=== PATIENT | male | born 1940 | race Caucasian/White ===

== ENCOUNTER 2024-11-17 10:50 | Emergency (ER) | payer MEDICARE, SELFPAY ==
--- OUTSIDE RECORDS SUMMARY | 2024-11-04 18:39 | XMS_ITS | Encounter Summary ---
Author Organization [employer] Address [id number] [address] [place] [address] Care Team Providers Care Equipment Maintenance Supervisor Name Role Phone Alden Harry DO Primary Care Provider + [phone] Reason for Referral * Misc (Routine) - Pending Review Specialty Diagnoses / Procedures Referred By Contac t Referred To Contact Procedures Discharge Follow-Up Discharge Follow-Up Gill Gao APRN-CNP [address] [place] [address] Phone: tel: fax: Referral ID Status Reason Start Date Expiration Date V isits Requested Visits Authorized [id number] Pending Review 11/11/2024 11/11/2025 1 1 * Misc (Routine) - Pending Review Specialty Diagnoses / Procedures Referred By Cosme marshall Referred To Contact Diagnoses Dehydration with hypernatremia Procedures Follow-up with primary care provider Gill Gao APRN-CNP [address] [facility] [place] [address] Phone: tel: fax: Referral ID Status Reason Start Date Expiration Date V isits Requested Visits Authorized [id number] Pending Review 11/11/2024 11/11/2025 1 1 * Consultation (Routine) - Pending Review Specialty Diagnoses / Procedures Referred By Cosme marshall Referred To Contact Diagnoses Goals of care, counseling/discussion Gill Gao APRN-CNP [address] [place] [address] Phone: tel: fax: Referral ID Status Reason Start Date Expiration Date Visits Requested Visits Authorized [id number] Pending Review Service Not Available In-House 11/09/2024 11/09/2025 1 1 Reason for Visit * Reason Comments Medical Screening * Auth/Cert Specialty Diagnoses / Procedures Referred By Cosme marshall Referred To Contact Diagnoses AMS (altered mental status) Dehydration with hypernatremia [facility] - Emergency [address] [place] [address] Phone: tel: fax: Referral ID Status Reason Start Date Expiration Date Visits Re quested Visits Authorized [id number] 1 1 Encounter Details Date Type Department Care Team (Latest Contact Info) Description 11/04/2024 6:39 PM EDT - 11/12/2024 1:29 AM EDT Hospital Encounter [facility] - Acute Care [address] [place] [id number] Sukhi Woods MD [address] [facility] [place] [address] Alison Khalil MD [address] [place] [address] Charlie Mireles MD [address] , [address] [phone] Dehydration with hypernatremia (Primary Dx); SUSAN (acute kidney injury); Goals of care, counseling/discussion ; Acute cystitis with hematuria; Stage 4 chronic kidney disease ([facility]) Discharge Disposition: [facility] Facility-Medicare Cert Social History Tobacco Use Types Packs/Day Years Used Date Smoking Tobacco: Former Cigarettes 1.5 25.7 2 000 - 1960 Smokeless Tobacco: Never Alcohol Use Standard Drinks/Week Comments Not Currently 0 (1 standard drink = 0.6 oz pur e alcohol) 2 beer per year [facility] Utilities Answer Date Recorded In the past 12 months has [employer], gas, oil, or water [employer] threatened to shut off services in your home? No 11/05/2024 Social Connection and Isolat ion Panel [NHANES] Answer Date Recorded In a typical week, how many times do you talk on the phone with family, friends, or neighbors? More than three times a week 05/11/2024 How often do you get togethe r with friends or relatives? Three times a week 05/11/2024 How often do you attend chur ch or moravian services? Never 05/11/2024 Do you belong to any clubs o r organizations such as confucianist groups, unions, fraternal or athletic groups, or school groups? No 05/11/2024 How often do you attend meet ings of the clubs or organizations you belong to? Never 05/11/2024 Are you , , di vorced, , never , or living with a partner? 05/11/2024 AUDIT-C Answer Date Recorded Q1: How often do you have a drink containing alc ohol? Monthly or less 09/23/2024 Q2: How many drinks containi ng alcohol do you have on a typical day when you are drinking? 1 or 2 09/23/2024 Q3: How often do you have si x or more drinks on one occasion? Never 09/23/2024 Overall Financial Resource Strain (CARDIA) Answe r Date Recorded How hard is it for you to pa y for the very basics like food, housing, medical care, and heating? Not hard at all 02/11/2023 PHQ-2 Answer Date Recorded Total Score 0 10/14/2024 [facility] [place] [employer] [facility] - Occupational Stress Questionnaire Answer Date Recorded Do you feel stress - tense, restless, nervous, or anxious, or unable to sleep at night because your mind is troubled all the time - these days? Not at all 02/11/2023 Exercise Vital Sign Answer Date Recorde d On average, how many days pe r week do you engage in moderate to strenuous exercise (like a brisk walk)? 0 days 05/11/2024 On average, how many minutes do you engage in exercise at this level? 0 min 05/11/2024 PRAPARE - Transportation Answer Date Re corded In the past 12 months, has l ack of transportation kept you from medical appointments or from getting medications? No 10/09 In the past 12 months, has l ack of transportation kept you from meetings, work, or from getting things needed for daily living? No 11/05/2024 Housing Instability Answer Date Recorde d Are you worried or concerned that in the next two months you may not have stable housing that you own, rent or stay in as a part of a household? No 11/05/2024 Childcare Answer Date Recorded Do problems getting child ca re make it difficult for you to work or study? No 02/11/2023 Employment Answer Date Recorded Do you need help finding a [facility] career center and/or a training program? No 02/11/2023 Hunger Screening Answer Date Recorded Within the past 12 months we worried whether our food would run out before we got money to buy more. Never True 11/05/2024 Within the past 12 months th e food we bought just didn't last and we didn't have money to get more. Never True 11/05/2024 Purpose - Life Answer Date Recorded I have a purpose and direction in my life. Stron gly Agree 02/11/2023 Sex and Gender Information Value Date Recorded Sex Assigned at Male 07/28/2024 10:17 PM EDT Legal Sex Male 11:51 AM EDT Gender Identity Male 07/28/2024 10:17 PM EDT Sexual Orientation Straight 07/28/2024 10 :17 PM EDT documented as of this encounter Last Filed Vital Signs Vital Sign Reading Time Taken Comments Blood Pressure 130/77 11/11/2024 11:50 PM EDT Pulse 95 11/11/2024 11:50 PM EDT Temperature 36.6 C (97.8 F) 11/11/2024 11:50 PM EDT Respiratory Rate 18 11/11/2024 11:5 0 PM EDT Oxygen Saturation 96% 11/11/2024 11: 50 PM EDT Inhaled Oxygen Concentration - - Weight 69.8 kg (153 lb 14.4 oz) 11/11/2024 6:19 AM EDT Height 182.9 cm (6') 11/05/2024 12:16 AM EDT Body Mass Index 20.87 11/05/2024 12:16 AM EDT documented in this encounter Functional Status documented as of this encounter Discharge Summaries * Charlie Mireles MD - 11/11/2024 12:12 PM EDT Images from the original note were not included. [facility] [address] [address] Hospital Medicine Discharge Summary Patient: Fili Saunders Date of : 1940 Room: Encounter date: 11/11/24 Hospital Day: 8 DATE OF ADMISSION: 11/04/2024 DATE OF DISCHARGE:11/11/2024 DISCHARGE DIAGNOSES Principal Problem: Acute deep vein thrombosis of calf, bilateral ([facility]) Active Problems: Gastroesophageal reflux disease Hyperlipidemia Acquired hypothyroidism Hypomagnesemia Severe protein-calorie malnutrition Primary hypertension Prostate cancer metastatic to bone ([facility]) Dehydration with hypernatremia AMS (altered mental status) Severe protein-calorie malnutrition Stage 4 chronic kidney disease ([facility] CONSULTANTS General surgery Urology PCP: Alden Harry, DO PROCEDURES none HOSPITAL COURSE SUMMARY Fili Saunders is a 84 y.o. male who presented with generalized weakness. According to EMS and family, patient had been bed-bound for approximately 4 weeks. They state for the last week he has not gotten up at all even to use the restroom. They stated he had also had a decrease in appetite and oral intake. Patient has refused to come to the Emergency Room until day of admission. Patientis cyanotic and extremities along with mottling. Chest and abdomen are sunken in. Patient is extremely cachectic. Patient is clinically profoundly dehydrated. His labs show that he is hypernatremic at 153.. BUN is 112 with a creatinine of 2.9. Imaging was largely unrevealing but did have a lot of chronic findings. The patient's primary problem is significant dehydration with hypernatremia and acute kidney injury. Free water deficit calculated at 2.9 L. Patient did receive 0.9 normal saline initially however for volume resuscitation as his extremities were mottled in his mentation was altered.After normal saline he was more alert and his peripheral color is much better. At that point, ER provider did start D5 water to help replace some of the free water deficit. Hospital course: Hypernatremia: Sodium normalized. received D5 solution continued. Low-sodium diet. GERD: Protonix. Hyperlipidemia: Continue home statin. CKD 3B: Creatinine improved- baseline of 1.7-1.9. Continue to monitor daily. Received D5 Hypothyroidism: Continue home Synthroid. Hypomagnesemia: Supplement. Monitor electrolytes daily replace per protocol. Severe protein calorie malnutrition: Nutrition consult. Failed nursing bedside swallow. Choked on pills. Speech therapy consult to see - diet modified. Hypertension: Normotensive. Continue home medications. Altered mental status: Improved since coming up from the emergency department. Back to baseline. Continue to monitor daily. Elevated D-dimer: Unable to get CTA chest due to kidney function. Perfusion scan shows intermediatestudy but no proof of large clot. Venous duplex bilateral lower extremities show bilateral calf muscle DVT. Switch heparin gtt to eliquis. Hematuria- heparin held, urology consulted- pt has OP cysto with left retrograde pyelogram ureteroscopy and biopsy, urine improved today, heparin switched to eliquis. Remained stable, no new hematuria. OP follow up. Tongue plaque: Chlorhexidine oral rinse b.i.d. swish and spit. Cellulitis: IV cefepime / IV Flagyl -switched to po zyvox d/t VRE noted in urine Constipation - check KUB- shows dilated bowels, may represent obstruction/ileus. General surgery consult placed. Enema's and softeners ordered, will need OP colonoscopy per general surgery recommendations. Pt refused EGD/peg tube. OP palliative referral placed. Pt instructed to follow up with PCP in one week. Instructed to seek medical attention if symptoms persist or worsen or if you develop chest pain or shortness of breath. Sepsis suspected, no-not clinically evident at this time. Discharge Day Progress Note 11/11/24 No overnight events and remains hemodynamically stable. Review of Systems Constitutional: Positive for activity change, appetite change and fatigue. Negative for chills, diaphoresis and fever. HENT: Positive for trouble swallowing. Negative for tinnitus. Eyes: Negative for visual disturbance. Respiratory: Negative for cough, chest tightness, shortness of breath and wheezing. Cardiovascular: Negative for chest pain, palpitations and leg swelling. Gastrointestinal: Negative for abdominal pain, diarrhea, nausea and vomiting. Genitourinary: Negative for difficulty urinating. Skin: Negative for rash. Neurological: Positive for weakness. Negative for dizziness, syncope, speech difficulty, light-headedness, numbness and headaches. Psychiatric/Behavioral: Negative for sleep disturbance. BP 90/67 Pulse 91 Temp 36.6 ??C (97.8 ??F) Resp 18 Ht 182.9 cm (6') Wt 69.8 kg (153 lb 14.4 oz) SpO2 95% BMI 20.87 kg/m?? Temp: [36.3 ??C (97.3 ??F)-36.6 ??C (97.8 ??F)] 36.6 ??C (97.8 ??F) Pulse: [84-95] 91 Resp: [18-20] 18 BP: (90-119)/(58-74) 90/67 SpO2: [94 %-100 %] 95 % O2 Device: None (Room air) O2 Flow Rate (L/min): [0 L/min] 0 L/min Intake/Output Summary (Last 24 hours) at 11/11/2024 1428 Last data filed at 11/11/2024 0619 Gross per 24 hour Intake 240 ml Output 700 ml Net -460 ml Physical Exam Vitals and nursing note reviewed. Constitutional: General: He is not in acute distress. Appearance: He is well-developed. He is ill-appearing. HENT: Head: Normocephalic. Right Ear: External ear normal. Left Ear: External ear normal. Nose: Nose normal. Eyes: Conjunctiva/sclera: Conjunctivae normal. Pupils: Pupils are equal, round, and reactive to light. Cardiovascular: Rate and Rhythm: Normal rate and regular rhythm. Heart sounds: Normal heart sounds. No murmur heard. Pulmonary: Effort: Pulmonary effort is normal. Breath sounds: Normal breath sounds. No wheezing. Abdominal: General: Bowel sounds are normal. Palpations: Abdomen is soft. There is no mass. Tenderness: There is no abdominal tenderness. Musculoskeletal: General: Normal range of motion. Cervical back: Normal range of motion. Lymphadenopathy: Cervical: No cervical adenopathy. Skin: General: Skin is warm and dry. Coloration: Skin is pale. Findings: No rash. Neurological: Mental Status: He is alert. He is disoriented. Cranial Nerves: No cranial nerve deficit. Motor: Weakness present. Coordination: Coordination normal. Gait: Gait abnormal. Psychiatric: Behavior: Behavior normal. Code Status: Full Code Labs Recent Results (from the past 48 hours) Anti XA unfractionated heparin Collection Time: 11/09/24 6:28 PM Result Value Ref Range ANTI XA UFH <0.04 (L) 0.30 - 0.70 IU/mL Hemoglobin and hematocrit, blood Collection Time: 11/09/24 6:28 PM Result Value Ref Range Hemoglobin 9.5 (L) 13 - 17 g/dL Hematocrit 29.6 (L) 39 - 50 % Anti XA unfractionated heparin Collection Time: 11/10/24 1:24 AM Result Value Ref Range ANTI XA UFH 0.41 0.30 - 0.70 IU/mL CBC auto differential Collection Time: 11/10/24 7:32 AM Result Value Ref Range WBC 10.5 4 - 11 x10E9/L RBC Count 3.74 (L) 4.1 - 5.7 X10E12/L Hemoglobin 9.9 (L) 13 - 17 g/dL Hematocrit 30.8 (L) 39 - 50 % MCV 82 80 - 100 fL MCH 26.6 (L) 27 - 34 pg MCHC 32.3 32 - 36 g/dL RDW 21.9 (H) 11.5 - 15 % Platelet Count 155 150 - 450 X10E9/L MPV 10.8 7 - 12 fL Metamyelocytes % 1 % Bands % 1 % Neutrophils % 74 % Lymphocytes % 2 % Monocytes % 22 % Eosinophils % 1 % Basophils % 1 % Neutrophils Absolute (M) 7.9 (H) 1.5 - 6.6 10*3/uL Lymphocytes Absolute 0.2 (L) 1.0 - 3.5 10*3/uL Monocytes Absolute 2.3 (H) 0.0 - 0.9 10*3/uL Eosinophils Absolute 0.1 0.0 - 0.4 10*3/uL Basophils Absolute 0.1 0.0 - 0.2 10*3/uL Hypochromia 1+ Acanthocytes 1+ Differential Type MANUAL DIFFERENTIAL Comprehensive metabolic panel Collection Time: 11/10/24 7:32 AM Result Value Ref Range SODIUM 141 134 - 146 mmol/L POTASSIUM 3.5 3.5 - 5.0 mmol/L CHLORIDE 113 (H) 98 - 109 mmol/L CARBON DIOXIDE 21 (L) 22 - 32 mmol/L ANION GAP 7 5 - 15 mmol/L BLOOD UREA NITROGEN 50 (H) 5 - 27 mg/dL CREATININE 1.63 (H) 0.70 - 1.20 mg/dL GLUCOSE 108 (H) 65 - 99 mg/dL CALCIUM 8.0 (L) 8.5 - 10.5 mg/dL TOTAL PROTEIN 6.7 6.0 - 8.0 g/dL ALBUMIN 2.4 (L) 3.2 - 5.3 g/dL ALKALINE PHOSPHATASE 73 39 - 130 U/L AST 12 <=41 U/L ALT 5 <=40 U/L BILIRUBIN,TOTAL 1.0 0.3 - 1.2 mg/dL EGFR Non-Race Dependent 42 (L) >=60 ml/min/1.73sq.m Magnesium Collection Time: 11/10/24 7:32 AM Result Value Ref Range MAGNESIUM 2.0 1.8 - 2.6 mg/dL Anti XA unfractionated heparin Collection Time: 11/10/24 7:32 AM Result Value Ref Range ANTI XA UFH 0.25 (L) 0.30 - 0.70 IU/mL Hemoglobin and hematocrit, blood Collection Time: 11/10/24 12:15 PM Result Value Ref Range Hemoglobin 9.9 (L) 13 - 17 g/dL Hematocrit 30.9 (L) 39 - 50 % Extra Tubes Collection Time: 11/10/24 12:16 PM Narrative The following orders were created for panel order Extra Tubes. Procedure Abnormality Status --------- ------ [facility] TOP[[id number]] Final result Please view results for these tests on the individual orders. PST TOP Collection Time: 11/10/24 12:16 PM Result Value Ref Range Extra Tube Auto Resulted Hemoglobin and hematocrit, blood Collection Time: 11/10/24 9:19 PM Result Value Ref Range Hemoglobin 11.1 (L) 13 - 17 g/dL Hematocrit 34.9 (L) 39 - 50 % Comprehensive metabolic panel Collection Time: 11/11/24 4:49 AM Result Value Ref Range SODIUM 142 134 - 146 mmol/L POTASSIUM 3.9 3.5 - 5.0 mmol/L CHLORIDE 112 (H) 98 - 109 mmol/L CARBON DIOXIDE 19 (L) 22 - 32 mmol/L ANION GAP 11 5 - 15 mmol/L BLOOD UREA NITROGEN 50 (H) 5 - 27 mg/dL CREATININE 1.72 (H) 0.70 - 1.20 mg/dL GLUCOSE 100 (H) 65 - 99 mg/dL CALCIUM 7.9 (L) 8.5 - 10.5 mg/dL TOTAL PROTEIN 6.6 6.0 - 8.0 g/dL ALBUMIN 2.4 (L) 3.2 - 5.3 g/dL ALKALINE PHOSPHATASE 77 39 - 130 U/L AST 15 <=41 U/L ALT 7 <=40 U/L BILIRUBIN,TOTAL 1.4 (H) 0.3 - 1.2 mg/dL EGFR Non-Race Dependent 39 (L) >=60 ml/min/1.73sq.m Magnesium Collection Time: 11/11/24 4:49 AM Result Value Ref Range MAGNESIUM 2.1 1.8 - 2.6 mg/dL CBC auto differential Collection Time: 11/11/24 6:34 AM Result Value Ref Range WBC 13.6 (H) 4 - 11 x10E9/L RBC Count 3.88 (L) 4.1 - 5.7 X10E12/L Hemoglobin 10.2 (L) 13 - 17 g/dL Hematocrit 31.5 (L) 39 - 50 % MCV 81 80 - 100 fL MCH 26.3 (L) 27 - 34 pg MCHC 32.3 32 - 36 g/dL RDW 22.1 (H) 11.5 - 15 % Platelet Count 144 (L) 150 - 450 X10E9/L MPV 9.9 7 - 12 fL Neutrophils % 66.5 % Lymphocytes % 5.3 % Monocytes % 27.5 % Eosinophils % 0.1 % Basophils % 0.6 % Neutrophils Absolute (A) 9.1 (H) 1.5 - 6.6 10*3/uL Lymphocytes Absolute 0.7 (L) 1.0 - 3.5 10*3/uL Monocytes Absolute 3.7 (H) 0.0 - 0.9 10*3/uL Eosinophils Absolute 0.0 0.0 - 0.4 10*3/uL Basophils Absolute 0.1 0.0 - 0.2 10*3/uL Differential Type AUTOMATED DIFFERENTIAL Hemoglobin and hematocrit, blood Collection Time: 11/11/24 12:59 PM Result Value Ref Range Hemoglobin 9.4 (L) 13 - 17 g/dL Hematocrit 29.5 (L) 39 - 50 % Troponin I, High Sensitivity Collection Time: 11/11/24 1:57 PM Narrative The following orders were created for panel order Troponin I, High Sensitivity. Procedure Abnormality Status --------- ------ Troponin I, High Sensiti...[[id number]] In process Troponin I, High Sensiti...[[id number]] Please view results for these tests on the individual orders. Radiology X-ray abdomen ap 1 view Result Date: 11/10/2024 Narrative: EXAM: XR ABDOMEN AP 1 VW CLINICAL INFORMATION: illeus/obstruction. COMPARISON: None. FINDINGS: There remains diffuse air-filled dilated bowel throughout the abdomen, which may represent obstruction or ileus. There is no evidence of pneumatosis or free air. IMPRESSION: Persistent air-filled dilated bowel loops, which may represent obstruction or ileus. There is no convincing evidence ofpneumatosis or free air. Finalized by Luke Stokes MD on 11/10/2024 4:31 PM Fluoroscopy swallow motility function Result Date: 11/09/2024 Narrative: STUDY: Video fluoroscopic swallow study CLINICAL HISTORY: Oral pharyngeal dysphagia, difficulty swallowing COMPARISON: None. FINDINGS: Video fluoroscopic swallow study was performed in conjunction with members of speech pathology. Barium contrast materials of multiple consistencies were a dministered. Fluoroscopic reference air kerma was 4.8 mGy. Multiple video fluoroscopic images. Zerofluoroscopic spot films. No aspiration or laryngeal penetration was seen with any of the consistencies. Correlate with dedicated speech pathology report for additional details and recommendations. IMPRESSION: 1. As above Finalized by Uziar Carroll MD on 11/09/2024 1:40 PM X-ray abdomen ap 1 view Result Date: 11/08/2024 Narrative: EXAM: XR ABDOMEN AP 1 VW CLINICAL INFORMATION: Nausea, constipation. COMPARISON: CT dated 11/04/2024 FINDINGS: There are air-filled dilated loops of bowel, which may represent obstruction or ileus. There is no evidence of pneumatosis or free air. There is no convincing radiographically evident nephrolithiasis. IMPRESSION: Air-filled dilated bowel, which may represent obstruction or ileus. Finalized by Luke Stokes MD on 11/08/2024 1:14 PM Vas venous duplex lwr bilateral Result Date: 11/05/2024 Narrative: Right: Portable lower extremity deep vein thrombosis (DVT) exam performed. Dilated non compressible deep calf muscle vein with hypoechoic intraluminal content and absent spectral Doppler signals. Remaining evaluated deep veins are compressible. Evaulation of supeficial veins was not performed. Left: Portable lower extremity deep vein thrombosis (DVT) exam performed. Non dilated non compressible deep calf muscle vein with hypoechoic intraluminal content and absent spectral Doppler signals. Remaining evaluated deep veins are compressible. Evaulation of supeficial veins was not performed. General: In- patient, bedside examination. Conclusions: BILATERAL:ACUTE deep calf muscle vein thrombosis (DVT). The remainder of the deep veins show no evidence of thrombus NM ventiliation imaging perfusion lung scan Result Date: 11/05/2024 Narrative: Clinical history:Elevated d-dimer and shortness of breath Radioisotope: 32.0 microcuriesDTPA aerosol in nebulizer for the ventilation 5.0 millicuries technetium 99 MAA for the perfusion Findings: Comparison chest radiograph CT chest 10/27/2024 Patchy distribution of isotope on the ventilatory phase of the exam. This is consistent with advanced emphysematous change. There are small peripheral areas of the perfusion deficits this probably secondary to advanced COPD. However tiny embolidifficult to exclude. Impression: By criteria this is probably indeterminate. However there are no large segmental or subsegmental perfusion defects. If symptoms persist consider dedicated CTA chest.Patient cannot have contrast consider bilateral Doppler leg studies Finalized by Jose Saunders MD on 11/05/2024 10:[address] abdomen and pelvis without contrast Result Date: 11/04/2024 Narrative: CT ABDOMEN AND PELVIS WO CONT: 11/04/2024 PROVIDED HISTORY: * 84 years old Male * weakness COMPARISON: 09/26/2024 TECHNIQUE: 1. Multiple axial images of the abdomen and pelvis were obtained.No intravenous contrast was administered. 2. All CT scans at this facility use dose modulation, iterative reconstruction, and/or weight based dosing when appropriate to reduce radiation dose to as low as reasonably achievable. FINDINGS: The lack of intravenous contrast limits evaluation of the solid abdominal organs. Motion degraded examination. LOWER THORAX: Please refer to separately dictated CT chest for intrathoracic findings. ABDOMEN/PELVIS: No acute process of the liver, spleen, adrenals,pancreas (fatty infiltration). Nondistended gallbladder without radiopaque stones. No abnormal biliary tree caliber. Asymmetrically enlarged and heterogenous appearance of the left kidney, similar toprior. Extensive left perirenal fat infiltration. Asymmetrically increased caliber of the left ureter with questionable soft tissue thickening extending to the mid/distal ureter prior to the ureterovesical junction, increased from prior. Asymmetrically decreased caliber of the left renal vein. Right kidney with scattered nonobstructing calculi in multifocal parenchymal contour abnormalities as well as renal cortical cysts, similar to more completely evaluated on prior CT urogram. No evidence ofright hydroureteronephrosis. Layering calculi along the right ureteral orifice. Urinary bladder with asymmetric bowel wall thickening. Enlarged prostate with scattered calcifications. Rectal fecalithmeasuring up to 7.8 cm with mild perirectal inflammatory changes. Colonic diverticulosis without evidence of acute diverticulitis. Remainder the bowel without evidence of abnormal caliber. Terminal ileum within normal limits for technique. Candidate appendix without abnormal dilation. 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 No free air, free fluid. Increased overall number of upper abdominal and periaortic lymph nodes, though not definitively abnormal by CT size criteria/morphology. Multilevel degenerative changes of the spine. Degenerative changes of the hips, symphysis pubis. No suspicious osseus lesions. IMPRESSION: 1. Heterogenous appearance of the enlarged left kidney with asymmetric soft tissue enlargement of the left ureter and questionably left renal vein, progressed from prior, as described. Differential includes infectious/inflammatory process, with underlyi ng neoplasm not excluded by noncontrast technique. 2. Asymmetric urinary bladder wall thickening with prostatomegaly, possibly sequelae of chronic outlet obstruction, though underlying neoplastic process not excluded. 3. 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 2 year follow-up CTA/MRA may be of diagnostic value. 4. Remainder of chronic findings, as described. Marlon Hall,et al. Managing Incidental Findings on Abdominal and Pelvic CT and MRI, Part 2: White Paper of the ACR Incidental Findings Committee II on Vascular Findings. J Am Cherie Radiol 2013;10:789-794. Finalized by Justin Hawthorne MD on 11/04/2024 9:[address] chest without contrast Result Date: 11/04/2024 Narrative: EXAM: CT CHEST WITHOUT CONTRAST CLINICAL INFORMATION: weakness. TECHNIQUE: CT chest was performed utilizing 5 mm axial reconstructions without contrast. Coronal and sagittal reformatted images were obtained and reviewed. Automated exposure control was utilized. Computer aided detection for pulmonary nodules was performed utilizing [employer] software. COMPARISON: CT dated 07/11/2024, single view chest dated 11/04/2024 FINDINGS: There are changes of centrilobular emphysema with chronic scarring in both lungs. Stable chronic benign middle lobe nodule. There is also a benign calcified middle lobe granuloma. There are no focal consolidations. There are no pleural or pericardial effusions. There are no enlarged or pathologic-appearing thoracic lymph nodes. There scattered atherosclerotic calcifications throughout a normal diameter thoracic aorta. There are mild coronary artery calcifications. Again seen are right diaphragmatic calcified pleural plaques, most commonly seen in the setting of previous asbestos exposure. IMPRESSION: 1. Redemonstration of centrilobular emphysema with chronic scarring in both lungs and chronic benign nodules. There is no convincing evidence for superimposed acute cardiopulmonary disease. 2. Chronic and incidental CT findings, as above. 3. Please seeseparate dictation of the dedicated CT of the abdomen and pelvis. All CT scans at this facility usedose modulation, iterative reconstruction, and/or weight based dosing when appropriate to reduce radiation dose to as low as reasonably achievable. Finalized by Luke Stokes MD on 11/04/2024 9:40 PM X-ray chest 1 view Result Date: 11/04/2024 Narrative: HISTORY: An 84-year-old male with a history of the shortness of breath. EXAMINATION: CHEST: Portable upright AP view COMPARISON: Comparison is made with the chest radiograph of the 09/22/2024. FINDINGS: Both lungs are hyperinflated with evidence of emphysema and COPD. Chronic changes are seen in the left mid lung field. No evidence of pneumonic infiltrates or pleural effusions. No pneumothorax is identified. The cardiac silhouette is within normal limits. The trachea is in midline. The mediastinum is otherwise unremarkable. The hemidiaphragms are normal in position. The bony rib cage is intact. IMPRESSION: * Severe emphysema and COPD and chronic changes in the left mid lung field.* No evidence of pulmonary infiltrate or acute pulmonary pathology or significant interval change. Finalized by Mario Moran MD on 11/04/2024 6:59 PM DISCHARGE INSTRUCTION Disposition: nursing home facility Condition: Stable Activity: activity as tolerated Diet: Adult diet Level 6 Soft and Bite Sized diet Adult nutrition supplements Follow up: Alden Harry DO within 7-14 days. Urology Palliative care Labs/Imaging/Pathology: cbc 1 week Discharge Medications: Medication List PAUSE taking these medications Instructions Last Dose Given Next Dose Due mirtazapine 15 mg tablet Wait to take this until: November 18, 2024 Commonly known as: REMERON Take 1 tablet (15 mg total) by mouth nightly. traZODone 50 mg tablet Wait to take this until: November 18, 2024 Commonly known as: DESYREL Take 1 tablet (50 mg total) by mouth nightly as needed for sleep. START taking these medications Instructions Last Dose Given Next Dose Due apixaban 5 mg tablet Commonly known as: ELIQUIS Start taking on: November 11, 2024 Take 2 tablets (10 mg total) by mouth 2 (two) times a day for 6 days, THEN 1 tablet (5 mg total) 2 (two) times a day for 90 days. linezolid 600 mg tablet Commonly known as: ZYVOX Take 1 tablet (600 mg total) by mouth every 12 (twelve) hours for 10 days. CONTINUE taking these medications Instructions Last Dose Given Next Dose Due meclizine 12.5 mg tablet Commonly known as: ANTIVERT Take 1 tablet (12.5 mg total) by mouth 3 (three) times a day as needed for dizziness. midodrine 10 mg tablet Commonly known as: PROAMATINE Take 1 tablet (10 mg total) by mouth in the morning and at bedtime. ASK your doctor about these medications Instructions Last Dose Given Next Dose Due albuterol 2.5 mg /3 mL (0.083 %) nebulizer solution Commonly known as: PROVENTIL,VENTOLIN USE 1 VIAL VIA NEBULIZER EVERY 8 HOURS NEEDED FOR WHEEZING nitroglycerin 0.4 MG SL tablet Commonly known as: NITROSTAT DISSOLVE 1 TAB UNDER TONGUE FOR CHEST PAIN - IF PAIN REMAINS AFTER 5 MIN, CALL 911 AND REPEAT DOSE.MAX 3 TABS IN 15 MINUTES Where to Get Your Medications These medications were sent to [facility] [id number] [facility] [address] [place] [id number] apixaban 5 mg tablet linezolid 600 mg tablet >30 minutes were spent on discharging this patient. DHEERAJ Hughes 11/11/2024 2:28 PM [facility] Internal Medicine 7AM-7PM & 7PM-7AM: EpicChat or page through On-Call Finder. DHEERAJ Hughes 11/11/24 1414 Physician Attestation I, Charlie Mireles MD, personally performed a face to face diagnostic evaluation on this patient. I have reviewed the note authored by the advance practice provider including history, review of systems,physical examination,medical decision making and agree with the assessment and plan as written. I have seen and evaluated the patient, I have repeated the hsah portions of the physical exam and concur with the MYKEL findings. I have reviewed all laboratory findings and imaging reports/films. I agree with the plan as noted. Patient with metastatic prostate cancer severe protein calorie malnutrition, CKD 4 was admitted with DVT.Patient was started on IV heparin drip. Patient was started on IV antibiotics for acute cystitis and cellulitis forehead.General surgery was consulted for PEG tube placement patient refused PEG tube for nutrition. Code status discussed with patient. Palliative consult as outpatient. Patient developed hematuria during hospital stay urology services were consulted IV heparin drip was held patient's hemoglobin remained stable during hospital stay hematuria resolved patient was started on Eliquis for DVT. Patient is being discharged in stable condition. 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 Follow up with Urology as outpatient Palliative care consult as outpatient for goal of care CBC CMP in 1 week documented in this encounter Discharge Instructions * Attachments The following attachments cannot be sent through Care Everywhere. * Urinary tract infection ??? Discharge instructions ([place]) * Dehydration in adults ??? ED discharge instructions ([place]) * Deep vein thrombosis ??? Discharge instructions ([place]) documented in this encounter Medications at Time of Discharge albuterol (PROVENTIL,VENTOL IN) 2.5 mg /3 mL (0.083 %) nebulizer solutionIndicatio ns:Panlobular emphysema (CMS-HCC) USE 1 VIAL VIA NEBULIZER EVERY 8 HOURS NEEDED FOR WHEEZING 300 mL 9 04/06/2024 apixaban (ELIQUIS) 5 mg tablet Take 2 tablets (10 mg total) by mouth 2 (two) times a day for 6 days, THEN 1 tablet (5 mg total) 2 (two) times a day for 90 days. 204 tablet 11/11/2024 5 linezolid (ZYVOX) 600 mg tablet Take 1 tablet (600 mg total) by mouth every 12 (twelve) hours for 10 days. 20 tablet 11/11/2024 5 meclizine (ANTIVERT) 12.5 mg tablet Take 1 tablet (12.5 mg total) by mouth 3 (three) times a day as needed for dizziness. 90 tablet 1 07/23/2024 midodrine (PROAMATINE) 10 mg tabletIndications :Orthostatic hypotension Take 1 tablet (10 mg total) by mouth in the morning and at bedtime. 60 tablet 1 10/13/2024 mirtazapine (REMERON) 15 mg tablet Take 1 tablet (15 mg total) by mouth nightly. 30 tablet 1 10/14/2024 nitroglycerin (NITROSTAT) 0.4 MG SL tablet DISSOLVE 1 TAB UNDER TONGUE FOR CHEST PAIN - IF PAIN REMAINS AFTER 5 MIN, CALL 911 AND REPEAT DOSE. MAX 3 TABS IN 15 MINUTES 25 tablet 08/05/2024 traZODone (DESYREL) 50 mg tablet Take 1 tablet (50 mg total) by mouth nightly. 30 tablet 11/18/2024 documented as of this encounter Progress Notes * Oscar Perales, DO - 11/11/2024 10:41 AM EDT Daily Progress Note NAME: Fili Saunders : 1940 Principal Problem: Acute deep vein thrombosis of calf, bilateral (CMS-HCC) Active Problems: Gastroesophageal reflux disease Hyperlipidemia Acquired hypothyroidism Hypomagnesemia Severe protein-calorie malnutrition Primary hypertension Dehydration with hypernatremia AMS (altered mental status) Severe protein-calorie malnutrition Stage 4 chronic kidney disease (CMS-HCC) LOS: 7 days Subjective Patient resting comfortably and just fell asleep according to his at the bedside. He does not want a PEG tube for nutritional purposes. He has lost a significant amount of weight. He said he weighed over 200 lb in his now down to 130 lb. He does not want to eat or drink. She does realize that without feeding tube he will from malnutrition. He does not want a PEG tube. He refused to have small bowel series yesterday with nursing. He is having multiple bowel movements per nurse'snotes. Vital signs in last 24 hours: Temp: [36.4 ??C (97.6 ??F)-36.6 ??C (97.8 ??F)] 36.6 ??C (97.8 ??F) Pulse: [64-95] 89 Resp: [17-20] 18 BP: (107-128)/(58-73) 119/70 SpO2: [94 %-97 %] 97 % O2 Device: None (Room air) O2 Flow Rate (L/min): [0 L/min] 0 L/min Intake/Output last 3 shifts: I/O last 3 completed shifts: In: 360 [P.O.:360] Out: 1650 [Urine:1650] Intake/Output this shift: No intake/output data recorded. Physical Exam: Constitutional: He is oriented to person, place, and time. Vital signs are normal. He appears well-developed and malnourished. Neurological: Resting nicely. Skin: Skin is warm, dry and intact. LABS Results: Lab Results Component Value Date WBC 13.6 (H) 11/11/2024 HGB 10.2 (L) 11/11/2024 HCT 31.5 (L) 11/11/2024 MCV 81 11/11/2024 PLT 144 (L) 11/11/2024 Lab Results Component Value Date GLU 100 (H) 11/11/2024 CALCIUM 7.9 (L) 11/11/2024 SODIUM 142 11/11/2024 K 3.9 11/11/2024 CO2 19 (L) 11/11/2024 BUN 50 (H) 11/11/2024 CREATININE 1.72 (H) 11/11/2024 Impression: 1. Severe malnutrition 2. No evidence of bowel obstruction since he is having multiple bowel movements and no more nausea or vomiting. Plan: We will sign off unless patient wants PEG tube. - Oscar Perales DO 11/11/24 10:42 AM * ANDRÉS Webb - 11/11/2024 10:15 AM EDT NUTRITION ADULT FOLLOW- UP Nutrition Assessment: Pt consuming minimal PO intakes and supplements at this time Noted hypoactive bowel sounds on 11/10/24 with loss of appetite, Dr. Perales consulted RECOMMENDATIONS: Suggest enteral tube feeding for senior care nutritional care however pt and family have declined at this time. Per Speech recommendations Level 6 Soft and Bite size 0 with thin liquids, on 11/10/24 pt refused speech therapy visit Physical Review: Wound: From RN flow sheet assessment Wound 10/06/24 1 Laceration Face Left-State of Healing: Other (Comment) (scabbed) Wound 10/06/24 1 Laceration Face Left-Site Assessment: Clean, Dry, Intact Wound 11/05/24 1 Abrasion Shoulder Anterior;Left-Site Assessment: Unable to assess Gastrointestinal: From RN flow sheet assessment Abdomen Assessment: Flat, Nondistended Last BM Date: 11/10/24 Passing Flatus: Yes RUQ Bowel Sounds: Hypoactive LUQ Bowel Sounds: Hypoactive RLQ Bowel Sounds: Hypoactive LLQ Bowel Sounds: Hypoactive GI Symptoms: Loss of appetite Relieved by: Antiemetic Edema: From RN flow sheet assessment Labs: Results from last 3 days Lab Units 11/11/2444811/10/24 0732 11/09/24 0605 SODIUM mmol/L 142 141 142 POTASSIUM mmol/L 3.9 3.5 3.5 CHLORIDE mmol/L 112* 113* 113* CO2 mmol/L 19* 21* 20* BUN mg/dL 50* 50* 59* CREATININE mg/dL 1.72* 1.63* 1.76* CALCIUM mg/dL 7.9* 8.0* 7.8* ALK PHOS U/L 77 73 69 ALT U/L 7 5 8 AST U/L 15 12 13 Results from last 7 days Lab Units 11/11/24 04411/10/24 0732 11/09/24 0605 11/08/24 1702 11/08/24 0434 11/07/24 0516 11/06/24 0531 GLUCOSE mg/dL 100* 108* 125* 120* 102* 127* 120* Results from last 7 days Lab Units 11/11/24 0634 11/10/24 2119 11/10/24 1215 11/10/24 0732 11/09/24 1828 11/09/24 1330 11/09/24 0605 WBC x10E9/L 13.6* -- -- 10.5 -- -- 9.6 HEMOGLOBIN g/dL 10.2* 11.1* 9.9* 9.9* < > 10.1* 9.4* HEMATOCRIT % 31.5* 34.9* 30.9* 30.8* < > 31.3* 28.7* PLATELETS X10E9/L 144* -- -- 155 -- 118* 117* < > = values in this interval not displayed. Results from last 3 days Lab Units 11/11/2444811/10/24 0732 11/09/24 1330 MAGNESIUM mg/dL 2.1 2.0 2.2 Pertinent Nutrition-related medications/parenteral: Current Facility-Administered Medications Medication Dose Route Frequency Provider Last Rate Last Admin alum-mag hydroxide-simeth (MAALOX) 200-200-20 mg/5 mL suspension 30 mL 30 mL oral [facility] DHEERAJ Bray apixaban (ELIQUIS) tablet 10 mg 10 mg oral BID DHEERAJ Hughes 10 mg at 11/11/24 0922 Followed by [START ON 11/17/2024] apixaban (ELIQUIS) tablet 5 mg 5 mg oral BID DHEERAJ Hughes barium sulfate (VARIBAR HONEY) 40 % (w/v) 29% (w/w) suspension 60 mL 60 mL oral Once in imaging Charlie Mireles MD barium sulfate (VARIBAR NECTAR) 40 % (w/v) suspension 10 mL 10 mL oral Once in imaging Charlie Mireles MD barium sulfate (VARIBAR THIN HONEY) 40 %(w/v), 29% (w/w)(1500 CPS) suspension 20 mL 20 mL oral Oncein imaging Charlie Mireles MD CEPHalexin (KEFLEX) capsule 500 mg 500 mg oral Q8H CHANDLER DHEERAJ Hughes 500 mg at 11/11/24 0621 chlorhexidine (PERIDEX) 0.12 % solution 15 mL 15 mL mouth/throat BID DHEERAJ Richards 15 mLat 11/11/24 0922 ipratropium-albuteroL (DUONEB) 0.5 mg-3 mg(2.5 mg base)/3 mL nebulizer solution 3 mL 3 mL nebulization Q6H PRN Alison Khalil MD magnesium sulfate IVPB 2000 mg/50 mL in iso-osmotic water (40 mg/mL premix) 2,000 mg intravenous PRN DHEERAJ Bray Stopped at 11/09/24 1043 magnesium sulfate IVPB 4000 mg/100 mL in iso-osmotic water (40 mg/mL premix) 4,000 mg intravenous PRN DHEERAJ Bray meclizine (ANTIVERT) tablet 12.5 mg 12.5 mg oral TID PRN DHEERAJ Richards midodrine (PROAMATINE) tablet 10 mg 10 mg oral TID DHEERAJ Richards 10 mg at 11/11/24 0621 mirtazapine (REMERON) tablet 15 mg 15 mg oral Nightly Rommel D Krotzer, WEEKEND RECEPTIONIST[employer]BORDER GUARD 15 mg at 11/10/24 2207 ondansetron (PF) (ZOFRAN) injection 4 mg 4 mg intravenous Q4H PRN Brittany Xena, WEEKEND RECEPTIONIST-BORDER GUARD 4 mg at11/10/24 0234 polyethylene glycol (GLYCOLAX) packet 17 g 17 g oral Daily PRN Ocsar Perales, potassium chloride (K-TAB,KLOR-CON) CR tablet 30-40 mEq 30-40 mEq oral PRN Brittany Xena, WEEKEND RECEPTIONIST[employer]BORDER GUARD Or potassium chloride (KAYCIEL) 20 mEq/15 mL solution 30-40 mEq 30-40 mEq oral PRN Brittany Xena, WEEKEND RECEPTIONIST-BORDER GUARD Or potassium chloride IVPB 10 mEq/100 mL in water (0.1 mEq/mL premix) 10 mEq intravenous PRN Brittany Xena, WEEKEND RECEPTIONIST-BORDER GUARD sennosides-docusate sodium (SENOKOT-S) 8.6-50 mg 1 tablet 1 tablet oral Q12H PRN Brittany Xena, WEEKEND RECEPTIONIST-BORDER GUARD sodium chloride 0.9 % flush 3 mL 3 mL intravenous PRN Brittany Xena, WEEKEND RECEPTIONIST-BORDER GUARD sodium chloride 0.9 % flush 3 mL 3 mL intravenous Q12H CHANDLER Brittany [place], WEEKEND RECEPTIONIST-BORDER GUARD 3 mL at 11/11/24 0922 traZODone (DESYREL) tablet 50 mg 50 mg oral Nightly PRN Rommel D Krotzer, WEEKEND RECEPTIONIST-BORDER GUARD 50 mg at 11/10/24 2211 [place] Body Weight (80.4 kg) used to estimate nutrition needs Comparative Standards: Estimated Energy Needs: 6833-1113 kcals daily. Method and weight used: 25-30 kcal/kg Act (78.3 kg) Estimated Protein Needs: 94-157 grams daily. Method and weight used: 1.2-2 g protein/kg Act (78.3 kg) Estimated Fluid Needs: 1161-7453 ml daily. Method weight used: 25-30 ml/kg Act (78.3 kg) Comments: general needs. Malnutrition Status: Malnutrition Present: Yes, Severe. Previously identified on 07/29/24, see RD note. NUTRITION DIAGNOSIS: Intake Diagnosis: Acute disease or injury related malnutrition (NI 5.2.3) Ongoing Anthropometrics: Ht Readings from Last 1 Encounters: 11/05/24 182.9 cm (6') Wt Readings from Last 3 Encounters: 11/11/24 69.8 kg (153 lb 14.4 oz) 10/14/24 71.5 kg (157 lb 9.6 oz) 10/13/24 72.1 kg (159 lb) Diet/ Nutrition Order Review: Dietary Orders (From admission, onward) Start Ordered 11/09/24 1511 Adult diet Level 6 Soft and Bite Sized diet Diet effective now Comments: Thin liquids, small sips Compensatory Strategies: Small sips/bites, One sip/bite at a time, Double swallow Supervision/Positioning: Patient at 90 degress for all PO intake (including medication), Patient toremain upright 15 minutes after meals Medications: In applesauce/puree Question: Diet Type: Answer: Level 6 Soft and Bite Sized diet 11/09/24 1512 11/05/24 1300 Adult nutrition supplements Continuous Question Answer Comment Diet Type or Consistency: Regular Texture Select Supplement: Wound Healing Supplement Frequency: BID 11/05/24 1259 11/05/24 1258 Adult nutrition supplements Continuous Question Answer Comment Diet Type or Consistency: Regular Texture Select Supplement: Standard House Supplement 8 oz Supplement Frequency: TID 11/05/24 1257 Diet Intakes: [] 75-100% [] 50-75% [] 25-50% [x] <25% [] NPO [] Unable to assess Oral Supplemental Intake/Acceptance: [] 75-100% [] 50-75% [] 25-50% [x] <25% [] NPO [] Unable to assess NUTRITION INTERVENTIONS: Coordination of nutrition care: spoke with RN, Supplements (medical food, vitamin or mineral): will change supplements to Magic Cup Tid will provide 290 kcal/10 g protein per serving. NUTRITION GOAL: Patient to meet calorie and protein needs NUTRITION MONITORING: Will monitor PO intakes, supplement acceptance, skin integrity, Weights, Nutrition Related Labs, POC & Follow. NUTRITION EVALUATION: [] Progressing toward goal [] Not progressing [x] Progress toward goal declining [] Goal achieved Geni Cardona RD.,LD. Clinical Dietitian [facility] [phone] 11/11/24 10:15 AM * Debbie Tiwari RN - 11/10/2024 3:55 PM EDT Patient took one drink of gastrograffin, and refused to drink anymore. Notified Dr Perales. Will cancel small bowel series since patient refused * Oscar Perales, - 11/10/2024 2:46 PM EDT Daily Progress Note NAME: Fili Saunders : 1940 Principal Problem: Acute deep vein thrombosis of calf, bilateral (CMS-HCC) Active Problems: Gastroesophageal reflux disease Hyperlipidemia Acquired hypothyroidism Hypomagnesemia Severe protein-calorie malnutrition Primary hypertension Dehydration with hypernatremia AMS (altered mental status) Severe protein-calorie malnutrition Stage 4 chronic kidney disease (CMS-HCC) LOS: 6 days Subjective Patient resting currently; and daughter in the room and tell me that he is being discharged tonursing facility but they are concerned because he is not eating. I told him that he was offered a PEG tube but declined. He may get that later if he changes his mind. He is having some liquid stools per family. Vital signs in last 24 hours: Temp: [36.2 ??C (97.2 ??F)-36.7 ??C (98 ??F)] 36.6 ??C (97.8 ??F) Pulse: [64-80] 64 Resp: [16-18] 17 BP: (101-128)/(49-73) 128/73 SpO2: [96 %-100 %] 96 % O2 Device: None (Room air) O2 Flow Rate (L/min): [0 L/min] 0 L/min Intake/Output last 3 shifts: I/O last 3 completed shifts: In: 2504.3 [I.V.:2138.1; IV Piggyback:366.3] Out: 1250 [Urine:1250] Intake/Output this shift: No intake/output data recorded. Physical Exam: Constitutional: He is oriented to person, place, and time. Vital signs are normal. He appears well-developed and well-nourished. Abdomen softly distended Neurological: He is alert and oriented to person, place, and time. Skin: Skin is warm, dry and intact. LABS Results: Lab Results Component Value Date WBC 10.5 11/10/2024 HGB 9.9 (L) 11/10/2024 HCT 30.9 (L) 11/10/2024 MCV 82 11/10/2024 PLT 155 11/10/2024 Lab Results Component Value Date GLU 108 (H) 11/10/2024 CALCIUM 8.0 (L) 11/10/2024 SODIUM 141 11/10/2024 K 3.5 11/10/2024 CO2 21 (L) 11/10/2024 BUN 50 (H) 11/10/2024 CREATININE 1.63 (H) 11/10/2024 Impression: Colonic ileus due to fecal matter in rectum Severe malnutrition Plan: We will perform small-bowel series to rule out SBO prior to being discharged and suppository per rectum. - Oscar Perales DO 11/10/24 2:46 PM * Charlie Mireles MD - 11/10/2024 11:00 AM EDT Images from the original note were not included. [facility] [address] [place] [id number] Hospital Medicine Progress Note Patient: Fili Saunders Date of : 1940 Room: 212/01 PCP: Alden Harry DO Admission date: 11/04/2024 6:39 PM Encounter date: 11/10/24 SUBJECTIVE Chief complaints: Chief Complaint Patient presents with Medical Screening Interval History: Status: unchanged. No overnight events or new complaints. Switch to eliquis for dvt, diet per SLT recommendations. Pending acceptance to SNF. Review of Systems Review of Systems Constitutional: Positive for activity change, appetite change and fatigue. Negative for chills, diaphoresis and fever. HENT: Positive for trouble swallowing. Negative for tinnitus. Eyes: Negative for visual disturbance. Respiratory: Negative for cough, chest tightness, shortness of breath and wheezing. Cardiovascular: Negative for chest pain, palpitations and leg swelling. Gastrointestinal: Negative for abdominal pain, diarrhea, nausea and vomiting. Genitourinary: Negative for difficulty urinating. Skin: Negative for rash. Neurological: Positive for weakness. Negative for dizziness, syncope, speech difficulty, light-headedness, numbness and headaches. Psychiatric/Behavioral: Negative for sleep disturbance. OBJECTIVE BP 128/73 Pulse 64 Temp 36.6 ??C (97.8 ??F) (Axillary) Resp 17 Ht 182.9 cm (6') Wt 62.6 kg (138 lb 1.6 oz) SpO2 96% BMI 18.73 kg/m?? Intake/Output Summary (Last 24 hours) at 11/10/2024 1349 Last data filed at 11/10/2024 0554 Gross per 24 hour Intake -- Output 950 ml Net -950 ml Physical Exam Physical Exam Vitals and nursing note reviewed. Constitutional: General: He is not in acute distress. HENT: Head: Normocephalic. Comments: Erythema noted around head laceration Right Ear: External ear normal. Left Ear: External ear normal. Nose: Nose normal. Mouth/Throat: Mouth: Mucous membranes are dry. Pharynx: Oropharynx is clear. Comments: Dry plaque noted on tongue slightly brownish in color Eyes: Pupils: Pupils are equal, round, and reactive to light. Neck: Vascular: No carotid bruit or JVD. Cardiovascular: Rate and Rhythm: Normal rate and regular rhythm. Pulses: Normal pulses. Pulmonary: Effort: Pulmonary effort is normal. Breath sounds: Normal breath sounds. No wheezing or rales. Comments: Oxygen at 4 L per nasal cannula Abdominal: General: Bowel sounds are decreased. Tenderness: There is no abdominal tenderness. There is no right CVA tenderness or left CVA tenderness. Musculoskeletal: Right lower leg: No edema. Left lower leg: No edema. Lymphadenopathy: Cervical: No cervical adenopathy. Skin: General: Skin is warm and dry. Capillary Refill: Capillary refill takes 2 to 3 seconds. Findings: Abrasion, erythema and laceration present. Neurological: General: No focal deficit present. Mental Status: He is alert and oriented to person, place, and time. Motor: Weakness present. Psychiatric: Mood and Affect: Mood normal. Behavior: Behavior normal. Thought Content: Thought content normal. Judgment: Judgment normal. Medications Scheduled: apixaban, 10 mg, oral, BID FOLLOWED BY [START ON 11/17/2024] apixaban, 5 mg, oral, BID bisacodyL, 10 mg, rectal, Once CEPHalexin, 500 mg, oral, Q8H CHANDLER chlorhexidine, 15 mL, mouth/throat, BID midodrine, 10 mg, oral, TID mirtazapine, 15 mg, oral, Nightly sodium chloride, 3 mL, intravenous, Q12H CHANDLER Infusions: As Needed: alum-mag hydroxide-simeth barium sulfate barium sulfate barium sulfate ipratropium-albuteroL magnesium sulfate magnesium sulfate meclizine ondansetron polyethylene glycol potassium chloride OR potassium chloride OR potassium chloride IV (Adult) sennosides-docusate sodium sodium chloride traZODone Allergies: Patient has no known allergies. Labs Recent Results (from the past 24 hours) Anti XA unfractionated heparin Collection Time: 11/09/24 6:28 PM Result Value Ref Range ANTI XA UFH <0.04 (L) 0.30 - 0.70 IU/mL Hemoglobin and hematocrit, blood Collection Time: 11/09/24 6:28 PM Result Value Ref Range Hemoglobin 9.5 (L) 13 - 17 g/dL Hematocrit 29.6 (L) 39 - 50 % Anti XA unfractionated heparin Collection Time: 11/10/24 1:24 AM Result Value Ref Range ANTI XA UFH 0.41 0.30 - 0.70 IU/mL CBC auto differential Collection Time: 11/10/24 7:32 AM Result Value Ref Range WBC 10.5 4 - 11 x10E9/L RBC Count 3.74 (L) 4.1 - 5.7 X10E12/L Hemoglobin 9.9 (L) 13 - 17 g/dL Hematocrit 30.8 (L) 39 - 50 % MCV 82 80 - 100 fL MCH 26.6 (L) 27 - 34 pg MCHC 32.3 32 - 36 g/dL RDW 21.9 (H) 11.5 - 15 % Platelet Count 155 150 - 450 X10E9/L MPV 10.8 7 - 12 fL Metamyelocytes % 1 % Bands % 1 % Neutrophils % 74 % Lymphocytes % 2 % Monocytes % 22 % Eosinophils % 1 % Basophils % 1 % Neutrophils Absolute (M) 7.9 (H) 1.5 - 6.6 10*3/uL Lymphocytes Absolute 0.2 (L) 1.0 - 3.5 10*3/uL Monocytes Absolute 2.3 (H) 0.0 - 0.9 10*3/uL Eosinophils Absolute 0.1 0.0 - 0.4 10*3/uL Basophils Absolute 0.1 0.0 - 0.2 10*3/uL Hypochromia 1+ Acanthocytes 1+ Differential Type MANUAL DIFFERENTIAL Comprehensive metabolic panel Collection Time: 11/10/24 7:32 AM Result Value Ref Range SODIUM 141 134 - 146 mmol/L POTASSIUM 3.5 3.5 - 5.0 mmol/L CHLORIDE 113 (H) 98 - 109 mmol/L CARBON DIOXIDE 21 (L) 22 - 32 mmol/L ANION GAP 7 5 - 15 mmol/L BLOOD UREA NITROGEN 50 (H) 5 - 27 mg/dL CREATININE 1.63 (H) 0.70 - 1.20 mg/dL GLUCOSE 108 (H) 65 - 99 mg/dL CALCIUM 8.0 (L) 8.5 - 10.5 mg/dL TOTAL PROTEIN 6.7 6.0 - 8.0 g/dL ALBUMIN 2.4 (L) 3.2 - 5.3 g/dL ALKALINE PHOSPHATASE 73 39 - 130 U/L AST 12 <=41 U/L ALT 5 <=40 U/L BILIRUBIN,TOTAL 1.0 0.3 - 1.2 mg/dL EGFR Non-Race Dependent 42 (L) >=60 ml/min/1.73sq.m Magnesium Collection Time: 11/10/24 7:32 AM Result Value Ref Range MAGNESIUM 2.0 1.8 - 2.6 mg/dL Anti XA unfractionated heparin Collection Time: 11/10/24 7:32 AM Result Value Ref Range ANTI XA UFH 0.25 (L) 0.30 - 0.70 IU/mL Hemoglobin and hematocrit, blood Collection Time: 11/10/24 12:15 PM Result Value Ref Range Hemoglobin 9.9 (L) 13 - 17 g/dL Hematocrit 30.9 (L) 39 - 50 % Extra Tubes Collection Time: 11/10/24 12:16 PM Narrative The following orders were created for panel order Extra Tubes. Procedure Abnormality Status --------- ------ [facility] TOP[[id number]] In process Please view results for these tests on the individual orders. Radiology Vas venous duplex lwr bilateral Result Date: 11/05/2024 Narrative: Right: Portable lower extremity deep vein thrombosis (DVT) exam performed. Dilated non compressible deep calf muscle vein with hypoechoic intraluminal content and absent spectral Doppler signals. Remaining evaluated deep veins are compressible. Evaulation of supeficial veins was not performed. Left: Portable lower extremity deep vein thrombosis (DVT) exam performed. Non dilated non compressible deep calf muscle vein with hypoechoic intraluminal content and absent spectral Doppler signals. Remaining evaluated deep veins are compressible. Evaulation of supeficial veins was not performed. General: In- patient, bedside examination. Conclusions: BILATERAL:ACUTE deep calf muscle vein thrombosis (DVT). The remainder of the deep veins show no evidence of thrombus NM ventiliation imaging perfusion lung scan Result Date: 11/05/2024 Narrative: Clinical history:Elevated d-dimer and shortness of breath Radioisotope: 32.0 microcuriesDTPA aerosol in nebulizer for the ventilation 5.0 millicuries technetium 99 MAA for the perfusion Findings: Comparison chest radiograph CT chest 10/27/2024 Patchy distribution of isotope on the ventilatory phase of the exam. This is consistent with advanced emphysematous change. There are small peripheral areas of the perfusion deficits this probably secondary to advanced COPD. However tiny embolidifficult to exclude. Impression: By criteria this is probably indeterminate. However there are no large segmental or subsegmental perfusion defects. If symptoms persist consider dedicated CTA chest.Patient cannot have contrast consider bilateral Doppler leg studies Finalized by Jose Saunders MD on 11/05/2024 10:[address] abdomen and pelvis without contrast Result Date: 11/04/2024 Narrative: CT ABDOMEN AND PELVIS WO CONT: 11/04/2024 PROVIDED HISTORY: * 84 years old Male * weakness COMPARISON: 09/26/2024 TECHNIQUE: 1. Multiple axial images of the abdomen and pelvis were obtained.No intravenous contrast was administered. 2. All CT scans at this facility use dose modulation, iterative reconstruction, and/or weight based dosing when appropriate to reduce radiation dose to as low as reasonably achievable. FINDINGS: The lack of intravenous contrast limits evaluation of the solid abdominal organs. Motion degraded examination. LOWER THORAX: Please refer to separately dictated CT chest for intrathoracic findings. ABDOMEN/PELVIS: No acute process of the liver, spleen, adrenals,pancreas (fatty infiltration). Nondistended gallbladder without radiopaque stones. No abnormal biliary tree caliber. Asymmetrically enlarged and heterogenous appearance of the left kidney, similar toprior. Extensive left perirenal fat infiltration. Asymmetrically increased caliber of the left ureter with questionable soft tissue thickening extending to the mid/distal ureter prior to the ureterovesical junction, increased from prior. Asymmetrically decreased caliber of the left renal vein. Right kidney with scattered nonobstructing calculi in multifocal parenchymal contour abnormalities as well as renal cortical cysts, similar to more completely evaluated on prior CT urogram. No evidence ofright hydroureteronephrosis. Layering calculi along the right ureteral orifice. Urinary bladder with asymmetric bowel wall thickening. Enlarged prostate with scattered calcifications. Rectal fecalithmeasuring up to 7.8 cm with mild perirectal inflammatory changes. Colonic diverticulosis without evidence of acute diverticulitis. Remainder the bowel without evidence of abnormal caliber. Terminal ileum within normal limits for technique. Candidate appendix without abnormal dilation. 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 No free air, free fluid. Increased overall number of upper abdominal and periaortic lymph nodes, though not definitively abnormal by CT size criteria/morphology. Multilevel degenerative changes of the spine. Degenerative changes of the hips, symphysis pubis. No suspicious osseus lesions. IMPRESSION: 1. Heterogenous appearance of the enlarged left kidney with asymmetric soft tissue enlargement of the left ureter and questionably left renal vein, progressed from prior, as described. Differential includes infectious/inflammatory process, with underlyi ng neoplasm not excluded by noncontrast technique. 2. Asymmetric urinary bladder wall thickening with prostatomegaly, possibly sequelae of chronic outlet obstruction, though underlying neoplastic process not excluded. 3. 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 2 year follow-up CTA/MRA may be of diagnostic value. 4. Remainder of chronic findings, as described. Marlon Hall,et al. Managing Incidental Findings on Abdominal and Pelvic CT and MRI, Part 2: White Paper of the ACR Incidental Findings Committee II on Vascular Findings. J Am Cherie Radiol 2013;10:789-794. Finalized by Justin Hawthorne MD on 11/04/2024 9:[address] chest without contrast Result Date: 11/04/2024 Narrative: EXAM: CT CHEST WITHOUT CONTRAST CLINICAL INFORMATION: weakness. TECHNIQUE: CT chest was performed utilizing 5 mm axial reconstructions without contrast. Coronal and sagittal reformatted images were obtained and reviewed. Automated exposure control was utilized. Computer aided detection for pulmonary nodules was performed utilizing [employer] software. COMPARISON: CT dated 07/11/2024, single view chest dated 11/04/2024 FINDINGS: There are changes of centrilobular emphysema with chronic scarring in both lungs. Stable chronic benign middle lobe nodule. There is also a benign calcified middle lobe granuloma. There are no focal consolidations. There are no pleural or pericardial effusions. There are no enlarged or pathologic-appearing thoracic lymph nodes. There scattered atherosclerotic calcifications throughout a normal diameter thoracic aorta. There are mild coronary artery calcifications. Again seen are right diaphragmatic calcified pleural plaques, most commonly seen in the setting of previous asbestos exposure. IMPRESSION: 1. Redemonstration of centrilobular emphysema with chronic scarring in both lungs and chronic benign nodules. There is no convincing evidence for superimposed acute cardiopulmonary disease. 2. Chronic and incidental CT findings, as above. 3. Please seeseparate dictation of the dedicated CT of the abdomen and pelvis. All CT scans at this facility usedose modulation, iterative reconstruction, and/or weight based dosing when appropriate to reduce radiation dose to as low as reasonably achievable. Finalized by Luke Stokes MD on 11/04/2024 9:40 PM X-ray chest 1 view Result Date: 11/04/2024 Narrative: HISTORY: An 84-year-old male with a history of the shortness of breath. EXAMINATION: CHEST: Portable upright AP view COMPARISON: Comparison is made with the chest radiograph of the 09/22/2024. FINDINGS: Both lungs are hyperinflated with evidence of emphysema and COPD. Chronic changes are seen in the left mid lung field. No evidence of pneumonic infiltrates or pleural effusions. No pneumothorax is identified. The cardiac silhouette is within normal limits. The trachea is in midline. The mediastinum is otherwise unremarkable. The hemidiaphragms are normal in position. The bony rib cage is intact. IMPRESSION: * Severe emphysema and COPD and chronic changes in the left mid lung field.* No evidence of pulmonary infiltrate or acute pulmonary pathology or significant interval change. Finalized by Mario Moran MD on 11/04/2024 6:59 PM HOSPITAL PROBLEM LIST Principal Problem: Acute deep vein thrombosis of calf, bilateral ([facility]) Active Problems: Gastroesophageal reflux disease Hyperlipidemia Acquired hypothyroidism Hypomagnesemia Severe protein-calorie malnutrition Primary hypertension Dehydration with hypernatremia AMS (altered mental status) Severe protein-calorie malnutrition Stage 4 chronic kidney disease ([facility]) ASSESSMENT & PLAN Hypernatremia: Sodium 141 today. D5 solution continued. Low-sodium diet. GERD: Protonix. Hyperlipidemia: Continue home statin. CKD 3B: Creatinine improved- baseline of 1.7-1.9. Continue to monitor daily. Continue D5 Hypothyroidism: Continue home Synthroid. Hypomagnesemia: Supplement. Monitor electrolytes daily replace per protocol. Severe protein calorie malnutrition: Nutrition consult. Failed nursing bedside swallow. Choked on pills. Speech therapy consult to see - diet modified. Hypertension: Normotensive. Continue home medications. Altered mental status: Improved since coming up from the emergency department. Back to baseline. Continue to monitor daily. Elevated D-dimer: Unable to get CTA chest due to kidney function. Perfusion scan shows intermediatestudy but no proof of large clot. Venous duplex bilateral lower extremities show bilateral calf muscle DVT. Switch heparin gtt to eliquis. Hematuria- heparin held, urology consulted- pt has OP cysto with left retrograde pyelogram ureteroscopy and biopsy, urine improved today, heparin switched to eliquis. Tongue plaque: Chlorhexidine oral rinse b.i.d. swish and spit. Cellulitis: IV cefepime / IV Flagyl -switched to po keflex Constipation - check KUB- shows dilated bowels, may represent obstruction/ileus. General surgery consult placed. Enema's and softeners ordered, will need OP colonoscopy per general surgery recommendations. Pt refused EGD/peg tube. OP palliative referral placed. DVT px: eliquis DC planning: SNF when approved, medically ready Sepsis suspected, no-not clinically evident at this time. DHEERAJ Hughes 11/10/2024 1:49 PM [facility] 7AM-7PM & 7PM-7AM: EpicChat or page through [employer]. DHEERAJ Hughes 11/10/24 1340 Physician Attestation I, Charlie Mireles MD, personally performed a face to face diagnostic evaluation on this patient. I have reviewed the note authored by the advance practice provider including history, review of systems,physical examination,medical decision making and agree with the assessment and plan as written. I have seen and evaluated the patient, I have repeated the shah portions of the physical exam and concur with the MYKEL findings. I have reviewed all laboratory findings and imaging reports/films. I agree with the plan as noted. Patient is on a dysphagia diet. No reports of hematuria. Patient had a bowel movement yesterday Vital signs reviewed and stable. Recent labs reviewed hemoglobin 9.9, WBC 10.5, creatinine 1.63 sodium 141. DC IV heparin start Eliquis for lower extremity DVT. Monitor CBC, CMP SNF discharge planning. [place] has poor nutrition is refusing PEG tube * Charlie Mireles MD - 11/09/2024 10:30 AM EDT Images from the original note were not included. [facility] [address] [facility] [id number] Hospital Medicine Progress Note Patient: Fili Saunders Date of : 1940 Room: / PCP: Alden Harry DO Admission date: 11/04/2024 6:39 PM Encounter date: 11/09/24 SUBJECTIVE Chief complaints: Chief Complaint Patient presents with Medical Screening Interval History: Status: unchanged. No overnight events or new complaints. Resume heparin gtt, urine improved in color. Pt denies urinary symptoms/abdominal pain at this time. Currently in bed, alert. Review of Systems Review of Systems Constitutional: Positive for activity change, appetite change and fatigue. Negative for chills, diaphoresis and fever. HENT: Positive for trouble swallowing. Negative for tinnitus. Eyes: Negative for visual disturbance. Respiratory: Negative for cough, chest tightness, shortness of breath and wheezing. Cardiovascular: Negative for chest pain, palpitations and leg swelling. Gastrointestinal: Negative for abdominal pain, diarrhea, nausea and vomiting. Genitourinary: Negative for difficulty urinating. Skin: Negative for rash. Neurological: Positive for weakness. Negative for dizziness, syncope, speech difficulty, light-headedness, numbness and headaches. Psychiatric/Behavioral: Negative for sleep disturbance. OBJECTIVE BP 104/61 Pulse 75 Temp 36.3 ??C (97.4 ??F) (Oral) Resp 20 Ht 182.9 cm (6') Wt 60.3 kg (132 lb 14.4 oz) SpO2 98% BMI 18.02 kg/m?? Intake/Output Summary (Last 24 hours) at 11/09/2024 1507 Last data filed at 11/09/2024 0603 Gross per 24 hour Intake 2504.31 ml Output 530 ml Net 1974.31 ml Physical Exam Physical Exam Vitals and nursing note reviewed. Constitutional: General: He is not in acute distress. HENT: Head: Normocephalic. Comments: Erythema noted around head laceration Right Ear: External ear normal. Left Ear: External ear normal. Nose: Nose normal. Mouth/Throat: Mouth: Mucous membranes are dry. Pharynx: Oropharynx is clear. Comments: Dry plaque noted on tongue slightly brownish in color Eyes: Pupils: Pupils are equal, round, and reactive to light. Neck: Vascular: No carotid bruit or JVD. Cardiovascular: Rate and Rhythm: Normal rate and regular rhythm. Pulses: Normal pulses. Pulmonary: Effort: Pulmonary effort is normal. Breath sounds: Normal breath sounds. No wheezing or rales. Comments: Oxygen at 4 L per nasal cannula Abdominal: General: Bowel sounds are decreased. Tenderness: There is no abdominal tenderness. There is no right CVA tenderness or left CVA tenderness. Musculoskeletal: Right lower leg: No edema. Left lower leg: No edema. Lymphadenopathy: Cervical: No cervical adenopathy. Skin: General: Skin is warm and dry. Capillary Refill: Capillary refill takes 2 to 3 seconds. Findings: Abrasion, erythema and laceration present. Neurological: General: No focal deficit present. Mental Status: He is alert and oriented to person, place, and time. Motor: Weakness present. Psychiatric: Mood and Affect: Mood normal. Behavior: Behavior normal. Thought Content: Thought content normal. Judgment: Judgment normal. Medications Scheduled: cefepime (MAXIPIME) IV, 1,000 mg, intravenous, Q12H chlorhexidine, 15 mL, mouth/throat, BID metroNIDAZOLE, 500 mg, intravenous, Q12H midodrine, 10 mg, oral, TID mirtazapine, 15 mg, oral, Nightly sodium chloride, 3 mL, intravenous, Q12H CHANDLER Infusions: dextrose 5 % in water, 100 mL/hr, Last Rate: 100 mL/hr (11/09/24 0603) heparin, 300-3,500 Units/hr As Needed: acetaminophen alum-mag hydroxide-simeth barium sulfate barium sulfate barium sulfate heparin (porcine) ipratropium-albuteroL magnesium sulfate magnesium sulfate meclizine ondansetron polyethylene glycol potassium chloride OR potassium chloride OR potassium chloride IV (Adult) sennosides-docusate sodium sodium chloride traZODone Allergies: Patient has no known allergies. Labs Recent Results (from the past 24 hours) Basic Metabolic Panel Collection Time: 11/08/24 5:02 PM Result Value Ref Range SODIUM 144 134 - 146 mmol/L POTASSIUM 3.4 (L) 3.5 - 5.0 mmol/L CHLORIDE 116 (H) 98 - 109 mmol/L CARBON DIOXIDE 20 (L) 22 - 32 mmol/L ANION GAP 8 5 - 15 mmol/L BLOOD UREA NITROGEN 67 (H) 5 - 27 mg/dL CREATININE 1.85 (H) 0.70 - 1.20 mg/dL GLUCOSE 120 (H) 65 - 99 mg/dL CALCIUM 8.0 (L) 8.5 - 10.5 mg/dL EGFR Non-Race Dependent 36 (L) >=60 ml/min/1.73sq.m C-reactive protein Collection Time: 11/08/24 5:02 PM Result Value Ref Range C REACTIVE PROTEIN 16.6 (H) <=0.7 mg/dL Hemoglobin and hematocrit, blood Collection Time: 11/08/24 5:02 PM Result Value Ref Range Hemoglobin 9.7 (L) 13 - 17 g/dL Hematocrit 29.8 (L) 39 - 50 % Hemoglobin and hematocrit, blood Collection Time: 11/08/24 9:53 PM Result Value Ref Range Hemoglobin 9.6 (L) 13 - 17 g/dL Hematocrit 28.9 (L) 39 - 50 % Troponin I, High Sensitivity Collection Time: 11/08/24 10:58 PM Narrative The following orders were created for panel order Troponin I, High Sensitivity. Procedure Abnormality Status --------- ------ Troponin I, High Sensiti...[[id number]] Abnormal Final result Troponin I, High Sensiti...[[id number]] Abnormal Final result Please view results for these tests on the individual orders. Troponin I, High Sensitivity 0 Hour Collection Time: 11/08/24 10:58 PM Result Value Ref Range TROPONIN I, HIGH SENSITIVITY 33 (H) <21 ng/L Lactate w/ Reflex Collection Time: 11/08/24 10:58 PM Result Value Ref Range LACTATE W/REFLEX 1.6 0.4 - 2.0 mmol/L Narrative Result did not trigger repeat Lactate, re-order if needed. Troponin I, High Sensitivity 1 Hour Collection Time: 11/08/24 11:52 PM Result Value Ref Range TROPONIN I, HIGH SENSITIVITY 34 (H) <21 ng/L Narrative Elevations of hs-Troponin may be due to causes other than myocardial ischemia. Recommend serial hs-Troponin testing be performed. For the initial evaluation and management of chest pain patients, refer to the algorithms linked below. Emergency Patient: [email or web address]: [email or web address] Urinalysis Collection Time: 11/09/24 1:33 AM Specimen: Urine, Indwelling Catheter Result Value Ref Range COLOR Yellow Yellow TURBIDITY Clear Clear SPECIFIC GRAVITY 1.010 1.003 - 1.035 NITRITE Negative Negative PH,URINE 6.0 5.0 - 8.5 LEUKOCYTE ESTERASE Moderate (A) Negative PROTEIN 100 mg/dL (A) Negative KETONES (URINE) Negative Negative UROBILINOGEN 0.2 eu/dL 0.2 eu/dL, 1.0 eu/dL BILIRUBIN (URINE) Negative Negative BLOOD/HGB Large (A) Negative R.B.CELLS 100 (H) 0 - 5 W.B.CELLS 45 (H) 0 - 5 GLUCOSE (URINE) Negative Negative, 250 mg/dL CBC auto differential Collection Time: 11/09/24 6:05 AM Result Value Ref Range WBC 9.6 4 - 11 x10E9/L RBC Count 3.50 (L) 4.1 - 5.7 X10E12/L Hemoglobin 9.4 (L) 13 - 17 g/dL Hematocrit 28.7 (L) 39 - 50 % MCV 82 80 - 100 fL MCH 26.7 (L) 27 - 34 pg MCHC 32.6 32 - 36 g/dL RDW 21.3 (H) 11.5 - 15 % Platelet Count 117 (L) 150 - 450 X10E9/L MPV 10.6 7 - 12 fL Neutrophils % 74 % Lymphocytes % 1 % Monocytes % 23 % Eosinophils % 1 % Basophils % 1 % Atypical Lymphs % 1 % Neutrophils Absolute (M) 7.1 (H) 1.5 - 6.6 10*3/uL Lymphocytes Absolute 0.2 (L) 1.0 - 3.5 10*3/uL Monocytes Absolute 2.2 (H) 0.0 - 0.9 10*3/uL Eosinophils Absolute 0.1 0.0 - 0.4 10*3/uL Basophils Absolute 0.1 0.0 - 0.2 10*3/uL Differential Type MANUAL DIFFERENTIAL Comprehensive metabolic panel Collection Time: 11/09/24 6:05 AM Result Value Ref Range SODIUM 142 134 - 146 mmol/L POTASSIUM 3.5 3.5 - 5.0 mmol/L CHLORIDE 113 (H) 98 - 109 mmol/L CARBON DIOXIDE 20 (L) 22 - 32 mmol/L ANION GAP 9 5 - 15 mmol/L BLOOD UREA NITROGEN 59 (H) 5 - 27 mg/dL CREATININE 1.76 (H) 0.70 - 1.20 mg/dL GLUCOSE 125 (H) 65 - 99 mg/dL CALCIUM 7.8 (L) 8.5 - 10.5 mg/dL TOTAL PROTEIN 6.6 6.0 - 8.0 g/dL ALBUMIN 2.3 (L) 3.2 - 5.3 g/dL ALKALINE PHOSPHATASE 69 39 - 130 U/L AST 13 <=41 U/L ALT 8 <=40 U/L BILIRUBIN,TOTAL 1.1 0.3 - 1.2 mg/dL EGFR Non-Race Dependent 38 (L) >=60 ml/min/1.73sq.m Magnesium Collection Time: 11/09/24 6:05 AM Result Value Ref Range MAGNESIUM 1.8 1.8 - 2.6 mg/dL Anti XA unfractionated heparin Collection Time: 11/09/24 6:05 AM Result Value Ref Range ANTI XA UFH <0.04 (L) 0.30 - 0.70 IU/mL Hemoglobin and hematocrit, blood Collection Time: 11/09/24 1:30 PM Result Value Ref Range Hemoglobin 10.1 (L) 13 - 17 g/dL Hematocrit 31.3 (L) 39 - 50 % Magnesium Collection Time: 11/09/24 1:30 PM Result Value Ref Range MAGNESIUM 2.2 1.8 - 2.6 mg/dL Platelet count Collection Time: 11/09/24 1:30 PM Result Value Ref Range Platelet Count 118 (L) 150 - 450 X10E9/L MPV 10.1 7 - 12 fL APTT Collection Time: 11/09/24 1:30 PM Result Value Ref Range APTT 36 26 - 37 sec Protime & INR Collection Time: 11/09/24 1:30 PM Result Value Ref Range PROTIME 13.7 (H) 9.8 - 13.2 sec INR 1.2 0.9 - 1.2 Radiology Vas venous duplex lwr bilateral Result Date: 11/05/2024 Narrative: Right: Portable lower extremity deep vein thrombosis (DVT) exam performed. Dilated non compressible deep calf muscle vein with hypoechoic intraluminal content and absent spectral Doppler signals. Remaining evaluated deep veins are compressible. Evaulation of supeficial veins was not performed. Left: Portable lower extremity deep vein thrombosis (DVT) exam performed. Non dilated non compressible deep calf muscle vein with hypoechoic intraluminal content and absent spectral Doppler signals. Remaining evaluated deep veins are compressible. Evaulation of supeficial veins was not performed. General: In- patient, bedside examination. Conclusions: BILATERAL:ACUTE deep calf muscle vein thrombosis (DVT). The remainder of the deep veins show no evidence of thrombus NM ventiliation imaging perfusion lung scan Result Date: 11/05/2024 Narrative: Clinical history:Elevated d-dimer and shortness of breath Radioisotope: 32.0 microcuriesDTPA aerosol in nebulizer for the ventilation 5.0 millicuries technetium 99 MAA for the perfusion Findings: Comparison chest radiograph CT chest 10/27/2024 Patchy distribution of isotope on the ventilatory phase of the exam. This is consistent with advanced emphysematous change. There are small peripheral areas of the perfusion deficits this probably secondary to advanced COPD. However tiny embolidifficult to exclude. Impression: By criteria this is probably indeterminate. However there are no large segmental or subsegmental perfusion defects. If symptoms persist consider dedicated CTA chest.Patient cannot have contrast consider bilateral Doppler leg studies Finalized by Jose Saunders MD on 11/05/2024 10:[address] abdomen and pelvis without contrast Result Date: 11/04/2024 Narrative: CT ABDOMEN AND PELVIS WO CONT: 11/04/2024 PROVIDED HISTORY: * 84 years old Male * weakness COMPARISON: 09/26/2024 TECHNIQUE: 1. Multiple axial images of the abdomen and pelvis were obtained.No intravenous contrast was administered. 2. All CT scans at this facility use dose modulation, iterative reconstruction, and/or weight based dosing when appropriate to reduce radiation dose to as low as reasonably achievable. FINDINGS: The lack of intravenous contrast limits evaluation of the solid abdominal organs. Motion degraded examination. LOWER THORAX: Please refer to separately dictated CT chest for intrathoracic findings. ABDOMEN/PELVIS: No acute process of the liver, spleen, adrenals,pancreas (fatty infiltration). Nondistended gallbladder without radiopaque stones. No abnormal biliary tree caliber. Asymmetrically enlarged and heterogenous appearance of the left kidney, similar toprior. Extensive left perirenal fat infiltration. Asymmetrically increased caliber of the left ureter with questionable soft tissue thickening extending to the mid/distal ureter prior to the ureterovesical junction, increased from prior. Asymmetrically decreased caliber of the left renal vein. Right kidney with scattered nonobstructing calculi in multifocal parenchymal contour abnormalities as well as renal cortical cysts, similar to more completely evaluated on prior CT urogram. No evidence ofright hydroureteronephrosis. Layering calculi along the right ureteral orifice. Urinary bladder with asymmetric bowel wall thickening. Enlarged prostate with scattered calcifications. Rectal fecalithmeasuring up to 7.8 cm with mild perirectal inflammatory changes. Colonic diverticulosis without evidence of acute diverticulitis. Remainder the bowel without evidence of abnormal caliber. Terminal ileum within normal limits for technique. Candidate appendix without abnormal dilation. 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 No free air, free fluid. Increased overall number of upper abdominal and periaortic lymph nodes, though not definitively abnormal by CT size criteria/morphology. Multilevel degenerative changes of the spine. Degenerative changes of the hips, symphysis pubis. No suspicious osseus lesions. IMPRESSION: 1. Heterogenous appearance of the enlarged left kidney with asymmetric soft tissue enlargement of the left ureter and questionably left renal vein, progressed from prior, as described. Differential includes infectious/inflammatory process, with underlyi ng neoplasm not excluded by noncontrast technique. 2. Asymmetric urinary bladder wall thickening with prostatomegaly, possibly sequelae of chronic outlet obstruction, though underlying neoplastic process not excluded. 3. 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 2 year follow-up CTA/MRA may be of diagnostic value. 4. Remainder of chronic findings, as described. Marlon Hall,et al. Managing Incidental Findings on Abdominal and Pelvic CT and MRI, Part 2: White Paper of the ACR Incidental Findings Committee II on Vascular Findings. J Am Cherie Radiol 2013;10:789-794. Finalized by Justin Hawthorne MD on 11/04/2024 9:[address] chest without contrast Result Date: 11/04/2024 Narrative: EXAM: CT CHEST WITHOUT CONTRAST CLINICAL INFORMATION: weakness. TECHNIQUE: CT chest was performed utilizing 5 mm axial reconstructions without contrast. Coronal and sagittal reformatted images were obtained and reviewed. Automated exposure control was utilized. Computer aided detection for pulmonary nodules was performed utilizing [employer] software. COMPARISON: CT dated 07/11/2024, single view chest dated 11/04/2024 FINDINGS: There are changes of centrilobular emphysema with chronic scarring in both lungs. Stable chronic benign middle lobe nodule. There is also a benign calcified middle lobe granuloma. There are no focal consolidations. There are no pleural or pericardial effusions. There are no enlarged or pathologic-appearing thoracic lymph nodes. There scattered atherosclerotic calcifications throughout a normal diameter thoracic aorta. There are mild coronary artery calcifications. Again seen are right diaphragmatic calcified pleural plaques, most commonly seen in the setting of previous asbestos exposure. IMPRESSION: 1. Redemonstration of centrilobular emphysema with chronic scarring in both lungs and chronic benign nodules. There is no convincing evidence for superimposed acute cardiopulmonary disease. 2. Chronic and incidental CT findings, as above. 3. Please seeseparate dictation of the dedicated CT of the abdomen and pelvis. All CT scans at this facility usedose modulation, iterative reconstruction, and/or weight based dosing when appropriate to reduce radiation dose to as low as reasonably achievable. Finalized by Luke Stokes MD on 11/04/2024 9:40 PM X-ray chest 1 view Result Date: 11/04/2024 Narrative: HISTORY: An 84-year-old male with a history of the shortness of breath. EXAMINATION: CHEST: Portable upright AP view COMPARISON: Comparison is made with the chest radiograph of the 09/22/2024. FINDINGS: Both lungs are hyperinflated with evidence of emphysema and COPD. Chronic changes are seen in the left mid lung field. No evidence of pneumonic infiltrates or pleural effusions. No pneumothorax is identified. The cardiac silhouette is within normal limits. The trachea is in midline. The mediastinum is otherwise unremarkable. The hemidiaphragms are normal in position. The bony rib cage is intact. IMPRESSION: * Severe emphysema and COPD and chronic changes in the left mid lung field.* No evidence of pulmonary infiltrate or acute pulmonary pathology or significant interval change. Finalized by Mario Moran MD on 11/04/2024 6:59 PM HOSPITAL PROBLEM LIST Principal Problem: Acute deep vein thrombosis of calf, bilateral (CMS-HCC) Active Problems: Gastroesophageal reflux disease Hyperlipidemia Acquired hypothyroidism Hypomagnesemia Severe protein-calorie malnutrition Primary hypertension Dehydration with hypernatremia AMS (altered mental status) Severe protein-calorie malnutrition Stage 4 chronic kidney disease ([facility]) ASSESSMENT & PLAN Hypernatremia: Sodium 142 today. D5 solution continued. Low-sodium diet. GERD: Protonix. Hyperlipidemia: Continue home statin. CKD 3B: Creatinine improved- baseline of 1.7-1.9. Continue to monitor daily. Continue D5 Hypothyroidism: Continue home Synthroid. Hypomagnesemia: Supplement. Monitor electrolytes daily replace per protocol. Severe protein calorie malnutrition: Nutrition consult. Failed nursing bedside swallow. Choked on pills. NPO. Speech therapy consult to see today. Hypertension: Normotensive. Continue home medications. Altered mental status: Improved since coming up from the emergency department. Back to baseline. Continue to monitor daily. Elevated D-dimer: Unable to get CTA chest due to kidney function. Perfusion scan shows intermediatestudy but no proof of large clot. Venous duplex bilateral lower extremities show bilateral calf muscle DVT. Continue heparin drip. We will need to continue heparin drip while NPO for DVT treatment. Hematuria- heparin stopped yesterday, urology consulted- pt has OP cysto with left retrograde pyelogram ureteroscopy and biopsy, urine improved today, okay to resume heparin gtt. Tongue plaque: Chlorhexidine oral rinse b.i.d. swish and spit. Cellulitis: Continue IV cefepime / IV Flagyl Constipation - check KUB- shows dilated bowels, may represent obstruction/ileus. General surgery consult placed. Keep NPO. Enema's and softeners ordered, will need OP colonoscopy per general surgery recommendations. Pt refused EGD/peg tube. OP palliative referral placed. DVT px: We will need to continue heparin drip heparin drip due to DVTs while NPO. DC planning: SNF when medically stable, likely 1-2 days Sepsis suspected, no-not clinically evident at this time. Gill Gao APRN-DAVIS 11/09/2024 3:07 PM [facility] 7AM-7PM & 7PM-7AM: EpicChat or page through [employer]. Gill Gao APRN-DAVIS 11/09/24 1222 Physician Attestation I, Charlie Mireles MD, personally performed a face to face diagnostic evaluation on this patient. I have reviewed the note authored by the advance practice provider including history, review of systems,physical examination,medical decision making and agree with the assessment and plan as written. I have seen and evaluated the patient, I have repeated the shah portions of the physical exam and concur with the MYKEL findings. I have reviewed all laboratory findings and imaging reports/films. I agree with the plan as noted. Patient's heparin was held yesterday due to hematuria, hematuria resolving today. Vital signs reviewed and stable. Urology input noted. Recent labs reviewed hemoglobin 10.1, creatinine 1.76, sodium 142, level 6 dysphagia diet with clear liquids per video swallow recommendation. Fleet enemas per General surgery for constipation. On IV heparin drip for DVT. Monitor CBC, CMP Palliative care consult as outpatient * Charlie Mireles MD - 11/08/2024 10:00 AM EDT Images from the original note were not included. [facility] [address] [place] [id number] Hospital Medicine Progress Note Patient: Fili Saunders Date of : 1940 Room: [facility] PCP: Alden Harry DO Admission date: 11/04/2024 6:39 PM Encounter date: 11/08/24 SUBJECTIVE Chief complaints: Chief Complaint Patient presents with Medical Screening Interval History: Status: unchanged. No overnight events or new complaints. Continue NPO and heparin drip. SLT to see tomorrow. Review of Systems Review of Systems Constitutional: Positive for activity change, appetite change and fatigue. Negative for chills, diaphoresis and fever. HENT: Positive for trouble swallowing. Negative for tinnitus. Eyes: Negative for visual disturbance. Respiratory: Negative for cough, chest tightness, shortness of breath and wheezing. Cardiovascular: Negative for chest pain, palpitations and leg swelling. Gastrointestinal: Negative for abdominal pain, diarrhea, nausea and vomiting. Genitourinary: Negative for difficulty urinating. Skin: Negative for rash. Neurological: Positive for weakness. Negative for dizziness, syncope, speech difficulty, light-headedness, numbness and headaches. Psychiatric/Behavioral: Negative for sleep disturbance. OBJECTIVE BP 121/84 Pulse 86 Temp 36.4 ??C (97.5 ??F) (Axillary) Resp 16 Ht 182.9 cm (6') Wt 60.3 kg (132 lb 14.4 oz) SpO2 90% BMI 18.02 kg/m?? Intake/Output Summary (Last 24 hours) at 11/08/2024 1434 Last data filed at 11/08/2024 0904 Gross per 24 hour Intake 1179.51 ml Output 1626 ml Net -446.49 ml Physical Exam Physical Exam Vitals and nursing note reviewed. Constitutional: General: He is not in acute distress. HENT: Head: Normocephalic. Comments: Erythema noted around head laceration Right Ear: External ear normal. Left Ear: External ear normal. Nose: Nose normal. Mouth/Throat: Mouth: Mucous membranes are dry. Pharynx: Oropharynx is clear. Comments: Dry plaque noted on tongue slightly brownish in color Eyes: Pupils: Pupils are equal, round, and reactive to light. Neck: Vascular: No carotid bruit or JVD. Cardiovascular: Rate and Rhythm: Normal rate and regular rhythm. Pulses: Normal pulses. Pulmonary: Effort: Pulmonary effort is normal. Breath sounds: Normal breath sounds. No wheezing or rales. Comments: Oxygen at 4 L per nasal cannula Abdominal: General: Bowel sounds are decreased. Tenderness: There is no abdominal tenderness. There is no right CVA tenderness or left CVA tenderness. Musculoskeletal: Right lower leg: No edema. Left lower leg: No edema. Lymphadenopathy: Cervical: No cervical adenopathy. Skin: General: Skin is warm and dry. Capillary Refill: Capillary refill takes 2 to 3 seconds. Findings: Abrasion, erythema and laceration present. Neurological: General: No focal deficit present. Mental Status: He is alert and oriented to person, place, and time. Motor: Weakness present. Psychiatric: Mood and Affect: Mood normal. Behavior: Behavior normal. Thought Content: Thought content normal. Judgment: Judgment normal. Medications Scheduled: cefepime (MAXIPIME) IV, 1,000 mg, intravenous, Q12H chlorhexidine, 15 mL, mouth/throat, BID metroNIDAZOLE, 500 mg, intravenous, Q12H midodrine, 10 mg, oral, TID mirtazapine, 15 mg, oral, Nightly sodium chloride, 3 mL, intravenous, Q12H CHANDLER Infusions: dextrose 5 % in water, 100 mL/hr, Last Rate: 100 mL/hr (11/08/24 1312) heparin, 300-3,500 Units/hr, Last Rate: 1,150 Units/hr (11/08/24 1013) As Needed: alum-mag hydroxide-simeth ipratropium-albuteroL magnesium sulfate magnesium sulfate meclizine ondansetron potassium chloride OR potassium chloride OR potassium chloride IV (Adult) sennosides-docusate sodium sodium chloride traZODone Allergies: Patient has no known allergies. Labs Recent Results (from the past 24 hours) CBC auto differential Collection Time: 11/08/24 4:33 AM Result Value Ref Range WBC 9.0 4 - 11 x10E9/L RBC Count 3.57 (L) 4.1 - 5.7 X10E12/L Hemoglobin 9.6 (L) 13 - 17 g/dL Hematocrit 29.7 (L) 39 - 50 % MCV 83 80 - 100 fL MCH 27.0 27 - 34 pg MCHC 32.5 32 - 36 g/dL RDW 21.7 (H) 11.5 - 15 % Platelet Count 150 150 - 450 X10E9/L MPV 10.5 7 - 12 fL Myelocyte % 2 % Bands % 3 % Neutrophils % 55 % Lymphocytes % 9 % Monocytes % 28 % Atypical Lymphs % 3 % Neutrophils Absolute (M) 5.2 1.5 - 6.6 10*3/uL Lymphocytes Absolute 1.1 1.0 - 3.5 10*3/uL Monocytes Absolute 2.5 (H) 0.0 - 0.9 10*3/uL Elliptocytes 2+ Acanthocytes 1+ Differential Type MANUAL DIFFERENTIAL Comprehensive metabolic panel Collection Time: 11/08/24 4:34 AM Result Value Ref Range SODIUM 149 (H) 134 - 146 mmol/L POTASSIUM 3.5 3.5 - 5.0 mmol/L CHLORIDE 117 (H) 98 - 109 mmol/L CARBON DIOXIDE 21 (L) 22 - 32 mmol/L ANION GAP 11 5 - 15 mmol/L BLOOD UREA NITROGEN 68 (H) 5 - 27 mg/dL CREATININE 1.97 (H) 0.70 - 1.20 mg/dL GLUCOSE 102 (H) 65 - 99 mg/dL CALCIUM 8.3 (L) 8.5 - 10.5 mg/dL TOTAL PROTEIN 7.0 6.0 - 8.0 g/dL ALBUMIN 2.5 (L) 3.2 - 5.3 g/dL ALKALINE PHOSPHATASE 68 39 - 130 U/L AST 12 <=41 U/L ALT 8 <=40 U/L BILIRUBIN,TOTAL 1.3 (H) 0.3 - 1.2 mg/dL EGFR Non-Race Dependent 33 (L) >=60 ml/min/1.73sq.m Magnesium Collection Time: 11/08/24 4:34 AM Result Value Ref Range MAGNESIUM 2.1 1.8 - 2.6 mg/dL Anti XA unfractionated heparin Collection Time: 11/08/24 4:34 AM Result Value Ref Range ANTI XA UFH 0.37 0.30 - 0.70 IU/mL Radiology Vas venous duplex lwr bilateral Result Date: 11/05/2024 Narrative: Right: Portable lower extremity deep vein thrombosis (DVT) exam performed. Dilated non compressible deep calf muscle vein with hypoechoic intraluminal content and absent spectral Doppler signals. Remaining evaluated deep veins are compressible. Evaulation of supeficial veins was not performed. Left: Portable lower extremity deep vein thrombosis (DVT) exam performed. Non dilated non compressible deep calf muscle vein with hypoechoic intraluminal content and absent spectral Doppler signals. Remaining evaluated deep veins are compressible. Evaulation of supeficial veins was not performed. General: In- patient, bedside examination. Conclusions: BILATERAL:ACUTE deep calf muscle vein thrombosis (DVT). The remainder of the deep veins show no evidence of thrombus NM ventiliation imaging perfusion lung scan Result Date: 11/05/2024 Narrative: Clinical history:Elevated d-dimer and shortness of breath Radioisotope: 32.0 microcuriesDTPA aerosol in nebulizer for the ventilation 5.0 millicuries technetium 99 MAA for the perfusion Findings: Comparison chest radiograph CT chest 10/27/2024 Patchy distribution of isotope on the ventilatory phase of the exam. This is consistent with advanced emphysematous change. There are small peripheral areas of the perfusion deficits this probably secondary to advanced COPD. However tiny embolidifficult to exclude. Impression: By criteria this is probably indeterminate. However there are no large segmental or subsegmental perfusion defects. If symptoms persist consider dedicated CTA chest.Patient cannot have contrast consider bilateral Doppler leg studies Finalized by Jose Saunders MD on 11/05/2024 10:[address] abdomen and pelvis without contrast Result Date: 11/04/2024 Narrative: CT ABDOMEN AND PELVIS WO CONT: 11/04/2024 PROVIDED HISTORY: * 84 years old Male * weakness COMPARISON: 09/26/2024 TECHNIQUE: 1. Multiple axial images of the abdomen and pelvis were obtained.No intravenous contrast was administered. 2. All CT scans at this facility use dose modulation, iterative reconstruction, and/or weight based dosing when appropriate to reduce radiation dose to as low as reasonably achievable. FINDINGS: The lack of intravenous contrast limits evaluation of the solid abdominal organs. Motion degraded examination. LOWER THORAX: Please refer to separately dictated CT chest for intrathoracic findings. ABDOMEN/PELVIS: No acute process of the liver, spleen, adrenals,pancreas (fatty infiltration). Nondistended gallbladder without radiopaque stones. No abnormal biliary tree caliber. Asymmetrically enlarged and heterogenous appearance of the left kidney, similar toprior. Extensive left perirenal fat infiltration. Asymmetrically increased caliber of the left ureter with questionable soft tissue thickening extending to the mid/distal ureter prior to the ureterovesical junction, increased from prior. Asymmetrically decreased caliber of the left renal vein. Right kidney with scattered nonobstructing calculi in multifocal parenchymal contour abnormalities as well as renal cortical cysts, similar to more completely evaluated on prior CT urogram. No evidence ofright hydroureteronephrosis. Layering calculi along the right ureteral orifice. Urinary bladder with asymmetric bowel wall thickening. Enlarged prostate with scattered calcifications. Rectal fecalithmeasuring up to 7.8 cm with mild perirectal inflammatory changes. Colonic diverticulosis without evidence of acute diverticulitis. Remainder the bowel without evidence of abnormal caliber. Terminal ileum within normal limits for technique. Candidate appendix without abnormal dilation. 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 No free air, free fluid. Increased overall number of upper abdominal and periaortic lymph nodes, though not definitively abnormal by CT size criteria/morphology. Multilevel degenerative changes of the spine. Degenerative changes of the hips, symphysis pubis. No suspicious osseus lesions. IMPRESSION: 1. Heterogenous appearance of the enlarged left kidney with asymmetric soft tissue enlargement of the left ureter and questionably left renal vein, progressed from prior, as described. Differential includes infectious/inflammatory process, with underlyi ng neoplasm not excluded by noncontrast technique. 2. Asymmetric urinary bladder wall thickening with prostatomegaly, possibly sequelae of chronic outlet obstruction, though underlying neoplastic process not excluded. 3. 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 2 year follow-up CTA/MRA may be of diagnostic value. 4. Remainder of chronic findings, as described. Marlon Hall,et al. Managing Incidental Findings on Abdominal and Pelvic CT and MRI, Part 2: White Paper of the ACR Incidental Findings Committee II on Vascular Findings. J Am Cherie Radiol 2013;10:789-794. Finalized by Justin Hawthorne MD on 11/04/2024 9:[address] chest without contrast Result Date: 11/04/2024 Narrative: EXAM: CT CHEST WITHOUT CONTRAST CLINICAL INFORMATION: weakness. TECHNIQUE: CT chest was performed utilizing 5 mm axial reconstructions without contrast. Coronal and sagittal reformatted images were obtained and reviewed. Automated exposure control was utilized. Computer aided detection for pulmonary nodules was performed utilizing [employer] software. COMPARISON: CT dated 07/11/2024, single view chest dated 11/04/2024 FINDINGS: There are changes of centrilobular emphysema with chronic scarring in both lungs. Stable chronic benign middle lobe nodule. There is also a benign calcified middle lobe granuloma. There are no focal consolidations. There are no pleural or pericardial effusions. There are no enlarged or pathologic-appearing thoracic lymph nodes. There scattered atherosclerotic calcifications throughout a normal diameter thoracic aorta. There are mild coronary artery calcifications. Again seen are right diaphragmatic calcified pleural plaques, most commonly seen in the setting of previous asbestos exposure. IMPRESSION: 1. Redemonstration of centrilobular emphysema with chronic scarring in both lungs and chronic benign nodules. There is no convincing evidence for superimposed acute cardiopulmonary disease. 2. Chronic and incidental CT findings, as above. 3. Please seeseparate dictation of the dedicated CT of the abdomen and pelvis. All CT scans at this facility usedose modulation, iterative reconstruction, and/or weight based dosing when appropriate to reduce radiation dose to as low as reasonably achievable. Finalized by Luke Stokes MD on 11/04/2024 9:40 PM X-ray chest 1 view Result Date: 11/04/2024 Narrative: HISTORY: An 84-year-old male with a history of the shortness of breath. EXAMINATION: CHEST: Portable upright AP view COMPARISON: Comparison is made with the chest radiograph of the 09/22/2024. FINDINGS: Both lungs are hyperinflated with evidence of emphysema and COPD. Chronic changes are seen in the left mid lung field. No evidence of pneumonic infiltrates or pleural effusions. No pneumothorax is identified. The cardiac silhouette is within normal limits. The trachea is in midline. The mediastinum is otherwise unremarkable. The hemidiaphragms are normal in position. The bony rib cage is intact. IMPRESSION: * Severe emphysema and COPD and chronic changes in the left mid lung field.* No evidence of pulmonary infiltrate or acute pulmonary pathology or significant interval change. Finalized by Mario Moran MD on 11/04/2024 6:59 PM HOSPITAL PROBLEM LIST Principal Problem: Acute deep vein thrombosis of calf, bilateral ([facility]) Active Problems: Gastroesophageal reflux disease Hyperlipidemia Acquired hypothyroidism Hypomagnesemia Severe protein-calorie malnutrition Primary hypertension Dehydration with hypernatremia AMS (altered mental status) Severe protein-calorie malnutrition Stage 4 chronic kidney disease ([facility]) ASSESSMENT & PLAN Hypernatremia: Sodium up to 149 today. D5 solution increased. Low-sodium diet. GERD: Protonix. Hyperlipidemia: Continue home statin. CKD 3B: Creatinine improving but still above baseline of 1.7-1.9. Continue to monitor daily. Continue D5 Hypothyroidism: Continue home Synthroid. Hypomagnesemia: Supplement. Monitor electrolytes daily replace per protocol. Severe protein calorie malnutrition: Nutrition consult. Failed nursing bedside swallow. Choked on pills. NPO. Speech therapy consult. Hypertension: Normotensive. Continue home medications. Altered mental status: Improved since coming up from the emergency department. Back to baseline. Continue to monitor daily. Elevated D-dimer: Unable to get CTA chest due to kidney function. Perfusion scan shows intermediatestudy but no proof of large clot. Venous duplex bilateral lower extremities show bilateral calf muscle DVT. Continue heparin drip. We will need to continue heparin drip while NPO for DVT treatment. Tongue plaque: Chlorhexidine oral rinse b.i.d. swish and spit. Cellulitis: cefepime and vanco. Pharmacy to dose vanco. Add CRP. Constipation - check KUB- shows dilated bowels, may represent obstruction/ileus. General surgery consult placed. Keep NPO. DVT px: We will need to continue heparin drip heparin drip due to DVTs while NPO. DC planning: He will need swallow study on Friday. Sepsis suspected, no-not clinically evident at this time. DHEERAJ Hughes 11/08/2024 2:34 PM [facility] 7AM-7PM & 7PM-7AM: EpicChat or page through On-Call Finder. DHEERAJ Hughes 11/08/24 5184 Physician Attestation I, Charlie Mireles MD, personally performed a face to face diagnostic evaluation on this patient. I have reviewed the note authored by the advance practice provider including history, review of systems,physical examination,medical decision making and agree with the assessment and plan as written. I have seen and evaluated the patient, I have repeated the shah portions of the physical exam and concur with the MYKEL findings. I have reviewed all laboratory findings and imaging reports/films. I agree with the plan as noted. Patient had 1 episode of vomiting. Patient is NPO. Vital signs reviewed and stable afebrile. Recentlabs reviewed sodium 149 creatinine 1.97 BUN 68, hemoglobin 9.6, WBC 9. Continue IV cefepime start IV Flagyl DC IV vancomycin. KUB shows air-filled dilated bowels. Consult general surgery. Insert NG tube. D5 IV infusion at 100 mL/hour monitor I&O insert Schroeder catheter for strict I&O. Monitor CBC, CMP * Alison Khalil MD - 11/07/2024 3:41 PM EDT Images from the original note were not included. [facility] INTERNAL MEDICINE [facility] [address] [facility] [id number] Hospital Medicine Progress Note Patient: Fili Saunders Date of : 1940 Room: [facility]/02 PCP: Alden Harry DO Admission date: 11/04/2024 6:39 PM Encounter date: 11/07/24 SUBJECTIVE Chief complaints: Chief Complaint Patient presents with Medical Screening Interval History: Status: unchanged. No overnight events or new complaints. Continue NPO and heparin drip. Start cefepime and vanco for possible cellulitis. Kidney function slowly improving. Mentation back to baseline. Review of Systems Review of Systems Constitutional: Positive for activity change, appetite change and fatigue. Negative for chills, diaphoresis and fever. HENT: Positive for trouble swallowing. Negative for tinnitus. Eyes: Negative for visual disturbance. Respiratory: Negative for cough, chest tightness, shortness of breath and wheezing. Cardiovascular: Negative for chest pain, palpitations and leg swelling. Gastrointestinal: Negative for abdominal pain, diarrhea, nausea and vomiting. Genitourinary: Negative for difficulty urinating. Skin: Negative for rash. Neurological: Positive for weakness. Negative for dizziness, syncope, speech difficulty, light-headedness, numbness and headaches. Psychiatric/Behavioral: Negative for sleep disturbance. OBJECTIVE BP 106/62 Pulse 82 Temp 36.3 ??C (97.3 ??F) (Oral) Resp 16 Ht 182.9 cm (6') Wt 60.3 kg (132 lb 14.4 oz) SpO2 99% BMI 18.02 kg/m?? Intake/Output Summary (Last 24 hours) at 11/07/2024 1541 Last data filed at 11/07/2024 1417 Gross per 24 hour Intake 2219.96 ml Output 350 ml Net 1869.96 ml Physical Exam Physical Exam Vitals and nursing note reviewed. Constitutional: General: He is not in acute distress. HENT: Head: Normocephalic. Comments: Erythema noted around head laceration Right Ear: External ear normal. Left Ear: External ear normal. Nose: Nose normal. Mouth/Throat: Mouth: Mucous membranes are dry. Pharynx: Oropharynx is clear. Comments: Dry plaque noted on tongue slightly brownish in color Eyes: Pupils: Pupils are equal, round, and reactive to light. Neck: Vascular: No carotid bruit or JVD. Cardiovascular: Rate and Rhythm: Normal rate and regular rhythm. Pulses: Normal pulses. Pulmonary: Effort: Pulmonary effort is normal. Breath sounds: Normal breath sounds. Comments: Oxygen at 4 L per nasal cannula Abdominal: General: Bowel sounds are normal. Palpations: Abdomen is soft. Tenderness: There is no abdominal tenderness. There is no right CVA tenderness or left CVA tenderness. Musculoskeletal: Right lower leg: No edema. Left lower leg: No edema. Lymphadenopathy: Cervical: No cervical adenopathy. Skin: General: Skin is warm and dry. Capillary Refill: Capillary refill takes 2 to 3 seconds. Findings: Abrasion, erythema and laceration present. Neurological: General: No focal deficit present. Mental Status: He is alert and oriented to person, place, and time. Motor: Weakness present. Psychiatric: Mood and Affect: Mood normal. Behavior: Behavior normal. Thought Content: Thought content normal. Judgment: Judgment normal. Medications Scheduled: cefepime (MAXIPIME) IV, 1,000 mg, intravenous, Q12H chlorhexidine, 15 mL, mouth/throat, BID ipratropium-albuteroL, 3 mL, nebulization, TID midodrine, 10 mg, oral, TID mirtazapine, 15 mg, oral, Nightly sodium chloride, 3 mL, intravenous, Q12H CHANDLER vancomycin, 1,250 mg, intravenous, Q48H vancomycin, , intravenous, Dosed by Levels Infusions: dextrose 5 % in water, 50 mL/hr, Last Rate: 50 mL/hr (11/07/24 1417) heparin, 300-3,500 Units/hr, Last Rate: 1,150 Units/hr (11/07/24 1129) As Needed: alum-mag hydroxide-simeth heparin (porcine) magnesium sulfate magnesium sulfate meclizine ondansetron potassium chloride OR potassium chloride OR potassium chloride IV (Adult) sennosides-docusate sodium sodium chloride traZODone Allergies: Patient has no known allergies. Labs Recent Results (from the past 24 hours) Anti XA unfractionated heparin Collection Time: 11/06/24 6:44 PM Result Value Ref Range ANTI XA UFH 0.42 0.30 - 0.70 IU/mL Anti XA unfractionated heparin Collection Time: 11/07/24 12:46 AM Result Value Ref Range ANTI XA UFH 0.52 0.30 - 0.70 IU/mL CBC auto differential Collection Time: 11/07/24 5:16 AM Result Value Ref Range WBC 9.3 4 - 11 x10E9/L RBC Count 3.93 (L) 4.1 - 5.7 X10E12/L Hemoglobin 10.5 (L) 13 - 17 g/dL Hematocrit 33.0 (L) 39 - 50 % MCV 84 80 - 100 fL MCH 26.8 (L) 27 - 34 pg MCHC 31.9 (L) 32 - 36 g/dL RDW 21.4 (H) 11.5 - 15 % Platelet Count 148 (L) 150 - 450 X10E9/L MPV 10.3 7 - 12 fL Bands % 2 % Neutrophils % 74 % Lymphocytes % 6 % Monocytes % 17 % Eosinophils % 1 % Basophils % 1 % Neutrophils Absolute (M) 7.1 (H) 1.5 - 6.6 10*3/uL Lymphocytes Absolute 0.6 (L) 1.0 - 3.5 10*3/uL Monocytes Absolute 1.6 (H) 0.0 - 0.9 10*3/uL Eosinophils Absolute 0.0 0.0 - 0.4 10*3/uL Basophils Absolute 0.0 0.0 - 0.2 10*3/uL Elliptocytes 2+ Acanthocytes 1+ Differential Type MANUAL DIFFERENTIAL Comprehensive metabolic panel Collection Time: 11/07/24 5:16 AM Result Value Ref Range SODIUM 147 (H) 134 - 146 mmol/L POTASSIUM 3.6 3.5 - 5.0 mmol/L CHLORIDE 116 (H) 98 - 109 mmol/L CARBON DIOXIDE 20 (L) 22 - 32 mmol/L ANION GAP 11 5 - 15 mmol/L BLOOD UREA NITROGEN 84 (H) 5 - 27 mg/dL CREATININE 2.29 (H) 0.70 - 1.20 mg/dL GLUCOSE 127 (H) 65 - 99 mg/dL CALCIUM 8.4 (L) 8.5 - 10.5 mg/dL TOTAL PROTEIN 7.1 6.0 - 8.0 g/dL ALBUMIN 2.7 (L) 3.2 - 5.3 g/dL ALKALINE PHOSPHATASE 70 39 - 130 U/L AST 16 <=41 U/L ALT 8 <=40 U/L BILIRUBIN,TOTAL 1.1 0.3 - 1.2 mg/dL EGFR Non-Race Dependent 28 (L) >=60 ml/min/1.73sq.m Magnesium Collection Time: 11/07/24 5:16 AM Result Value Ref Range MAGNESIUM 2.2 1.8 - 2.6 mg/dL Vancomycin, random Collection Time: 11/07/24 5:16 AM Result Value Ref Range VANCOMYCIN 10.1 5.0 - 40.0 ug/mL Narrative Peak 30-40 ug/mL Trough 5-20 ug/ml Anti XA unfractionated heparin Collection Time: 11/07/24 5:16 AM Result Value Ref Range ANTI XA UFH 0.52 0.30 - 0.70 IU/mL Radiology Vas venous duplex lwr bilateral Result Date: 11/05/2024 Narrative: Right: Portable lower extremity deep vein thrombosis (DVT) exam performed. Dilated non compressible deep calf muscle vein with hypoechoic intraluminal content and absent spectral Doppler signals. Remaining evaluated deep veins are compressible. Evaulation of supeficial veins was not performed. Left: Portable lower extremity deep vein thrombosis (DVT) exam performed. Non dilated non compressible deep calf muscle vein with hypoechoic intraluminal content and absent spectral Doppler signals. Remaining evaluated deep veins are compressible. Evaulation of supeficial veins was not performed. General: In- patient, bedside examination. Conclusions: BILATERAL:ACUTE deep calf muscle vein thrombosis (DVT). The remainder of the deep veins show no evidence of thrombus NM ventiliation imaging perfusion lung scan Result Date: 11/05/2024 Narrative: Clinical history:Elevated d-dimer and shortness of breath Radioisotope: 32.0 microcuriesDTPA aerosol in nebulizer for the ventilation 5.0 millicuries technetium 99 MAA for the perfusion Findings: Comparison chest radiograph CT chest 10/27/2024 Patchy distribution of isotope on the ventilatory phase of the exam. This is consistent with advanced emphysematous change. There are small peripheral areas of the perfusion deficits this probably secondary to advanced COPD. However tiny embolidifficult to exclude. Impression: By criteria this is probably indeterminate. However there are no large segmental or subsegmental perfusion defects. If symptoms persist consider dedicated CTA chest.Patient cannot have contrast consider bilateral Doppler leg studies Finalized by Jose Saunders MD on 11/05/2024 10:[address] abdomen and pelvis without contrast Result Date: 11/04/2024 Narrative: CT ABDOMEN AND PELVIS WO CONT: 11/04/2024 PROVIDED HISTORY: * 84 years old Male * weakness COMPARISON: 09/26/2024 TECHNIQUE: 1. Multiple axial images of the abdomen and pelvis were obtained.No intravenous contrast was administered. 2. All CT scans at this facility use dose modulation, iterative reconstruction, and/or weight based dosing when appropriate to reduce radiation dose to as low as reasonably achievable. FINDINGS: The lack of intravenous contrast limits evaluation of the solid abdominal organs. Motion degraded examination. LOWER THORAX: Please refer to separately dictated CT chest for intrathoracic findings. ABDOMEN/PELVIS: No acute process of the liver, spleen, adrenals,pancreas (fatty infiltration). Nondistended gallbladder without radiopaque stones. No abnormal biliary tree caliber. Asymmetrically enlarged and heterogenous appearance of the left kidney, similar toprior. Extensive left perirenal fat infiltration. Asymmetrically increased caliber of the left ureter with questionable soft tissue thickening extending to the mid/distal ureter prior to the ureterovesical junction, increased from prior. Asymmetrically decreased caliber of the left renal vein. Right kidney with scattered nonobstructing calculi in multifocal parenchymal contour abnormalities as well as renal cortical cysts, similar to more completely evaluated on prior CT urogram. No evidence ofright hydroureteronephrosis. Layering calculi along the right ureteral orifice. Urinary bladder with asymmetric bowel wall thickening. Enlarged prostate with scattered calcifications. Rectal fecalithmeasuring up to 7.8 cm with mild perirectal inflammatory changes. Colonic diverticulosis without evidence of acute diverticulitis. Remainder the bowel without evidence of abnormal caliber. Terminal ileum within normal limits for technique. Candidate appendix without abnormal dilation. 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 No free air, free fluid. Increased overall number of upper abdominal and periaortic lymph nodes, though not definitively abnormal by CT size criteria/morphology. Multilevel degenerative changes of the spine. Degenerative changes of the hips, symphysis pubis. No suspicious osseus lesions. IMPRESSION: 1. Heterogenous appearance of the enlarged left kidney with asymmetric soft tissue enlargement of the left ureter and questionably left renal vein, progressed from prior, as described. Differential includes infectious/inflammatory process, with underlyi ng neoplasm not excluded by noncontrast technique. 2. Asymmetric urinary bladder wall thickening with prostatomegaly, possibly sequelae of chronic outlet obstruction, though underlying neoplastic process not excluded. 3. 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 2 year follow-up CTA/MRA may be of diagnostic value. 4. Remainder of chronic findings, as described. Marlon Hall,et al. Managing Incidental Findings on Abdominal and Pelvic CT and MRI, Part 2: White Paper of the ACR Incidental Findings Committee II on Vascular Findings. J Am Cherie Radiol 2013;10:789-794. Finalized by Justin Hawthorne MD on 11/04/2024 9:[address] chest without contrast Result Date: 11/04/2024 Narrative: EXAM: CT CHEST WITHOUT CONTRAST CLINICAL INFORMATION: weakness. TECHNIQUE: CT chest was performed utilizing 5 mm axial reconstructions without contrast. Coronal and sagittal reformatted images were obtained and reviewed. Automated exposure control was utilized. Computer aided detection for pulmonary nodules was performed utilizing [employer] software. COMPARISON: CT dated 07/11/2024, single view chest dated 11/04/2024 FINDINGS: There are changes of centrilobular emphysema with chronic scarring in both lungs. Stable chronic benign middle lobe nodule. There is also a benign calcified middle lobe granuloma. There are no focal consolidations. There are no pleural or pericardial effusions. There are no enlarged or pathologic-appearing thoracic lymph nodes. There scattered atherosclerotic calcifications throughout a normal diameter thoracic aorta. There are mild coronary artery calcifications. Again seen are right diaphragmatic calcified pleural plaques, most commonly seen in the setting of previous asbestos exposure. IMPRESSION: 1. Redemonstration of centrilobular emphysema with chronic scarring in both lungs and chronic benign nodules. There is no convincing evidence for superimposed acute cardiopulmonary disease. 2. Chronic and incidental CT findings, as above. 3. Please seeseparate dictation of the dedicated CT of the abdomen and pelvis. All CT scans at this facility usedose modulation, iterative reconstruction, and/or weight based dosing when appropriate to reduce radiation dose to as low as reasonably achievable. Finalized by Luke Stokes MD on 11/04/2024 9:40 PM X-ray chest 1 view Result Date: 11/04/2024 Narrative: HISTORY: An 84-year-old male with a history of the shortness of breath. EXAMINATION: CHEST: Portable upright AP view COMPARISON: Comparison is made with the chest radiograph of the 09/22/2024. FINDINGS: Both lungs are hyperinflated with evidence of emphysema and COPD. Chronic changes are seen in the left mid lung field. No evidence of pneumonic infiltrates or pleural effusions. No pneumothorax is identified. The cardiac silhouette is within normal limits. The trachea is in midline. The mediastinum is otherwise unremarkable. The hemidiaphragms are normal in position. The bony rib cage is intact. IMPRESSION: * Severe emphysema and COPD and chronic changes in the left mid lung field. * No evidence of pulmonary infiltrate or acute pulmonary pathology or significant interval change. Finalized by Mario Moran MD on 11/04/2024 6:59 PM HOSPITAL PROBLEM LIST Principal Problem: Acute deep vein thrombosis of calf, bilateral ([facility]) Active Problems: Gastroesophageal reflux disease Hyperlipidemia Stage 3b chronic kidney disease ([facility]) Acquired hypothyroidism Hypomagnesemia Severe protein-calorie malnutrition Primary hypertension Dehydration with hypernatremia AMS (altered mental status) Severe protein-calorie malnutrition ASSESSMENT & PLAN Hypernatremia: Sodium back to within normal limits today. D5 solution. Low- sodium diet. GERD: Protonix. Hyperlipidemia: Continue home statin. CKD 3B: Creatinine improving but still above baseline of 1.7-1.9. Continue to monitor daily. Continue D5 Hypothyroidism: Continue home Synthroid. Hypomagnesemia: Supplement. Monitor electrolytes daily replace per protocol. Severe protein calorie malnutrition: Nutrition consult. Failed nursing bedside swallow. Choked on pills. NPO. Speech therapy consult. Hypertension: Normotensive. Continue home medications. Altered mental status: Improved since coming up from the emergency department. Back to baseline. Continue to monitor daily. Elevated D-dimer: Unable to get CTA chest due to kidney function. Perfusion scan shows intermediatestudy but no proof of large clot. Venous duplex bilateral lower extremities show bilateral calf muscle DVT. Continue heparin drip. We will need to continue heparin drip while NPO for DVT treatment. Tongue plaque: Chlorhexidine oral rinse b.i.d. swish and spit. Cellulitis: Add cefepime and vanco. Pharmacy to dose vanco. DVT px: We will need to continue heparin drip heparin drip due to DVTs while NPO. DC planning: He will need swallow study on Friday. Sepsis suspected, no-not clinically evident at this time. DHEERAJ Richards, 11/07/2024 3:41 PM [facility] Internal Medicine 7AM-7PM & 7PM-7AM: EpicChat or page through On-Call Finder. This note is dictated with the use of M*Modal. Please note that this dictation was completed with computer voice recognition software. Quite often unanticipated grammatical, syntax, homophones, and other interpretive errors are inadvertently transcribed by the computer software. Please disregard these errors. Please excuse any errors that have escaped final proofreading. DHEERAJ Richards Physician Attestation: I have reviewed the above note authored by the Advance Practice Provider (MYKEL) including history, review of systems, physical examination, medical decision making and agree with the assessment & plan. I have personally performed a face to face diagnostic evaluation on this patient. I have reviewed all laboratory findings and imaging reports/films. I have independently evaluated the patient and repeated shah portions of the physical exam. I agree with the MYKEL plan as above, unless otherwise noted. ALISON KHALIL MD * Yousuf Hernandez [facility] - 11/07/2024 11:48 AM EDT Pharmacokinetic Consult - Vancomycin Dosing Fili Saunders is a 84 y.o. male for whom pharmacy has been consulted for vancomycin dosing for bacteremia. Today is day 3 of vancomycin therapy. Relevant clinical data and objective history reviewed: Allergies: Patient has no known allergies. Results from last 3 days Lab Units 11/07/24 0516 11/06/24 0531 11/05/24 0842 11/05/24 0819 11/04/24 1848 CREATININE mg/dL 2.29* 2.59* -- 2.71* 2.93* BUN mg/dL 84* 101* -- -- 112* WBC x10E9/L 9.3 9.9 12.3* -- 10.7 HEMOGLOBIN g/dL 10.5* 11.1* 10.3* -- 12.6* HEMATOCRIT % 33.0* 34.6* 32.1* -- 39.8 MCV fL 84 83 82 -- 83 Temp Readings from Last 3 Encounters: 11/07/24 36.3 ??C (97.3 ??F) (Oral) 10/14/24 36.4 ??C (97.6 ??F) (Oral) 10/07/24 36.5 ??C (97.7 ??F) (Oral) Renal Parameters: I/O last 3 completed shifts: In: 547.1 [I.V.:296.2; IV Piggyback:250.9] Out: 850 [Urine:850] Calculated CrCl (TBW-60.3): 20.8 ml/min Culture Data: Microbiology Results No results found for the last 168 hours. Concurrent Antibiotics: Anti-infectives (From admission, onward) Start Dose/Rate Route Frequency Ordered Stop 11/06/24 1800 cefEPime (MAXIPIME) IVPB 1000 mg/50 mL in dextrose 5% duplex (20 mg/mL premix) 1,000 mg 12.5 mL/hr over 4 Hours intravenous Every 12 hours 11/06/24 1319 11/06/24 1600 vancomycin (VANCOCIN) IVPB Dosed by Levels intravenous Dosed by Levels 11/05/24 1534 11/05/24 0153 nfvdvkvffjas-yojlcemucz-knnqbl (ZOSYN) 3.375 gram/50 mL IVPB Premix - Pyxis Override Pull Note to Pharmacy: Malvin Strauss: nilaminet override 11/05/24 0153 11/05/24 1359 Recent Vancomycin Serum Concentrations: Results from last 7 days Lab Units 11/07/24 0516 VANCOMYCIN ug/mL 10.1 Indication: bacteremia Goal Vancomycin Range: Trough 15-20 mcg/mL Assessment . Patient is currently ordered vancomycin 1250 mg IV with a dosing interval of every 36 hours. Today is day 3 of therapy. ?? Renal function assessment: Chronic Kidney Disease ?? The patient received a [place] 1250mg on 11/05/24 @ 1753?? Patient- specific risk-factors for nephrotoxicity include: pre-existing renal impairment, concomitant nephrotoxic medications, and advanced age. Plan ?? Will initiate vancomycin 1250 mg IV with a dosing interval of every 48 hours, which will be given at 1700 on 11/07/2024. ? The vancomycin trough is to be collected within 30 minutes prior to the next dose 11/09/24. Pharmacy Dosing Service to follow serum concentrations and adjust as needed based on the patient's clinical status. Thank you for consulting. * Alison Khalil MD - 11/06/2024 12:25 PM EDT Images from the original note were not included. [facility] INTERNAL MEDICINE [facility] [address] [place] [id number] Hospital Medicine Progress Note Patient: Fili Saunders Date of : 1940 Room: [facility] PCP: Alden Harry DO Admission date: 11/04/2024 6:39 PM Encounter date: 11/06/24 SUBJECTIVE Chief complaints: Chief Complaint Patient presents with Medical Screening Interval History: Status: unchanged. No overnight events or new complaints. Patient states he is hungry. Lower extremity duplex positive for bilateral DVTs. Heparin drip initiated. Failed swallow study. NPO. Review of Systems Review of Systems Constitutional: Positive for activity change, appetite change and fatigue. Negative for chills, diaphoresis and fever. HENT: Positive for trouble swallowing. Negative for tinnitus. Eyes: Negative for visual disturbance. Respiratory: Negative for cough, chest tightness, shortness of breath and wheezing. Cardiovascular: Negative for chest pain, palpitations and leg swelling. Gastrointestinal: Negative for abdominal pain, diarrhea, nausea and vomiting. Genitourinary: Negative for difficulty urinating. Skin: Negative for rash. Neurological: Positive for weakness. Negative for dizziness, syncope, speech difficulty, light-headedness, numbness and headaches. Psychiatric/Behavioral: Negative for sleep disturbance. OBJECTIVE BP 109/65 Pulse 74 Temp 36.4 ??C (97.5 ??F) (Axillary) Resp 16 Ht 182.9 cm (6') Wt 64.2 kg (141 lb 9.6 oz) SpO2 99% BMI 19.20 kg/m?? Intake/Output Summary (Last 24 hours) at 11/06/2024 1225 Last data filed at 11/06/2024 0420 Gross per 24 hour Intake 547.13 ml Output 500 ml Net 47.13 ml Physical Exam Physical Exam Vitals and nursing note reviewed. Constitutional: General: He is not in acute distress. HENT: Head: Normocephalic and atraumatic. Right Ear: External ear normal. Left Ear: External ear normal. Nose: Nose normal. Mouth/Throat: Mouth: Mucous membranes are dry. Pharynx: Oropharynx is clear. Comments: Dry plaque noted on tongue slightly brownish in color Eyes: Pupils: Pupils are equal, round, and reactive to light. Neck: Vascular: No carotid bruit or JVD. Cardiovascular: Rate and Rhythm: Normal rate and regular rhythm. Pulses: Normal pulses. Pulmonary: Effort: Pulmonary effort is normal. Breath sounds: Normal breath sounds. Comments: Oxygen at 4 L per nasal cannula Abdominal: General: Bowel sounds are normal. Palpations: Abdomen is soft. Tenderness: There is no abdominal tenderness. There is no right CVA tenderness or left CVA tenderness. Musculoskeletal: Right lower leg: No edema. Left lower leg: No edema. Lymphadenopathy: Cervical: No cervical adenopathy. Skin: General: Skin is warm and dry. Capillary Refill: Capillary refill takes 2 to 3 seconds. Neurological: General: No focal deficit present. Mental Status: He is alert and oriented to person, place, and time. Motor: Weakness present. Psychiatric: Mood and Affect: Mood normal. Behavior: Behavior normal. Thought Content: Thought content normal. Judgment: Judgment normal. Medications Scheduled: cefepime (MAXIPIME) IV, 1,000 mg, intravenous, Q24H heparin (porcine), 5,000 Units, subcutaneous, Q8H CHANDLER midodrine, 10 mg, oral, TID mirtazapine, 15 mg, oral, Nightly sodium chloride, 3 mL, intravenous, Q12H CHANDLER vancomycin, , intravenous, Dosed by Levels Infusions: dextrose 5 % in water, 75 mL/hr, Last Rate: 75 mL/hr (11/06/24 0533) As Needed: acetaminophen alum-mag hydroxide-simeth magnesium sulfate magnesium sulfate meclizine ondansetron potassium chloride OR potassium chloride OR potassium chloride IV (Adult) sennosides-docusate sodium sodium chloride traZODone Allergies: Patient has no known allergies. Labs Recent Results (from the past 24 hours) CBC auto differential Collection Time: 11/06/24 5:31 AM Result Value Ref Range WBC 9.9 4 - 11 x10E9/L RBC Count 4.18 4.1 - 5.7 X10E12/L Hemoglobin 11.1 (L) 13 - 17 g/dL Hematocrit 34.6 (L) 39 - 50 % MCV 83 80 - 100 fL MCH 26.6 (L) 27 - 34 pg MCHC 32.2 32 - 36 g/dL RDW 20.9 (H) 11.5 - 15 % Platelet Count 163 150 - 450 X10E9/L MPV 10.6 7 - 12 fL Bands % 2 % Neutrophils % 69 % Lymphocytes % 7 % Monocytes % 22 % Eosinophils % 0 % Basophils % 1 % Neutrophils Absolute (M) 7.0 (H) 1.5 - 6.6 10*3/uL Lymphocytes Absolute 0.6 (L) 1.0 - 3.5 10*3/uL Monocytes Absolute 2.2 (H) 0.0 - 0.9 10*3/uL Eosinophils Absolute 0.0 0.0 - 0.4 10*3/uL Basophils Absolute 0.0 0.0 - 0.2 10*3/uL Elliptocytes 1+ Differential Type MANUAL DIFFERENTIAL Comprehensive metabolic panel Collection Time: 11/06/24 5:31 AM Result Value Ref Range SODIUM 146 134 - 146 mmol/L POTASSIUM 3.8 3.5 - 5.0 mmol/L CHLORIDE 114 (H) 98 - 109 mmol/L CARBON DIOXIDE 21 (L) 22 - 32 mmol/L ANION GAP 11 5 - 15 mmol/L BLOOD UREA NITROGEN 101 (H) 5 - 27 mg/dL CREATININE 2.59 (H) 0.70 - 1.20 mg/dL GLUCOSE 120 (H) 65 - 99 mg/dL CALCIUM 8.4 (L) 8.5 - 10.5 mg/dL TOTAL PROTEIN 7.4 6.0 - 8.0 g/dL ALBUMIN 2.7 (L) 3.2 - 5.3 g/dL ALKALINE PHOSPHATASE 70 39 - 130 U/L AST 15 <=41 U/L ALT 8 <=40 U/L BILIRUBIN,TOTAL 1.1 0.3 - 1.2 mg/dL EGFR Non-Race Dependent 24 (L) >=60 ml/min/1.73sq.m Magnesium Collection Time: 11/06/24 5:31 AM Result Value Ref Range MAGNESIUM 2.4 1.8 - 2.6 mg/dL Radiology Vas venous duplex lwr bilateral Result Date: 11/05/2024 Narrative: Right: Portable lower extremity deep vein thrombosis (DVT) exam performed. Dilated non compressible deep calf muscle vein with hypoechoic intraluminal content and absent spectral Doppler signals. Remaining evaluated deep veins are compressible. Evaulation of supeficial veins was not performed. Left: Portable lower extremity deep vein thrombosis (DVT) exam performed. Non dilated non compressible deep calf muscle vein with hypoechoic intraluminal content and absent spectral Doppler signals. Remaining evaluated deep veins are compressible. Evaulation of supeficial veins was not performed. General: In- patient, bedside examination. Conclusions: BILATERAL:ACUTE deep calf muscle vein thrombosis (DVT). The remainder of the deep veins show no evidence of thrombus NM ventiliation imaging perfusion lung scan Result Date: 11/05/2024 Narrative: Clinical history:Elevated d-dimer and shortness of breath Radioisotope: 32.0 microcuriesDTPA aerosol in nebulizer for the ventilation 5.0 millicuries technetium 99 MAA for the perfusion Findings: Comparison chest radiograph CT chest 10/27/2024 Patchy distribution of isotope on the ventilatory phase of the exam. This is consistent with advanced emphysematous change. There are small peripheral areas of the perfusion deficits this probably secondary to advanced COPD. However tiny embolidifficult to exclude. Impression: By criteria this is probably indeterminate. However there are no large segmental or subsegmental perfusion defects. If symptoms persist consider dedicated CTA chest.Patient cannot have contrast consider bilateral Doppler leg studies Finalized by Jose Saunders MD on 11/05/2024 10:[address] abdomen and pelvis without contrast Result Date: 11/04/2024 Narrative: CT ABDOMEN AND PELVIS WO CONT: 11/04/2024 PROVIDED HISTORY: * 84 years old Male * weakness COMPARISON: 09/26/2024 TECHNIQUE: 1. Multiple axial images of the abdomen and pelvis were obtained.No intravenous contrast was administered. 2. All CT scans at this facility use dose modulation, iterative reconstruction, and/or weight based dosing when appropriate to reduce radiation dose to as low as reasonably achievable. FINDINGS: The lack of intravenous contrast limits evaluation of the solid abdominal organs. Motion degraded examination. LOWER THORAX: Please refer to separately dictated CT chest for intrathoracic findings. ABDOMEN/PELVIS: No acute process of the liver, spleen, adrenals,pancreas (fatty infiltration). Nondistended gallbladder without radiopaque stones. No abnormal biliary tree caliber. Asymmetrically enlarged and heterogenous appearance of the left kidney, similar toprior. Extensive left perirenal fat infiltration. Asymmetrically increased caliber of the left ureter with questionable soft tissue thickening extending to the mid/distal ureter prior to the ureterovesical junction, increased from prior. Asymmetrically decreased caliber of the left renal vein. Right kidney with scattered nonobstructing calculi in multifocal parenchymal contour abnormalities as well as renal cortical cysts, similar to more completely evaluated on prior CT urogram. No evidence ofright hydroureteronephrosis. Layering calculi along the right ureteral orifice. Urinary bladder with asymmetric bowel wall thickening. Enlarged prostate with scattered calcifications. Rectal fecalithmeasuring up to 7.8 cm with mild perirectal inflammatory changes. Colonic diverticulosis without evidence of acute diverticulitis. Remainder the bowel without evidence of abnormal caliber. Terminal ileum within normal limits for technique. Candidate appendix without abnormal dilation. 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 No free air, free fluid. Increased overall number of upper abdominal and periaortic lymph nodes, though not definitively abnormal by CT size criteria/morphology. Multilevel degenerative changes of the spine. Degenerative changes of the hips, symphysis pubis. No suspicious osseus lesions. IMPRESSION: 1. Heterogenous appearance of the enlarged left kidney with asymmetric soft tissue enlargement of the left ureter and questionably left renal vein, progressed from prior, as described. Differential includes infectious/inflammatory process, with underlyi ng neoplasm not excluded by noncontrast technique. 2. Asymmetric urinary bladder wall thickening with prostatomegaly, possibly sequelae of chronic outlet obstruction, though underlying neoplastic process not excluded. 3. 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 2 year follow-up CTA/MRA may be of diagnostic value. 4. Remainder of chronic findings, as described. Marlon Hallet al. Managing Incidental Findings on Abdominal and Pelvic CT and MRI, Part 2: White Paper of the ACR Incidental Findings Committee II on Vascular Findings. J Am Cherie Radiol 2013;10:789-794. Finalized by Justin Hawthorne MD on 11/04/2024 9:[address] chest without contrast Result Date: 11/04/2024 Narrative: EXAM: CT CHEST WITHOUT CONTRAST CLINICAL INFORMATION: weakness. TECHNIQUE: CT chest was performed utilizing 5 mm axial reconstructions without contrast. Coronal and sagittal reformatted images were obtained and reviewed. Automated exposure control was utilized. Computer aided detection for pulmonary nodules was performed utilizing [employer] software. COMPARISON: CT dated 07/11/2024, single view chest dated 11/04/2024 FINDINGS: There are changes of centrilobular emphysema with chronic scarring in both lungs. Stable chronic benign middle lobe nodule. There is also a benign calcified middle lobe granuloma. There are no focal consolidations. There are no pleural or pericardial effusions. There are no enlarged or pathologic-appearing thoracic lymph nodes. There scattered atherosclerotic calcifications throughout a normal diameter thoracic aorta. There are mild coronary artery calcifications. Again seen are right diaphragmatic calcified pleural plaques, most commonly seen in the setting of previous asbestos exposure. IMPRESSION: 1. Redemonstration of centrilobular emphysema with chronic scarring in both lungs and chronic benign nodules. There is no convincing evidence for superimposed acute cardiopulmonary disease. 2. Chronic and incidental CT findings, as above. 3. Please seeseparate dictation of the dedicated CT of the abdomen and pelvis. All CT scans at this facility usedose modulation, iterative reconstruction, and/or weight based dosing when appropriate to reduce radiation dose to as low as reasonably achievable. Finalized by Luke Stokes MD on 11/04/2024 9:40 PM X-ray chest 1 view Result Date: 11/04/2024 Narrative: HISTORY: An 84-year-old male with a history of the shortness of breath. EXAMINATION: CHEST: Portable upright AP view COMPARISON: Comparison is made with the chest radiograph of the 09/22/2024. FINDINGS: Both lungs are hyperinflated with evidence of emphysema and COPD. Chronic changes are seen in the left mid lung field. No evidence of pneumonic infiltrates or pleural effusions. No pneumothorax is identified. The cardiac silhouette is within normal limits. The trachea is in midline. The mediastinum is otherwise unremarkable. The hemidiaphragms are normal in position. The bony rib cage is intact. IMPRESSION: * Severe emphysema and COPD and chronic changes in the left mid lung field.* No evidence of pulmonary infiltrate or acute pulmonary pathology or significant interval change. Finalized by Mario Moran MD on 11/04/2024 6:59 PM HOSPITAL PROBLEM LIST Principal Problem: Dehydration with hypernatremia Active Problems: Gastroesophageal reflux disease Hyperlipidemia Stage 3b chronic kidney disease ([facility]) Acquired hypothyroidism Hypomagnesemia Severe protein-calorie malnutrition Primary hypertension AMS (altered mental status) Severe protein-calorie malnutrition ASSESSMENT & PLAN Hypernatremia: Sodium back to within normal limits today. D5 solution. Low- sodium diet. GERD: Protonix. Hyperlipidemia: Continue home statin. CKD 3B: Creatinine improving but still above baseline of 1.7-1.9. Continue to monitor daily. Continue D5 Hypothyroidism: Continue home Synthroid. Hypomagnesemia: Supplement. Monitor electrolytes daily replace per protocol. Severe protein calorie malnutrition: Nutrition consult. Failed nursing bedside swallow. Choked on pills. NPO. Speech therapy consult. Hypertension: Normotensive. Continue home medications. Altered mental status: Improved since coming up from the emergency department. Back to baseline. Continue to monitor daily. Elevated D-dimer: Unable to get CTA chest due to kidney function. Perfusion scan shows intermediatestudy but no proof of large clot. Venous duplex bilateral lower extremities show bilateral calf muscle DVT. Start heparin drip Tongue plaque: Chlorhexidine oral rinse b.i.d. swish and spit. DVT px: Change heparin subQ to heparin drip due to DVTs. DC planning: We will continue need several days. Goals of care discussed yesterday and family stillwants patient to be full code. Patient also wants to be full code at this time. Sepsis suspected, no-not clinically evident at this time. DHEERAJ Richards, 11/06/2024 12:25 PM [facility] Internal Medicine 7AM-7PM & 7PM-7AM: EpicChat or page through On-[employer]. This note is dictated with the use of M*Modal. Please note that this dictation was completed with computer voice recognition software. Quite often unanticipated grammatical, syntax, homophones, and other interpretive errors are inadvertently transcribed by the computer software. Please disregard these errors. Please excuse any errors that have escaped final proofreading. DHEERAJ Richards Physician Attestation: I have reviewed the above note authored by the Advance Practice Provider (MYKEL) including history, review of systems, physical examination, medical decision making and agree with the assessment & plan. I have personally performed a face to face diagnostic evaluation on this patient. I have reviewed all laboratory findings and imaging reports/films. I have independently evaluated the patient and repeated shah portions of the physical exam. I agree with the MYKEL plan as above, unless otherwise noted. ALISON KHALIL MD * ANDRÉS Webb - 11/05/2024 12:26 PM EDT NUTRITION ADULT INITIAL EVALUATION NUTRITION ASSESSMENT Reason To Be Seen: Nutritional trigger for po intakes and unplanned weight loss user acceptance tester Hospital Occurrences: Pt admitted with dehydration with hypernatremia, Admit Diagnosis: Patient Active Problem List Diagnosis Coagulation factor deficiency syndrome Eczema Gastroesophageal reflux disease Hyperlipidemia Lupus anticoagulant disorder Multiple nodules of lung Myocardial infarction [place] Onycholysis Secondary hyperparathyroidism Stage 3 chronic kidney disease ([facility]) Tear of meniscus of knee Vertigo Vitamin D deficiency Acute blood loss anemia Panlobular emphysema ([facility]) Supratherapeutic INR Pleural effusion on right Acute kidney injury superimposed on CKD Stage 3b chronic kidney disease ([facility]) History of pulmonary embolism Hemothorax Coronary artery vasospasm Sepsis, due to unspecified organism, unspecified whether acute organ dysfunction present ([facility]) Pericarditis Gross hematuria Diarrhea COPD (chronic obstructive pulmonary disease) ([facility]) Acquired hypothyroidism Acute cystitis with hematuria Weakness Hypomagnesemia Elevated CK Poor appetite Severe protein-calorie malnutrition SUSAN (acute kidney injury) Physical deconditioning Acute prostatitis Primary hypertension Unintentional weight loss Anemia Cor pulmonale ([facility]) Primary malignant neoplasm of prostate ([facility]) Orthostatic hypotension Bilious vomiting with nausea Syncope, unspecified syncope type Laceration of head without foreign body Urinary tract infection with hematuria Dehydration with hypernatremia AMS (altered mental status) Past Medical History: Past Medical History: Diagnosis Date Anemia Asthma Benign prostatic hyperplasia COPD (chronic obstructive pulmonary disease) ([facility]) Dizziness Head injury HL (hearing loss) Hyperlipidemia Hypothyroidism Lung nodule Lupus (systemic lupus erythematosus) ([facility]) Pulmonary embolism ([facility]) Stage 3b chronic kidney disease (CKD) ([facility]) Syncope Visual impairment cheaters for reading Past Surgical History: Past Surgical History: Procedure Laterality Date CYSTOSCOPY N/A 08/03/2024 Performed by Velasquez Garcias MD at [facility] ESOPHAGOGASTRODUODENOSCOPY BIOPSY N/A 09/24/2024 Performed by Beverly Charles MD at [facility] cataracts RIGHT THORACOTOMY COMPLETE LUNG DECORTICATION Right 01/24/2023 Performed by Jett Khanna MD at [facility] Diet History: decrease oral intakes pt has been in bed for 4 weeks Allergies: No Known Allergies Nutrition Focused Physical Findings--emaciated in appearance, noted skin tears and lacerations , pressure injury on coccyx per [facility]atar As per nutrition flow sheet- Skin: Skin Color: Mottled, Pale (11/05/24832) Skin Temp: Cool, Dry (11/05/24832) Skin Integrity: (S) Other (Comment) (Skin tear on left shoulder and old laceration of left forehead.) (11/04/24 1945) Wound: Wound 10/06/24 1 Laceration Face Left-State of Healing: Other (Comment) (scabbed) (11/05/24832) Wound 10/06/24 1 Laceration Face Left-Site Assessment: Clean, Dry, Intact (11/05/24832) Wound 11/05/24 1 Abrasion Shoulder Anterior;Left-Site Assessment: Unable to assess (11/05/24832) Gastrointestinal: Abdomen Assessment: Flat, Nondistended (11/05/24832) RUQ Bowel Sounds: Active (11/05/24832) LUQ Bowel Sounds: Active (11/05/24832) RLQ Bowel Sounds: Active (11/05/24832) LLQ Bowel Sounds: Active (11/05/24832) GI Symptoms: Loss of appetite (11/05/24832) Relieved by: Unrelieved (Comment) (11/05/24832) Edema: Labs: Results from last 3 days Lab Units 11/05/24 0819 11/04/24 1848 SODIUM mmol/L 149* 153* POTASSIUM mmol/L 4.6 5.2* CHLORIDE mmol/L 116* 116* CO2 mmol/L 20* 22 BUN mg/dL -- 112* CREATININE mg/dL 2.71* 2.93* CALCIUM mg/dL 8.3* 9.6 ALBUMIN g/dL 2.8* 3.7 ALK PHOS U/L 71 91 ALT U/L 8 7 AST U/L 14 13 Results from last 7 days Lab Units 11/05/24 0819 11/04/24 1848 GLUCOSE mg/dL 145* 126* Results from last 3 days Lab Units 11/05/24 0819 11/04/24 1848 MAGNESIUM mg/dL 2.6 3.1* No data from last 3 days. Results from last 3 days Lab Units 11/05/24 0842 11/04/24 1848 WBC x10E9/L 12.3* 10.7 HEMOGLOBIN g/dL 10.3* 12.6* HEMATOCRIT % 32.1* 39.8 PLATELETS X10E9/L 179 263 MCV fL 82 83 Lab Results Component Value Date [id number] 1,129 (H) 08/08/2024 Lab Results Component Value Date FOLATE 11.5 01/22/2023 Lab Results Component Value Date IRON 51 01/31/2023 TIBC 252 01/31/2023 FERRITIN 553 (H) 01/22/2023 Lab Results Component Value Date IRONSAT 20 01/31/2023 Lab Results Component Value Date HGBA1C 5.3 09/08/2024 Lab Results Component Value Date CHOL 140 (L) 03/29/2024 Lab Results Component Value Date HDL 50 03/29/2024 No results found for: LIPIDPROF No results found for: VIDHYDROX Medications/ Parenteral: Medications Prior to Admission Medication Sig Dispense Refill Last Dose/Taking meclizine (ANTIVERT) 12.5 mg tablet Take 1 tablet (12.5 mg total) by mouth 3 (three) times a day asneeded for dizziness. 90 tablet 1 Past Week midodrine (PROAMATINE) 10 mg tablet Take 1 tablet (10 mg total) by mouth in the morning and at bedtime. 60 tablet 1 Past Week mirtazapine (REMERON) 15 mg tablet Take 1 tablet (15 mg total) by mouth nightly. 30 tablet 1 Past Week traZODone (DESYREL) 50 mg tablet Take 1 tablet (50 mg total) by mouth nightly as needed for sleep. 30 tablet 0 Past Week albuterol (PROVENTIL,VENTOLIN) 2.5 mg /3 mL (0.083 %) nebulizer solution USE 1 VIAL VIA NEBULIZER EVERY 8 HOURS NEEDED FOR WHEEZING (Patient not taking: Reported on 11/05/2024) 300 mL 9 Unknown nitroglycerin (NITROSTAT) 0.4 MG SL tablet DISSOLVE 1 TAB UNDER TONGUE FOR CHEST PAIN - IF PAIN REMAINS AFTER 5 MIN, CALL 911 AND REPEAT DOSE. MAX 3 TABS IN 15 MINUTES (Patient not taking: Reported on 11/05/2024) 25 tablet 0 Unknown Current Facility-Administered Medications Medication Dose Route Frequency Provider Last Rate Last Admin acetaminophen (TYLENOL EXTRA STRENGTH) tablet 500 mg 500 mg oral Q6H PRN DHEERAJ Bray alum-mag hydroxide-simeth (MAALOX) 200-200-20 mg/5 mL suspension 30 mL 30 mL oral [facility] Brittany [place], [employer]ARD heparin (porcine) injection 5,000 Units 5,000 Units subcutaneous Q8H [facility] Brittany [place], [employer]ARD magnesium sulfate IVPB 2000 mg/50 mL in iso-osmotic water (40 mg/mL premix) 2,000 mg intravenous PRN Brittany [place], [employer] GUARD magnesium sulfate IVPB 4000 mg/100 mL in iso-osmotic water (40 mg/mL premix) 4,000 mg intravenous PRN Brittany [place], [employer] RE[employer] GUARD ondansetron (PF) (ZOFRAN) injection 4 mg 4 mg intravenous Q4H PRN Brittany [place], [employer] RE[employer]ARD piperacillin-tazobactam (ZOSYN) IVPB 3.375 g/50 mL in iso-osmotic dextrose (67.5 mg/mL premix) 3.375 g intravenous Q12H Brittany [place], [employer]ARD Stopped at 11/05/24 0609 ryjspoinihdm-cfxqxsjlpl-halkwb (ZOSYN) 3.375 gram/50 mL IVPB Premix - Pyxis Override Pull potassium chloride (K-TAB,KLOR-CON) CR tablet 30-40 mEq 30-40 mEq oral PRN Brittany [place], [employer] GUARD Or potassium chloride (KAYCIEL) 20 mEq/15 mL solution 30-40 mEq 30-40 mEq oral PRN Brittany [place], [employer] RE[employer] GUARD Or potassium chloride IVPB 10 mEq/100 mL in water (0.1 mEq/mL premix) 10 mEq intravenous PRN Brittany [place], [employer]ARD sennosides-docusate sodium (SENOKOT-S) 8.6-50 mg 1 tablet 1 tablet oral Q12H PRN Brittany [place], [employer] sodium chloride 0.9 % flush 3 mL 3 mL intravenous PRN Brittany [place], [employer] GUARD sodium chloride 0.9 % flush 3 mL 3 mL intravenous Q12H [facility] [place], [employer]ARD 3 mL at 11/05/24 0051 Nutrition Findings/Summary: continual weight loss ongoing 14.3 % in one month Anthropometrics: Ht Readings from Last 1 Encounters: 11/05/24 182.9 cm (6') Wt Readings from Last 10 Encounters: 11/05/24 62.3 kg (137 lb 6.4 oz) 10/14/24 71.5 kg (157 lb 9.6 oz) 10/13/24 72.1 kg (159 lb) 10/06/24 72.8 kg (160 lb 8 oz) 09/26/24 77 kg (169 lb 12.1 oz) 09/11/24 78.3 kg (172 lb 9.9 oz) 09/03/24 75.7 kg (166 lb 12.8 oz) 08/27/24 84.3 kg (185 lb 12.8 oz) 08/10/24 82.1 kg (180 lb 14.4 oz) 07/31/24 76.7 kg (169 lb) [place] Body Weight: 80.4 kg Percent [place] Body Weight: 77 % Body Mass Index: Body mass index is 18.63 kg/m??. BMI Category: Normal range (18.50- 24.99) Diet/ Nutrition Order Review: Dietary Orders (From admission, onward) Start Ordered 11/05/2426 Adult diet Regular Texture; Cardiac Diet effective now Question Answer Comment Diet Type: Regular Texture Other Modifiers: Cardiac 11/05/24 0026 Diet Intakes: 25 % [] 75-100% [] 50-75% [] 25-50% [x] <25% [] NPO [] Unable to assess Intake/ Output Last 24 hrs: Intake/Output Summary (Last 24 hours) at 11/05/2024 1227 Last data filed at 11/05/2024 0559 Gross per 24 hour Intake 2957.44 ml Output 350 ml Net 2607.44 ml Oral Supplemental Intake/ Acceptance: just started [] 75-100% [] 50-75% [] 25-50% [] <25% [] NPO [] Unable to assess [place] Body Weight (80.4 kg) used to estimate nutrition needs Comparative Standards: Estimated Energy Needs: 9233-0385 kcals daily. Method and weight used: 25-30 kcal/kg Act (78.3 kg) Estimated Protein Needs: 94-157 grams daily. Method and weight used: 1.2-2 g protein/kg Act (78.3 kg) Estimated Fluid Needs: 8833-4443 ml daily. Method weight used: 25-30 ml/kg Act (78.3 kg) Comments: general needs. Malnutrition Status: Malnutrition Present: Yes, Severe. Previously identified on 07/29/24, see RD note. NUTRITION DIAGNOSIS: Intake Diagnosis: Acute disease or injury related malnutrition (NI 5.2.3) Ongoing NUTRITION INTERVENTIONS: Coordination of nutrition care: spoke with RN Supplements (medical food, vitamin or mineral): will send Dre BID for wound healing GOALS: Patient to meet calorie and protein needs RECOMMENDATIONS: Started Dre BID to provide for each packet/drink HMB, 90 calories, 7g L-Arginineand 7g L-Glutamine amino acids and 2.5g protein (collagen). Ensure HP TID will provide 350 kcal/20 g protein per serving NUTRITION MONITORING AND EVALUATION: Will monitor PO intakes, supplement acceptance, skin integrity, Weights, Nutrition Related Labs, POC & Follow. [x] Progressing toward goal [] Not progressing [] Progress toward goal declining [] Goal achieved Geni Cardona RD.,LD. Clinical Dietitian [facility] [phone] 11/05/24 * Lynn Samuels RPH - 11/05/2024 12:41 AM EDT [facility] Department of Pharmacy Pharmacist to Physician Communication The dose of piperacillin/tazobactam for spesis has been changed to 3.375 grams every 12 hours per the [facility] approved renal dosing guidelines, based on an estimated creatinine clearance is 16.8 mL/min (A) (by C-G formula based on SCr of 2.93 mg/dL (H)). Thank you, Lynn Samuels RPH documented in this encounter H&P Notes * Alison Khalil MD - 11/05/2024 7:55 AM EDT Images from the original note were not included. [facility] [address] [facility] [id number] Hospital Medicine History & Physical Patient: Fili Saunders Date of : 1940 Room: [facility] PCP: Alden Harry DO Admission date: 11/04/2024 6:39 PM Encounter date: 11/05/24 Hospital Day: 2 SUBJECTIVE Fili Saunders is a 84 y.o. male who presents with generalized weakness. According to EMSand family, patient has been bed-bound for approximately 4 week. They state for the last week he has not gotten up at all even to use the restroom. They states he has also had a decrease in appetite and oral intake. Patient has refused to come to the Emergency Room until today. Patient is cyanotic and extremities along with mottling. Chest and abdomen are sunken in. Patient is extremely cachectic. Patient is clinically profoundly dehydrated. His labs show that he is hypernatremic at 153.. BUN is 112 with a creatinine of 2.9. Imaging was largely unrevealing but did have a lot of chronic findings. The patient's primary problem is significant dehydration with hypernatremia and acute kidney injury. Free water deficit calculated at 2.9 L. Patient did receive 0.9 normal saline initially howeverfor volume resuscitation as his extremities were mottled in his mentation was altered. After normalsaline he is actually more alert and his peripheral color is much better. At this point, ER provider did start D5 water to help replace some of the free water deficit. Allergies: Patient has no known allergies. Prior to Admission medications Medication Sig Start Date End Date Taking? Authorizing Provider meclizine (ANTIVERT) 12.5 mg tablet Take 1 tablet (12.5 mg total) by mouth 3 (three) times a day asneeded for dizziness. 07/23/24 Yes Alden Harry, midodrine (PROAMATINE) 10 mg tablet Take 1 tablet (10 mg total) by mouth in the morning and at bedtime. 10/13/24 Yes Dolly Muñoz MD mirtazapine (REMERON) 15 mg tablet Take 1 tablet (15 mg total) by mouth nightly. 10/14/24 Yes Alden Harry DO traZODone (DESYREL) 50 mg tablet Take 1 tablet (50 mg total) by mouth nightly as needed for sleep. 10/11/24 Yes Alden G Furlong, DO albuterol (PROVENTIL,VENTOLIN) 2.5 mg /3 mL (0.083 %) nebulizer solution USE 1 VIAL VIA NEBULIZER EVERY 8 HOURS NEEDED FOR WHEEZING Patient not taking: Reported on 11/05/2024 04/06/24 Alden Harry DO nitroglycerin (NITROSTAT) 0.4 MG SL tablet DISSOLVE 1 TAB UNDER TONGUE FOR CHEST PAIN - IF PAIN REMAINS AFTER 5 MIN, CALL 911 AND REPEAT DOSE. MAX 3 TABS IN 15 MINUTES Patient not taking: Reported on 11/05/2024 08/05/24 Alden Harry DO Code Status: Full Code Past Medical History: Patient has a past medical history of Anemia, Asthma, Benign prostatic hyperplasia, COPD (chronic obstructive pulmonary disease) ([facility]), Dizziness, Head injury, HL (hearing loss), Hyperlipidemia, Hypothyroidism, Lung nodule, Lupus (systemic lupus erythematosus) [place] Pulmonary embolism [place]), Stage 3b chronic kidney disease (CKD) ([facility]), Syncope, and Visual impairment. Past Surgical History: Patient has a past surgical history that includes Eye surgery; Lung decortication (Right, 01/24/2023); Cystoscopy (N/A, 08/03/2024); and Esophagogastroduodenoscopy (N/A, 09/24/2024). Family History: Patient's family history includes Cancer in his mother and sister; Heart disease in his brother andfather. Social History: Patient reports that he quit smoking about 65 years ago. His smoking use included cigarettes. He started smoking about 25 years ago. He has a 38.5 pack- year smoking history. He has never used smokeless tobacco. He reports that he does not currently use alcohol. He reports that he does not currentlyuse drugs after having used the following drugs: Marijuana. Review of Systems Review of Systems Constitutional: Positive for activity change, appetite change and fatigue. Negative for chills, diaphoresis and fever. HENT: Negative for tinnitus and trouble swallowing. Eyes: Negative for visual disturbance. Respiratory: Negative for cough, chest tightness, shortness of breath and wheezing. Cardiovascular: Negative for chest pain, palpitations and leg swelling. Gastrointestinal: Negative for abdominal pain, diarrhea, nausea and vomiting. Genitourinary: Negative for difficulty urinating. Skin: Negative for rash. Neurological: Positive for weakness. Negative for dizziness, syncope, speech difficulty, light-headedness, numbness and headaches. Psychiatric/Behavioral: Negative for sleep disturbance. OBJECTIVE BP 109/65 Pulse 90 Temp 36.3 ??C (97.4 ??F) (Oral) Resp 16 Ht 182.9 cm (6') Wt 62.3 kg (137 lb 6.4 oz) SpO2 100% BMI 18.63 kg/m?? Temp: [36.2 ??C (97.1 ??F)-36.5 ??C (97.7 ??F)] 36.3 ??C (97.4 ??F) Pulse: [83-113] 90 Resp: [15-35] 16 BP: (99-132)/(60-88) 109/65 SpO2: [81 %-100 %] 100 % O2 Device: Nasal cannula O2 Flow Rate (L/min): [3 L/min-6 L/min] 4 L/min Intake/Output Summary (Last 24 hours) at 11/05/2024 1632 Last data filed at 11/05/2024 0559 Gross per 24 hour Intake 2957.44 ml Output 350 ml Net 2607.44 ml Physical Exam Physical Exam Vitals and nursing note reviewed. Constitutional: General: He is not in acute distress. HENT: Head: Normocephalic and atraumatic. Right Ear: External ear normal. Left Ear: External ear normal. Nose: Nose normal. Mouth/Throat: Mouth: Mucous membranes are moist. Pharynx: Oropharynx is clear. Eyes: Extraocular Movements: Extraocular movements intact. Pupils: Pupils are equal, round, and reactive to light. Neck: Vascular: No carotid bruit or JVD. Cardiovascular: Rate and Rhythm: Normal rate and regular rhythm. Pulses: Normal pulses. Pulmonary: Effort: Pulmonary effort is normal. Breath sounds: Normal breath sounds. Abdominal: General: Bowel sounds are normal. Palpations: Abdomen is soft. Tenderness: There is no abdominal tenderness. There is no right CVA tenderness or left CVA tenderness. Musculoskeletal: Right lower leg: No edema. Left lower leg: No edema. Lymphadenopathy: Cervical: No cervical adenopathy. Skin: General: Skin is warm and dry. Capillary Refill: Capillary refill takes 2 to 3 seconds. Neurological: General: No focal deficit present. Mental Status: He is alert and oriented to person, place, and time. Motor: Weakness present. Psychiatric: Mood and Affect: Mood normal. Behavior: Behavior normal. Thought Content: Thought content normal. Judgment: Judgment normal. Medications Scheduled: [START ON 11/06/2024] cefepime (MAXIPIME) IV, 1,000 mg, intravenous, Q24H heparin (porcine), 5,000 Units, subcutaneous, Q8H CHANDLER midodrine, 10 mg, oral, TID mirtazapine, 15 mg, oral, Nightly sodium chloride, 3 mL, intravenous, Q12H CHANDLER vancomycin, 20 mg/kg, intravenous, Once [START ON 11/06/2024] vancomycin, , intravenous, Dosed by Levels Infusions: dextrose 5 % in water, 75 mL/hr, Last Rate: 75 mL/hr (11/05/24 1606) As Needed: acetaminophen alum-mag hydroxide-simeth magnesium sulfate magnesium sulfate meclizine ondansetron potassium chloride OR potassium chloride OR potassium chloride IV (Adult) sennosides-docusate sodium sodium chloride traZODone Allergies: Patient has no known allergies. Labs Recent Results (from the past 24 hours) CBC auto differential Collection Time: 11/04/24 6:48 PM Result Value Ref Range WBC 10.7 4 - 11 x10E9/L RBC Count 4.80 4.1 - 5.7 X10E12/L Hemoglobin 12.6 (L) 13 - 17 g/dL Hematocrit 39.8 39 - 50 % MCV 83 80 - 100 fL MCH 26.3 (L) 27 - 34 pg MCHC 31.6 (L) 32 - 36 g/dL RDW 21.1 (H) 11.5 - 15 % Platelet Count 263 150 - 450 X10E9/L MPV 10.3 7 - 12 fL Bands % 2 % Neutrophils % 76 % Lymphocytes % 8 % Monocytes % 14 % Neutrophils Absolute (M) 8.3 (H) 1.5 - 6.6 10*3/uL Lymphocytes Absolute 0.9 (L) 1.0 - 3.5 10*3/uL Monocytes Absolute 1.5 (H) 0.0 - 0.9 10*3/uL RBC Morphology Reviewed Differential Type MANUAL DIFFERENTIAL Comprehensive metabolic panel Collection Time: 11/04/24 6:48 PM Result Value Ref Range SODIUM 153 (H) 134 - 146 mmol/L POTASSIUM 5.2 (H) 3.5 - 5.0 mmol/L CHLORIDE 116 (H) 98 - 109 mmol/L CARBON DIOXIDE 22 22 - 32 mmol/L ANION GAP 15 5 - 15 mmol/L BLOOD UREA NITROGEN 112 (H) 5 - 27 mg/dL CREATININE 2.93 (H) 0.70 - 1.20 mg/dL GLUCOSE 126 (H) 65 - 99 mg/dL CALCIUM 9.6 8.5 - 10.5 mg/dL TOTAL PROTEIN 9.5 (H) 6.0 - 8.0 g/dL ALBUMIN 3.7 3.2 - 5.3 g/dL ALKALINE PHOSPHATASE 91 39 - 130 U/L AST 13 <=41 U/L ALT 7 <=40 U/L BILIRUBIN,TOTAL 1.5 (H) 0.3 - 1.2 mg/dL EGFR Non-Race Dependent 21 (L) >=60 ml/min/1.73sq.m D-Dimer Collection Time: 11/04/24 6:48 PM Result Value Ref Range D DIMER 3,228 (H) 1 - 255 ug/mL Protime & INR Collection Time: 11/04/24 6:48 PM Result Value Ref Range PROTIME 15.1 (H) 9.8 - 13.2 sec INR 1.3 (H) 0.9 - 1.2 APTT Collection Time: 11/04/24 6:48 PM Result Value Ref Range APTT 40 (H) 26 - 37 sec Lactate w/ Reflex Collection Time: 11/04/24 6:48 PM Result Value Ref Range LACTATE W/REFLEX 2.1 (H) 0.4 - 2.0 mmol/L Magnesium Collection Time: 11/04/24 6:48 PM Result Value Ref Range MAGNESIUM 3.1 (H) 1.8 - 2.6 mg/dL Troponin I, High Sensitivity Collection Time: 11/04/24 6:48 PM Narrative The following orders were created for panel order Troponin I, High Sensitivity. Procedure Abnormality Status --------- ------ Troponin I, High Sensiti...[[id number]] Abnormal Final result Troponin I, High Sensiti...[[id number]] Abnormal Final result Please view results for these tests on the individual orders. CK Total Collection Time: 11/04/24 6:48 PM Result Value Ref Range CPK 33 24 - 195 U/L Myoglobin, serum Collection Time: 11/04/24 6:48 PM Result Value Ref Range SERUM MYOGLOBIN 132.5 (H) 17.4 - 105.7 ng/mL Troponin I, High Sensitivity 0 Hour Collection Time: 11/04/24 6:48 PM Result Value Ref Range TROPONIN I, HIGH SENSITIVITY 83 (H) <21 ng/L Troponin I, High Sensitivity 1 Hour Collection Time: 11/04/24 7:52 PM Result Value Ref Range TROPONIN I, HIGH SENSITIVITY 71 (H) <21 ng/L Narrative Elevations of hs-Troponin may be due to causes other than myocardial ischemia. Recommend serial hs-Troponin testing be performed. For the initial evaluation and management of chest pain patients, refer to the algorithms linked below. Emergency Patient: [email or web address] [email or web address]: [email or web address] Lactate Collection Time: 11/04/24 10:51 PM Result Value Ref Range LACTATE 1.4 0.4 - 2.0 mmol/L Extra Urine Collection Time: 11/05/24 2:32 AM Specimen: Urine, Clean Catch Midstream Result Value Ref Range Extra Tube Auto Resulted Extra Urine Culture Collection Time: 11/05/24 2:32 AM Specimen: Urine, Clean Catch Midstream Result Value Ref Range Extra Tube Auto Resulted Extra Urine [place] Collection Time: 11/05/24 2:32 AM Specimen: Urine, Clean Catch Midstream Result Value Ref Range Extra Tube Auto Resulted Comprehensive metabolic panel Collection Time: 11/05/24 8:19 AM Result Value Ref Range SODIUM 149 (H) 134 - 146 mmol/L POTASSIUM 4.6 3.5 - 5.0 mmol/L CHLORIDE 116 (H) 98 - 109 mmol/L CARBON DIOXIDE 20 (L) 22 - 32 mmol/L ANION GAP 13 5 - 15 mmol/L BLOOD UREA NITROGEN CREATININE 2.71 (H) 0.70 - 1.20 mg/dL GLUCOSE 145 (H) 65 - 99 mg/dL CALCIUM 8.3 (L) 8.5 - 10.5 mg/dL TOTAL PROTEIN 7.4 6.0 - 8.0 g/dL ALBUMIN 2.8 (L) 3.2 - 5.3 g/dL ALKALINE PHOSPHATASE 71 39 - 130 U/L AST 14 <=41 U/L ALT 8 <=40 U/L BILIRUBIN,TOTAL 1.6 (H) 0.3 - 1.2 mg/dL EGFR Non-Race Dependent 23 (L) >=60 ml/min/1.73sq.m Magnesium Collection Time: 11/05/24 8:19 AM Result Value Ref Range MAGNESIUM 2.6 1.8 - 2.6 mg/dL CBC auto differential Collection Time: 11/05/24 8:42 AM Result Value Ref Range WBC 12.3 (H) 4 - 11 x10E9/L RBC Count 3.90 (L) 4.1 - 5.7 X10E12/L Hemoglobin 10.3 (L) 13 - 17 g/dL Hematocrit 32.1 (L) 39 - 50 % MCV 82 80 - 100 fL MCH 26.4 (L) 27 - 34 pg MCHC 32.1 32 - 36 g/dL RDW 21.0 (H) 11.5 - 15 % Platelet Count 179 150 - 450 X10E9/L MPV 9.7 7 - 12 fL Neutrophils % 73 % Lymphocytes % 4 % Monocytes % 22 % Atypical Lymphs % 1 % Neutrophils Absolute (M) 9.0 (H) 1.5 - 6.6 10*3/uL Lymphocytes Absolute 0.6 (L) 1.0 - 3.5 10*3/uL Monocytes Absolute 2.7 (H) 0.0 - 0.9 10*3/uL Hypochromia 1+ Differential Type MANUAL DIFFERENTIAL Radiology CT abdomen and pelvis without contrast Result Date: 11/04/2024 Narrative: CT ABDOMEN AND PELVIS WO CONT: 11/04/2024 PROVIDED HISTORY: * 84 years old Male * weakness COMPARISON: 09/26/2024 TECHNIQUE: 1. Multiple axial images of the abdomen and pelvis were obtained.No intravenous contrast was administered. 2. All CT scans at this facility use dose modulation, iterative reconstruction, and/or weight based dosing when appropriate to reduce radiation dose to as low as reasonably achievable. FINDINGS: The lack of intravenous contrast limits evaluation of the solid abdominal organs. Motion degraded examination. LOWER THORAX: Please refer to separately dictated CT chest for intrathoracic findings. ABDOMEN/PELVIS: No acute process of the liver, spleen, adrenals,pancreas (fatty infiltration). Nondistended gallbladder without radiopaque stones. No abnormal biliary tree caliber. Asymmetrically enlarged and heterogenous appearance of the left kidney, similar toprior. Extensive left perirenal fat infiltration. Asymmetrically increased caliber of the left ureter with questionable soft tissue thickening extending to the mid/distal ureter prior to the ureterovesical junction, increased from prior. Asymmetrically decreased caliber of the left renal vein. Right kidney with scattered nonobstructing calculi in multifocal parenchymal contour abnormalities as well as renal cortical cysts, similar to more completely evaluated on prior CT urogram. No evidence ofright hydroureteronephrosis. Layering calculi along the right ureteral orifice. Urinary bladder with asymmetric bowel wall thickening. Enlarged prostate with scattered calcifications. Rectal fecalithmeasuring up to 7.8 cm with mild perirectal inflammatory changes. Colonic diverticulosis without evidence of acute diverticulitis. Remainder the bowel without evidence of abnormal caliber. Terminal ileum within normal limits for technique. Candidate appendix without abnormal dilation. 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 No free air, free fluid. Increased overall number of upper abdominal and periaortic lymph nodes, though not definitively abnormal by CT size criteria/morphology. Multilevel degenerative changes of the spine. Degenerative changes of the hips, symphysis pubis. No suspicious osseus lesions. IMPRESSION: 1. Heterogenous appearance of the enlarged left kidney with asymmetric soft tissue enlargement of the left ureter and questionably left renal vein, progressed from prior, as described. Differential includes infectious/inflammatory process, with underlyi ng neoplasm not excluded by noncontrast technique. 2. Asymmetric urinary bladder wall thickening with prostatomegaly, possibly sequelae of chronic outlet obstruction, though underlying neoplastic process not excluded. 3. 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 2 year follow-up CTA/MRA may be of diagnostic value. 4. Remainder of chronic findings, as described. Marlon Hallet al. Managing Incidental Findings on Abdominal and Pelvic CT and MRI, Part 2: White Paper of the ACR Incidental Findings Committee II on Vascular Findings. J Am Cherie Radiol 2013;10:789-794. Finalized by Justin Hawthorne MD on 11/04/2024 9:[address] chest without contrast Result Date: 11/04/2024 Narrative: EXAM: CT CHEST WITHOUT CONTRAST CLINICAL INFORMATION: weakness. TECHNIQUE: CT chest was performed utilizing 5 mm axial reconstructions without contrast. Coronal and sagittal reformatted images were obtained and reviewed. Automated exposure control was utilized. Computer aided detection for pulmonary nodules was performed utilizing [employer] software. COMPARISON: CT dated 07/11/2024, single view chest dated 11/04/2024 FINDINGS: There are changes of centrilobular emphysema with chronic scarring in both lungs. Stable chronic benign middle lobe nodule. There is also a benign calcified middle lobe granuloma. There are no focal consolidations. There are no pleural or pericardial effusions. There are no enlarged or pathologic-appearing thoracic lymph nodes. There scattered atherosclerotic calcifications throughout a normal diameter thoracic aorta. There are mild coronary artery calcifications. Again seen are right diaphragmatic calcified pleural plaques, most commonly seen in the setting of previous asbestos exposure. IMPRESSION: 1. Redemonstration of centrilobular emphysema with chronic scarring in both lungs and chronic benign nodules. There is no convincing evidence for superimposed acute cardiopulmonary disease. 2. Chronic and incidental CT findings, as above. 3. Please seeseparate dictation of the dedicated CT of the abdomen and pelvis. All CT scans at this facility usedose modulation, iterative reconstruction, and/or weight based dosing when appropriate to reduce radiation dose to as low as reasonably achievable. Finalized by Luke Stokes MD on 11/04/2024 9:40 PM X-ray chest 1 view Result Date: 11/04/2024 Narrative: HISTORY: An 84-year-old male with a history of the shortness of breath. EXAMINATION: CHEST: Portable upright AP view COMPARISON: Comparison is made with the chest radiograph of the 09/22/2024. FINDINGS: Both lungs are hyperinflated with evidence of emphysema and COPD. Chronic changes are seen in the left mid lung field. No evidence of pneumonic infiltrates or pleural effusions. No pneumothorax is identified. The cardiac silhouette is within normal limits. The trachea is in midline. The mediastinum is otherwise unremarkable. The hemidiaphragms are normal in position. The bony rib cage is intact. IMPRESSION: * Severe emphysema and COPD and chronic changes in the left mid lung field.* No evidence of pulmonary infiltrate or acute pulmonary pathology or significant interval change. Finalized by Mario Moran MD on 11/04/2024 6:59 PM HOSPITAL PROBLEM LIST Principal Problem: Dehydration with hypernatremia Active Problems: Gastroesophageal reflux disease Hyperlipidemia Stage 3b chronic kidney disease (CMS-HCC) Acquired hypothyroidism Hypomagnesemia Severe protein-calorie malnutrition Primary hypertension AMS (altered mental status) Severe protein-calorie malnutrition ASSESSMENT & PLAN Hypernatremia: D5 solution. Improving today. Low-sodium diet. GERD: Protonix. Hyperlipidemia: Continue home statin. CKD 3B: Creatinine elevated above baseline. Continue to monitor daily. Hypothyroidism: Continue home Synthroid. Hypomagnesemia: Supplement. Monitor electrolytes daily replace per protocol. Severe protein calorie malnutrition: Nutrition consult. Hypertension: Normotensive. Continue home medications. Altered mental status: Improved since coming up from the emergency department. Back to baseline. Continue to monitor daily. Elevated D-dimer: Unable to get CTA chest due to kidney function. Perfusion scan shows intermediatestudy but no proof of large clot. Venous duplex bilateral lower extremities ordered. Admission orders placed and home medications reconciled. DVT prophylaxis: EPC's and Heparin subQ. GI prophylaxis. Protonix PT/OT to evaluate and treat. DC planning: We will likely need several days.. Sepsis suspected, yes-with organ failure including, acute kidney injury as evidenced by Elevated creatinine, altered mental status. Presumed source; sepsis of unknown origin. Testing obtained; blood cultures x2 and urine culture. Fluid resuscitation; 30mL/kg IVF bolus. Antibiotics; cefepime and vanco. Vasopressors; not required. Rommel Obrien, YOLANDA-BORDER GUARD, 11/05/2024 4:32 PM [facility] Internal Medicine 7AM-7PM & 7PM-7AM: EpicChat or page through On[employer]. This note is dictated with the use of M*Modal. Please note that this dictation was completed with computer voice recognition software. Quite often unanticipated grammatical, syntax, homophones, and other interpretive errors are inadvertently transcribed by the computer software. Please disregard these errors. Please excuse any errors that have escaped final proofreading. Physician Attestation: I have reviewed the above note authored by the Advance Practice Provider (MYKEL) including history, review of systems, physical examination, medical decision making and agree with the assessment & plan. I have personally performed a face to face diagnostic evaluation on this patient. I have reviewed all laboratory findings and imaging reports/films. I have independently evaluated the patient and repeated shah portions of the physical exam. I agree with the MYKEL plan as above, unless otherwise noted. ALISON KHALIL MD Goals of Care (GOC) discussion reviewing medical history, current condition and prognosis were all reviewed with patient and daughter at bedside. >30 mins were spent reviewing and relevant data and answering questions. Ultimately elected to remain FULL CODE. documented in this encounter Consult Notes * Velasquez Garcias MD - 11/09/2024 8:35 AM EDTAssociated Order(s): IP CONSULT TO UROLOGY Images from the original note were not included. Rajiv Deleon Jr., M.D., James Leger Jr., M.D., Angel Luis Chambers M.D., Oscar Platt M.D., Velasquez Garcias M.D., Kelin Boswell M.D., Kourtney Allen M.D, Will Mera M.D., Uzair Robbins M.D., Cabrera Mccabe M.D. Urology Consult Note Patient: Fili Saunders Date of : 1940 REASON FOR CONSULT: recurrent gross hematuria HISTORY OF PRESENT ILLNESS: The patient is a 84 y.o. male who presents with history of asthma, COPD, and CKD. Was seen initially in July with gross hematuria. Had a CT scan in May which showed a little thickening of his left proximal ureter with no hydronephrosis. Distally and a little thickening of the bladder. A repeat CT s can in July 2024 showed circumferential increasing bladder wall thickening consistent with cystitis. He had a cystoscopy Aug 03 2024 showing bph and catheter cystitis. He subsequently had gross hematuria again in September 2024. Urine culture was positive for Genoveva and a repeat CT showed chronic left hydro. He had a CT urogram at that time showing left-sided hydronephrosis with enhancement of left renal pelvis and soft tissue enhancing density just past the UPJ which could be seen with infection versus urothelial cell carcinoma. The patient has been scheduled for a cysto with left retrograde pyelogram and ureteroscopy with biopsy which has not taken place yet. Was admitted with dehydration and hypernatremia. He was having generalized weakness and according to the family has been bed-bound for about 4 weeks. Found to have bilateral DVTs and started on anticoagulation. Has gross hematuria Patient's old records, notes and chart reviewed and summarized above. Past Medical History: Past Medical History: Diagnosis Date Anemia Asthma Benign prostatic hyperplasia COPD (chronic obstructive pulmonary disease) [place] Dizziness Head injury HL (hearing loss) Hyperlipidemia Hypothyroidism Lung nodule Lupus (systemic lupus erythematosus) ([facility]) Pulmonary embolism ([facility]) Stage 3b chronic kidney disease (CKD) ([facility]) Syncope Visual impairment cheaters for reading Past Surgical History: Past Surgical History: Procedure Laterality Date CYSTOSCOPY N/A 08/03/2024 Performed by Velasquez Garcias MD at [facility] ESOPHAGOGASTRODUODENOSCOPY BIOPSY N/A 09/24/2024 Performed by Beverly Charles MD at [facility] cataracts RIGHT THORACOTOMY COMPLETE LUNG DECORTICATION Right 01/24/2023 Performed by Jett Khanna MD at [facility] Medications: Scheduled Meds: cefepime (MAXIPIME) IV, 1,000 mg, intravenous, Q12H chlorhexidine, 15 mL, mouth/throat, BID metroNIDAZOLE, 500 mg, intravenous, Q12H midodrine, 10 mg, oral, TID mirtazapine, 15 mg, oral, Nightly sodium chloride, 3 mL, intravenous, Q12H CHANDLER sodium phosphates, 118 mL, rectal, Once Continuous Infusions: dextrose 5 % in water, 100 mL/hr, Last Rate: 100 mL/hr (11/09/24 0603) PRN Meds:. acetaminophen alum-mag hydroxide-simeth ipratropium-albuteroL magnesium sulfate magnesium sulfate meclizine ondansetron polyethylene glycol potassium chloride OR potassium chloride OR potassium chloride IV (Adult) sennosides-docusate sodium sodium chloride traZODone Allergies: Patient has no known allergies. Social History: Social History Socioeconomic History Marital status: Spouse name: Not on file Number of children: Not on file Years of education: Not on file Highest education level: Not on file Occupational History Not on file Tobacco Use Smoking status: Former Current packs/day: 1.50 Average packs/day: 1.5 packs/day for 25.7 years (38.5 ttl pk-yrs) Types: Cigarettes Start date: 1999 Quit date: 1959 Smokeless tobacco: Never Vaping Use Vaping status: Never Used Substance and Sexual Activity Alcohol use: Not Currently Comment: 2 beer per year Drug use: Not Currently Types: Marijuana Comment: last used around 1981 Sexual activity: Defer Partners: Female Other Topics Concern Caffeine Use Yes Social History Narrative Not on file Social Drivers of Health Financial Resource Strain: Low Risk (02/11/2023) Overall Financial Resource Strain (CARDIA) Difficulty of Paying Living Expenses: Not hard at all Food Insecurity: No Food Insecurity (11/05/2024) Hunger Screening Food Insecurity - Worry: Never True Food Insecurity - Inability: Never True Transportation Needs: No Transportation Needs (11/05/2024) PRAPARE - Transportation Lack of Transportation (Medical): No Lack of Transportation (Non-Medical): No Physical Activity: Inactive (05/11/2024) Exercise Vital Sign Days of Exercise per Week: 0 days Minutes of Exercise per Session: 0 min Stress: No Stress Concern Present (02/11/2023) [employer] - Occupational Stress Questionnaire Feeling of Stress : Not at all Social Connections: Moderately Isolated (05/11/2024) Social Connection and Isolation Panel [NHANES] Frequency of Communication with Friends and Family: More than three times a week Frequency of Social Gatherings with Friends and Family: Three times a week Attends Judaism Services: Never Active Member of Clubs or Organizations: No Attends Club or Organization Meetings: Never Marital Status: Interpersonal Safety: Not At Risk (11/05/2024) Humiliation, Afraid, Rape, and Kick questionnaire Fear of Current or Ex-Partner: No Emotionally Abused: No Physically Abused: No Sexually Abused: No Housing Instability: Low Risk (11/05/2024) Housing Instability Housing Instability: No Family History: Family History Problem Relation Age of Onset Cancer Mother Heart disease Father Cancer Sister Heart disease Brother Physical Exam: This a 84 y.o. patient Patient Vitals for the past 24 hrs: BP Temp Temp src Pulse Resp SpO2 11/09/24 0734 -- -- -- 74 18 97 % 11/09/24 0348 102/54 36.4 ??C (97.5 ??F) Oral 88 18 97 % 11/09/24 0004 106/61 36.6 ??C (97.9 ??F) Oral 88 16 96 % 11/08/242025 -- -- -- 87 18 98 % 11/08/24 1934 107/75 36.6 ??C (97.9 ??F) Oral 88 20 98 % 11/08/24 1722 100/68 36.4 ??C (97.6 ??F) Oral 87 16 97 % 11/08/24 1328 121/84 36.4 ??C (97.5 ??F) Axillary 86 16 90 % Constitutional: Lying in bed, cachectic Alert. Answered questions appropriately Abdomen is soft without rebound Schroeder catheter in place. Urine concentrated but no hematuria LABS: Results from last 7 days Lab Units 11/09/24 0611/08/24215211/08/24 17011/08/24 0433 11/07/24 0516 WBC x10E9/L 9.6 -- -- 9.0 9.3 HEMOGLOBIN g/dL 9.4* 9.6* 9.7* 9.6* 10.5* HEMATOCRIT % 28.7* 28.9* 29.8* 29.7* 33.0* PLATELETS X10E9/L 117* -- -- 150 148* Results from last 7 days Lab Units 11/09/24 0611/08/24170111/08/24 0434 POTASSIUM mmol/L 3.5 3.4* 3.5 CHLORIDE mmol/L 113* 116* 117* CO2 mmol/L 20* 20* 21* BUN mg/dL 59* 67* 68* CREATININE mg/dL 1.76* 1.85* 1.97* GLUCOSE mg/dL 125* 120* 102* CALCIUM mg/dL 7.8* 8.0* 8.3* Lab Results Component Value Date PSA 6.44 (H) 08/08/2024 Urinalysis: Lab Results Component Value Date COLOR Yellow 11/09/2024 COLOR BROWN (A) 05/13/2024 TURBIDITY Clear 11/09/2024 TURBIDITY HAZY (A) 05/13/2024 SPECIFICGRA 1.010 11/09/2024 SPECIFICGRA >1.030 05/13/2024 NITRITE Negative 11/09/2024 NITRITE Positive (A) 05/13/2024 PHURINE 6.0 11/09/2024 PHURINE 5.5 05/13/2024 LEUKOCYTE Moderate (A) 11/09/2024 LEUKOCYTE Trace (A) 05/13/2024 PROTEIN 100 mg/dL (A) 11/09/2024 PROTEIN 100 (A) 05/13/2024 KETONES Negative 11/09/2024 KETONES Negative 05/13/2024 UROBILINOGEN 0.2 eu/dL 11/09/2024 UROBILINOGEN 0.2 05/13/2024 BLOODHGB Large (A) 11/09/2024 BLOODHGB Large (A) 05/13/2024 Assessment and Plan Assessment: Left hydronephrosis with intermittent hematuria Plan: Has already been requested be scheduled for cysto with left retrograde pyelogram ureteroscopy and biopsy. He is currently debilitated and needs to be a little stronger prior to booking his surgery * Oscar Perales DO - 11/09/2024 6:32 AM EDTAssociated Order(s): IP CONSULT TO GENERAL SURGERY Images from the original note were not included. [facility] - ACUTE [facility]ARE [address] [facility] [id number] CONSULT NOTE CHIEF COMPLAINT Chief Complaint Patient presents with Medical Screening Fili Saunders is a 84 y.o. male who presented to the ED several days ago with weakness. He has not been eating for several weeks according to him. He does not have any teeth and threw awayhis dentures 10-15 years ago because they did not fit correctly. I was consulted last evening because of 1 episode of emesis yesterday. He had an abdominal x-ray which shows ileus versus obstruction but when I visualize the x-ray looks like a colonic ileus. The CTscan done on 11/04 showed a rectal fecalith measuring up to 7.8 cm in size. Patient states he has not had a bowel movement in several days. He denies any nausea vomiting this morning. Denies any abdominal pain. Denies any melena hematochezia. He lives with his at home. He has plenty of food he states but is just not hungry. Reason for Exam Nausea, constipation PACS Images Show images for X-ray abdomen ap 1 view X-ray abdomen ap 1 view Order: [id number] Status: Final result Next appt: 11/25/2024 at 02:15 PM in Internal Medicine (Alden Harry DO) Test Result Released: No (scheduled for 11/09/2024 12:15 PM) 0 Result Notes Details Reading Physician Reading Date Result Priority Luke Stokes MD [phone] 11/08/2024 Routine Narrative & Impression EXAM: XR ABDOMEN AP 1 VW CLINICAL INFORMATION: Nausea, constipation. COMPARISON: CT dated 11/04/2024 FINDINGS: There are air-filled dilated loops of bowel, which may represent obstruction or ileus. There is no evidence of pneumatosis or free air. There is no convincing radiographically evident nephrolithiasis. IMPRESSION: Air-filled dilated bowel, which may represent obstruction or ileus. Finalized by Luke Stokes MD on 11/08/2024 1:14 PM Exam Ended: 11/08/24 10:09 EDT Last Resulted: 11/08/24 13:14 EDT Reason for Exam weakness PACS Images Show images for CT abdomen and pelvis without contrast CT abdomen and pelvis without contrast Order: [id number] Status: Final result Next appt: 11/25/2024 at 02:15 PM in Internal Medicine (Alden Harry DO) Test Result Released: No [facility] Result Notes Details Reading Physician Reading Date Result Priority Justin Hawthorne MD [phone] 11/04/2024 STAT Narrative & Impression CT ABDOMEN AND PELVIS WO CONT: 11/04/2024 PROVIDED HISTORY: * 84 years old Male * weakness COMPARISON: 09/26/2024 TECHNIQUE: 1. Multiple axial images of the abdomen and pelvis were obtained. No intravenous contrast was administered. 2. All CT scans at this facility use dose modulation, iterative reconstruction, and/or weight baseddosing when appropriate to reduce radiation dose to as low as reasonably achievable. FINDINGS: The lack of intravenous contrast limits evaluation of the solid abdominal organs. Motion degraded examination. LOWER THORAX: Please refer to separately dictated CT chest for intrathoracic findings. ABDOMEN/PELVIS: No acute process of the liver, spleen, adrenals, pancreas (fatty infiltration). Nondistended gallbladder without radiopaque stones. No abnormal biliary tree caliber. Asymmetrically enlarged and heterogenous appearance of the left kidney, similar to prior. Extensiveleft perirenal fat infiltration. Asymmetrically increased caliber of the left ureter with questionable soft tissue thickening extending to the mid/distal ureter prior to the ureterovesical junction, increased from prior. Asymmetrically decreased caliber of the left renal vein. Right kidney with scattered nonobstructing calculi in multifocal parenchymal contour abnormalities as well as renal cortical cysts, similar to more completely evaluated on prior CT urogram. No evidence of right hydroureteronephrosis. Layering calculi along the right ureteral orifice. Urinary bladder with asymmetric bowel wall thickening. Enlarged prostate with scattered calcifications. Rectal fecalith measuring up to 7.8 cm with mild perirectal inflammatory changes. Colonic diverticulosis without evidence of acute diverticulitis. Remainder the bowel without evidence of abnormal caliber. Terminal ileum within normal limits for technique. Candidate appendix without abnormal dilation. 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 No free air, free fluid. Increased overall number of upper abdominal and periaortic lymph nodes, though not definitively abnormal by CT size criteria/morphology. Multilevel degenerative changes of the spine. Degenerative changes of the hips, symphysis pubis. Nosuspicious osseus lesions. IMPRESSION: 1. Heterogenous appearance of the enlarged left kidney with asymmetric soft tissue enlargement of the left ureter and questionably left renal vein, progressed from prior, as described. Differential includes infectious/inflammatory process, with underlying neoplasm not excluded by noncontrast technique. 2. Asymmetric urinary bladder wall thickening with prostatomegaly, possibly sequelae of chronic outlet obstruction, though underlying neoplastic process not excluded. 3. 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 2 year follow-up CTA/MRA may be of diagnostic value. 4. Remainder of chronic findings, as described. Marlon Hall, et al. Managing Incidental Findings on Abdominal and Pelvic CT and MRI, Part 2: White Paper of the ACR Incidental Findings Committee II on Vascular Findings. J Am Cherie Radiol 2013;10:789-794. Finalized by Justin Hawthorne MD on 11/04/2024 9:54 PM Exam Ended: 11/04/24 21:14 EDT Last Resulted: 11/04/24 21:54 EDT MEDICATION Current Facility-Administered Medications: acetaminophen (OFIRMEV) IVPB Premix 1,000 mg, 1,000 mg, intravenous, Q6H PRN, DHEERAJ Mo, Stopped at 11/08/24 2318 alum-mag hydroxide-simeth (MAALOX) 200-200-20 mg/5 mL suspension 30 mL, 30 mL, oral, [facility], DHEERAJ Bray cefEPime (MAXIPIME) IVPB 1000 mg/50 mL in dextrose 5% duplex (20 mg/mL premix), 1,000 mg, intravenous, Q12H, DHEERAJ Richards, Last Rate: 12.5 mL/hr at 11/09/24602, Rate Verify at 11/09/24602 chlorhexidine (PERIDEX) 0.12 % solution 15 mL, 15 mL, mouth/throat, BID, DHEERAJ Richards, 15 mL at 11/08/242054 dextrose 5 % (D5W) infusion, 100 mL/hr, intravenous, Continuous, Charlie Mireles MD, Last Rate:100 mL/hr at 11/09/24 06, Rate Verify at 11/09/24602 ipratropium-albuteroL (DUONEB) 0.5 mg-3 mg(2.5 mg base)/3 mL nebulizer solution 3 mL, 3 mL, nebulization, Q6H PRN, Alison Khalil MD magnesium sulfate IVPB 2000 mg/50 mL in iso-osmotic water (40 mg/mL premix), 2,000 mg, intravenous,PRN, Brittany Mccallum APRN-DAVIS magnesium sulfate IVPB 4000 mg/100 mL in iso-osmotic water (40 mg/mL premix), 4,000 mg, intravenous, PRN, Brittany Mccallum APRN-DAVIS meclizine (ANTIVERT) tablet 12.5 mg, 12.5 mg, oral, TID PRN, Rommel Obrien APRN-DAVIS metroNIDAZOLE (FLAGYL) IVPB 500 mg/100 mL in iso-osmotic sodium chloride (5 mg/mL premix), 500 mg, intravenous, Q12H, Charlie Mireles MD, Stopped at 11/09/24 0250 midodrine (PROAMATINE) tablet 10 mg, 10 mg, oral, TID, Rommel Obrien APRN-DAVIS mirtazapine (REMERON) tablet 15 mg, 15 mg, oral, Nightly, Rommel Obrien APRN-DAVIS ondansetron (PF) (ZOFRAN) injection 4 mg, 4 mg, intravenous, Q4H PRN, Brittany Mccallum APRN-DAVIS, 4 mg at 11/08/24 0848 potassium chloride (K-TAB,KLOR-CON) CR tablet 30-40 mEq, 30-40 mEq, oral, PRN OR potassium chloride (KAYCIEL) 20 mEq/15 mL solution 30-40 mEq, 30-40 mEq, oral, PRN OR potassium chloride IVPB 10 mEq/100 mL in water (0.1 mEq/mL premix), 10 mEq, intravenous, PRN, Brittany Mccallum APRN-DAVIS sennosides-docusate sodium (SENOKOT-S) 8.6-50 mg 1 tablet, 1 tablet, oral, Q12H PRN, Brittany Mccallum APRN-DAVIS sodium chloride 0.9 % flush 3 mL, 3 mL, intravenous, PRN, Brittany Xena, WEEKEND RECEPTIONIST-BORDER GUARD sodium chloride 0.9 % flush 3 mL, 3 mL, intravenous, Q12H Brittany ARTEAGA APRN-BORDER GUARD, 3 mL at 11/08/24 1019 traZODone (DESYREL) tablet 50 mg, 50 mg, oral, Nightly PRN, Rommel Obrien, WEEKEND RECEPTIONIST-BORDER GUARD ALLERGY No Known Allergies MEDICAL HISTORY Past Medical History: Diagnosis Date Anemia Asthma Benign prostatic hyperplasia COPD (chronic obstructive pulmonary disease) [place] Dizziness Head injury HL (hearing loss) Hyperlipidemia Hypothyroidism Lung nodule Lupus (systemic lupus erythematosus) ([facility] Pulmonary embolism ([facility]) Stage 3b chronic kidney disease (CKD) ([facility] Syncope Visual impairment cheaters for reading SURGICAL HISTORY Past Surgical History: Procedure Laterality Date CYSTOSCOPY N/A 08/03/2024 Performed by Velasquez Garcias MD at [facility] ESOPHAGOGASTRODUODENOSCOPY BIOPSY N/A 09/24/2024 Performed by Beverly Charles MD at [facility] EYE SURGERY cataracts RIGHT THORACOTOMY COMPLETE LUNG DECORTICATION Right 01/24/2023 Performed by Jett Khanna MD at [facility] SOCIAL HISTORY Social History Socioeconomic History Marital status: Spouse name: Not on file Number of children: Not on file Years of education: Not on file Highest education level: Not on file Occupational History Not on file Tobacco Use Smoking status: Former Current packs/day: 1.50 Average packs/day: 1.5 packs/day for 25.7 years (38.5 ttl pk-yrs) Types: Cigarettes Start date: 1999 Quit date: 1959 Smokeless tobacco: Never Vaping Use Vaping status: Never Used Substance and Sexual Activity Alcohol use: Not Currently Comment: 2 beer per year Drug use: Not Currently Types: Marijuana Comment: last used around 1981 Sexual activity: Defer Partners: Female Other Topics Concern Caffeine Use Yes Social History Narrative Not on file Social Drivers of Health Financial Resource Strain: Low Risk (02/11/2023) Overall Financial Resource Strain (CARDIA) Difficulty of Paying Living Expenses: Not hard at all Food Insecurity: No Food Insecurity (11/05/2024) Hunger Screening Food Insecurity - Worry: Never True Food Insecurity - Inability: Never True Transportation Needs: No Transportation Needs (11/05/2024) PRAPARE - Transportation Lack of Transportation (Medical): No Lack of Transportation (Non-Medical): No Physical Activity: Inactive (05/11/2024) Exercise Vital Sign Days of Exercise per Week: 0 days Minutes of Exercise per Session: 0 min Stress: No Stress Concern Present (02/11/2023) [employer] [employer] - Occupational Stress Questionnaire Feeling of Stress : Not at all Social Connections: Moderately Isolated (05/11/2024) Social Connection and Isolation Panel [NHANES] Frequency of Communication with Friends and Family: More than three times a week Frequency of Social Gatherings with Friends and Family: Three times a week Attends Judaism Services: Never Active Member of Clubs or Organizations: No Attends Club or Organization Meetings: Never Marital Status: Interpersonal Safety: Not At Risk (11/05/2024) Humiliation, Afraid, Rape, and Kick questionnaire Fear of Current or Ex-Partner: No Emotionally Abused: No Physically Abused: No Sexually Abused: No Housing Instability: Low Risk (11/05/2024) Housing Instability Housing Instability: No FAMILY HISTORY Family History Problem Relation Age of Onset Cancer Mother Heart disease Father Cancer Sister Heart disease Brother REVIEW OF SYSTEMS: Constitutional: Denies fevers, denies recent illnesses. Positive for activity change weakness appetite change decreased and fatigue Eyes: Denies any vision changes. ENT: Positive trouble swallowing; Denies any throat pain. Neck: Denies any neck pain. Cardiovascular denies chest pain. Denies palpitations. Respiratory: Denies shortness of breath, denies cough, denies history of asthma or any other pulmonary illnesses. Gastrointestinal: Negative for abdominal pain, nausea, melena, hematochezia, weight loss, change inbowel habits or weight loss or emesis. Genitourinary negative for dysuria hematuria urinary frequency or urgency. Musculoskeletal: Negative for extremity pains or joint discomfort. Neurologic: Positive weakness; No change in sensation or paresthesias or history of seizure disorder skin: No rashes. Hematologic: No anemia. No purpura. No petechiae and no prolonged or excessive bleeding Allergic and immunologic: No pruritus. No swelling. Endocrine: No unexplained weight loss. No polydipsia. No polyuria. No polyphagia. PHYSICAL EXAM Constitutional: He is oriented to person, place, and time. Vital signs are normal. He appears well-developed and well-nourished. HEENT: Head: Normocephalic and atraumatic. Eyes: Conjunctivae, EOM and lids are normal. Neck: Trachea normal. Neck supple. No thyroid mass present. Cardiovascular: Normal rate and regular rhythm. Pulmonary/Chest: Effort normal and breath sounds normal. Abdominal: Soft. Normal appearance. He exhibits no distension and no mass. There is no hepatosplenomegaly or splenomegaly. There is negative Lester's sign. No hernia. Rectal exam: Sphincter tone is normal. Prostate 3 to 4+ enlarged with a large amount of soft stool in the rectal vault. Neurological: He is alert and oriented to person, place, and time. Skin: Skin is warm, dry and intact. Psychiatric: He has a normal mood and affect. His speech is normal and behavior is normal. Cognition and memory are normal. IMPRESSION 1. Rectal fecal impaction with change in bowel habits 2. Weakness secondary to malnutrition; patient does not have any teeth and has not had any for 10-15 years he threw away he has dentures years ago. 3. DVT bilateral calves 4. Severe protein calorie malnutrition 5. History of hypertension, dehydration, stage 4 chronic kidney disease, GERD, hyperlipidemia ASSESSMENT & PLAN 1. Rectal digital exam performed and stool removed but we will order fleets enemas; no evidence of obstruction to me. 2. I have offered the patient EGD with PEG tube placement for nutritional purposes but he does not want that. 3. Would recommend outpatient colonoscopy at a later date in the future once he goes home from [facility]. 4. MiraLax daily after fleets enemas to clear rectal fecalith which is soft; nothing surgical Evaluation included: Preparing to see the patient (e.g., review of tests) Obtaining and/or reviewing separately obtained history Performing a medically appropriate examination and/or evaluation Counseling and educating the patient/family/caregiver Referring and communicating with other health long term care social worker - Oscar Perales DO 11/09/24 6:32 AM This note was created with the assistance of a speech recognition program. While intending to generate a timely document that accurately reflects the content of the visit, no guarantee can be provided that every grammatical or spelling mistake has been or will be identified or corrected. Thank you for your understanding. * Sasha Obrien RPH - 11/05/2024 3:30 PM EDT Pharmacokinetic Consult - Vancomycin Dosing Fili Saunders is a 84 y.o. male for whom pharmacy has been consulted for vancomycin dosing for bacteremia. Today is day 1 of vancomycin therapy. Relevant clinical data and objective history reviewed: Allergies: Patient has no known allergies. Results from last 3 days Lab Units 11/05/24 0842 11/05/24 0819 11/04/24 1848 CREATININE mg/dL -- 2.71* 2.93* BUN mg/dL -- -- 112* WBC x10E9/L 12.3* -- 10.7 HEMOGLOBIN g/dL 10.3* -- 12.6* HEMATOCRIT % 32.1* -- 39.8 MCV fL 82 -- 83 Renal Parameters: Calculated CrCl (TBW=62.3kg): 18.2 ml/min Indication: Bacteremia Goal Vancomycin Range: Trough 15-20 mcg/mL Assessment Patient is being initiated on vancomycin therapy. Renal function assessment: Chronic Kidney Disease No vancomycin level has been collected for this patient. Patient-specific risk-factors for nephrotoxicity include: pre-existing renal impairment, concomitant nephrotoxic medications, and advanced age. Plan Will initiate vancomycin loading dose of 1250 mg IV x 1 dose, followed by vancomycin dose by levels. The next vancomycin random concentration has been ordered for 11/07. Please see electronic record for orders. Pharmacy Dosing Service to follow serum concentrations and adjust as needed based on the patient's clinical status. documented in this encounter Nursing Notes * Jennifer Strauss RN - 11/12/2024 1:26 AM EDT Pt leaving with PTN per oscar, transport to [facility]. Report called to [facility] * Georgie Zuniga RN - 11/11/2024 6:29 PM EDT CRF faxed to [facility] and Olga MACIAS called [facility] and spoke to Aniya to notify staff that patient will be discharged and transported by PTN at 2300. * Georgie Zuniga RN - 11/11/2024 5:04 PM EDT Olga MACIAS notified Dr Mireles of pt's EKG and troponin results. Dr Mireles said it is okay to discharge patient. * Sascha Bell RN - 11/08/2024 3:58 PM EDT Staff attempted to place NG 6 time once with 16fr and 14 fr. Patient resistant with procedure and he also has difficulty swallowing.Both prviders are aware at this time. documented in this encounter ED Notes * Sukhi Woods MD - 11/04/2024 6:44 PM EDTAssociated Order(s): Critical Care Images from the original note were not included. [facility] - EMERGENCY Pt Name: Fili Saunders Birthdate: 1940 Chief Complaint: Chief Complaint Patient presents with Medical Screening History of Present Illness: Fili Saunders is an 84-year-old male that presents to ED via EMS from home for complaint of generalized weakness. According to EMS and family, patient has been bed-bound for approximately 4 week. They state for the last week he has not gotten up at all even to use the restroom. They states he has also had a decrease in appetite and oral intake. Patient has refused to come to the Emergency Room until today. Patient is cyanotic and extremities along with mottling. Chest and abdomen are sunken in. Patient is extremely cachectic. History provided by: EMS personnel and patient Past Medical History: Past Medical History: Diagnosis Date Anemia Asthma Benign prostatic hyperplasia COPD (chronic obstructive pulmonary disease) [facility] Dizziness Head injury HL (hearing loss) Hyperlipidemia Hypothyroidism Lung nodule Lupus (systemic lupus erythematosus) ([facility]) Pulmonary embolism (CMS-HCC) Stage 3b chronic kidney disease (CKD) ([facility] Syncope Visual impairment cheaters for reading Past Surgical History: Past Surgical History: Procedure Laterality Date CYSTOSCOPY N/A 08/03/2024 Performed by Velasquez Garcias MD at [facility] ESOPHAGOGASTRODUODENOSCOPY BIOPSY N/A 09/24/2024 Performed by Beverly Charles MD at [facility] EYE SURGERY cataracts RIGHT THORACOTOMY COMPLETE LUNG DECORTICATION Right 01/24/2023 Performed by Jett Khanna MD at [facility] Family History: Family History Problem Relation Age of Onset Cancer Mother Heart disease Father Cancer Sister Heart disease Brother Social History: Social History Socioeconomic History Marital status: Tobacco Use Smoking status: Former Current packs/day: 1.50 Average packs/day: 1.5 packs/day for 25.7 years (38.5 ttl pk-yrs) Types: Cigarettes Start date: 1999 Quit date: 1959 Smokeless tobacco: Never Vaping Use Vaping status: Never Used Substance and Sexual Activity Alcohol use: Not Currently Comment: 2 beer per year Drug use: Not Currently Types: Marijuana Comment: last used around 1981 Sexual activity: Defer Partners: Female Other Topics Concern Caffeine Use Yes Social Drivers of Health Financial Resource Strain: Low Risk (02/11/2023) Overall Financial Resource Strain (CARDIA) Difficulty of Paying Living Expenses: Not hard at all Food Insecurity: No Food Insecurity (10/14/2024) Hunger Screening Food Insecurity - Worry: Never True Food Insecurity - Inability: Never True Transportation Needs: No Transportation Needs (09/23/2024) PRAPARE - Transportation Lack of Transportation (Medical): No Lack of Transportation (Non-Medical): No Physical Activity: Inactive (05/11/2024) Exercise Vital Sign Days of Exercise per Week: 0 days Minutes of Exercise per Session: 0 min Stress: No Stress Concern Present (02/11/2023) [employer] [place] [employer] - Occupational Stress Questionnaire Feeling of Stress : Not at all Social Connections: Moderately Isolated (05/11/2024) Social Connection and Isolation Panel [NHANES] Frequency of Communication with Friends and Family: More than three times a week Frequency of Social Gatherings with Friends and Family: Three times a week Attends Judaism Services: Never Active Member of Clubs or Organizations: No Attends Club or Organization Meetings: Never Marital Status: Interpersonal Safety: Not At Risk (09/23/2024) Humiliation, Afraid, Rape, and Kick questionnaire Fear of Current or Ex-Partner: No Emotionally Abused: No Physically Abused: No Sexually Abused: No Housing Instability: Low Risk (09/23/2024) Housing Instability Housing Instability: No Review of Systems: Review of Systems Constitutional: Negative for chills and fever. HENT: Negative for ear pain. Eyes: Negative for pain. Respiratory: Negative for shortness of breath. Cardiovascular: Negative for chest pain/discomfort. Gastrointestinal: Negative for abdominal pain, diarrhea, nausea and vomiting. Genitourinary: Negative for flank pain. Musculoskeletal: Negative for back pain. Skin: Negative for rash. Neurological: Positive for weakness. Negative for headaches. Psychiatric/Behavioral: Negative for sleep disturbance and suicidal ideas. Physical Exam: ED Triage Vitals Temp Pulse Resp BP SpO2 -- -- -- -- -- Temp src Heart Rate Source Patient Position BP Location FiO2 (%) -- -- -- -- -- There were no vitals filed for this visit. Physical Exam Vitals reviewed. Constitutional: Appearance: He is cachectic. He is ill-appearing and toxic-appearing. HENT: Head: Normocephalic and atraumatic. Eyes: Conjunctiva/sclera: Conjunctivae normal. Cardiovascular: Rate and Rhythm: Normal rate. Pulmonary: Effort: Pulmonary effort is normal. Breath sounds: Normal breath sounds. Abdominal: General: There is no distension. Palpations: Abdomen is soft. Musculoskeletal: General: Normal range of motion. Cervical back: Normal range of motion and neck supple. Skin: General: Skin is warm and dry. Capillary Refill: Capillary refill takes more than 3 seconds. Coloration: Skin is cyanotic and mottled. Neurological: General: No focal deficit present. Mental Status: He is lethargic. GCS: GCS eye subscore is 4. GCS verbal subscore is 5. GCS motor subscore is 6. Procedure: Critical Care Performed by: Sukhi Woods MD Authorized by: Sukhi Woods MD Critical care provider statement: Critical care time (minutes): 30 Critical care was necessary to treat or prevent imminent or life-threatening deterioration of the following conditions: Metabolic crisis, dehydration and renal failure Critical care was time spent personally by me on the following activities: Blood draw for specimens, development of treatment plan with patient or surrogate, discussions with consultants, evaluation of patient's response to treatment, obtaining history from patient or surrogate, ordering and performing treatments and interventions, ordering and review of laboratory studies, ordering and review ofradiographic studies, pulse oximetry, re-evaluation of patient's condition and review of old charts I assumed direction of critical care for this patient from another provider in my specialty: no Care discussed with: admitting provider Re-evaluation: Re-Evaluation Medical Decision Making Plan of care - EKG, labs, urine, Schroeder catheter, imaging Patient refused Schroeder catheter so pure wick was placed. Patient is clinically profoundly dehydrated. His labs show that he is hypernatremic at 153.. BUN is 112 with a creatinine of 2.9. Imaging was largely unrevealing but did have a lot of chronic findings. The patient's primary problem is significant dehydration with hypernatremia and acute kidney injury. Free water deficit calculated at 2.9 L. Patient did receive 0.9 normal saline initially however for volume resuscitation as his extremities were mottled in his mentation was altered. After normal saline he is actually more alert and his peripheral color is much better. At this point I did start D5 water to help replace some of the free toro er deficit. I messaged with the nurse practitioner from the hospitalist group and the patient will be admitted here. Amount and/or Complexity of Data Reviewed Labs: ordered. Decision-making details documented in ED Course. Radiology: ordered. Decision-making details documented in ED Course. ECG/medicine tests: ordered. Decision-making details documented in ED Course. Risk Prescription drug management. ED Course: Clinical Impressions as of 11/04/24 2219 Dehydration with hypernatremia SUSAN (acute kidney injury) . ED Disposition None Shared/Split Visit 18:55 EDT Kaye Johnson (scribe), scribed for and in the presence of: Dr. Woosd who performed the above service. Dr. Chuck Johnson personally performed a [id number] diagnostic evaluation on this patient. I personallymade and approved the management plan for this patient and take responsibility for the patient management. Additional Notes/Findings: Fili Saunders is a 84 y.o. male presenting to the ED for chief complaint of medical screening. Exam findings as follows: Constitutional: Awake and alert, Cachectic HENT: Head normocephalic and atraumatic, dry mucous membranes Eyes: conjunctiva unremarkable Cardiovascular: Tachycardic Pulmonary: Easy work of breathing, speaking full sentences Abdominal: Scaphoid, non tender Skin: Warm and dry, mottled in extremeties Musculoskeletal: Moving all extremities spontaneously Neurological: General weakness, no focal weakness Please note that portions of this note were completed with a voice recognition program. Efforts were made to edit the dictations but occasionally words are mis-transcribed. Saba Cox APRN-BORDER GUARD 11/04/24 1848 Kaye Olivarez 11/04/24 190 Kaye Olivarez 11/04/242019 Sukhi Woods MD 11/04/24 436 * Aniya Dc RN - 11/04/2024 6:41 PM EDT EMS states patient hasn't been eating or drinking for 4 weeks. documented in this encounter Miscellaneous Notes * Plan of Care - Jennifer Strauss RN - 11/11/2024 9:47 PM EDT Problem: Safety Goal: Patient will be injury free during hospitalization Description: INTERVENTIONS: 1. Assess patient's risk for falls and implement fall prevention plan of care per policy 2. Provide and maintain a safe environment 3. Proper use of double Identifiers 4. Medication administration using the 5 rights 5. Hand hygiene 6. Specimens are labeled at the bedside 7. Instruct patient/ patient international representative about use of safety devices 8. Include patient/ patient international representative in decisions related to safety Outcome: Progressing Note: Evaluation of progress towards goal: Pt is free of injury, safe environment provided and maintained, medication administered as ordered, hand hygiene completed. * Significant Event - Aniya Farmer RN - 11/11/2024 6:47 PM EDT Daughter yelled out into the hallway, Help, He's choking! Patient was noted to be coughing on food. Additional nursing staff came into the room and assisted with suctioning patient. He then began to recover appropriately, see VS. Daughter was then encouraged by primary RN to eat pudding. * Discharge Planning Note - Teena Burgos RN - 11/11/2024 4:26 PM EDT DISCHARGE PLANNING NOTE Preadmission Screening & Resident Review (PASSR) PASSR completed via the [employer] Electronic Notification System) ODRPI ([employer]) 7000 (short form) completed and submitted? yes Is a Level II Evaluation required? no SN[facility]SR completion. yes CRF sent via CarePort yes - Teena Burgos RN 11/11/24 4:27 PM * PT/OT/FLEET ADMINISTRATOR - Terri Thorne OTR/L - 11/11/2024 12:33 PM EDT Occupational Therapy OT Type of Visit: Medical deferral Reason For Medical Deferral: (pt issleeping difficult to arouse , [facility] he[facility] recently and is fatigued now) OT to continue to follow. * PT/OT/FLEET ADMINISTRATOR - Kourtney Hilliard, Student PT - 11/11/2024 11:21 AM EDT Physical Therapy PT Type of Visit: Patient refusal Reason For Patient Refusal (comment required): Tired/need to sleep, Too weak (Patient unable to rouse. OT, PT, and spouse attempted to speak loudly to wake him. Patient asleep with one eye open and mouth ajar. breif periods of apnea observed. Spouse reports nursing staff gave a bath recently and attributes his tiredness to that.) PT will continue to follow this patient. Cosigned by Saba Rosa PT at 11/11/2024 3:42 PM EDT Associated attestation - Saba Rosa, PT - 11/11/2024 3:42 PM EDT I have reviewed and agree with this note and education documentation for this visit. This therapist was present and immediately available for direction and supervision. * Query Response - Charlie Mireles MD - 11/11/2024 11:05 AM EDT Query Response Note CDI QUERY TEXT: Skin Ulcer Location and POA Status [id number] Disclaimer: By submitting this query, we are merely seeking further clarification of documentation to accurately reflect all conditions that you are monitoring, evaluating, treating or that extend the hospitalization or utilize additional resources of care. Please utilize your independent clinical judgment when addressing the question(s) below. Dear Dr. Mireles, Cellulitis is documented in the Medical Record. Please specify the location and whether it was present on admission (POA) 1. Please document specific site of cellulitis r, including laterality 2. Please document any associated infectious process associated with ulcer including infectious organism if known The patient's Clinical Indicators include: Cellulitis has been documented in the progress notes without laterality or site. Start cefepime and vanco for possible cellulitis. Thank you, NADEEM Valerio, CATHEAD OPERATOR, CDIP Clinical Documentation Integrity [employer] System Clinical Revenue Cycle CDI RESPONSE TEXT: Cellulitis forehead Query created by: Adrienne Abdul on 11/11/2024 10:45 AM Electronically signed by: Charlie Mireles MD 11/11/2024 11:03 AM * Discharge Planning Note - Teena Burgos RN - 11/11/2024 8:52 AM EDT DISCHARGE PLANNING NOTE Fili Darnell Nicky Insurance authorization received and valid through 11/12/2024. Discharge Planning: [facility] Care at [facility] (accepted) and insurance authorization received and valid through 11/12/2024. Plan of Care: [facility] Call [facility] if discharges on Friday @ [phone] Fax CRF at Discharge - Teena Burgos RN 11/11/24 8:52 AM * Discharge Planning Note - Harriet Kapadia - 11/11/2024 7:42 AM EDT DISCHARGE PLANNING NOTE Prior Auth approved for admission to : [facility] [place] (P#: [phone]; F#: ) Approval #[id number] Valid for Dates: 11.10.2024-11.12.2024 * Plan of Care - Ramana Arriola RN - 11/10/2024 8:52 PM EDT Problem: Potential for Compromised Skin Integrity Goal: Patient's nutritional intake is adequate Description: Patient's goal is: INTERVENTIONS 1. Assess and monitor food intake and supplements, patient food preferences, nausea, vomiting, labs, oral cavity (gums, teeth, tongue, mucosa), proper denture fit, and cultural beliefs 2. Monitor for signs of hypoglycemia and hyperglycemia 3. Collaborate with interdisciplinary team and initiate plan and interventions as ordered 4. Monitor patient's weight 5. Assist patient with meals/food selection 6. Assist patient with eating 7. Allow adequate time for meals 8. Provide pleasant environment during mealtime 9. Increase social contact during mealtimes 10. Plan activities to conserve energy 11. Encourage/perform oral hygiene as appropriate 12. Encourage patient to take dietary supplement as ordered 13. Collaborate with clinical head inspector 14. Include patient/ patient's international representative in decisions related to nutrition Outcome: Not Progressing Note: Evaluation of progress towards goal: Patient understands the importance of proper nutrition to aid in healing. * Discharge Planning Note - Zaira Degroot - 11/10/2024 11:22 AM EDT DISCHARGE PLANNING NOTE Prior auth submitted to:[employer] - [place] Via:[employer] / [employer] On behalf of : [facility] [place] (P#: [phone]; F#: ) Ref# [id number] * Plan of Care - Debbie Tiwari RN - 11/10/2024 10:24 AM EDT Problem: Knowledge Deficit Goal: Patient/patient international representative demonstrates understanding of disease process, treatment plan,medications, and discharge instructions Description: INTERVENTIONS 1. Complete learning assessment and assess knowledge base 2. Provide teaching at level of understanding 3. Provide teaching via preferred learning method(s) Outcome: Progressing Note: Evaluation of progress towards goal: POC discussed with patient. Questions answered PRN. Problem: Discharge Planning Goal: Discharge to post-acute care, other facility, or home with appropriate resources Description: Patient's goal is: INTERVENTIONS 1. Conduct assessment to determine patient/family and health care team treatment goals, and need for post-acute services based on payer coverage, community resources, and patient preferences, and barriers to discharge 2. Coordinate with Social work, Care Navigation, and Utilization Review to arrange appropriate level of services according to patient's needs based on patient preference and payer coverage in collaboration with the physician and health care team 3. Address psychosocial, clinical, and financial barriers to discharge as identified in assessment in conjunction with the patient/family and health care team 4. Consult appropriate ancillary services (i.e.. PT/OT/ST, etc) as needed 5. Communicate with and update the patient/family, physician, and health care team regarding progress on the discharge plan 6. Identify discharge learning needs (meds, wound care, etc). 7. Arrange for needed discharge transportation as appropriate Outcome: Progressing Note: Evaluation of progress towards goal: Continue to assess for when appropriate. * PT/OT/FLEET ADMINISTRATOR - Saba Rosa, PT - 11/10/2024 9:23 AM EDT Physical Therapy Treatment Discharge Recommendations for Safe Patient Transition PT Discharge Disposition Recommendation: Post acute - moderate PT Post Acute Moderate Rehab Needs: Recommend moderate intensity rehab, Tolerate 1-2 hrs of therapy3-5 days/wk, Subacute or chronic functional impairment, Other (see comments) (vs. hospice pending patient wishes) PT Other Moderate Needs: Unable to stand. Spouse with stage 4 cancer and unable to assist him physically upon return home. Needs to be able to pivot from one surface to another. Multiple falls prior to admission. Current Impairments Informing Therapy Recommendation: Ambulation status/safety, Fall risk, ADL status, Endurance level Pin Maker Support for-: Mobility Deficits, ADL Deficits, Cognitive Impairments 6 Clicks: Basic Mobility Turning from your back to your side while in a flat bed without using bed rails?: A lot Moving from lying on your back to sitting on side of flat bed without using bed rails?: A lot Moving to and from bed to a chair (including w/c)?: Total Standing up from a chair using your arms (e.g. w/c or bedside chair)?: Total To walk in hospital room?: Total Climbing 3-5 steps with a railing?: Total Scoring 6 Clicks: Basic Mobility Raw Score: 8 CMS G Code Modifier: CM Therapy Plan Need for skilled Physical Therapy to address deficits in functional mobility due to a status decline resulting from DVT, dehydration, and hypernatremia. PT Treatment/Interventions: ADL retraining, Functional transfer training, Endurance training, Cognitive reorientation, LE strengthening/ROM, Patient/family training, Equipment eval/education, Balance, Stair training, Bed mobility, Gait training, Fine motor, Coordination activities, Functional activi ties, Gross motor developmental skills, Neuromuscular reeducation PT Frequency: 5-6days/week PT Duration: 10 days Assessment Patient Assessment Therapy Problem List: Decreased ADL status, Abnormal posture, Decreased balance, Decreased endurance, Decreased fine motor, Decreased high-level ADLs, Decreased gross motor, Decreased mobility, Decreased self-care trans, Decreased safe judgement during ADL, Decreased LE ROM, Decreased LE strength, Decreased UE strength, Decreased UE ROM, Decreased cognition Patient Response to Treatment: No functional improvements Mood/Affect: Depressed Rehab Prognosis: Fair, Guarded, With continued PT status post acute discharge, 24 hour supervision recommended Visit RN Communication: Yes Medical Record Reviewed: Yes PT Type of Visit: Treatment Precautions Activity: ok to treat per Kendra MACIAS Equipment: non-skid socks, maxi savage, walker, schroeder, IV Telemetry/Systems Architecture Analyst: Yes Oxygen Used: room air Other: fall risk, orthostatic hypotension Subjective Physical Therapy Comments: I just want to go home. I really don't want to do therapy. I'm definitely not going to [facility], I didn't like it there. Pain Assessment Pain Assessment: No/denies pain Hearing / Speech / Vision Hearing: Hard of hearing/hearing concerns Speech: Within Functional Limits Current Vision: Wears glasses only for reading Cognition Orientation Level: Oriented to person, Oriented to place (decreased insight into deficits, decreased safety awareness) Transfers Sit to Stand: Max assist (+2, use of standard walker, cues for safe hand placement, unable to fullystand. Patient states, it's because I was in this chair for too long. Patient only up in chair for one hour. Re-oriented patient that spouse reports he has been in bed 4 weeks) Stand to Sit: Max assist (+ 2 for eccentric control, cues for safe hand placement.) Bed to Chair: (Unsafe to assess. TOTAL A via MAXI SAVAGE for return to bed.) Gait Other: Unable to assess; lacks LE strength necessary for standing and transferring. Will continue to assess. Balance Sitting Balance: Static: Fair Sitting Balance: Dynamic: Fair Standing Balance: Static: Poor Standing Balance: Dynamic: Poor 11/10/24 0923 LE Supine LE supine exercises performed? No ( I'm never going to say yes to therapy. ) Activity Tolerance Endurance: Tolerates <30 minutes activity WITHOUT vital sign changes Other: Complaints of dizziness but vitals machine cord does not reach to patient chair at bedside. Plan Physical Therapy Care Plan Physical Therapy Care Plan (Active) Template: PT - Physical Therapy Problem: Activity Tolerance Dates: Start: 11/06/24 Disciplines: PT Goal: Tolerate 30 minutes of activity WITH rest breaks Dates: Start: 11/06/24 Expected End: 11/15/24 Disciplines: PT Outcomes Date/Time User Outcome 11/07/24 0903 Mike Ramos, PT Not Progressing Goal Note filed on 11/07/24902 by Mike Ramos PT Limited tolerance d/t BP drop and lightheadedness Problem: Bed Mobility Dates: Start: 11/06/24 Disciplines: PT Goal: Patient will perform bed mobility with Stand By Assist Dates: Start: 11/06/24 Expected End: 11/15/24 Description: Pt will complete bed mobility with SBA in order to decrease risk of skin breakdown Disciplines: PT Outcomes Date/Time User Outcome 11/10/24 105 Saba Rosa PT Not Progressing 11/07/2403 Mike Ramos PT Not Progressing Goal Note filed on 11/10/24 105 by Saba Rosa PT Evaluation of progress towards goal: TOTAL A with use of MAXI SAVAEG. Problem: Gait Dates: Start: 11/06/24 Disciplines: PT Goal: Patient will perform gait with Contact Guard Dates: Start: 11/06/24 Expected End: 11/15/24 Description: Pt will demonstrate the ability to complete 50' ambulation with least restrictive AD in order to ambulate from bed to toilet safely Disciplines: PT Outcomes Date/Time User Outcome 11/07/24902 Mike Ramos PT Not Progressing Goal Note filed on 11/07/24902 by Mike Ramos, PT Unable to complete at this time Problem: Standing Balance Dates: Start: 11/06/24 Disciplines: PT Goal: Improve balance to good Dates: Start: 11/06/24 Expected End: 11/15/24 Description: In order to decrease risk of falls Disciplines: PT Outcomes Date/Time User Outcome 11/07/24902 Mike Ramos PT Not Progressing Goal Note filed on 11/07/24902 by Mike Ramos PT Unable to complete at this time Problem: Transfers Dates: Start: 11/06/24 Disciplines: PT Goal: Patient will perform transfers with Contact Guard Dates: Start: 11/06/24 Expected End: 11/15/24 Description: Pt will perform STS transfer with CGA in order to decrease caregiver support needed Disciplines: PT Outcomes Date/Time User Outcome 11/10/24 105 Saba Rosa PT Not Progressing 11/07/2403 Mike Ramos PT Not Progressing Goal Note filed on 11/10/24 105 by Saba Alt-Farooq, PT Evaluation of progress towards goal: MAX A + 2 for standing attempt with standard walker, does not fully stand. Complaints of dizziness. Physical Therapy Care Plan (Resolved) There are no resolved problems. Principal Problem: Acute deep vein thrombosis of calf, bilateral ([facility] Active Problems: Gastroesophageal reflux disease Hyperlipidemia Acquired hypothyroidism Hypomagnesemia Severe protein-calorie malnutrition Primary hypertension Dehydration with hypernatremia AMS (altered mental status) Severe protein-calorie malnutrition Stage 4 chronic kidney disease ([facility]) * Discharge Planning Note - Teena Burgos RN - 11/10/2024 8:51 AM EDT DISCHARGE PLANNING NOTE Fili Saunders [facility] accepted patient and tasked Pre-Certification Team to begin insurance authorization. Message received from Sharon Thorne, occupational therapy. She stated patient stated that he wants to go home with his and Hospice. He doesn't want to do this any longer. Driver Supervisor will discuss with family today. Discharge Planning: [facility] Care at [facility] (accepted) and pending insurance authorization. Plan of Care: [facility] Call [facility] if discharges on Friday @ [phone] Fax CRF at Discharge - Teena Burgos RN 11/10/24 8:51 AM * PT/OT/FLEET ADMINISTRATOR - LEIGHTON Ga/Hemant - 11/10/2024 8:24 AM EDT Occupational Therapy Evaluation Discharge Recommendations for Safe Patient Transition OT Discharge Disposition Recommendation: Post acute - moderate (versus hospice dependent on patient's and family wishes after pt expressed I don't want to do this anymore, I want to go home ) Current Impairments Informing Therapy Recommendation: Ambulation status/safety, Cognition, Fall risk, ADL status, Endurance level Pin Maker Support for-: Mobility Deficits, ADL Deficits, Cognitive Impairments 6 Clicks: Daily Activity Putting on and taking off regular lower body clothing?: Total Bathing (including washing, rinsing, drying)?: Total Toileting, which includes using toilet, bedpan or urinal?: Total Putting on and taking off regular upper body clothing?: Total Taking care of personal grooming such as brushing teeth?: Total Eating meals?: Total Scoring Daily Activity Raw Score: 6 [facility] G Code Modifier: CN Therapy Plan/HPI/occupational profile throughout eval Need for skilled Occupational Therapy to address deficits in ADL independence and functional mobility due to a status decline resulting from dehydration, bilateral LE DVT, recent falls at home. A high complex eval was completed. Past Surgical History: Procedure Laterality Date CYSTOSCOPY N/A 08/03/2024 Performed by Velasquez Garcias MD at [facility] ESOPHAGOGASTRODUODENOSCOPY BIOPSY N/A 09/24/2024 Performed by Beverly Charles MD at [facility] EYE SURGERY cataracts RIGHT THORACOTOMY COMPLETE LUNG DECORTICATION Right 01/24/2023 Performed by Jett Khanna MD at [facility] Past Medical History: Diagnosis Date Anemia Asthma Benign prostatic hyperplasia COPD (chronic obstructive pulmonary disease) [place] Dizziness Head injury HL (hearing loss) Hyperlipidemia Hypothyroidism Lung nodule Lupus (systemic lupus erythematosus) ([facility] Pulmonary embolism ([facility] Stage 3b chronic kidney disease (CKD) ([facility] Syncope Visual impairment cheaters for reading OT Treatment/Interventions: ADL retraining, Functional transfer training, UE strengthening/ROM, Endurance training, Cognitive reorientation, Patient/family training, Equipment eval/education, Balance, Home management, Compensatory technique education, Functional activities OT Frequency: 3-4days/week OT Duration: 10 days Assessment Patient Assessment Therapy Problem List: Decreased ADL status, Abnormal posture, Decreased balance, Decreased endurance, Decreased fine motor, Decreased high-level ADLs, Decreased gross motor, Decreased mobility, Decreased self-care trans, Decreased safe judgement during ADL, Decreased LE ROM, Decreased LE strength, Decreased UE strength, Decreased UE ROM, Decreased cognition Patient Response to Treatment: Tolerated evaluation without adverse reaction Mood/Affect: Flat Rehab Prognosis: Fair, Guarded, With continued OT status post acute discharge, Patient has multiplemedical complications, 24 hour supervision recommended Visit RN Communication: Yes Medical Record Reviewed: Yes OT Type of Visit: Evaluation Precautions Activity: ok to eval per RN, Kendra Equipment: non skid socks, maxi savage, foely, IV Telemetry/Systems Architecture Analyst: Yes Oxygen Used: room air Other: fall risk, h/o of orthostatic hypotension Subjective Occupational Therapy Comments: I don't want to do this anymore, I want to go home when patient asked clarifying questions pt states that he just wants to go and home and be with his . when pt questioned further pt states I don't want to do this anymore . pt ed on having a conservation with family about possible hospice if he would like to go home since spouse is having difficulty caringfor him Pain Assessment Pain Assessment: 0-10 Pain Score: (initially states no pain and then facial grimace noted when using maxi savage, pt then states that his stomach is hurting) Home Living Type of Home: Apartment (on the 1st floor) Home Layout: One level Stairs to Enter: 2-3 Hand Rails: Right Bathroom Shower/Tub: Walk-in shower Bathroom Toilet: Standard Bathroom Equipment: Built-in shower seat, Hand-held shower (toilet by the sink. also using BS) Home Equipment: 4 Wheeled walker, Cane Prior Function Lives With: Spouse Receives Help From: Family (spouse assist as she can as she is undergoing cancer treatment) Level of Mobility: Needs assistance with ADLs or functional transfers or gait Homemaking Assistance: Needs assistance Other: on Sunday 11/05 when this account underwriter attempted eval spouse reported that pt has been mostly in bed and that she has had to helpwith transfer to [facility] and he has fallen several times, daugther was recently out of town and had since returned ADL / IADL Eating Assistance: Total assist Grooming Assistance: Total assist Bathing/Showering Assistance: Total assist Toilet/Commode Assistance: Total assist (schroeder) UE Dressing Assistance: Total assist LE Dressing Assistance: Total assist Footwear Assistance: Total assist Other: pt is agreeable to getting in to chair, declines ADL however. pt does not initiate any tasks, further ADL assessment is based on clinical judgement and observation of pt's ability to complete ROM, strength, endurance, sit and stand balance and functional mobility status and safety awareness Home Management - IADL Other: pt is agreeable to getting in to chair, declines ADL however. pt does not initiate any tasks, further ADL assessment is based on clinical judgement and observation of pt's ability to complete ROM, strength, endurance, sit and stand balance and functional mobility status and safety awareness Hearing / Speech / Vision Hearing: Hard of hearing/hearing concerns Speech: Within Functional Limits (soft spoken) Current Vision: Wears glasses only for reading Cognition Orientation Level: Oriented to person, Oriented to place Bed Mobility Rolling: Max assist, Mod assist (mod assist to the R, max assist to L. brief is noted to be dry/ not soiled) Transfers Bed to Chair: Total assist (+2 with use of maxi savage) Balance Other: did not assess, fair sit balance in suported sitting RUE Assessment: (weakness noted, able to lift against gravity) LUE Assessment: (weakness noted, able to lift against gravity) Activity Tolerance Endurance: Tolerates 30 minutes activity with rest breaks Other: SpO2 remains in the 90's throughout session. once siting in chair pt states I don't feel right BP assessed with RN present in the room 123/51, pt reports that he feels like he will vomit. rené ferreira provided Plan Occupational Therapy Care Plan Occupational Therapy Care Plan (Active) Template: OT - Occupational Therapy Problem: Activity Tolerance Dates: Start: 11/10/24 Disciplines: OT Goal: Tolerate > 30 minutes of activity WITH rest breaks Dates: Start: 11/10/24 Expected End: 11/19/24 Description: Goal Description:patient to engage in activities of choice with out changes in vitals in order to promote return to prior level of function Disciplines: OT Problem: Other (Customize) Dates: Start: 11/10/24 Disciplines: OT Goal: Improve Dates: Start: 11/10/24 Expected End: 11/19/24 Description: Goal Description:Patient to increase IND in ADls to max assist with patient initiatingparticipation greater than 50 % of the time in order to promote return to prior level of function Disciplines: OT Problem: Sitting Balance Dates: Start: 11/10/24 Disciplines: OT Goal: Improve balance to good Dates: Start: 11/10/24 Expected End: 11/19/24 Description: OT to assess to further develop plan of care Disciplines: OT Problem: Standing Balance Dates: Start: 11/10/24 Disciplines: OT Goal: Improve balance to good Dates: Start: 11/10/24 Expected End: 11/19/24 Description: OT to assess to further develop plan of care Disciplines: OT Problem: Strength Dates: Start: 11/10/24 Disciplines: OT Goal: Improve strength Dates: Start: 11/10/24 Expected End: 11/19/24 Description: Of extremity/ location:pt to increase BUE strength to 4/5 to assist with increased independence in ADL tasks Disciplines: OT Problem: Toilet Transfers Dates: Start: 11/10/24 Disciplines: OT Goal: Patient will perform toilet transfers with Maximum Assist Dates: Start: 11/10/24 Expected End: 11/19/24 Description: Goal Description: in order to reduce lead care manager burden Disciplines: OT Occupational Therapy Care Plan (Resolved) There are no resolved problems. Principal Problem: Acute deep vein thrombosis of calf, bilateral (CMS-HCC) Active Problems: Gastroesophageal reflux disease Hyperlipidemia Acquired hypothyroidism Hypomagnesemia Severe protein-calorie malnutrition Primary hypertension Dehydration with hypernatremia AMS (altered mental status) Severe protein-calorie malnutrition Stage 4 chronic kidney disease (CMS-HCC) * PT/OT/FLEET ADMINISTRATOR - ANTONIA Mcarthur - 11/10/2024 8:18 AM EDT Speech Therapy FLEET ADMINISTRATOR Type of Visit: Patient refusal Reason for Patient Refusal: Tired/Need to sleep (wants to go home) Patient reclined and covered up in chair on ST arrival. Eyes mainly closed, but opened on verbal stimuli and mouth open. ST informed patient on role and purpose of treatment. Patient responded I don't want a snack, I don't want to exercise, I want to go home. Patient expressed some interest in clinician coming back at a later time. ST to continue to follow and attempt treatment again as time allows. * Plan of Care - Ramana Arriola RN - 11/09/2024 9:54 PM EDT Problem: Pain Goal: Patient goal is pain score less than 4, able to rest, and participant in treatment plan as appropriate Description: INTERVENTIONS: 1. Encourage patient or legal international representative to report early pain and ask for pain medicine when needed 2. Assess pain using appropriate pain scale and include the scale used when documenting 3. Administer analgesics based on type and severity of pain and evaluate response within appropriate time frame 4. Implement non-pharmacological measures as appropriate and evaluate response 5. Consider cultural and social influences on pain and pain management 6. Notify LIP if interventions ineffective or patient reports new pain 7. Monitor vital signs including pulse ox, end-tidal CO2 based on pain intervention 8. Reassess pain per policy 9. Teach patient or legal international representative interventions for comforting Outcome: Progressing Note: Evaluation of progress towards goal: Pt able to report pain according to 0/10 pain scale. Medicating patient for pain per orders. Problem: Safety Goal: Patient will be injury free during hospitalization Description: INTERVENTIONS: 1. Assess patient's risk for falls and implement fall prevention plan of care per policy 2. Provide and maintain a safe environment 3. Proper use of double Identifiers 4. Medication administration using the 5 rights 5. Hand hygiene 6. Specimens are labeled at the bedside 7. Instruct patient/ patient international representative about use of safety devices 8. Include patient/ patient international representative in decisions related to safety Outcome: Progressing Note: Evaluation of progress towards goal: Pt's risk for falls assessed and fall prevention implemented as needed, safe environment provided and maintained, hand hygiene completed. Problem: Infection Goal: Absence of infection during hospitalization Description: INTERVENTIONS 1. Assess and monitor for signs and symptoms of infection. 2. Monitor lab/diagnostic results. 3. Monitor all insertion sites i.e., indwelling lines, tubes and drains. 4. Monitor endotracheal (as able) and nasal secretions for changes in amount and color. 5. Administer medications as ordered. 6. Instruct and encourage patient and family to use good hand hygiene technique. 7. Identify and instruct patient/patient international representative in use of appropriate isolation precautionsfor identified infection/symptoms. 8. Provide and discuss with patient/patient international representative on educational MDRO sheet. 9. Encourage and monitor nutritional status daily and consult head inspector if indicated. 10. Implement neutropenic guidelines as needed. Outcome: Progressing Note: Evaluation of progress towards goal: Patient VS WNL, remains afebrile for shift. Continue to monitor. Problem: Urinary Incontinence Goal: Perineal skin integrity is maintained or improved Description: INTERVENTIONS 1. Assess genitourinary system, perineal skin, labs (urinalysis), and history of incontinence to include past management, aggravating, and alleviating factors 2. Keep skin clean and dry 3. Apply skin protectant 4. Develop skin care regimen 5. Provide privacy when changing patients incontinence device to maintain their dignity 6. Consider placing an indwelling catheter 7. Collaborate with interdisciplinary team and initiate plans and interventions as needed Outcome: Progressing Note: Evaluation of progress towards goal: Perineal skin kept clean and dry, privacy provided as needed, skin protectant applied as needed, labs monitored. * Wound Care - Marimar Dai RN - 11/09/2024 3:29 PM EDT ET nurse note: Lion score of 12. No skin abnormalities noted per patients nurse. Remaining pressure points clear. Foam dressing on coccyx for preventive measures. Buttocks excoriated. Apply silicone cream 1-2 times a day. Skin protocols on chart. Continue to follow wound care order set and turn patient every 2 hours. Nutrition is following. No additional concerns at this time. Please consult Wound Care Services with any skin concerns. * PT/OT/FLEET ADMINISTRATOR - Saba Rosa PT - 11/09/2024 2:44 PM EDT Physical Therapy PT Type of Visit: (P) Patient refusal Attempted PT treatment with permission of RN. Family at bedside at this time. Informed patient thatwe were here from physical therapy. Educated on role of PT in acute care setting. Patient continuesto refuse. Patient states, bye, see you later. Encouraged patient to participate in therapy, especially as his insurance requires authorization to go to a SNF. Patient verbalizes understanding, butcontinues to refuse. Daughter at bedside states, He's been poked and prodded at all ends today. And Patient states, This is the first I've eaten in 8 days, I'm going to drink my milk. Informed patient that this therapist would re-attempt treatment with OT in the morning. Patient states, I'm never going to tell you yes. Patient and family decline further needs. Will re-attempt treatment as able. * Discharge Planning Note - Camille Putnam - 11/09/2024 12:27 PM EDT DISCHARGE PLANNING NOTE Referral sent toVandana Eastman in [place] (P#: [phone]; F#: [phone] * FLEET ADMINISTRATOR Procedure Note - Li Shay [facility]-FLEET ADMINISTRATOR - 11/09/2024 12:25 PM EDT Speech Therapy Videofluoroscopic Swallow Study Evaluation Patient educated on VFSS procedure prior to beginning and demonstrated understanding and agreement to continue. Discharge Recommendations for Safe Patient Transition FLEET ADMINISTRATOR Discharge Disposition Recommendation: Extended care facility FLEET ADMINISTRATOR Therapy Recommendations: Continue ST services Current Impairments Informing Therapy Recommendation: Cognition, Swallowing Recommendations Diet Level: Level 6 Soft and Bite-Sized Liquid Level: Level 0 Thin Compensatory Strategies: Small sips/bites, One sip/bite at a time, Double swallow Supervision/Positioning: Patient at 90 degress for all PO intake (including medication), Patient toremain upright 15 minutes after meals Medications: In applesauce/puree Referrals: Dysphagia therapy, GI consult No Skilled ST: Swallow is functional at this time Impressions Oral Phase: Mild-moderate Pharyngeal Phase: Mild Functional Oral Intake Scale: Total PO with multiple consistencies requiring special prep No aspiration noted on trials. Pt refused to participate in sequential sips and level 7 regular solids at this time. Pt with significant difficulty with mastication and bolus control due to edentulous status. Following examination, pt vomited. Pt may benefit from GI consult due to continued vomiting. Plan Frequency: 1-2days/week Duration: 14 days Treatments/Modalities: Oral motor treatment plan, Pharyngeal strengthening, Safety strategies Need for skilled Speech Language Pathology Services to address deficits in feeding/swallowing due to a status decline resulting from Dehydration with hypernatremia Prognosis Services: Skilled FLEET ADMINISTRATOR services to address above deficits Prognosis/Potential: Fair Considerations: Motivation Assessment Baseline Assessment Prior BSSE/VFSS: In September 2024, was WFL. Additional Testing Results: Chest X-Ray, Computed Tomography Setting Prior to Admission: Home Associated Problems: Coughing Respiratory Status: Room Air History of Intubation: No Behavior/Cognition: Alert, Agitated Dentition: Edentulous Vision: Functional for self-feeding Patient Positioning: Upright in bed Baseline Vocal Quality: Weak Volitional Cough: Weak Volitional Swallow: Delayed Laryngectomy: No Ability to Control Secretions: Yes Room Service: Non Appropriate for room service Current Diet Type: NPO Appetite: Poor NPO for:: Per order Allergies Marked As Reviewed: Complete Consistencies Tested Views: Lateral position Level 0 Thin: Spoon, Cup, Straw Level 4 Pureed: Spoon Level 6 Soft & Bite-Sized: Spoon Modified Barium Swallow Impairment Profile (MBSImP) Oral Impairment: Yes Component 1: Lip Closure: escape from interlabial space or lateral junction, no extension beyond nicol border Component 2: Tongue Control During Bolus Hold: posterior escape of less than half of bolus Component 3: Bolus Preparation/Mastication: disorganized chewing/mashing with solid pieces of bolusunchewed Component 4: Bolus Transport/Lingual Motion: repetitive/disorganized tongue motion Component 5: Oral Residue: residue collection on oral structures Component 6: Initiation of Pharyngeal Swallow: bolus head in valleculae Pharyngeal Impairment: Yes Component 7: Soft Palate Elevation: no bolus between soft palate/posterior pharyngeal wall Component 8: Laryngeal Elevation: complete superior movement of thyroid cartilage with complete approximation of arytenoids to epiglottic petiole Component 9: Anterior Hyoid Excursion: complete anterior movement Component 10: Epiglottic Movement: complete inversion Component 11: Laryngeal Vestibular Closure - Height of the Swallow: complete, no contrast/air in laryngeal vestibule Component 12: Pharyngeal Stripping Wave: present - complete Component 13: Pharyngeal Contraction (A/P view only): could not be determined due to logistical reasons not related to physiologic impairment Component 14: Pharyngoesophageal Segment Opening: complete distension and complete duration, no obstruction of flow Component 15: Tongue Base Retraction: trace column of contrast/air between tongue base and posterior pharyngeal wall Component 16: Pharyngeal Residue: collection of residue within or on pharyngeal structures MBSImP Overall Impression Scores Oral Impairment Total: 12 Pharyngeal Impairment Total: 3 Penetration/Aspiration Scale Penetration/Aspiration Scale Performed: Yes Level 0 Thin: Contrast did not enter the airway Level 4 Pureed: Contrast did not enter the airway Level 6 Soft & Bite-Sized: Contrast did not enter the airway Trialed Compensatory Strategies Strategies Utilized: Small sips/bites, Double swallow Effective: Yes Pain Assessment Pain Assessment: No/denies pain Plan Diagnosis Code Swallowing: R13.12 Dysphagia, oropharyngeal phase Speech Therapy Care Plan Speech Therapy Care Plan (Active) Template: ST - Dysphagia Problem: Swallowing Dates: Start: 11/09/24 Disciplines: FLEET ADMINISTRATOR Goal: LTG: Patient will tolerate least restrictive diet recommended by FLEET ADMINISTRATOR without signs and symptoms of aspiration 90% of the time Dates: Start: 11/09/24 Expected End: 11/23/24 Disciplines: FLEET ADMINISTRATOR Goal: STG: Patient will complete safety strategies with minimal assistance during PO intake 90% of the time Dates: Start: 11/09/24 Expected End: 11/23/24 Disciplines: FLEET ADMINISTRATOR Goal: STG: Patient will complete oral/ pharyngeal strengthening program with resistance with 90% accuracy with minimal cueing Dates: Start: 11/09/24 Expected End: 11/23/24 Disciplines: FLEET ADMINISTRATOR Goal: STG: Pt will participate in VFSS evaluation to further assess swallow efficiency and safe oral intake (Resolved) Dates: Start: 11/09/24 Expected End: 11/23/24 Resolved: 11/09/24 Disciplines: FLEET ADMINISTRATOR Outcomes Date/Time User Outcome 11/09/24 1309 MARC MohamudFLEET ADMINISTRATOR Completed Goal Note filed on 11/09/24 1309 by ANTONIA Mohamud Evaluation of progress towards goal: Completed at 12:25 11/09/2024. See note for details. Speech Therapy Care Plan (Resolved) There are no resolved problems. Principal Problem: Acute deep vein thrombosis of calf, bilateral ([facility]) Active Problems: Gastroesophageal reflux disease Hyperlipidemia Acquired hypothyroidism Hypomagnesemia Severe protein-calorie malnutrition Primary hypertension Dehydration with hypernatremia AMS (altered mental status) Severe protein-calorie malnutrition Stage 4 chronic kidney disease ([facility]) * Discharge Planning Note - Teena Burgos RN - 11/09/2024 11:54 AM EDT DISCHARGE PLANNING NOTE Fili Saunders Driver Supervisor met with patient's and daughter at bedside this am. They are both agreeable to chcf care at a facility. They were again provided the list of facilities who accept patient insurance. They would like a referral sent to [facility]. This was tasked to the transition center. Driver Supervisor again reviewed payor sources for long-term care with patient's . She verbalizes understanding. Discharge Planning: [facility] Care at [facility], pending acceptance and insurance authorization. Plan of Care: [facility] Call Leona if discharges on Friday @ [phone] Fax [facility] at Discharge Teena Burgos RN 11/09/24 11:56 AM Contacted by nursing staff that daughter, Rhys would like to speak to me. Rhys asked that I call her and meet her in hallway because she doesn't want to talk about this in front of her father or his . Rhys brings account underwriter documents for her to obtain legal guardianship. Driver Supervisor informed daughter that this is a legal issue and we are not going to declare his ability to make his own decisions here in hospital, because in past records it appears as a chronic issue and that they should have been working with his primary care provider. Explained to daughter that unfortunately the of patient has stage 4 cancer. And as we discussed with her last Friday it is not advised that the safest discharge plan is for her to take him back home as he is requiring more care than she likely can provide alone. However, Rhys was told that we can't determine from the acute care hospital setting if the home is not safe or she is not safe to do this. Rhys was again encouraged to contact APS or legal counselon the process to obtain legal guardianship. She was informed that there is an entire process to determine that patient is unable to make his own decisions and just because people do not always make good decisions doesn't mean he is not legally allowed to make bad decisions. And at this time his under the [facility] Kinship is the first next of kid. Daughter was encouraged to discuss thisprocess for emergency guardianship with APS, End Finder Forming Department or patient's primary care provider. However, we will not address this as there is and was no obvious signs of any abuse of patient with and this is therefore, not an emergency but rather a more chronic management that should involve his primary care and legal administrator. - Teena Burgos RN 11/09/24 1:29 PM * PT/OT/FLEET ADMINISTRATOR - Li Shay [facility]-FLEET ADMINISTRATOR - 11/09/2024 11:08 AM EDT Speech Therapy Bedside Swallow/ Feeding Evaluation Discharge Recommendations for Safe Patient Transition FLEET ADMINISTRATOR Discharge Disposition Recommendation: Extended care facility FLEET ADMINISTRATOR Therapy Recommendations: Home Speech Therapy Current Impairments Informing Therapy Recommendation: Cognition, Swallowing Recommendations Diet Level: NPO Liquid Level: No liquids Medications: Liquid medications Referrals: VFSS Impressions Oral Dysphagia: Moderate Pharyngeal Dysphagia Suspected: Yes Plan Frequency: 2-3days/week Duration: 14 days Treatments/Modalities: Safety strategies, Oral motor treatment plan, Pharyngeal strengthening Need for skilled Speech Language Pathology Services to address deficits in feeding/swallowing due to a status decline resulting from Dehydration with hypernatremia Prognosis Services: Skilled FLEET ADMINISTRATOR services to address above deficits Prognosis/Potential: Poor Considerations: Age, Cognition, Motivation Assessment Baseline Assessment Prior BSSE/VFSS: In September 2024, was WFL. Additional Testing Results: Chest X-Ray, Computed Tomography Setting Prior to Admission: Home Associated Problems: Coughing Respiratory Status: Room Air History of Intubation: No Behavior/Cognition: Alert, Agitated Dentition: Edentulous (Pt reprots that he threw out his dentuers becasue they didn't fit.) Vision: Functional for self-feeding Patient Positioning: Upright in bed Baseline Vocal Quality: Weak Volitional Cough: Weak Volitional Swallow: Delayed Laryngectomy: No Ability to Control Secretions: Yes Room Service: Non Appropriate for room service Current Diet Type: NPO Appetite: Poor (Pt repo) NPO for:: Per order Allergies Marked As Reviewed: Complete Oral/Motor Overall Oral/Motor Status: Exceptions to Within Functional Limits Lingual ROM: Reduced Lingual Strength: Reduced Lingual Coordination: Reduced Vocal Quality: Exceptions to WFL Hoarse: Moderate Weak: Moderate Vocal Intensity: Moderately decreased Apraxia: None Present Intelligibility: Intelligibility reduced Intelligibility Rating: Mild Breath Support: Adequate for speech Dentition: Edentulous (Pt reprots that he threw out his dentuers becasue they didn't fit.) Xerostomia: Yes Consistencies Assessed: Yes Level 0 Thin Presentation: Spoon, Straw, Cup Oral: Suspect premature spillage Pharyngeal: Change in vital signs, Cough- delayed, Cough- immediate, Wet/gurgly vocal quality Level 4 Pureed Presentation: Spoon Oral: Within Functional Limits Pharyngeal: Within Functional Limits Level 6 Soft and Bite-Sized Presentation: Spoon Oral: Decreased mastication Pharyngeal: Change in vital signs Regular Presentation: Assist feed Oral: Decreased mastication, Decreased bolus formation Pharyngeal: Within Functional Limits Cranial Nerve Screening CN V (trigeminal): Within Functional Limits CN VII (facial): Weak lip closure CN X (vagus): Within Functional Limits CN XII (hypoglossal): Reduced tongue movements Pain Assessment Pain Assessment: No/denies pain Plan Diagnosis Code Swallowing: R13.12 Dysphagia, oropharyngeal phase Speech Therapy Care Plan Speech Therapy Care Plan (Active) Template: ST - Dysphagia Problem: Swallowing Dates: Start: 11/09/24 Disciplines: FLEET ADMINISTRATOR Goal: LTG: Patient will tolerate least restrictive diet recommended by FLEET ADMINISTRATOR without signs and symptoms of aspiration 90% of the time Dates: Start: 11/09/24 Expected End: 11/23/24 Disciplines: FLEET ADMINISTRATOR Goal: STG: Patient will complete safety strategies with minimal assistance during PO intake 90% of the time Dates: Start: 11/09/24 Expected End: 11/23/24 Disciplines: FLEET ADMINISTRATOR Goal: STG: Patient will complete oral/ pharyngeal strengthening program with resistance with 90% accuracy with minimal cueing Dates: Start: 11/09/24 Expected End: 11/23/24 Disciplines: FLEET ADMINISTRATOR Goal: STG: Pt will participate in VFSS evaluation to further assess swallow efficiency and safe oral intake Dates: Start: 11/09/24 Expected End: 11/23/24 Disciplines: FLEET ADMINISTRATOR Speech Therapy Care Plan (Resolved) There are no resolved problems. Principal Problem: Acute deep vein thrombosis of calf, bilateral ([facility]) Active Problems: Gastroesophageal reflux disease Hyperlipidemia Acquired hypothyroidism Hypomagnesemia Severe protein-calorie malnutrition Primary hypertension Dehydration with hypernatremia AMS (altered mental status) Severe protein-calorie malnutrition Stage 4 chronic kidney disease (CMS-HCC) * Plan of Care - Erin Marcos RN - 11/09/2024 11:03 AM EDT Problem: Pain Goal: Patient goal is pain score less than 4, able to rest, and participant in treatment plan as appropriate Description: INTERVENTIONS: 1. Encourage patient or legal international representative to report early pain and ask for pain medicine when needed 2. Assess pain using appropriate pain scale and include the scale used when documenting 3. Administer analgesics based on type and severity of pain and evaluate response within appropriate time frame 4. Implement non-pharmacological measures as appropriate and evaluate response 5. Consider cultural and social influences on pain and pain management 6. Notify LIP if interventions ineffective or patient reports new pain 7. Monitor vital signs including pulse ox, end-tidal CO2 based on pain intervention 8. Reassess pain per policy 9. Teach patient or legal international representative interventions for comforting Outcome: Progressing Note: Evaluation of progress towards goal: Patient denies pain at this time Problem: Pain Goal: Patient goal is pain score less than 4, able to rest, and participant in treatment plan as appropriate Description: INTERVENTIONS: 1. Encourage patient or legal international representative to report early pain and ask for pain medicine when needed 2. Assess pain using appropriate pain scale and include the scale used when documenting 3. Administer analgesics based on type and severity of pain and evaluate response within appropriate time frame 4. Implement non-pharmacological measures as appropriate and evaluate response 5. Consider cultural and social influences on pain and pain management 6. Notify LIP if interventions ineffective or patient reports new pain 7. Monitor vital signs including pulse ox, end-tidal CO2 based on pain intervention 8. Reassess pain per policy 9. Teach patient or legal international representative interventions for comforting Outcome: Progressing Note: Evaluation of progress towards goal: Patient denies pain at this time Problem: Safety Goal: Patient will be injury free during hospitalization Description: INTERVENTIONS: 1. Assess patient's risk for falls and implement fall prevention plan of care per policy 2. Provide and maintain a safe environment 3. Proper use of double Identifiers 4. Medication administration using the 5 rights 5. Hand hygiene 6. Specimens are labeled at the bedside 7. Instruct patient/ patient international representative about use of safety devices 8. Include patient/ patient international representative in decisions related to safety Outcome: Progressing Note: Evaluation of progress towards goal: Patient safety maintained, Dual Identifiers used, hand hygiene encouraged. Problem: Safety Goal: Patient will be injury free during hospitalization Description: INTERVENTIONS: 1. Assess patient's risk for falls and implement fall prevention plan of care per policy 2. Provide and maintain a safe environment 3. Proper use of double Identifiers 4. Medication administration using the 5 rights 5. Hand hygiene 6. Specimens are labeled at the bedside 7. Instruct patient/ patient international representative about use of safety devices 8. Include patient/ patient international representative in decisions related to safety Outcome: Progressing Note: Evaluation of progress towards goal: Patient safety maintained, Dual Identifiers used, hand hygiene encouraged. Problem: Infection Goal: Absence of infection during hospitalization Description: INTERVENTIONS 1. Assess and monitor for signs and symptoms of infection. 2. Monitor lab/diagnostic results. 3. Monitor all insertion sites i.e., indwelling lines, tubes and drains. 4. Monitor endotracheal (as able) and nasal secretions for changes in amount and color. 5. Administer medications as ordered. 6. Instruct and encourage patient and family to use good hand hygiene technique. 7. Identify and instruct patient/patient international representative in use of appropriate isolation precautionsfor identified infection/symptoms. 8. Provide and discuss with patient/patient international representative on educational MDRO sheet. 9. Encourage and monitor nutritional status daily and consult head inspector if indicated. 10. Implement neutropenic guidelines as needed. Outcome: Progressing Note: Evaluation of progress towards goal: Patient afebrile at this time and vital signs stable. No signs or symptoms of infection. Antibiotic therapy continued. Problem: Infection Goal: Absence of infection during hospitalization Description: INTERVENTIONS 1. Assess and monitor for signs and symptoms of infection. 2. Monitor lab/diagnostic results. 3. Monitor all insertion sites i.e., indwelling lines, tubes and drains. 4. Monitor endotracheal (as able) and nasal secretions for changes in amount and color. 5. Administer medications as ordered. 6. Instruct and encourage patient and family to use good hand hygiene technique. 7. Identify and instruct patient/patient international representative in use of appropriate isolation precautionsfor identified infection/symptoms. 8. Provide and discuss with patient/patient international representative on educational MDRO sheet. 9. Encourage and monitor nutritional status daily and consult head inspector if indicated. 10. Implement neutropenic guidelines as needed. Outcome: Progressing Note: Evaluation of progress towards goal: Patient afebrile at this time and vital signs stable. No signs or symptoms of infection. Antibiotic therapy continued. * PT/OT/FLEET ADMINISTRATOR - Terri Thorne, SARAHR/Hemant - 11/09/2024 8:16 AM EDT Occupational Therapy OT Type of Visit: Patient refusal Reason For Patient Refusal (comment required): Tired/need to sleep attempted OT eval. Upon arrival patient sleeping in bed with head of bed flat. Patient awakes easily to name, account underwriter introduced self role and goals of OT. Patient refuses stating I have been up since 530, when that doctor came in . Pt ed on the important of working with therapy, pt questioned if he wants to continue/ attempt to work with therapy or if he would therapy to no longer attempt and pt states not right now , but later . BP 107/69, heart rate 78, SpO2 98%. OT to continue to follow. * Plan of Care - Tracie Velázquez RN - 11/08/2024 11:44 PM EDT Problem: Pain Goal: Patient goal is pain score less than 4, able to rest, and participant in treatment plan as appropriate Description: INTERVENTIONS: 1. Encourage patient or legal international representative to report early pain and ask for pain medicine when needed 2. Assess pain using appropriate pain scale and include the scale used when documenting 3. Administer analgesics based on type and severity of pain and evaluate response within appropriate time frame 4. Implement non-pharmacological measures as appropriate and evaluate response 5. Consider cultural and social influences on pain and pain management 6. Notify LIP if interventions ineffective or patient reports new pain 7. Monitor vital signs including pulse ox, end-tidal CO2 based on pain intervention 8. Reassess pain per policy 9. Teach patient or legal international representative interventions for comforting Outcome: Progressing Note: Evaluation of progress towards goal: Pt denies pain at this time. Problem: Safety Goal: Patient will be injury free during hospitalization Description: INTERVENTIONS: 1. Assess patient's risk for falls and implement fall prevention plan of care per policy 2. Provide and maintain a safe environment 3. Proper use of double Identifiers 4. Medication administration using the 5 rights 5. Hand hygiene 6. Specimens are labeled at the bedside 7. Instruct patient/ patient international representative about use of safety devices 8. Include patient/ patient international representative in decisions related to safety Outcome: Progressing Note: Evaluation of progress towards goal: Pt remains injury free. Safety maintained as evidence bythe call light within reach, bed locked and lowered, and fall precautions in place. Problem: Potential for Compromised Skin Integrity Goal: Skin integrity is maintained or improved Description: Patient's goal is: INTERVENTIONS 1. Perform initial skin assessment on admission and as needed 2. Turn patient every 2 hours and PRN 3. Relieve pressure to bony prominences 4. Avoid shearing 5. Keep skin clean and dry 6. Alternate a full bath with partial baths for elderly 7. Apply lotion/moisturizer on skin 8. Monitor patient's hygiene practices 9. Float heels 10. Collaborate with interdisciplinary team and initiate plans and interventions as needed Outcome: Progressing Note: Evaluation of progress towards goal: Q2h turns, off load heels, and skin assessments. * PT/OT/FLEET ADMINISTRATOR - Du Valdez, PT - 11/08/2024 11:34 AM EDT Physical Therapy PT Type of Visit: (P) Patient refusal Reason For Patient Refusal (comment required): (P) Visitors present/arriving soon, Too weak (Pt BP taken upone entry 97/52. Pt stated he vomitted early in day while attmepting to sit up. Pt refused treatment due to fear of vomitting again.) Upon entry, BP was taken and read at 97/52. Discussed with pt attempting to sit up in bed. Pt refused due to vomiting episode earlier in day while attempting to sit up. Pt refused any further treatment as this time. * Plan of Care - Sascha Bell RN - 11/08/2024 10:48 AM EDT Problem: Pain Goal: Patient goal is pain score less than 4, able to rest, and participant in treatment plan as appropriate Description: INTERVENTIONS: 1. Encourage patient or legal international representative to report early pain and ask for pain medicine when needed 2. Assess pain using appropriate pain scale and include the scale used when documenting 3. Administer analgesics based on type and severity of pain and evaluate response within appropriate time frame 4. Implement non-pharmacological measures as appropriate and evaluate response 5. Consider cultural and social influences on pain and pain management 6. Notify LIP if interventions ineffective or patient reports new pain 7. Monitor vital signs including pulse ox, end-tidal CO2 based on pain intervention 8. Reassess pain per policy 9. Teach patient or legal international representative interventions for comforting Outcome: Progressing Note: Evaluation of progress towards goal: Patient denies pain Problem: Safety Goal: Patient will be injury free during hospitalization Description: INTERVENTIONS: 1. Assess patient's risk for falls and implement fall prevention plan of care per policy 2. Provide and maintain a safe environment 3. Proper use of double Identifiers 4. Medication administration using the 5 rights 5. Hand hygiene 6. Specimens are labeled at the bedside 7. Instruct patient/ patient international representative about use of safety devices 8. Include patient/ patient international representative in decisions related to safety Outcome: Progressing Note: Evaluation of progress towards goal: Patient does not attempt to get up. Bed alarm activated. * Plan of Care - Tracie Velázquez RN - 11/07/2024 8:26 PM EDT Problem: Pain Goal: Patient goal is pain score less than 4, able to rest, and participant in treatment plan as appropriate Description: INTERVENTIONS: 1. Encourage patient or legal international representative to report early pain and ask for pain medicine when needed 2. Assess pain using appropriate pain scale and include the scale used when documenting 3. Administer analgesics based on type and severity of pain and evaluate response within appropriate time frame 4. Implement non-pharmacological measures as appropriate and evaluate response 5. Consider cultural and social influences on pain and pain management 6. Notify LIP if interventions ineffective or patient reports new pain 7. Monitor vital signs including pulse ox, end-tidal CO2 based on pain intervention 8. Reassess pain per policy 9. Teach patient or legal international representative interventions for comforting Outcome: Progressing Note: Evaluation of progress towards goal: Pt denies pain at this time. Problem: Safety Goal: Patient will be injury free during hospitalization Description: INTERVENTIONS: 1. Assess patient's risk for falls and implement fall prevention plan of care per policy 2. Provide and maintain a safe environment 3. Proper use of double Identifiers 4. Medication administration using the 5 rights 5. Hand hygiene 6. Specimens are labeled at the bedside 7. Instruct patient/ patient international representative about use of safety devices 8. Include patient/ patient international representative in decisions related to safety Outcome: Progressing Note: Evaluation of progress towards goal: Pt remains injury free. Safety maintained as evidence bythe call light within reach, bed locked and lowered, and fall precautions in place. Problem: Moderate - High Risk Fall Score Description: Wiley Fall Score of =/> 25 or indicated by [facility] Assessment Goal: Patient should be free from fall Description: Interventions: 1. Olar to environment 2. Hourly rounds addressing the 4 P's (Pain, Positioning, Possessions, Potty) 3. Clear area of hazards (spills, clutter, electrical cords, unnecessary equipment) 4. Place equipment (bed & TV controls, call light, phone, urinal) within reach 5. Encourage patient to wear glasses and hearing aides as appropriate 6. Maintain bed in lowest position 7. Lock wheels on bed/wheelchair 8. Provide adequate lighting, including night light 9. Assess need for additional bedding, food/fluids, pain med's prior to sleep/routinely 10. Provide gripper slippers or personal non-skid footwear 11. Teach patient and patient international representative to maintain environment for safety and engage in all aspects of fall prevention program 12. Remind patient to call for help before getting out of bed 13. Initiate bed/chair/exit alarms supportive devices as appropriate, (chair wedge, no-skid floor mat, raised edge mattress, hip protectors) 14. Locate patient bed assignment for optimal visualization 15. Evaluate and identify Safe Patient Handling Equipment needs 16. Provide supervision when out of bed or chair 17. Utilize gait belt as needed to assist with ambulation 18. Place adaptive equipment (cane, walker) within reach 19. Request patient international representative bring adaptive equipment/mobility aids from home or obtain and provide as needed 20. Consult pharmacy regarding effects of med's affecting mobility, cognition, and alternatives 21. Obtain physician order for PT if risk factors associated with mobility are present 22. Obtain physician order for OT as appropriate 23. Utilize diversional activities 24. Educate patient and patient international representative how to maintain a safe environment during visitationtimes (notify nurse prior to leaving bedside) 25. Consider appropriateness of medical or non-medical assistant ob gyn 26. Set up voiding schedule as appropriate (every 2 hours) Outcome: Progressing Note: Evaluation of progress towards goal: Fall precautions in place. Bed locked and lowered, call light within reach, and pt able to call out appropriately for needs. * Plan of Care - Caryn Herrera RN - 11/07/2024 9:10 AM EDT Problem: Pain Goal: Patient goal is pain score less than 4, able to rest, and participant in treatment plan as appropriate Description: INTERVENTIONS: 1. Encourage patient or legal international representative to report early pain and ask for pain medicine when needed 2. Assess pain using appropriate pain scale and include the scale used when documenting 3. Administer analgesics based on type and severity of pain and evaluate response within appropriate time frame 4. Implement non-pharmacological measures as appropriate and evaluate response 5. Consider cultural and social influences on pain and pain management 6. Notify LIP if interventions ineffective or patient reports new pain 7. Monitor vital signs including pulse ox, end-tidal CO2 based on pain intervention 8. Reassess pain per policy 9. Teach patient or legal international representative interventions for comforting Outcome: Progressing Note: Evaluation of progress towards goal: Pain assessed and treated accordingly. Problem: Safety Goal: Patient will be injury free during hospitalization Description: INTERVENTIONS: 1. Assess patient's risk for falls and implement fall prevention plan of care per policy 2. Provide and maintain a safe environment 3. Proper use of double Identifiers 4. Medication administration using the 5 rights 5. Hand hygiene 6. Specimens are labeled at the bedside 7. Instruct patient/ patient international representative about use of safety devices 8. Include patient/ patient international representative in decisions related to safety Outcome: Progressing Note: Evaluation of progress towards goal: PT is free of falls, hourly rounding is completed, area is kept clear. Problem: Infection Goal: Absence of infection during hospitalization Description: INTERVENTIONS 1. Assess and monitor for signs and symptoms of infection. 2. Monitor lab/diagnostic results. 3. Monitor all insertion sites i.e., indwelling lines, tubes and drains. 4. Monitor endotracheal (as able) and nasal secretions for changes in amount and color. 5. Administer medications as ordered. 6. Instruct and encourage patient and family to use good hand hygiene technique. 7. Identify and instruct patient/patient international representative in use of appropriate isolation precautionsfor identified infection/symptoms. 8. Provide and discuss with patient/patient international representative on educational MDRO sheet. 9. Encourage and monitor nutritional status daily and consult head inspector if indicated. 10. Implement neutropenic guidelines as needed. Outcome: Progressing Note: Evaluation of progress towards goal: Pt assessed and monitored for signs and symptoms of infection, lab and diagnostic results monitored as needed, administer medications as needed. Problem: Knowledge Deficit Goal: Patient/patient international representative demonstrates understanding of disease process, treatment plan,medications, and discharge instructions Description: INTERVENTIONS 1. Complete learning assessment and assess knowledge base 2. Provide teaching at level of understanding 3. Provide teaching via preferred learning method(s) Outcome: Progressing Note: Evaluation of progress towards goal: Learning assessment and knowledge base assessed, teaching provided at an understandable level as needed. * PT/OT/FLEET ADMINISTRATOR - Mike Ramos, PT - 11/07/2024 9:05 AM EDT Physical Therapy Treatment Discharge Recommendations for Safe Patient Transition PT Discharge Disposition Recommendation: Extended care facility (vs SNF) Current Impairments Informing Therapy Recommendation: Ambulation status/safety, Fall risk, Endurance level, ADL status (Pt would benefit from ECF vs SNF d/t limited ability to complete any ambulationand requiring assistance with ADLs and bed mobility) Pin Maker Support for-: Mobility Deficits, ADL Deficits 6 Clicks: Basic Mobility Turning from your back to your side while in a flat bed without using bed rails?: A lot Moving from lying on your back to sitting on side of flat bed without using bed rails?: A lot Moving to and from bed to a chair (including w/c)?: Total Standing up from a chair using your arms (e.g. w/c or bedside chair)?: Total To walk in hospital room?: Total Climbing 3-5 steps with a railing?: Total Scoring 6 Clicks: Basic Mobility Raw Score: 8 CMS G Code Modifier: CM Therapy Plan Need for skilled Physical Therapy to address deficits in functional mobility due to a status decline resulting from dehydration with hypernatremia. Assessment Patient Assessment Patient Response to Treatment: Slow progress, medical status limitations Mood/Affect: Appropriate for circumstances Visit RN Communication: Yes Medical Record Reviewed: Yes PT Type of Visit: Treatment Precautions Activity: Early mobility pass, okay to eval per Caryn MACIAS Equipment: IV, nonskid socks, pure wick Telemetry/Systems Architecture Analyst: Yes Other: Orthostatic when transitioning from supine to sitting. Pt's BP was taken shortly before seeing the pt which showed 101/57. Subjective Physical Therapy Comments: I don't remember working with you yesterday Pain Assessment Pain Assessment: No/denies pain Cognition Orientation Level: Oriented X4 Bed Mobility Rolling: Mod assist Supine to Sit: Mod assist Sit to Supine: Max assist, Mod assist Transfers Other: Head d/t pt reports of light headed and BP taken which was 99/53 Gait Other: Head d/t pt reports of light headed and BP taken which was 99/53 Balance Sitting Balance: Static: Fair, Poor Sitting Balance: Dynamic: Poor Other: Pt reports lightheadedness after roughly 30 seconds sitting stating I think I'm going to have to lay back down soon. Activity Tolerance Endurance: Tolerates <30 minutes activity with vital sign changes Other: Pt continues to have drop in BP when transitioning to seatd postion at the edge of the bed. Pt states he began feeling lightheaded once sittig. When returned to supine pt reports improved lightheadedness and BP improves to 116/67 Plan Physical Therapy Care Plan Physical Therapy Care Plan (Active) Template: PT - Physical Therapy Problem: Activity Tolerance Dates: Start: 11/06/24 Disciplines: PT Goal: Tolerate 30 minutes of activity WITH rest breaks Dates: Start: 11/06/24 Expected End: 11/15/24 Disciplines: PT Outcomes Date/Time User Outcome 11/07/24902 Mike Ramos PT Not Progressing Goal Note filed on 11/07/24902 by Mike Ramos PT Limited tolerance d/t BP drop and lightheadedness Problem: Bed Mobility Dates: Start: 11/06/24 Disciplines: PT Goal: Patient will perform bed mobility with Stand By Assist Dates: Start: 11/06/24 Expected End: 11/15/24 Description: Pt will complete bed mobility with SBA in order to decrease risk of skin breakdown Disciplines: PT Outcomes Date/Time User Outcome 11/07/24902 Mike Ramos PT Not Progressing Goal Note filed on 11/07/24902 by Mike Ramos PT Sit to stand and stand to sit mod/max assist Problem: Gait Dates: Start: 11/06/24 Disciplines: PT Goal: Patient will perform gait with Contact Guard Dates: Start: 11/06/24 Expected End: 11/15/24 Description: Pt will demonstrate the ability to complete 50' ambulation with least restrictive AD in order to ambulate from bed to toilet safely Disciplines: PT Outcomes Date/Time User Outcome 11/07/24902 Mike Ramos PT Not Progressing Goal Note filed on 11/07/24902 by Mike Ramos PT Unable to complete at this time Problem: Standing Balance Dates: Start: 11/06/24 Disciplines: PT Goal: Improve balance to good Dates: Start: 11/06/24 Expected End: 11/15/24 Description: In order to decrease risk of falls Disciplines: PT Outcomes Date/Time User Outcome 11/07/24902 Mike Ramos PT Not Progressing Goal Note filed on 11/07/24902 by Mike Ramos PT Unable to complete at this time Problem: Transfers Dates: Start: 11/06/24 Disciplines: PT Goal: Patient will perform transfers with Contact Guard Dates: Start: 11/06/24 Expected End: 11/15/24 Description: Pt will perform STS transfer with CGA in order to decrease caregiver support needed Disciplines: PT Outcomes Date/Time User Outcome 11/07/24902 Mike Ramos PT Not Progressing Goal Note filed on 11/07/24902 by Mike Ramos PT Unable to complete STS at this time Physical Therapy Care Plan (Resolved) There are no resolved problems. Principal Problem: Dehydration with hypernatremia Active Problems: Gastroesophageal reflux disease Hyperlipidemia Stage 3b chronic kidney disease (CMS-HCC) Acquired hypothyroidism Hypomagnesemia Severe protein-calorie malnutrition Primary hypertension AMS (altered mental status) Severe protein-calorie malnutrition * Plan of Care - Rosalina West RN - 11/07/2024 3:22 AM EDT Problem: Pain Goal: Patient goal is pain score less than 4, able to rest, and participant in treatment plan as appropriate Description: INTERVENTIONS: 1. Encourage patient or legal international representative to report early pain and ask for pain medicine when needed 2. Assess pain using appropriate pain scale and include the scale used when documenting 3. Administer analgesics based on type and severity of pain and evaluate response within appropriate time frame 4. Implement non-pharmacological measures as appropriate and evaluate response 5. Consider cultural and social influences on pain and pain management 6. Notify LIP if interventions ineffective or patient reports new pain 7. Monitor vital signs including pulse ox, end-tidal CO2 based on pain intervention 8. Reassess pain per policy 9. Teach patient or legal international representative interventions for comforting Outcome: Progressing Note: Evaluation of progress towards goal: Pain assessed using appropriate pain scale and include the scale used when documenting. Administered analgesics based on type and severity of pain and evaluate response within appropriate time frame. Implemented non-pharmacological measures as appropriate and evaluate response. Problem: Safety Goal: Patient will be injury free during hospitalization Description: INTERVENTIONS: 1. Assess patient's risk for falls and implement fall prevention plan of care per policy 2. Provide and maintain a safe environment 3. Proper use of double Identifiers 4. Medication administration using the 5 rights 5. Hand hygiene 6. Specimens are labeled at the bedside 7. Instruct patient/ patient international representative about use of safety devices 8. Include patient/ patient international representative in decisions related to safety Outcome: Progressing Note: Evaluation of progress towards goal: Preformed hourly rounds addressing the 4 P's (Pain, Positioning, Possessions, Potty). Cleared area of hazards (spills, clutter, electrical cords, unnecessary equipment). Problem: Infection Goal: Absence of infection during hospitalization Description: INTERVENTIONS 1. Assess and monitor for signs and symptoms of infection. 2. Monitor lab/diagnostic results. 3. Monitor all insertion sites i.e., indwelling lines, tubes and drains. 4. Monitor endotracheal (as able) and nasal secretions for changes in amount and color. 5. Administer medications as ordered. 6. Instruct and encourage patient and family to use good hand hygiene technique. 7. Identify and instruct patient/patient international representative in use of appropriate isolation precautionsfor identified infection/symptoms. 8. Provide and discuss with patient/patient international representative on educational MDRO sheet. 9. Encourage and monitor nutritional status daily and consult head inspector if indicated. 10. Implement neutropenic guidelines as needed. Outcome: Progressing Note: Evaluation of progress towards goal: Isolation precautions followed per protocol. Equipment cleaned between patients. Handwashing protocol followed. Problem: Knowledge Deficit Goal: Patient/patient international representative demonstrates understanding of disease process, treatment plan,medications, and discharge instructions Description: INTERVENTIONS 1. Complete learning assessment and assess knowledge base 2. Provide teaching at level of understanding 3. Provide teaching via preferred learning method(s) Outcome: Progressing Note: Evaluation of progress towards goal: 1. Completed learning assessment and assessed knowledge base 2. Provided teaching at level of understanding 3. Provided teaching via preferred learning method(s) Problem: Moderate - High Risk Fall Score Description: Wiley Fall Score of =/> 25 or indicated by [facility] Assessment Goal: Patient should be free from fall Description: Interventions: 1. Olar to environment 2. Hourly rounds addressing the 4 P's (Pain, Positioning, Possessions, Potty) 3. Clear area of hazards (spills, clutter, electrical cords, unnecessary equipment) 4. Place equipment (bed & TV controls, call light, phone, urinal) within reach 5. Encourage patient to wear glasses and hearing aides as appropriate 6. Maintain bed in lowest position 7. Lock wheels on bed/wheelchair 8. Provide adequate lighting, including night light 9. Assess need for additional bedding, food/fluids, pain med's prior to sleep/routinely 10. Provide gripper slippers or personal non-skid footwear 11. Teach patient and patient international representative to maintain environment for safety and engage in all aspects of fall prevention program 12. Remind patient to call for help before getting out of bed 13. Initiate bed/chair/exit alarms supportive devices as appropriate, (chair wedge, no-skid floor mat, raised edge mattress, hip protectors) 14. Locate patient bed assignment for optimal visualization 15. Evaluate and identify Safe Patient Handling Equipment needs 16. Provide supervision when out of bed or chair 17. Utilize gait belt as needed to assist with ambulation 18. Place adaptive equipment (cane, walker) within reach 19. Request patient international representative bring adaptive equipment/mobility aids from home or obtain and provide as needed 20. Consult pharmacy regarding effects of med's affecting mobility, cognition, and alternatives 21. Obtain physician order for PT if risk factors associated with mobility are present 22. Obtain physician order for OT as appropriate 23. Utilize diversional activities 24. Educate patient and patient international representative how to maintain a safe environment during visitationtimes (notify nurse prior to leaving bedside) 25. Consider appropriateness of medical or non-medical assistant ob gyn 26. Set up voiding schedule as appropriate (every 2 hours) Outcome: Progressing Note: Evaluation of progress towards goal: Preformed hourly rounds addressing the 4 P's (Pain, Positioning, Possessions, Potty). Cleared area of hazards (spills, clutter, electrical cords, unnecessary equipment). Problem: Potential for Compromised Skin Integrity Goal: Skin integrity is maintained or improved Description: Patient's goal is: INTERVENTIONS 1. Perform initial skin assessment on admission and as needed 2. Turn patient every 2 hours and PRN 3. Relieve pressure to bony prominences 4. Avoid shearing 5. Keep skin clean and dry 6. Alternate a full bath with partial baths for elderly 7. Apply lotion/moisturizer on skin 8. Monitor patient's hygiene practices 9. Float heels 10. Collaborate with interdisciplinary team and initiate plans and interventions as needed Outcome: Progressing Note: Evaluation of progress towards goal: Performed initial skin assessment on admission and as needed. Turned patient every 2 hours and PRN. Relieved pressure to bony prominences. Avoided shearing.Kept skin clean and dry. Goal: Patient's nutritional intake is adequate Description: Patient's goal is: INTERVENTIONS 1. Assess and monitor food intake and supplements, patient food preferences, nausea, vomiting, labs, oral cavity (gums, teeth, tongue, mucosa), proper denture fit, and cultural beliefs 2. Monitor for signs of hypoglycemia and hyperglycemia 3. Collaborate with interdisciplinary team and initiate plan and interventions as ordered 4. Monitor patient's weight 5. Assist patient with meals/food selection 6. Assist patient with eating 7. Allow adequate time for meals 8. Provide pleasant environment during mealtime 9. Increase social contact during mealtimes 10. Plan activities to conserve energy 11. Encourage/perform oral hygiene as appropriate 12. Encourage patient to take dietary supplement as ordered 13. Collaborate with clinical head inspector 14. Include patient/ patient's international representative in decisions related to nutrition Outcome: Progressing Note: Evaluation of progress towards goal: 1. Assessed and monitor food intake and supplements, patient food preferences, nausea, vomiting, labs, oral cavity (gums, teeth, tongue, mucosa), proper denture fit, and cultural beliefs 2. Monitored for signs of hypoglycemia and hyperglycemia 3. Collaborated with interdisciplinary team and initiate plan and interventions as ordered 4. Monitored patient's weight 5. Assisted patient with meals/food selection 6. Assisted patient with eating 7. Allowed adequatetime for meals 8. Provided pleasant environment during mealtime 9. Increased social contact during m ealtimes 10. Planned activities to conserve energy 11. Encouraged/performed oral hygiene as appropriate 12. Encouraged patient to take dietary supplement as ordered 13. Collaborated with clinical head inspector 14. Included patient/ patient's international representative in decisions related to nutrition Problem: Urinary Incontinence Goal: Perineal skin integrity is maintained or improved Description: INTERVENTIONS 1. Assess genitourinary system, perineal skin, labs (urinalysis), and history of incontinence to include past management, aggravating, and alleviating factors 2. Keep skin clean and dry 3. Apply skin protectant 4. Develop skin care regimen 5. Provide privacy when changing patients incontinence device to maintain their dignity 6. Consider placing an indwelling catheter 7. Collaborate with interdisciplinary team and initiate plans and interventions as needed Outcome: Progressing Note: Evaluation of progress towards goal: 1. Assessed and monitor food intake and supplements, patient food preferences, nausea, vomiting, labs, oral cavity (gums, teeth, tongue, mucosa), proper denture fit, and cultural beliefs 2. Monitored for signs of hypoglycemia and hyperglycemia 3. Collaborated with interdisciplinary team and initiate plan and interventions as ordered 4. Monitored patient's weight 5. Assisted patient with meals/food selection 6. Assisted patient with eating 7. Allowed adequatetime for meals 8. Provided pleasant environment during mealtime 9. Increased social contact during m ealtimes 10. Planned activities to conserve energy 11. Encouraged/performed oral hygiene as appropriate 12. Encouraged patient to take dietary supplement as ordered 13. Collaborated with clinical head inspector 14. Included patient/ patient's international representative in decisions related to nutrition * Plan of Care - Nadya Haas RCP - 11/06/2024 3:07 PM EDT Problem: Inadequate Breathing Pattern Goal: Patient will maintain effective ventilation Description: Patient's goal is: INTERVENTIONS 1. Assess and monitor vital signs, respiratory status (to include respiratory rate, depth, effort, and breath sounds), oxygen saturation, oral mucosa, tongue, pain, and labs (ABGs). 2. Collaborate with interdisciplinary team and initiate plans and interventions as needed 3. Oxygen therapy as indicated 4. Position patient for maximum ventilatory efficiency 5. Instruct patient to turn, cough, and deep breathe; encourage incentive spirometer if indicated 6. Plan activities to conserve energy 7. Encourage ambulation/activity per patient's tolerance 8. Collaborate with patient/RT to administer medications/treatments 9. Monitor lab/diagnostic results Outcome: Progressing Note: Evaluation of progress towards goal: Continue with bronchodilator per [facility] Respiratory Therapy Clinical Practice Guidelines Consult Vital Signs Pulse: 72 Heart Rate Source: Pulse Ox Resp: 16 SpO2: 97 % O2 Device: Nasal cannula O2 Flow Rate (L/min): 1 L/min Respiratory Assessment Assessment Type: Initial assessment, Pre-treatment, Post-treatment Level of Consciousness: Alert Subjective Comments: titrated from 2L to 1L Respiratory Pattern: Regular, Shallow Chest Assessment: Chest expansion symmetrical Bilateral Breath Sounds: Clear, Diminished Patient Active Problem List Diagnosis Coagulation factor deficiency syndrome Eczema Gastroesophageal reflux disease Hyperlipidemia Lupus anticoagulant disorder Multiple nodules of lung Myocardial infarction ([facility]) Onycholysis Secondary hyperparathyroidism Stage 3 chronic kidney disease [place] Tear of meniscus of knee Vertigo Vitamin D deficiency Acute blood loss anemia Panlobular emphysema ([facility]) Supratherapeutic INR Pleural effusion on right Acute kidney injury superimposed on CKD Stage 3b chronic kidney disease ([facility] History of pulmonary embolism Hemothorax Coronary artery vasospasm Sepsis, due to unspecified organism, unspecified whether acute organ dysfunction present ([facility]) Pericarditis Gross hematuria Diarrhea COPD (chronic obstructive pulmonary disease) ([facility]) Acquired hypothyroidism Acute cystitis with hematuria Weakness Hypomagnesemia Elevated CK Poor appetite Severe protein-calorie malnutrition SUSAN (acute kidney injury) Physical deconditioning Acute prostatitis Primary hypertension Unintentional weight loss Anemia Cor pulmonale ([facility]) Primary malignant neoplasm of prostate ([facility]) Orthostatic hypotension Bilious vomiting with nausea Syncope, unspecified syncope type Laceration of head without foreign body Urinary tract infection with hematuria Dehydration with hypernatremia AMS (altered mental status) Severe protein-calorie malnutrition Last Chest XRAY: Reviewed Pulmonary History: Reviewed RT Reassessment Due In: 24 hours Bronchodilator Respiratory Rate Level 1: Less than 20 Dyspnea Level 1: No SOB Breath Sounds Level 2: Diminished and/or faint wheezes Respiratory History Level 4: Diagnosis of pulmonary disease such as: Asthma/reactive airway disease; Bronchitis/Emphysema (COPD) ; Cystic Fibrosis ; Severe Laryngitis/Tracheitis/Bronchiectasis ; Microbial infection ; Anesthesia related bronchospasms Oxygen to Keep SpO2 Greater Than Or Equal To 92% Level 2: 1-3 LPM 25%-35% or NIV 41 - 50% Peak Flow ([facility] Only) Home Therapy: Not Applicable Patients Current Level & Intervention: 2 Three times daily and Q4 PRN for wheezing; per pt's family members currently at bedside, the pt takes nebs TID at home. Currently on 1L NC; titrate O2 as tolerated. * Plan of Care - Jennifer Palmer RN - 11/06/2024 9:30 AM EDT Problem: Pain Goal: Patient goal is pain score less than 4, able to rest, and participant in treatment plan as appropriate Description: INTERVENTIONS: 1. Encourage patient or legal international representative to report early pain and ask for pain medicine when needed 2. Assess pain using appropriate pain scale and include the scale used when documenting 3. Administer analgesics based on type and severity of pain and evaluate response within appropriate time frame 4. Implement non-pharmacological measures as appropriate and evaluate response 5. Consider cultural and social influences on pain and pain management 6. Notify LIP if interventions ineffective or patient reports new pain 7. Monitor vital signs including pulse ox, end-tidal CO2 based on pain intervention 8. Reassess pain per policy 9. Teach patient or legal international representative interventions for comforting Outcome: Progressing Note: Evaluation of progress towards goal: Pt able to report pain according to 0/10 pain scale. Medicating patient for pain per orders. Problem: Safety Goal: Patient will be injury free during hospitalization Description: INTERVENTIONS: 1. Assess patient's risk for falls and implement fall prevention plan of care per policy 2. Provide and maintain a safe environment 3. Proper use of double Identifiers 4. Medication administration using the 5 rights 5. Hand hygiene 6. Specimens are labeled at the bedside 7. Instruct patient/ patient international representative about use of safety devices 8. Include patient/ patient international representative in decisions related to safety Outcome: Progressing Note: Evaluation of progress towards goal: Safety measures and hourly rounding in place. Pt remainsfree of falls and injury at this time. Will continue to monitor. Problem: Knowledge Deficit Goal: Patient/patient international representative demonstrates understanding of disease process, treatment plan,medications, and discharge instructions Description: INTERVENTIONS 1. Complete learning assessment and assess knowledge base 2. Provide teaching at level of understanding 3. Provide teaching via preferred learning method(s) Outcome: Progressing Note: Evaluation of progress towards goal: POC discussed with patient. Questions answered PRN. * PT/OT/FLEET ADMINISTRATOR - Mike Ramos, PT - 11/06/2024 8:40 AM EDT Physical Therapy Evaluation Discharge Recommendations for Safe Patient Transition PT Discharge Disposition Recommendation: Extended care facility Current Impairments Informing Therapy Recommendation: Fall risk, Ambulation status/safety, ADL status, Endurance level Pin Maker Support for-: Mobility Deficits, ADL Deficits Past Medical History: Diagnosis Date Anemia Asthma Benign prostatic hyperplasia COPD (chronic obstructive pulmonary disease) [place] Dizziness Head injury HL (hearing loss) Hyperlipidemia Hypothyroidism Lung nodule Lupus (systemic lupus erythematosus) ([facility]) Pulmonary embolism ([facility]) Stage 3b chronic kidney disease (CKD) ([facility]) Syncope Visual impairment cheaters for reading Past Surgical History: Procedure Laterality Date CYSTOSCOPY N/A 08/03/2024 Performed by Velasquez Garcias MD at [facility] ESOPHAGOGASTRODUODENOSCOPY BIOPSY N/A 09/24/2024 Performed by Beverly Charles MD at [facility] E[facility] SURGERY cataracts RIGHT THORACOTOMY COMPLETE LUNG DECORTICATION Right 01/24/2023 Performed by Jett Khanna MD at [facility] 6 Clicks: Basic Mobility Turning from your back to your side while in a flat bed without using bed rails?: A lot Moving from lying on your back to sitting on side of flat bed without using bed rails?: A lot Moving to and from bed to a chair (including w/c)?: Total Standing up from a chair using your arms (e.g. w/c or bedside chair)?: Total To walk in hospital room?: Total Climbing 3-5 steps with a railing?: Total Scoring 6 Clicks: Basic Mobility Raw Score: 8 [facility] G Code Modifier: CM Therapy Plan Need for skilled Physical Therapy to address deficits in functional mobility due to a status decline resulting from dehydration with hypernatremia. PT Treatment/Interventions: ADL retraining, Functional transfer training, Endurance training, Cognitive reorientation, LE strengthening/ROM, Patient/family training, Equipment eval/education, Balance, Stair training, Bed mobility, Gait training, Fine motor, Coordination activities, Functional activi ties, Gross motor developmental skills, Neuromuscular reeducation PT Frequency: 5-6days/week PT Duration: 10 days Assessment Patient Assessment Therapy Problem List: Decreased ADL status, Abnormal posture, Decreased balance, Decreased endurance, Decreased fine motor, Decreased high-level ADLs, Decreased gross motor, Decreased mobility, Decreased self-care trans, Decreased safe judgement during ADL, Decreased LE ROM, Decreased LE strength Patient Response to Treatment: Tolerated evaluation without adverse reaction Mood/Affect: Appropriate for circumstances Rehab Prognosis: Fair, Guarded, With continued PT status post acute discharge Visit RN Communication: Yes Medical Record Reviewed: Yes PT Type of Visit: Evaluation Precautions Activity: Early mobility pass, okay to eval per Jennifer MACIAS Equipment: IV, nonskid socks, pure wick Telemetry/Systems Architecture Analyst: Yes Oxygen Used: 4L via nasal cannula Pain Assessment Pain Assessment: 0-10 Pain Score: 4 Observed Behavior: Calm Pain Location: Foot Pain Orientation: Right, Left Pain 2 Observed Behavior: Calm Home Living Type of Home: Apartment Home Layout: One level Stairs to Enter: 2-3 Hand Rails: Right Stairs in Home: 0 Bathroom Shower/Tub: Walk-in shower Bathroom Toilet: Standard Bathroom Equipment: Built-in shower seat, Hand-held shower Home Equipment: 4 Wheeled walker, Cane Prior Function Lives With: Spouse Receives Help From: Family (Daughter, (helps as able), grandson) Level of Mobility: Needs assistance with ADLs or functional transfers or gait ( I havent been able to do anything recently ) Homemaking Assistance: Needs assistance ( I havent been able to do anything recently ) Hearing / Speech / Vision Hearing: Hard of hearing/hearing concerns Speech: Within Functional Limits Current Vision: Wears glasses only for reading Cognition Orientation Level: Oriented X4 Bed Mobility Rolling: Mod assist Supine to Sit: Max assist, Mod assist Sit to Supine: Max assist, Mod assist Transfers Other: Head d/t pt reports of light headed and BP taken which was 85/38 Gait Other: Head d/t pt reports of light headed and BP taken which was 85/38 Balance Sitting Balance: Static: Fair, Poor Sitting Balance: Dynamic: Poor Other: Pt unable to maintain upright posture without assistance d/t pt reports of lightheadedness LUE Assessment: (Generalized weakness) RLE Assessment: (Generalized weakness) Activity Tolerance Endurance: Tolerates 30 minutes activity with rest breaks Other: Pt required significant assist with transition to sitting at the end of the bed. Once moved pt reports lightheadedness. BP taken which showed 85/38 and pt was returned to bed. Pt reports feeling improved once returning to bed and nursing informed of BP drop. Plan Physical Therapy Care Plan Physical Therapy Care Plan (Active) Template: PT - Physical Therapy Problem: Activity Tolerance Dates: Start: 11/06/24 Disciplines: PT Goal: Tolerate 30 minutes of activity WITH rest breaks Dates: Start: 11/06/24 Expected End: 11/15/24 Disciplines: PT Problem: Bed Mobility Dates: Start: 11/06/24 Disciplines: PT Goal: Patient will perform bed mobility with Stand By Assist Dates: Start: 11/06/24 Expected End: 11/15/24 Description: Pt will complete bed mobility with SBA in order to decrease risk of skin breakdown Disciplines: PT Problem: Gait Dates: Start: 11/06/24 Disciplines: PT Goal: Patient will perform gait with Contact Guard Dates: Start: 11/06/24 Expected End: 11/15/24 Description: Pt will demonstrate the ability to complete 50' ambulation with least restrictive AD in order to ambulate from bed to toilet safely Disciplines: PT Problem: Standing Balance Dates: Start: 11/06/24 Disciplines: PT Goal: Improve balance to good Dates: Start: 11/06/24 Expected End: 11/15/24 Description: In order to decrease risk of falls Disciplines: PT Problem: Transfers Dates: Start: 11/06/24 Disciplines: PT Goal: Patient will perform transfers with Contact Guard Dates: Start: 11/06/24 Expected End: 11/15/24 Description: Pt will perform STS transfer with CGA in order to decrease caregiver support needed Disciplines: PT Physical Therapy Care Plan (Resolved) There are no resolved problems. Principal Problem: Dehydration with hypernatremia Active Problems: Gastroesophageal reflux disease Hyperlipidemia Stage 3b chronic kidney disease (CMS-HCC) Acquired hypothyroidism Hypomagnesemia Severe protein-calorie malnutrition Primary hypertension AMS (altered mental status) Severe protein-calorie malnutrition * Plan of Care - Sharri Pelayo RN - 11/05/2024 8:05 PM EDT Problem: Pain Goal: Patient goal is pain score less than 4, able to rest, and participant in treatment plan as appropriate Description: INTERVENTIONS: 1. Encourage patient or legal international representative to report early pain and ask for pain medicine when needed 2. Assess pain using appropriate pain scale and include the scale used when documenting 3. Administer analgesics based on type and severity of pain and evaluate response within appropriate time frame 4. Implement non-pharmacological measures as appropriate and evaluate response 5. Consider cultural and social influences on pain and pain management 6. Notify LIP if interventions ineffective or patient reports new pain 7. Monitor vital signs including pulse ox, end-tidal CO2 based on pain intervention 8. Reassess pain per policy 9. Teach patient or legal international representative interventions for comforting Outcome: Progressing Note: Evaluation of progress towards goal: monitor and treat pain as ordered. Problem: Safety Goal: Patient will be injury free during hospitalization Description: INTERVENTIONS: 1. Assess patient's risk for falls and implement fall prevention plan of care per policy 2. Provide and maintain a safe environment 3. Proper use of double Identifiers 4. Medication administration using the 5 rights 5. Hand hygiene 6. Specimens are labeled at the bedside 7. Instruct patient/ patient international representative about use of safety devices 8. Include patient/ patient international representative in decisions related to safety Outcome: Progressing Note: Evaluation of progress towards goal: patient remains free from falls/injuries. * Plan of Care - Mao Mei [facility] - 11/05/2024 2:08 PM EDT Problem: Medication Description: If medication is necessary, use low-risk medication that does not interfere with what matters to the older adult patient, mobility, or mentation across settings of care. Goal: Patient will be screened for high-risk medications once per stay Description: Interventions: 1. Pharmacist to perform medication review to screen for high-risk medications 2. Pharmacist to identify high-risk medications in the Plan of Care note 3. Pharmacist to make recommendations for follow-up in the Plan of Care note, if warranted Outcome: Completed Note: Medications individually and in combination may interfere with What Matters, Mentation, and safe Mobility because of the increased risk of confusion, delirium, unsteadiness and falls. Profile review indicates this patients has active orders for no high risk medications. Chart review also shows no change in renal function. * PT/OT/FLEET ADMINISTRATOR - LEIGHTON Ga/L - 11/05/2024 1:38 PM EDT Occupational Therapy OT Type of Visit: Medical deferral Reason For Medical Deferral: Vitals outside safe parameters Lab Results: (elevated D- Dimer) Vitals Outside Safe Parameters: Blood pressure Medical Procedure Ongoing: (awaiting dopplers and VQ scan) attempted OT eval at the request of care navigation despite elevated D-Dimer and dopplers pending. Upon arrival to room pt is in bed with open mouth posture and hallowed cheeks, daughter and spouse at bed side. Patient's daughter begins to yell at him to wake patient up, pt is difficult to arouse and barely able to keep eyes open. SpO2 is assessed and is within normal limits on 4 L via nasal cannula- patient does open eyes but is not able to keep them open. Daughter continues to yell at patientto stay awake and raises the head of the bed to almost fully elevated . pt then requests a drink. Daughter provided pt with OJ with total assist and pt is able to drink through a straw, after swallowpt is noted to cough/ choking. Blood pressure is assess and is noted to be 96/57 , ( patient requires total assist to remove arm from under blanket for assessment of BP- no effort is noted from patient ) patient has history of + orthostatics and syncope . Spouse reports that pt has been using a BSCand he recently fell trying to transfer to [facility] with spouse assisting. Pt then again requests another drink, this time daughter brings cup of water to mouth and pt drinks from the opening in the cup, pt begins again to choke again with spitting out the water over the bed sheets. Towel and clean gownprovided. Patient continues with limited responses and eyes closed. Due to history of + orthostatics and BP of 96/57 and with choking/coughing episodes. OT deems that patient is inappropriate for OT eval this time. OT to continue to follow. * PT/OT/FLEET ADMINISTRATOR - Saba Rosa, PT - 11/05/2024 1:13 PM EDT Physical Therapy PT Type of Visit: Medical deferral Reason For Medical Deferral: Vitals outside safe parameters Lab Results: (elevated D-Dimer) Vitals Outside Safe Parameters: Blood pressure Medical Procedure Ongoing: (BP 96/57 at rest/in supine.) PT attempts evaluation at request of Lever Operator this date. PT notes elevated D-Dimer with dopplers not yet performed. Patient not currently anti-coagulated per RN. Upon PT arrival, patient sleeping, open mouth breathing. Does not arouse easily. Daughter increases head of bed to 45 degrees and insistent that patient awaken. Patient keeps eyes closed. Education on role of PT in acute care settin g. Patient keeps eyes closed. Dependent to move L. UE to assess heart rate and SpO2. Both are WFL with use of 4L supplemental O2 via nasal cannula. This therapist is familiar with patient from previous admissions, notes significant decline. Spouse at bedside reports significant functional decline, bedbound, with 2 falls attempting to get to bedside commode with her help. Spouse is currently undergoing chemotherapy and notes it has been very difficult to even assist him to the edge of the bed. Denies supplemental O2 use at home. Daughter continues to attempt to arouse patient, yelling to keep his attention. Patient requests a drink. Daughter provides orange juice with a straw. Patient takes a drink, but then coughing after. Blood Pressure assessed at this time as 96/57 mmHg. Patient still with minimal eye opening/responsiveness. Patient then requesting drink of water. Daughter provides drink of water from open cup, dependently pouring it in his mouth, patient with subsequent coughing and choking and ultimately spits the water out across the bed sheets when OT tells patient not to swallow the water do to choking. Education provided to family on safety with eating/drinking and coughing indicating possible risk for aspiration pneumonia. They verbalize understanding. Patient continues with limited responses and eyes closed. Due to history of + orthostatics and BP of 96/57 and with choking/coughing episodes. PT deems that patient is inappropriate for PT eval this time. PT will continue to follow this patient and perform evaluation as patient appropriate for participating in mobility assessment and out of bed activity, with vitals in safe parameters. Thank you for this referral. * Discharge Planning Note - Teena Burgos RN - 11/05/2024 12:55 PM EDT DISCHARGE PLANNING NOTE Fili Saunders Handoff received from RONY Garcia. Lever Operator met with and daughter at bedside. DaughterRhys is patient's daughter but notthe daughter of patient's . We discuss patients status and being bed bound for several weeks and that Rhys states he has been falling at home. The patient's , also states she has stage 4 cancer. She is in a wheel chair and when walking tobathroom Carolin was unstable when ambulating to walker with cane. architectural intern discusses with the as she had not been agreeable to SNF placement earlier because she didn't think her would want to go to a detention. Driver Supervisor discusses that while he does not want to go, he has not been out of bed in several weeks. There are safety factors involved with his needed care. This involves turning him, cleaning his bodily excrements, and feeding him if he is unable to do those things for himself. We discuss that there are no services covered by medicare that will provide 24/7 in home care. We discuss that he does not have Medicaid to assist with in home care payment. (Carolin) states they cannot afford any self pay resources at home. Carolin states there is not enough family support to provide 24/7 care at home. Lever Operator informs Carolin that we can proceed with a SNF referral and if he greatly improves we can cancel the SNF process. However, as it is a holiday weekend it would be best to have this plan in place. architectural intern discusses the payor source for termination clerk care and Carolin states they would have to apply for Medicaid as they have no means to self pay. Driver Supervisor informed her that once they get patient into the SNF they can work with the admissions staff there to apply for Medicaid. And if patient is still in hospital on Friday we can have Financial Services see them to apply, as Alma Liriano (senior financial reporting analyst) is not working today. We also discuss with and daughter that they may need ot begin to consider speaking to Department of [employer] even if they take him home to apply for Medicaid. We are unable to proceed with SNF referrals at this time as PT/OT deferred evaluation today. They were sent secure message to see if they can see patient as provider, Leo Stallings CNP said the patients no longer need to be on bed rest with possible DVT. and daughter agree for a SNF referral to be sent to [facility]. Patient insurance only accepted at [facility] and [facility] [place]. Discharge Planning: Plan A: PT/OT evaluations and notes needed to submit referral to [facility]. Patient willthen need insurance authorization to go to [facility]. Plan B: If patient greatly improves, may decide to take patient home with home health care. All Discharge Plans are pended until PT/OT evaluation can be completed. - Teena Burgos RN 11/05/24 12:55 PM Upon further consideration, and patient's lethargy and inability to determine if he is aware of hissurroundings. Lever Operator encouraged and daughter to discuss with providers and see how they feel about patient recovering but if over the weekend the daughter and feel they would like aHospice consult, Lever Operator let them know that service is available to them. We further discussed if he meets GIP here he could stay here with Hospice as long as he meets. If he does not meet GIPhe would have to go home (Because of no Medicaid and no ability to self pay a detention bed). Driver Supervisor also explained to them that we could try a second Hospice service that has an IP facility and see if he is eligible to go to one of their facilities but there are no IP facilities in [place]. Discharge Planning: Plan A: PT evaluation and note needed to submit referral to [facility]. Patient will thenneed insurance authorization to go to [facility]. Plan B: If patient greatly improves, may decide to take patient home with home health care. Plan C: was presented the option of Hospice. All Discharge Plans are pended until PT evaluation can be completed and and daughter are able to decide on a plan. At this time per OT note patient is not appropriate for [facility] facility and would be unable to participate in therapy rehabilitation. - Teena Burgos RN 11/05/24 1:53 PM Discharge Planning: Plan A: If patient improves to be able to participate in skilled rehabilitation program a referral to [facility] would need to be submitted. Patient will then need insurance authorization to go to [facility]. Plan B: If patient greatly improves, may decide to take patient home with home health care. Plan C: was presented the option of Hospice. At this time per OT/PT note patient is not appropriate for [facility] facility and would be unable to participate in therapy rehabilitation. If patient does not improve to be able to participatein skilled care by Friday, discussion with regarding LTC payor source (application for Medicaid) would need to be conducted. does not currently have a payor source for patient to go to LTC. - Teena Burgos RN 11/05/24 4:16 PM * Discharge Planning Note - RONY Galvan - 11/05/2024 11:34 AM EDT Images from the original note were not included. Initial Assessment Initial Assessment Flowsheet Row Most Recent Value Patient Information Initial Pre-Hospitalization Assessment Completed? Completed In-Progress Reason: Attempted assessment: patient off unit/unavailable [Chart reviewed, call attempted to pt room but rings busy immediately. Call placed to ACU desk,was informed pt heading off the floor for testing, account underwriter will attempt to reach out to pt upon return. Driver Supervisor notes pt has had multiple admissions in past 6 mos] Primary Caregiver Spouse [Per RN pt to weak/frail to speak on phone, daughter Rhys bedside, call to room, Rhys answered. Pt gives verbal OK to account underwriter OK to speak with Rhys. Driver Supervisor also spoke w/pt by phone when she arrived bedside per [place] Order of Decision Making.] Accompanied by/Relationship Pt pop Joiner was bedside & answered pt room phone, pt gives verbal permission OK to speak with Rhys. Pt does not have HCP[place], [place] Order of Decision Making would fall to pt legal spouse if pt not able to make decision, account underwriter informed Rhys & that call wouldalso be placed to pt . Driver Supervisor phoned pt Carolin who informs she has just arrived to pt bedside. Informed that pt gave verbal permission to speak with Rhys however per [place] law, if pt notable to make own decision, this would fall to her as legal spouse. Support System Children, Spouse/Significant Other [ Carolin & daughter Rhys] Discharge Planning Living Arrangements Private Residence, Spouse/significant other Assistance Needed adls/iadls Type of Residence Private residence, House Private Residence 1 story Can patient reside on one level? Yes Residence Accessibility Steps into home Number of Steps 2 Home Care Services No Community Referrals / Resources Provided Denies needs Does The Patient Have Existing Home DME? Yes Existing Home DME Options Walker, Cane Will the patient need DME at discharge? No, the patient has no home DME needs currently Stressors Type of stressor -- [ Carolin does not endorse] Income Information Income Information Retired/Pension/Social Security IP Hunger/Food Insecurity Screening Within the past 12 months we worried whether our food would run out before we got money to buy more. Never True Within the past 12 months the food we bought just didn't last and we didn't have money to get more.Never True Hunger Screening Complete? Yes Pt. Eligible for Food / Voucher No If Eligible: Received Food Box Not Offered to Patient Warm Handoff Complete Caregiver/Family Member Caregiver/Family Member Pt pop Joiner was bedside & answered pt room phone, pt gives verbalpermission OK to speak with Rhys. Pt does not have [place]CP[place], [place] Order of Decision Making would fallto pt legal spouse if pt not able to make decision, account underwriter informed Rhys & that call would also be placed to pt . Driver Supervisor phoned pt brittany Coe who informs she has just arrived to pt bedside. I nformed that pt gave verbal permission to speak with Rhys however per [place] law, if pt not able to make own decision, this would fall to her as legal spouse. Caregiver/Family Member Involved with Current Plan of Care Yes Caregiver/Family Member in Agreement with Current Plan of Care Yes Caregiver/Support System Limitations Caregiver/Support Systems Limitations (Check All That Apply) Caregiver Limitations Caregiver/Support System Limitations Physical Limitations Patient/Caregiver Goals Patient/Caregiver Goals [facility] Skilled Care (Short Term) Community Provider Referral Community Provider Referral None Services Requested Patient expects to be discharged to: pt is not agreeable to SNF at this time however brittany Coe & pop Joiner feel SNF would be beneficial Does the patient wish to have family/friend/caregiver involved in their discharge planning? Yes Does the patient plan to return home to a community setting? Yes Has the family/friend/caregiver been assessed to determine their readiness, skills, capacities, andresources to provide post hospital care? Yes, Caregiver Assessment Completed [pt gives verbal permission by phone for account underwriter to speak with his daughter Rhys who was bedside & to call his Carolin] Discharge Disposition Home with self care, SNF [pending clinical couse & pt agreeament to DC plan] Patient choice offered Yes List Provided Yes [facility] List Provided [facility] DC Planning Complete Discharge Milestones Yes Services Requested: Services Requested Patient expects to be discharged to:: pt is not agreeable to SNF at this time however Carolin & pop Joiner feel SNF would be beneficial Does the patient wish to have family/friend/caregiver involved in their discharge planning?: Yes Does the patient plan to return home to a community setting?: Yes Has the family/friend/caregiver been assessed to determine their readiness, skills, capacities, andresources to provide post hospital care?: Yes, Caregiver Assessment Completed (pt gives verbal permission by phone for account underwriter to speak with his daughter Rhys who was bedside & to call his Carolin) Discharge Disposition: Home with self care, SNF (pending clinical couse & pt agreeament to DC plan) Patient choice offered: Yes List Provided: Yes [facility] List Provided: [facility] DC Planning Complete Discharge Milestones: Yes Patient Goals: Patient/Caregiver Goals Patient/Caregiver Goals: [facility] Skilled Nuring Care: Skilled Care (Short Term) Goals home vs SNF (pt-stated) Evaluation of progress towards goal: under clinical assessment, per PT/OT not able to complete evaluations at this time due to medical Services Requested: Services Requested Patient expects to be discharged to:: pt is not agreeable to SNF at this time however Carolin & daughter Rhys feel SNF would be beneficial Does the patient wish to have family/friend/caregiver involved in their discharge planning?: Yes Does the patient plan to return home to a community setting?: Yes Has the family/friend/caregiver been assessed to determine their readiness, skills, capacities, andresources to provide post hospital care?: Yes, Caregiver Assessment Completed (pt gives verbal permission by phone for account underwriter to speak with his daughter Rhys who was bedside & to call his Carolin) Discharge Disposition: Home with self care, SNF (pending clinical couse & pt agreeament to DC plan) Patient choice offered: Yes List Provided: Yes [facility] List Provided: [facility] DC Planning Complete Discharge Milestones: Yes Patient Goals: Patient/Caregiver Goals Patient/Caregiver Goals: [facility] Skilled [facility] Care: Skilled Care (Short Term) Goals home vs SNF (pt-stated) Evaluation of progress towards goal: under clinical assessment, per PT/OT not able to complete evaluations at this time due to medical Additional Comments (If Applicable) Chart reviewed, 7th admission since July of this year. Pt daughter Rhys was bedside & answered pt room phone, pt gives verbal permission OK to speak with Rhys. Pt does not have [facility], [place] Order of Decision Making would fall to pt legal spouse if pt not able to make decision, account underwriter informed Rhys & that call would also be placed to pt . Rhys expressed concern for pt returning home & feels pt needs SNF at [place] however pt may not be agreeable, not currently receiving HHC. Rhys said she does not feel pt home with his is a safesituation for pt due to clutter situation. Pt is not Rhys's mother, pt has a son who lives out of state Driver Supervisor phoned pt Carolin, introduced self, role & reason for call, she informs she has just arrived to pt bedside. Informed that pt gave verbal permission to speak with Rhys however per [place] law, if pt not able to make own decision, this would fall to her as legal spouse. Driver Supervisor noted multiple admission since July of this year. Carolin relayed pt has not been eating or getting out of bed. Caroiln confirms pt insurance provider has cut pt from SNF previously. Driver Supervisor inquired if insurancewould not pay for SNF or would pay for only a very short stay if pt/Carolin were able to pay out of pocket for SNF, per Carolin they are not able to private pay. Driver Supervisor inquired if pt/Carolin has made Medicaid application, Carolin said she has not had time; informed Carolin on Pt Financial Svs assistance or if pt accepted & approved by insurance for SNF then possibly SNF could assist with Medicaid. Carolin said she would be agreeable to referral to [facility] [employer] [facility]; PFS are available at this time. Informed Carolin that pt needs to be agreeable to SNF in order to make referral, Carolin states understanding. Informed Carolin that account underwriter will print [facility] SNF list filtered by insurance provider & RN CN will bring list to pt/family, Carolin states understanding. Carolin confirms home has functioning utilities, pt is not using any in home services. Pt has not been driving, has been assisting with any needed transportation. Negative [place] screen. Patient's preferred pharmacy is [facility]. PCP verified as Eusebio Harry; last PCP visit 10/14/24. Opportunity provided to ask questions, Carolin does not endorse any at this time. Plan to prevent readmission is possible SNF. Update to ACU RN CN. Care Navigation will continue to follow patient progress to determine appropriate safe care transition needs. * PT/OT/FLEET ADMINISTRATOR - Terri Thorne, OTR/L - 11/05/2024 10:57 AM EDT Occupational Therapy OT Type of Visit: Medical deferral Reason For Medical Deferral: Medical procedure ongoing, Lab results Lab Results: (elevated D- Dimer) Medical Procedure Ongoing: (awaiting dopplers and VQ scan) OT to continue to follow. * PT/OT/FLEET ADMINISTRATOR - Saba Rosa, PT - 11/05/2024 9:30 AM EDT Physical Therapy PT Type of Visit: (P) Medical deferral Reason For Medical Deferral: (P) Medical procedure ongoing Lab Results: (P) (elevated D-Dimer) Medical Procedure Ongoing: (P) (Awaits dopplers and VQ scan) PT will continue to follow this patient. Thank you for this referral. * Discharge Planning Note - RONY Galvan - 11/05/2024 9:11 AM EDT Images from the original note were not included. Initial Assessment Initial Assessment Flowsheet Row Most Recent Value Patient Information Initial Pre-Hospitalization Assessment Completed? In-Progress In-Progress Reason: Attempted assessment: patient off unit/unavailable [Chart reviewed, call attempted to pt room but rings busy immediately. Call placed to ACU desk,was informed pt heading off the floor for testing, account underwriter will attempt to reach out to pt upon return. Driver Supervisor notes pt has had multiple admissions in past 6 mos] Discharge Planning Living Arrangements Private Residence Assistance Needed yes Type of Residence Apartment Home Care Services No Stressors Income Information IP Hunger/Food Insecurity Screening Within the past 12 months we worried whether our food would run out before we got money to buy more. Never True Within the past 12 months the food we bought just didn't last and we didn't have money to get more.Never True Caregiver/Family Member Caregiver/Support System Limitations Patient/Caregiver Goals Community Provider Referral Services Requested Patient expects to be discharged to: wants to go home Additional Comments (If Applicable) * Plan of Care - Tracie Velázquez RN - 11/05/2024 1:15 AM EDT Problem: Pain Goal: Patient goal is pain score less than 4, able to rest, and participant in treatment plan as appropriate Description: INTERVENTIONS: 1. Encourage patient or legal international representative to report early pain and ask for pain medicine when needed 2. Assess pain using appropriate pain scale and include the scale used when documenting 3. Administer analgesics based on type and severity of pain and evaluate response within appropriate time frame 4. Implement non-pharmacological measures as appropriate and evaluate response 5. Consider cultural and social influences on pain and pain management 6. Notify LIP if interventions ineffective or patient reports new pain 7. Monitor vital signs including pulse ox, end-tidal CO2 based on pain intervention 8. Reassess pain per policy 9. Teach patient or legal international representative interventions for comforting Outcome: Progressing Note: Evaluation of progress towards goal: Pt denies pain at this time. Problem: Safety Goal: Patient will be injury free during hospitalization Description: INTERVENTIONS: 1. Assess patient's risk for falls and implement fall prevention plan of care per policy 2. Provide and maintain a safe environment 3. Proper use of double Identifiers 4. Medication administration using the 5 rights 5. Hand hygiene 6. Specimens are labeled at the bedside 7. Instruct patient/ patient international representative about use of safety devices 8. Include patient/ patient international representative in decisions related to safety Outcome: Progressing Note: Evaluation of progress towards goal: Pt remains injury free. Safety maintained as evidence bythe call light within reach, bed locked and lowered, and fall precautions in place. Problem: Moderate - High Risk Fall Score Description: [place] Fall Score of =/> 25 or indicated by [facility] Re[facility] Assessment Goal: Patient should be free from fall Description: Interventions: 1. Olar to environment 2. Hourly rounds addressing the 4 P's (Pain, Positioning, Possessions, Potty) 3. Clear area of hazards (spills, clutter, electrical cords, unnecessary equipment) 4. Place equipment (bed & TV controls, call light, phone, urinal) within reach 5. Encourage patient to wear glasses and hearing aides as appropriate 6. Maintain bed in lowest position 7. Lock wheels on bed/wheelchair 8. Provide adequate lighting, including night light 9. Assess need for additional bedding, food/fluids, pain med's prior to sleep/routinely 10. Provide gripper slippers or personal non-skid footwear 11. Teach patient and patient international representative to maintain environment for safety and engage in all aspects of fall prevention program 12. Remind patient to call for help before getting out of bed 13. Initiate bed/chair/exit alarms supportive devices as appropriate, (chair wedge, no-skid floor mat, raised edge mattress, hip protectors) 14. Locate patient bed assignment for optimal visualization 15. Evaluate and identify Safe Patient Handling Equipment needs 16. Provide supervision when out of bed or chair 17. Utilize gait belt as needed to assist with ambulation 18. Place adaptive equipment (cane, walker) within reach 19. Request patient international representative bring adaptive equipment/mobility aids from home or obtain and provide as needed 20. Consult pharmacy regarding effects of med's affecting mobility, cognition, and alternatives 21. Obtain physician order for PT if risk factors associated with mobility are present 22. Obtain physician order for OT as appropriate 23. Utilize diversional activities 24. Educate patient and patient international representative how to maintain a safe environment during visitationtimes (notify nurse prior to leaving bedside) 25. Consider appropriateness of medical or non-medical assistant ob gyn 26. Set up voiding schedule as appropriate (every 2 hours) Outcome: Progressing Note: Evaluation of progress towards goal: Pt remains free from fall. Fall precautions in place. Ptoriented to room and call light. Bed alarm on for safety. documented in this encounter Plan of Treatment Upcoming Encounters Date Type Department Care Team (Late st Contact Info) Description 11/25/2024 2:15 PM EDT Office Visit [facility] - Family Medicine [address] [place] [address] Alden Harry, DO [address], [place] [address] 11/29/2024 3:40 PM EDT Support Visit [facility] - Pre Admit [address] [place] [address] 11/30/2024 10:30 AM EDT Hospital Encounter [facility] - Surgery [address] [place] [address] Velasquez Garcias MD [address] [place] [address] 11/30/2024 10:30 AM EDT - 11/30/2024 11:15 AM EDT Surgery [facility] Surgery [address] [place] [address] Velasquez Garcias MD [address] [place] [address] CYSTOSCOPY RETROGRADE PYELOGRAM 12/09/2024 1:00 PM EDT Office Visit [facility] - Medical Oncology [address] [place] [address] Jairo Rodriguez MD [address] [place] [address] 05/12/2025 9:40 AM EST Office Visit [facility] - Family Medicine [address] [place] [address] Scheduled Orders Name Type Priority Associated Diagnoses Orde r Schedule CBC Lab Routine Acute cystitis with hematuria Expected: 11/18/2024 (Approximate), Expires: 11/11/2025 Comprehensive metabolic panel Lab Routine Stage 4 chronic kidney disease ([facility]) Expected: 11/18/2024, Expires: 11/11/2025 Scheduled Procedures Name Priority Associated Diagnoses Date/Ti me CYSTOSCOPY RETROGRADE PYELOGRAM Gross hematuria Hydroureteronephrosis 11/30/2024 10:30 AM EDT CYSTOURETEROSCOPY DIAGNOSTIC Gross hematuria Hydroureteronephrosis 11/30/2024 10:30 AM EDT CYSTOSCOPY INSERTION STENT URETER Gross hematuria Hydroureteronephrosis 11/30/2024 10:30 AM EDT Scheduled Referrals Name Type Priority Associated Diagnoses Order Schedule Ambulatory referral to Palliative Medicine Home Visits (Non-[facility]) Outpatient Referral Routine Goals of care, counseling/discussi on 1 Occurrences starting 11/09/2024 until 11/09/2025 documented as of this encounter Goals Goal Patient Goal Type Associated Problems Recent Progress Patient-Stated? Author home vs SNF General Yes Leeanne Marin LSW Note: Evaluation of progress towards goal: under clinical assessment, per PT/OT not able to complete evaluations at this time due to medical documented as of this encounter Procedures Procedure Name Priority Date/Time Associated Diagnosis Comments TROP I, HIGH SENSITIVITY 1 HOUR STAT 11/11/2024 4:14 PM EDT ECG 12-LEAD STAT 11/11/2024 2:44 PM EDT TROPONIN I, HIGH SENSITIVITY 0 HOUR STAT 11/11/2024 1:57 PM EDT TROPONIN I, HIGH SENSITIVITY 0 HOUR STAT 11/11/2024 1:57 PM EDT HEMOGLOBIN AND HEMATOCRIT, BLOOD Routine 11/11/2024 12:59 PM EDT CBC WITH AUTO DIFFERENTIAL Routine 11/11/2024 6:34 AM EDT MAGNESIUM Routine 11/11/2024 4:49 AM EDT COMPREHENSIVE METABOLIC PANEL Routine 11/11/2024 4:49 AM EDT HEMOGLOBIN AND HEMATOCRIT, BLOOD Routine 11/10/2024 9:19 PM EDT XR ABDOMEN AP 1 VW Routine 11/10/2024 3: 56 PM EDT EXTRA TUBES PST TOP Routine 11/10/2024 1 2:16 PM EDT EXTRA TUBES Routine 11/10/2024 12:16 PM EDT HEMOGLOBIN AND HEMATOCRIT, BLOOD Routine 11/10/2024 12:15 PM EDT CBC WITH AUTO DIFFERENTIAL Routine 11/10/2024 7:32 AM EDT HEPARIN ANTI XA, UNFRACTIONATED Routine 11/10/2024 7:32 AM EDT MAGNESIUM Routine 11/10/2024 7:32 AM EDT COMPREHENSIVE METABOLIC PANEL Routine 11/10/2024 7:32 AM EDT HEPARIN ANTI XA, UNFRACTIONATED Routine 11/10/2024 1:24 AM EDT HEMOGLOBIN AND HEMATOCRIT, BLOOD Routine 11/09/2024 6:28 PM EDT HEPARIN ANTI XA, UNFRACTIONATED Routine 11/09/2024 6:28 PM EDT HEMOGLOBIN AND HEMATOCRIT, BLOOD Routine 11/09/2024 1:30 PM EDT APTT Add-On 11/09/2024 1:30 PM EDT PROTIME & INR Add-On 11/09/2024 1:30 PM EDT PLATELET COUNT Add-On 11/09/2024 1:30 PM EDT MAGNESIUM Routine 11/09/2024 1:30 PM EDT FL SWALLOW MOTILITY FUNCTION Routine 11/09/2024 1:27 PM EDT CBC WITH AUTO DIFFERENTIAL Routine 11/09/2024 6:05 AM EDT HEPARIN ANTI XA, UNFRACTIONATED Routine 11/09/2024 6:05 AM EDT MAGNESIUM Routine 11/09/2024 6:05 AM EDT COMPREHENSIVE METABOLIC PANEL Routine 11/09/2024 6:05 AM EDT URINALYSIS Routine 11/09/2024 1:33 AM EDT TROP I, HIGH SENSITIVITY 1 HOUR STAT 11/08/2024 11:52 PM EDT TROPONIN I, HIGH SENSITIVITY 0 HOUR STAT 11/08/2024 10:58 PM EDT TROPONIN I, HIGH SENSITIVITY 0 HOUR STAT 11/08/2024 10:58 PM EDT LACTATE W/ REFLEX Routine 11/08/2024 10: 58 PM EDT ECG 12-LEAD STAT 11/08/2024 10:54 PM EDT HEMOGLOBIN AND HEMATOCRIT, BLOOD Routine 11/08/2024 9:53 PM EDT HEMOGLOBIN AND HEMATOCRIT, BLOOD STAT 11/08/2024 5:02 PM EDT C-REACTIVE PROTEIN Add-On 11/08/2024 5: 02 PM EDT BASIC METABOLIC PANEL Routine 11/08/2024 5:02 PM EDT URINE CULTURE Routine 11/08/2024 2:27 PM EDT XR ABDOMEN AP 1 VW Routine 11/08/2024 10 :09 AM EDT HEPARIN ANTI XA, UNFRACTIONATED Routine 11/08/2024 4:34 AM EDT MAGNESIUM Routine 11/08/2024 4:34 AM EDT COMPREHENSIVE METABOLIC PANEL Routine 11/08/2024 4:34 AM EDT CBC WITH AUTO DIFFERENTIAL Routine 11/08/2024 4:33 AM EDT ECG 12-LEAD STAT 11/07/2024 8:22 PM EDT CBC WITH AUTO DIFFERENTIAL Routine 11/07/2024 5:16 AM EDT HEPARIN ANTI XA, UNFRACTIONATED Routine 11/07/2024 5:16 AM EDT MAGNESIUM Routine 11/07/2024 5:16 AM EDT VANCOMYCIN, RANDOM Routine 11/07/2024 5: 16 AM EDT COMPREHENSIVE METABOLIC PANEL Routine 11/07/2024 5:16 AM EDT HEPARIN ANTI XA, UNFRACTIONATED Routine 11/07/2024 12:46 AM EDT HEPARIN ANTI XA, UNFRACTIONATED Routine 11/06/2024 6:44 PM EDT APTT Routine 11/06/2024 1:00 PM EDT PROTIME & INR Routine 11/06/2024 1:00 PM EDT CBC WITH AUTO DIFFERENTIAL Routine 11/06/2024 5:31 AM EDT MAGNESIUM Routine 11/06/2024 5:31 AM EDT COMPREHENSIVE METABOLIC PANEL Routine 11/06/2024 5:31 AM EDT VASC VENOUS DUPLEX LOWER BILATERAL Routine 11/05/2024 4:03 PM EDT NM VENTILATION PERFUSION LUNG SCAN STAT 11/05/2024 10:24 AM EDT CBC WITH AUTO DIFFERENTIAL Routine 11/05/2024 8:42 AM EDT MAGNESIUM Routine 11/05/2024 8:19 AM EDT COMPREHENSIVE METABOLIC PANEL Routine 11/05/2024 8:19 AM EDT ER EXTRA URINE MARBLE STAT 11/05/2024 2:32 AM EDT ER EXTRA URINE CULTURE STAT 2:32 AM EDT ER EXTRA URINE STAT 11/05/2024 2:32 AM EDT LACTATE STAT 11/04/2024 10:[address] CHEST WO CONT STAT 11/04/2024 9:[address] ABDOMEN AND PELVIS WO CONT STAT 11/04/2024 9:14 PM EDT TROP I, HIGH SENSITIVITY 1 HOUR STAT 11/04/2024 7:52 PM EDT XR CHEST 1 VW STAT 11/04/2024 6:55 PM EDT TROPONIN I, HIGH SENSITIVITY 0 HOUR STAT 11/04/2024 6:48 PM EDT TROPONIN I, HIGH SENSITIVITY 0 HOUR STAT 11/04/2024 6:48 PM EDT LACTATE W/ REFLEX STAT 11/04/2024 6:4 8 PM EDT CBC WITH AUTO DIFFERENTIAL STAT 11/04/2024 6:48 PM EDT APTT STAT 11/04/2024 6:48 PM EDT PROTIME & INR STAT 11/04/2024 6:48 PM EDT D-DIMER STAT 11/04/2024 6:48 PM EDT MYOGLOBIN, SERUM STAT 11/04/2024 6:48 PM EDT MAGNESIUM STAT 11/04/2024 6:48 PM EDT CK TOTAL STAT 11/04/2024 6:48 PM EDT COMPREHENSIVE METABOLIC PANEL STAT 11/04/2024 6:48 PM EDT PM ED CRITICAL CARE Routine 11/04/2024 6 :44 PM EDT ECG 12-LEAD STAT 11/04/2024 6:41 PM EDT documented in this encounter Results * (ABNORMAL) Troponin I, High Sensitivity 1 Hour (11/11/2024 4:14 PM EDT) [facility] TROPONIN I, HIGH SENSITIVITY 39(H) <21 ng/L 11/11/2024 4:53 PM EDT [facility] Blood Venous blood / Unknown Venipuncture / Unknown 11/11/2024 4:14 PM EDT 11/11/2024 4:16 PM EDT Narrative [facility] - 11/11/2024 4:53 PM EDT Elevations of hs-Troponin may be due to causes other than myocardial ischemia. Recommend serial hs-Troponin testing be performed. For the initial evaluation and management of chest pain patients, refer to the algorithms linked below. Emergency Patient: [email or web address] Inpatient: [email or web address] Gill Gao APRN-BORDER GUARD LAB BLOOD ORDERABLES Brittani l Result Performing Organization Address City/[facility]/ZIP Co de Phone Number [facility] [address] [place] [address], * ECG 12 lead (11/11/2024 2:44 PM EDT) 11/11/2024 2:44 PM EDT Narrative [facility] - 11/11/2024 5:04 PM EDT Gill Gao APRN-BORDER GUARD ECG ORDERABLES Final Res ult Performing Organization Address [facility]/ZIP Co de Phone Number [facility] * (ABNORMAL) Troponin I, High Sensitivity 0 Hour (11/11/2024 1:57 PM EDT) TROPONIN I, HIGH SENSITIVITY 33(H) <21 ng/L 11/11/2024 3:40 PM EDT [facility] Blood Venous blood / Unknown Venipuncture / Unknown 11/11/2024 1:57 PM EDT 11/11/2024 2:03 PM EDT us Gill Gao APRN-BORDER GUARD LAB BLOOD ORDERABLES Brittani l Result Performing Organization Address City/[facility]/ZIP Co de Phone Number [address] [place] [address], [place] * (ABNORMAL) Hemoglobin and hematocrit, blood (11/11/2024 12:59 PM EDT) Hemoglobin 9.4(L) 13 - 17 g/dL 11/11/2024 1:06 PM EDT [facility] Hematocrit 29.5(L) 39 - 50 % 11/11/2024 1:06 PM EDT [facility] Blood Venous blood / Unknown Venipuncture / Unknown 11/11/2024 12:59 PM EDT 11/11/2024 1:02 PM EDT Charlie Mireles MD LAB BLOOD ORDERABLES Final Result Performing Organization Address [facility] Co de Phone Number [address] [place] [address], [place] * (ABNORMAL) CBC auto differential (11/11/2024 6:34 AM EDT) WBC 13.6(H) 4 - 11 x10E9/L 11/11/2024 6:44 AM EDT [facility] RBC Count 3.88(L) 4.1 - 5.7 X10E12/L 11/11/2024 6:44 AM EDT [facility] Hemoglobin 10.2(L) 13 - 17 g/dL 11/11/2024 6:44 AM EDT [facility] Hematocrit 31.5(L) 39 - 50 % 11/11/2024 6:44 AM EDT [facility] MCV 81 80 - 100 fL 11/11/2024 6:44 AM EDT [facility] MCH 26.3(L) 27 - 34 pg 11/11/2024 6:44 AM EDT [facility] MCHC 32.3 32 - 36 g/dL 11/11/2024 6:44 AM EDT [facility] RDW 22.1(H) 11.5 - 15 % 11/11/2024 6:44 AM EDT [facility] Platelet Count 144(L) 150 - 450 X10E9/L 11/11/2024 6:44 AM EDT [facility] MPV 9.9 7 - 12 fL 11/11/2024 6:44 AM EDT [facility] Neutrophils % 66.5 % 11/11/2024 6:44 AM EDT [facility] Comment:This is an appended report. These results have been appended to a previously preliminary verified report. Lymphocytes % 5.3 % 11/11/2024 6:44 AM EDT [facility] Comment:This is an appended report. These results have been appended to a previously preliminary verified report. Monocytes % 27.5 % 11/11/2024 6:44 AM EDT [facility] Comment:This is an appended report. These results have been appended to a previously preliminary verified report. Eosinophils % 0.1 % 11/11/2024 6:44 AM EDT [facility] Comment:This is an appended report. These results have been appended to a previously preliminary verified report. Basophils % 0.6 % 11/11/2024 6:44 AM EDT [facility] Comment:This is an appended report. These results have been appended to a previously preliminary verified report. Neutrophils Absolute (A) 9.1(H) 1.5 - 6.6 10*3/uL 11/11/2024 6:44 AM EDT [facility] Comment:This is an appended report. These results have been appended to a previously preliminary verified report. Lymphocytes Absolute 0.7(L) 1.0 - 3.5 10*3/uL 11/11/2024 6:44 AM EDT [facility] Comment:This is an appended report. These results have been appended to a previously preliminary verified report. Monocytes Absolute 3.7(H) 0.0 - 0.9 10*3/uL 11/11/2024 6:44 AM EDT [facility] Comment:This is an appended report. These results have been appended to a previously preliminary verified report. Eosinophils Absolute 0.0 0.0 - 0.4 10*3/uL 11/11/2024 6:44 AM EDT [facility] Comment:This is an appended report. These results have been appended to a previously preliminary verified report. Basophils Absolute 0.1 0.0 - 0.2 10*3/uL 11/11/2024 6:44 AM EDT [facility] Comment:This is an appended report. These results have been appended to a previously preliminary verified report. Differential Type AUTOMATED DIFFERENTIAL 11/11/2024 6:44 AM EDT [facility] Comment:This is an appended report. These results have been appended to a previously preliminary verified report. Blood Venous blood / Unknown Venipuncture / Unknown 11/11/2024 6:34 AM EDT 11/11/2024 6:38 AM EDT us Rommel Obrien APRN-BORDER GUARD LAB BLOOD ORDERABLES Fin al Result Performing Organization Address City/[facility]/ZIP Co de Phone Number [facility] [address] [place] [address], * Magnesium (11/11/2024 4:49 AM EDT) MAGNESIUM 2.1 1.8 - 2.6 mg/dL 11/11/2024 5:31 AM EDT [facility] Blood Venous blood / Unknown Venipuncture / Unknown 11/11/2024 4:49 AM EDT 11/11/2024 5:08 AM EDT us Rommel Obrien WEEKEND RECEPTIONIST-BORDER GUARD LAB BLOOD ORDERABLES Fin al Result [facility] [address] [place] [address], * (ABNORMAL) Comprehensive metabolic panel (11/11/2024 4:49 AM EDT) SODIUM 142 134 - 146 mmol/L 11/11/2024 5:31 AM EDT [facility] POTASSIUM 3.9 3.5 - 5.0 mmol/L 11/11/2024 5:31 AM EDT [facility] CHLORIDE 112(H) 98 - 109 mmol/L 11/11/2024 5:31 AM EDT [facility] CARBON DIOXIDE 19(L) 22 - 32 mmol/L 11/11/2024 5:31 AM EDT [facility] ANION GAP 11 5 - 15 mmol/L 11/11/2024 5:31 AM EDT [facility] BLOOD UREA NITROGEN 50(H) 5 - 27 mg/dL 11/11/2024 5:31 AM EDT [facility] CREATININE 1.72(H) 0.70 - 1.20 mg/dL 11/11/2024 5:31 AM EDT [facility] Comment:METHOD TRACEABLE TO IDMS STANDARD GLUCOSE 100(H) 65 - 99 mg/dL 11/11/2024 5:31 AM EDT [facility] CALCIUM 7.9(L) 8.5 - 10.5 mg/dL 11/11/2024 5:31 AM EDT [facility] TOTAL PROTEIN 6.6 6.0 - 8.0 g/dL 11/11/2024 5:31 AM EDT [facility] ALBUMIN 2.4(L) 3.2 - 5.3 g/dL 11/11/2024 5:31 AM EDT [facility] ALKALINE PHOSPHATASE 77 39 - 130 U/L 11/11/2024 5:31 AM EDT [facility] AST 15 <=41 U/L 11/11/2024 5:31 AM EDT [facility] ALT 7 <=40 U/L 11/11/2024 5:31 AM EDT [facility] BILIRUBIN,TOTAL 1.4(H) 0.3 - 1.2 mg/dL 11/11/2024 5:31 AM EDT [facility] EGFR Non-Race Dependent 39(L) >=60 ml/min/1.7 3sq.m 11/11/2024 5:31 AM EDT [facility] Comment: eGFR not reported due to non-numeric value for Creatinine. Reported eGFR is based on the CKD-EPI 2020 equation that does not use a race coefficient. Blood Venous blood / Unknown Venipuncture / Unknown 11/11/2024 4:49 AM EDT 11/11/2024 5:08 AM EDT us Rommel Obrien WEEKEND RECEPTIONIST-BORDER GUARD LAB BLOOD ORDERABLES Fin al Result Performing Organization Address City/[facility]/ZIP Co de Phone Number [address] [place] [address], [place] * (ABNORMAL) Hemoglobin and hematocrit, blood (11/10/2024 9:19 PM EDT) Hemoglobin 11.1(L) 13 - 17 g/dL 11/10/2024 9:56 PM EDT [facility] Hematocrit 34.9(L) 39 - 50 % 11/10/2024 9:56 PM EDT [facility] Blood Venous blood / Unknown Venipuncture / Unknown 11/10/2024 9:19 PM EDT 11/10/2024 9:42 PM EDT us Charlie Mireles MD LAB BLOOD ORDERABLES Final Result [address] [place] [address], [place] * X-ray abdomen ap 1 view (11/10/2024 3:56 PM EDT) Anatomical Region Laterality Modality Body, Abdomen N/A Radio Fluoroscop y 11/10/2024 4:29 PM EDT Narrative 11/10/2024 4:31 PM EDT EXAM: XR ABDOMEN AP 1 VW CLINICAL INFORMATION: illeus/obstruction. COMPARISON: None. FINDINGS: There remains diffuse air-filled dilated bowel throughout the abdomen, which may represent obstruction or ileus. There is no evidence of pneumatosis or free air. IMPRESSION: Persistent air-filled dilated bowel loops, which may represent obstruction or ileus. There is no convincing evidence of pneumatosis or free air. Finalized by Luke Stokes MD on 11/10/2024 4:31 PM Procedure Note Luke Stokes MD - 11/10/2024 EXAM: XR ABDOMEN AP 1 VW CLINICAL INFORMATION: illeus/obstruction. COMPARISON: None. FINDINGS: There remains diffuse air-filled dilated bowel throughout the abdomen,which may represent obstruction or ileus. There is no evidence ofpneumatosis or free air. IMPRESSION: Persistent air-filled dilated bowel loops, which may represent obstructionor ileus. There is no convincing evidence of pneumatosis or free air. Finalized by Luke Stokes MD on 11/10/2024 4:31 PM us Oscar Perales DO IMG DIAGNOSTIC IMAGING ORDE RABLES Final Result * PST TOP (11/10/2024 12:16 PM EDT) Extra Tube Auto Resulted 11/10/2024 2:01 PM EDT [facility] Blood Venous blood / Unknown 11/10/2024 12:16 PM EDT 11/10/2024 12:26 PM EDT us Charlie Mireles MD LAB BLOOD ORDERABLES Final Result [facility] [address] [place] [address], [place] * (ABNORMAL) Hemoglobin and hematocrit, blood (11/10/2024 12:15 PM EDT) Hemoglobin 9.9(L) 13 - 17 g/dL 11/10/2024 12:35 PM EDT [facility] Hematocrit 30.9(L) 39 - 50 % 11/10/2024 12:35 PM EDT [facility] Blood Venous blood / Unknown Venipuncture / Unknown 11/10/2024 12:15 PM EDT 11/10/2024 12:25 PM EDT Charlie Mireles MD LAB BLOOD ORDERABLES Final Result Performing Organization Address City/[facility]/ZIP Co de Phone Number [address] [place] [address], [place] * (ABNORMAL) Anti XA unfractionated heparin (11/10/2024 7:32 AM EDT) ANTI XA UFH 0.25(L) 0.30 - 0.70 IU/mL 11/10/2024 8:21 AM EDT [facility] Comment: Optimal time for testing is 6 hrs post dosage This test is specific for monitoring patients on UFH, and is not recommended for use with other Anti-Xa medications. Blood Venous blood / Unknown Venipuncture / Unknown 11/10/2024 7:32 AM EDT 11/10/2024 7:45 AM EDT Charlie Mireles MD LAB BLOOD ORDERABLES Final Result [address] [place] [address], [place] * Magnesium (11/10/2024 7:32 AM EDT) MAGNESIUM 2.0 1.8 - 2.6 mg/dL 11/10/2024 8:12 AM EDT [facility] Blood Venous blood / Unknown Venipuncture / Unknown 11/10/2024 7:32 AM EDT 11/10/2024 7:45 AM EDT us Rommel Obrien [employer] LAB BLOOD ORDERABLES Fin al Result [facility] [address] [place] [address], [place] * (ABNORMAL) Comprehensive metabolic panel (11/10/2024 7:32 AM EDT) SODIUM 141 134 - 146 mmol/L 11/10/2024 8:12 AM EDT [facility] POTASSIUM 3.5 3.5 - 5.0 mmol/L 11/10/2024 8:12 AM EDT [facility] CHLORIDE 113(H) 98 - 109 mmol/L 11/10/2024 8:12 AM EDT [facility] CARBON DIOXIDE 21(L) 22 - 32 mmol/L 11/10/2024 8:12 AM EDT [facility] ANION GAP 7 5 - 15 mmol/L 11/10/2024 8:12 AM EDT [facility] BLOOD UREA NITROGEN 50(H) 5 - 27 mg/dL 11/10/2024 8:12 AM EDT [facility] CREATININE 1.63(H) 0.70 - 1.20 mg/dL 11/10/2024 8:12 AM EDT [facility] Comment:METHOD TRACEABLE TO IDMS STANDARD GLUCOSE 108(H) 65 - 99 mg/dL 11/10/2024 8:12 AM EDT [facility] CALCIUM 8.0(L) 8.5 - 10.5 mg/dL 11/10/2024 8:12 AM EDT [facility] TOTAL PROTEIN 6.7 6.0 - 8.0 g/dL 11/10/2024 8:12 AM EDT [facility] ALBUMIN 2.4(L) 3.2 - 5.3 g/dL 11/10/2024 8:12 AM EDT [facility] ALKALINE PHOSPHATASE 73 39 - 130 U/L 11/10/2024 8:12 AM EDT [facility] AST 12 <=41 U/L 11/10/2024 8:12 AM EDT [facility] ALT 5 <=40 U/L 11/10/2024 8:12 AM EDT [facility] BILIRUBIN,TOTAL 1.0 0.3 - 1.2 mg/dL 11/10/2024 8:12 AM EDT [facility] EGFR Non-Race Dependent 42(L) >=60 ml/min/1.7 3sq.m 11/10/2024 8:12 AM EDT [facility] Comment: eGFR not reported due to non-numeric value for Creatinine. Reported eGFR is based on the CKD-EPI 2020 equation that does not use a race coefficient. Blood Venous blood / Unknown Venipuncture / Unknown 11/10/2024 7:32 AM EDT 11/10/2024 7:45 AM EDT us Rommel Obrien [employer] LAB BLOOD ORDERABLES Fin al Result [facility] [address] [place] [address], * (ABNORMAL) CBC auto differential (11/10/2024 7:32 AM EDT) WBC 10.5 4 - 11 x10E9/L 11/10/2024 8:28 AM EDT [facility] RBC Count 3.74(L) 4.1 - 5.7 X10E12/L 11/10/2024 8:28 AM EDT [facility] Hemoglobin 9.9(L) 13 - 17 g/dL 11/10/2024 8:28 AM EDT [facility] Hematocrit 30.8(L) 39 - 50 % 11/10/2024 8:28 AM EDT [facility] MCV 82 80 - 100 fL 11/10/2024 8:28 AM EDT [facility] MCH 26.6(L) 27 - 34 pg 11/10/2024 8:28 AM EDT [facility] MCHC 32.3 32 - 36 g/dL 11/10/2024 8:28 AM EDT [facility] RDW 21.9(H) 11.5 - 15 % 11/10/2024 8:28 AM EDT [facility] Platelet Count 155 150 - 450 X10E9/L 11/10/2024 8:28 AM EDT [facility] MPV 10.8 7 - 12 fL 11/10/2024 8:28 AM EDT [facility] Metamyelocytes % 1 % 11/11/19 25 8:28 AM EDT [facility] Comment:This is an appended report. These results have been appended to a previously preliminary verified report. Bands % 1 % 11/10/2024 8:28 AM EDT [facility] Comment:This is an appended report. These results have been appended to a previously preliminary verified report. Neutrophils % 74 % 11/10/2024 8:28 AM EDT [facility] Comment:This is an appended report. These results have been appended to a previously preliminary verified report. Lymphocytes % 2 % 11/10/2024 8:28 AM EDT [facility] Comment:This is an appended report. These results have been appended to a previously preliminary verified report. Monocytes % 22 % 11/10/2024 8:28 AM EDT [facility] Comment:This is an appended report. These results have been appended to a previously preliminary verified report. Eosinophils % 1 % 11/10/2024 8:28 AM EDT [facility] Comment:This is an appended report. These results have been appended to a previously preliminary verified report. Basophils % 1 % 11/10/2024 8:28 AM EDT [facility] Comment:This is an appended report. These results have been appended to a previously preliminary verified report. Neutrophils Absolute (M) 7.9(H) 1.5 - 6.6 10*3/uL 11/10/2024 8:28 AM EDT [facility] Comment:This is an appended report. These results have been appended to a previously preliminary verified report. Lymphocytes Absolute 0.2(L) 1.0 - 3.5 10*3/uL 11/10/2024 8:28 AM EDT [facility] Comment:This is an appended report. These results have been appended to a previously preliminary verified report. Monocytes Absolute 2.3(H) 0.0 - 0.9 10*3/uL 11/10/2024 8:28 AM EDT [facility] Comment:This is an appended report. These results have been appended to a previously preliminary verified report. Eosinophils Absolute 0.1 0.0 - 0.4 10*3/uL 11/10/2024 8:28 AM EDT [facility] Comment:This is an appended report. These results have been appended to a previously preliminary verified report. Basophils Absolute 0.1 0.0 - 0.2 10*3/uL 11/10/2024 8:28 AM EDT [facility] Comment:This is an appended report. These results have been appended to a previously preliminary verified report. Hypochromia 1+ 11/10/2024 8:28 AM EDT [facility] Comment:This is an appended report. These results have been appended to a previously preliminary verified report. Acanthocytes 1+ 11/10/2024 8:28 AM EDT [facility] Comment:This is an appended report. These results have been appended to a previously preliminary verified report. Differential Type MANUAL DIFFERENTIAL 11/10/2024 8:28 AM EDT [facility] Comment:This is an appended report. These results have been appended to a previously preliminary verified report. Blood Venous blood / Unknown Venipuncture / Unknown 11/10/2024 7:32 AM EDT 11/10/2024 7:45 AM EDT us Rommel Obrien [employer] LAB BLOOD ORDERABLES Fin al Result [address] [place] [address], [place] * Anti XA unfractionated heparin (11/10/2024 1:24 AM EDT) ANTI XA UFH 0.41 0.30 - 0.70 IU/mL 11/10/2024 1:56 AM EDT [facility] Comment: Optimal time for testing is 6 hrs post dosage This test is specific for monitoring patients on UFH, and is not recommended for use with other Anti-Xa medications. Blood Venous blood / Unknown Venipuncture / Unknown 11/10/2024 1:24 AM EDT 11/10/2024 1:35 AM EDT Charlie Mireles MD LAB BLOOD ORDERABLES Final Result Performing Organization Address [facility] de Phone Number [address] [place] [address], [place] * (ABNORMAL) Anti XA unfractionated heparin (11/09/2024 6:28 PM EDT) [facility] ANTI XA UFH <0.04(L) 0.30 - 0.70 IU/mL 11/09/2024 6:57 PM EDT [facility] Comment: Optimal time for testing is 6 hrs post dosage This test is specific for monitoring patients on UFH, and is not recommended for use with other Anti-Xa medications. Blood Venous blood / Unknown Venipuncture / Unknown 11/09/2024 6:28 PM EDT 11/09/2024 6:31 PM EDT us Gill ESQUEDA LAB BLOOD ORDERABLES Brittani l Result Performing Organization Address [facility] Co de Phone Number [address] [place] [address], [place] * (ABNORMAL) Hemoglobin and hematocrit, blood (11/09/2024 6:28 PM EDT) Hemoglobin 9.5(L) 13 - 17 g/dL 11/09/2024 6:45 PM EDT [facility] Hematocrit 29.6(L) 39 - 50 % 11/09/2024 6:45 PM EDT [facility] Blood Venous blood / Unknown Venipuncture / Unknown 11/09/2024 6:28 PM EDT 11/09/2024 6:31 PM EDT us Charlie Mireles MD LAB BLOOD ORDERABLES Final Result Performing Organization Address City/[facility]/ZIP Co de Phone Number [address] [place] [address], [place] * (ABNORMAL) Protime & INR (11/09/2024 1:30 PM EDT) PROTIME 13.7(H) 9.8 - 13.2 sec 11/09/2024 1:45 PM EDT [facility] INR 1.2 0.9 - 1.2 11/09/2024 1:45 PM EDT [facility] Blood Venous blood / Unknown Venipuncture / Unknown 11/09/2024 1:30 PM EDT 11/09/2024 1:33 PM EDT us Gill ESQUEDA LAB BLOOD ORDERABLES Brittani l Result [address] [place] [address], [place] * APTT (11/09/2024 1:30 PM EDT) APTT 36 26 - 37 sec 11/09/2024 1:45 PM EDT [facility] Blood Venous blood / Unknown Venipuncture / Unknown 11/09/2024 1:30 PM EDT 11/09/2024 1:33 PM EDT Jesúspengbina Gao [employer] LAB BLOOD ORDERABLES Brittani l Result Performing Organization Address City/[facility] Co de Phone Number [address] [place] [address], [place] * (ABNORMAL) Platelet count (11/09/2024 1:30 PM EDT) Pathologist [facility] Platelet Count 118(L) 150 - 450 X10E9/L 11/09/2024 1:39 PM EDT [facility] MPV 10.1 7 - 12 fL 11/09/2024 1:39 PM EDT [facility] Blood Venous blood / Unknown Venipuncture / Unknown 11/09/2024 1:30 PM EDT 11/09/2024 1:33 PM EDT Gill Gao [employer] LAB BLOOD ORDERABLES Brittani l Result Performing Organization Address [facility] Co de Phone Number [address] [place] [address], [place] * Magnesium (11/09/2024 1:30 PM EDT) Pathologist [facility] MAGNESIUM 2.2 1.8 - 2.6 mg/dL 11/09/2024 2:08 PM EDT [facility] Blood Venous blood / Unknown Venipuncture / Unknown 11/09/2024 1:30 PM EDT 11/09/2024 1:33 PM EDT Charlie Mireles MD LAB BLOOD ORDERABLES Final Result Performing Organization Address City/[facility] Co de Phone Number [address] [place] [address], [place] * (ABNORMAL) Hemoglobin and hematocrit, blood (11/09/2024 1:30 PM EDT) Hemoglobin 10.1(L) 13 - 17 g/dL 11/09/2024 1:39 PM EDT [facility] Hematocrit 31.3(L) 39 - 50 % 11/09/2024 1:39 PM EDT [facility] Blood Venous blood / Unknown Venipuncture / Unknown 11/09/2024 1:30 PM EDT 11/09/2024 1:33 PM EDT us Charlie Mireles MD LAB BLOOD ORDERABLES Final Result [facility] [address] [place] [address], [place] * Fluoroscopy swallow motility function (11/09/2024 1:27 PM EDT) Anatomical Region Laterality Modality Chest, Abdomen, Body Radio Fluor oscopy 11/09/2024 1:39 PM EDT Narrative 11/09/2024 1:40 PM EDT STUDY: Video fluoroscopic swallow study CLINICAL HISTORY: Oral pharyngeal dysphagia, difficulty swallowing COMPARISON: None. FINDINGS: Video fluoroscopic swallow study was performed in conjunction with members of speech pathology. Barium contrast materials of multiple consistencies were administered. Fluoroscopic reference air kerma was 4.8 mGy. Multiple video fluoroscopic images. Zero fluoroscopic spot films. No aspiration or laryngeal penetration was seen with any of the consistencies. Correlate with dedicated speech pathology report for additional details and recommendations. IMPRESSION: 1. As above Finalized by Uzair Carroll MD on 11/09/2024 1:40 PM Procedure Note Uzair Carroll MD - 11/09/2024 STUDY: Video fluoroscopic swallow study CLINICAL HISTORY: Oral pharyngeal dysphagia, difficulty swallowing COMPARISON: None. FINDINGS: Video fluoroscopic swallow study was performed in conjunction with membersof speech pathology. Barium contrast materials of multiple consistencieswere administered. Fluoroscopic reference air kerma was 4.8 mGy. Multiplevideo fluoroscopic images. Zero fluoroscopic spot films. No aspiration or laryngeal penetration was seen with any of theconsistencies. Correlate with dedicated speech pathology report for additional detailsand recommendations. IMPRESSION: 1. As above Finalized by Uzair Carroll MD on 11/09/2024 1:40 PM us Gill Gao [employer] IMG FLUOROSCOPY ORDERABLE S Final Result * Magnesium (11/09/2024 6:05 AM EDT) MAGNESIUM 1.8 1.8 - 2.6 mg/dL 11/09/2024 7:12 AM EDT [facility] Blood Venous blood / Unknown Venipuncture / Unknown 11/09/2024 6:05 AM EDT 11/09/2024 6:37 AM EDT us Rommel Obrien [employer] LAB BLOOD ORDERABLES Fin al Result [facility] [address] [place] [address], * (ABNORMAL) Comprehensive metabolic panel (11/09/2024 6:05 AM EDT) SODIUM 142 134 - 146 mmol/L 11/09/2024 7:12 AM EDT [facility] POTASSIUM 3.5 3.5 - 5.0 mmol/L 11/09/2024 7:12 AM EDT [facility] CHLORIDE 113(H) 98 - 109 mmol/L 11/09/2024 7:12 AM EDT [facility] CARBON DIOXIDE 20(L) 22 - 32 mmol/L 11/09/2024 7:12 AM EDT [facility] ANION GAP 9 5 - 15 mmol/L 11/09/2024 7:12 AM EDT [facility] BLOOD UREA NITROGEN 59(H) 5 - 27 mg/dL 11/09/2024 7:12 AM EDT [facility] CREATININE 1.76(H) 0.70 - 1.20 mg/dL 11/09/2024 7:12 AM EDT [facility] Comment:METHOD TRACEABLE TO IDMS STANDARD GLUCOSE 125(H) 65 - 99 mg/dL 11/09/2024 7:12 AM EDT [facility] CALCIUM 7.8(L) 8.5 - 10.5 mg/dL 11/09/2024 7:12 AM EDT [facility] TOTAL PROTEIN 6.6 6.0 - 8.0 g/dL 11/09/2024 7:12 AM EDT [facility] ALBUMIN 2.3(L) 3.2 - 5.3 g/dL 11/09/2024 7:12 AM EDT [facility] ALKALINE PHOSPHATASE 69 39 - 130 U/L 11/09/2024 7:12 AM EDT [facility] AST 13 <=41 U/L 11/09/2024 7:12 AM EDT [facility] ALT 8 <=40 U/L 11/09/2024 7:12 AM EDT [facility] BILIRUBIN,TOTAL 1.1 0.3 - 1.2 mg/dL 11/09/2024 7:12 AM EDT [facility] EGFR Non-Race Dependent 38(L) >=60 ml/min/1.7 3sq.m 11/09/2024 7:12 AM EDT [facility] Comment: eGFR not reported due to non-numeric value for Creatinine. Reported eGFR is based on the CKD-EPI 2020 equation that does not use a race coefficient. Blood Venous blood / Unknown Venipuncture / Unknown 11/09/2024 6:05 AM EDT 11/09/2024 6:37 AM EDT us Rommel Obrien [employer] LAB BLOOD ORDERABLES Fin al Result [facility] [address] [place] [address], [place] * (ABNORMAL) CBC auto differential (11/09/2024 6:05 AM EDT) WBC 9.6 4 - 11 x10E9/L 11/09/2024 7:58 AM EDT [facility] RBC Count 3.50(L) 4.1 - 5.7 X10E12/L 11/09/2024 7:58 AM EDT [facility] Hemoglobin 9.4(L) 13 - 17 g/dL 11/09/2024 7:58 AM EDT [facility] Hematocrit 28.7(L) 39 - 50 % 11/09/2024 7:58 AM EDT [facility] MCV 82 80 - 100 fL 11/09/2024 7:58 AM EDT [facility] MCH 26.7(L) 27 - 34 pg 11/09/2024 7:58 AM EDT [facility] MCHC 32.6 32 - 36 g/dL 11/09/2024 7:58 AM EDT [facility] RDW 21.3(H) 11.5 - 15 % 11/09/2024 7:58 AM EDT [facility] Platelet Count 117(L) 150 - 450 X10E9/L 11/09/2024 7:58 AM EDT [facility] MPV 10.6 7 - 12 fL 11/09/2024 7:58 AM EDT [facility] Neutrophils % 74 % 11/09/2024 7:58 AM EDT [facility] Comment:This is an appended report. These results have been appended to a previously preliminary verified report. Lymphocytes % 1 % 11/09/2024 7:58 AM EDT [facility] Comment:This is an appended report. These results have been appended to a previously preliminary verified report. Monocytes % 23 % 11/09/2024 7:58 AM EDT [facility] Comment:This is an appended report. These results have been appended to a previously preliminary verified report. Eosinophils % 1 % 11/09/2024 7:58 AM EDT [facility] Comment:This is an appended report. These results have been appended to a previously preliminary verified report. Basophils % 1 % 11/09/2024 7:58 AM EDT [facility] Comment:This is an appended report. These results have been appended to a previously preliminary verified report. Atypical Lymphs % 1 % 11/09/2024 7:58 AM EDT [facility] Comment:This is an appended report. These results have been appended to a previously preliminary verified report. Neutrophils Absolute (M) 7.1(H) 1.5 - 6.6 10*3/uL 11/09/2024 7:58 AM EDT [facility] Comment:This is an appended report. These results have been appended to a previously preliminary verified report. Lymphocytes Absolute 0.2(L) 1.0 - 3.5 10*3/uL 11/09/2024 7:58 AM EDT [facility] Comment:This is an appended report. These results have been appended to a previously preliminary verified report. Monocytes Absolute 2.2(H) 0.0 - 0.9 10*3/uL 11/09/2024 7:58 AM EDT [facility] Comment:This is an appended report. These results have been appended to a previously preliminary verified report. Eosinophils Absolute 0.1 0.0 - 0.4 10*3/uL 11/09/2024 7:58 AM EDT [facility] Comment:This is an appended report. These results have been appended to a previously preliminary verified report. Basophils Absolute 0.1 0.0 - 0.2 10*3/uL 11/09/2024 7:58 AM EDT [facility] Comment:This is an appended report. These results have been appended to a previously preliminary verified report. Differential Type MANUAL DIFFERENTIAL 11/09/2024 7:58 AM EDT [facility] Comment:This is an appended report. These results have been appended to a previously preliminary verified report. Blood Venous blood / Unknown Venipuncture / Unknown 11/09/2024 6:05 AM EDT 11/09/2024 6:37 AM EDT Rommel Obrien [employer] LAB BLOOD ORDERABLES Fin al Result Performing Organization Address City/[facility]/ZIP Co de Phone Number [address] [place] [address], [place] * (ABNORMAL) Anti XA unfractionated heparin (11/09/2024 6:05 AM EDT) ANTI XA UFH <0.04(L) 0.30 - 0.70 IU/mL 11/09/2024 7:35 AM EDT [facility] Blood Venous blood / Unknown Venipuncture / Unknown 11/09/2024 6:05 AM EDT 11/09/2024 6:37 AM EDT us Alison Khalil MD LAB BLOOD ORDERABLES Final Res ult Performing Organization Address [facility]/ZIP Co de Phone Number [address] [place] [address], [place] * (ABNORMAL) Urinalysis (11/09/2024 1:33 AM EDT) COLOR Yellow Yellow 11/09/2024 2:28 AM EDT [facility] TURBIDITY Clear Clear 11/09/2024 2:28 AM EDT [facility] SPECIFIC GRAVITY 1.010 1.003 - 1.035 11/09/2024 2:28 AM EDT [facility] NITRITE Negative Negative 11/09/2024 2:28 AM EDT [facility] PH,URINE 6.0 5.0 - 8.5 11/09/2024 2:28 AM EDT [facility] LEUKOCYTE ESTERASE Moderate(A) Negative 11/09/2024 2:28 AM EDT [facility] PROTEIN 100 mg/dL(A) Negative 11/09/2024 2:28 AM EDT [facility] KETONES (URINE) Negative Negative 2:28 AM EDT [facility] UROBILINOGEN 0.2 eu/dL 0.2 eu/dL, 1.0 eu/dL 11/09/2024 2:28 AM EDT [facility] BILIRUBIN (URINE) Negative Negative 11/09/2024 2:28 AM EDT [facility] BLOOD/HGB Large(A) Negative 11/09/2024 2:28 AM EDT [facility] R.B.CELLS 100(H) 0 - 5 11/09/2024 2:28 AM EDT [facility] W.B.CELLS 45(H) 0 - 5 11/09/2024 2:28 AM EDT [facility] GLUCOSE (URINE) Negative Negative, 250 mg/dL 11/09/2024 2:28 AM EDT [facility] Urine (Urine, Indwelling Catheter) 11/09/2024 1:33 AM EDT 11/09/2024 1:51 AM EDT us Charlie Mireles MD URINE ORDERABLES Final Res ult [facility] [address] [place] [address], * (ABNORMAL) Troponin I, High Sensitivity 1 Hour (11/08/2024 11:52 PM EDT) TROPONIN I, HIGH SENSITIVITY 34(H) <21 ng/L 11/09/2024 12:30 AM EDT [facility] Blood Venous blood / Unknown Venipuncture / Unknown 11/08/2024 11:52 PM EDT 11/09/2024 12:01 AM EDT Narrative [facility] - 11/09/2024 12:30 AM EDT Elevations of hs-Troponin may be due to causes other than myocardial ischemia. Recommend serial hs-Troponin testing be performed. For the initial evaluation and management of chest pain patients, refer to the algorithms linked below. Emergency Patient: [email or web address]: [email or web address] Meeta Orr [employer] LAB BLOOD ORDERABLES Final Result Performing Organization Address City/[facility]/ZIP Co de Phone Number [address] [place] [address], [place] * Lactate w/ Reflex (11/08/2024 10:58 PM EDT) LACTATE W/REFLEX 1.6 0.4 - 2.0 mmol/L 11/08/2024 11:26 PM EDT [facility] Blood Venous blood / Unknown Venipuncture / Unknown 11/08/2024 10:58 PM EDT 11/08/2024 11:02 PM EDT Narrative [facility] - 11/08/2024 11:26 PM EDT Result did not trigger repeat Lactate, re-order if needed. Charlie Mireles MD LAB BLOOD ORDERABLES Final Result Performing Organization Address [facility] Co de Phone Number [address] [place] [address], [place] * (ABNORMAL) Troponin I, High Sensitivity 0 Hour (11/08/2024 10:58 PM EDT) TROPONIN I, HIGH SENSITIVITY 33(H) <21 ng/L 11/08/2024 11:40 PM EDT [facility] Blood Venous blood / Unknown Venipuncture / Unknown 11/08/2024 10:58 PM EDT 11/08/2024 11:02 PM EDT Meeta Orr [employer] LAB BLOOD ORDERABLES Final Result [address] [place] [address], [place] * ECG 12 lead (11/08/2024 10:54 PM EDT) 11/08/2024 10:5 4 PM EDT Narrative [facility] - 11/09/2024 8:28 AM EDT Meeta Orr [employer] ECG ORDERABLES Final Result [facility] * (ABNORMAL) Hemoglobin and hematocrit, blood (11/08/2024 9:53 PM EDT) Hemoglobin 9.6(L) 13 - 17 g/dL 11/08/2024 10:35 PM EDT [facility] Hematocrit 28.9(L) 39 - 50 % 11/08/2024 10:35 PM EDT [facility] Blood Venous blood / Unknown Venipuncture / Unknown 11/08/2024 9:53 PM EDT 11/08/2024 10:23 PM EDT Charlie Mireles MD LAB BLOOD ORDERABLES Final Result [address] [place] [address], [place] * (ABNORMAL) Hemoglobin and hematocrit, blood (11/08/2024 5:02 PM EDT) Hemoglobin 9.7(L) 13 - 17 g/dL 11/08/2024 5:43 PM EDT [facility] Hematocrit 29.8(L) 39 - 50 % 11/08/2024 5:43 PM EDT [facility] Blood Venous blood / Unknown Venipuncture / Unknown 11/08/2024 5:02 PM EDT 11/08/2024 5:28 PM EDT Jazminer Gao [employer] LAB BLOOD ORDERABLES Brittani l Result [address] [place] [address], [place] * (ABNORMAL) C-reactive protein (11/08/2024 5:02 PM EDT) C REACTIVE PROTEIN 16.6(H) <=0.7 mg/dL 11/08/2024 6:05 PM EDT [facility] Blood Venous blood / Unknown Venipuncture / Unknown 11/08/2024 5:02 PM EDT 11/08/2024 5:28 PM EDT Jesúspengbina [facility]LOOD [facility] Brittani l Result Performing Organization Address City/[facility]/ZIP Co de Phone Number [address] [place] [address], [place] * (ABNORMAL) Basic Metabolic Panel (11/08/2024 5:02 PM EDT) SODIUM 144 134 - 146 mmol/L 11/08/2024 6:05 PM EDT [facility] POTASSIUM 3.4(L) 3.5 - 5.0 mmol/L 11/08/2024 6:05 PM EDT [facility] CHLORIDE 116(H) 98 - 109 mmol/L 11/08/2024 6:05 PM EDT [facility] CARBON DIOXIDE 20(L) 22 - 32 mmol/L 11/08/2024 6:05 PM EDT [facility] ANION GAP 8 5 - 15 mmol/L 11/08/2024 6:05 PM EDT [facility] BLOOD UREA NITROGEN 67(H) 5 - 27 mg/dL 11/08/2024 6:05 PM EDT [facility] CREATININE 1.85(H) 0.70 - 1.20 mg/dL 11/08/2024 6:05 PM EDT [facility] Comment:METHOD TRACEABLE TO IDPR STANDARD GLUCOSE 120(H) 65 - 99 mg/dL 11/08/2024 6:05 PM EDT [facility] CALCIUM 8.0(L) 8.5 - 10.5 mg/dL 11/08/2024 6:05 PM EDT [facility] EGFR Non-Race Dependent 36(L) >=60 ml/min/1.7 3sq.m 11/08/2024 6:05 PM EDT [facility] Comment: eGFR not reported due to non-numeric value for Creatinine. Reported eGFR is based on the CKD-EPI 2020 equation that does not use a race coefficient. Blood Venous blood / Unknown Venipuncture / Unknown 11/08/2024 5:02 PM EDT 11/08/2024 5:28 PM EDT us Gill Gao [employer] LAB BLOOD ORDERABLES Brittani ann Result [facility] [address] [place] [address], [place] * (ABNORMAL) Urine Culture Urine, Indwelling Catheter (11/08/2024 2:27 PM EDT) CULTURE RESULTS 50,000-100,000 CFU/mL Vancomycin resistant Enterococcus species(A) 11/12/2024 6:39 PM EDT [facility] Comment:Ampicillin or Amoxic illin is the drug of choice for uncomplicated cystitis caused by enterococci. Cephalosporins are inappropriate. Urine (Urine, Indwelling Catheter) 11/08/2024 2:27 PM EDT 11/08/2024 2:38 PM EDT Narrative [facility] - 11/12/2024 6:39 PM EDT Urine received without preservative - delays in transport may affect results. Interpret with caution and clinical correlation is recommended. Organism Antibiotic Method Susceptibility Vancomycin resistant Enterococcus species Ampicillin >=32.0: Resistant Vancomycin resistant Enterococcus species Levofloxacin >=8.0: Resistant Vancomycin resistant Enterococcus species Linezolid 2.0: Susceptible Vancomycin resistant Enterococcus species Nitrofurantoin =256.0: Resistant Vancomycin resistant Enterococcus species Vancomycin >=32.0: Resistant Vancomycin resistant Enterococcus species Susceptibility Comment Vancomycin resistant Enterococcus species Daptomycin 4: Susceptible (dose dependent) Charlie Mireles MD MICROBIOLOGY - GENERAL ORD ERABLES Final Result [facility] [address] [place] [address], [place] [phone] * X-ray abdomen ap 1 view (11/08/2024 10:09 AM EDT) Anatomical Region Laterality Modality Body, Abdomen N/A Computed Radiogr aphy 11/08/2024 1:13 PM EDT Narrative 11/08/2024 1:14 PM EDT EXAM: XR ABDOMEN AP 1 VW CLINICAL INFORMATION: Nausea, constipation. COMPARISON: CT dated 11/04/2024 FINDINGS: There are air-filled dilated loops of bowel, which may represent obstruction or ileus. There is no evidence of pneumatosis or free air. There is no convincing radiographically evident nephrolithiasis. IMPRESSION: Air-filled dilated bowel, which may represent obstruction or ileus. Finalized by Luke Stokes MD on 11/08/2024 1:14 PM Procedure Note Luke Stokes MD - 11/08/2024 EXAM: XR ABDOMEN AP 1 VW CLINICAL INFORMATION: Nausea, constipation. COMPARISON: CT dated 11/04/2024 FINDINGS: There are air-filled dilated loops of bowel, which may representobstruction or ileus. There is no evidence of pneumatosis or free air.There is no convincing radiographically evident nephrolithiasis. IMPRESSION: Air-filled dilated bowel, which may represent obstruction or ileus. Finalized by Luke Stokes MD on 11/08/2024 1:14 PM Charlie Mireles MD IMG DIAGNOSTIC IMAGING ORD ERABLES Final Result * Magnesium (11/08/2024 4:34 AM EDT) MAGNESIUM 2.1 1.8 - 2.6 mg/dL 11/08/2024 5:34 AM EDT [facility] Blood Venous blood / Unknown Venipuncture / Unknown 11/08/2024 4:34 AM EDT 11/08/2024 5:11 AM EDT us Rommel Obrien [employer] LAB BLOOD ORDERABLES Fin al Result [facility] [address] [place] [address], [place] * (ABNORMAL) Comprehensive metabolic panel (11/08/2024 4:34 AM EDT) SODIUM 149(H) 134 - 146 mmol/L 11/08/2024 5:34 AM EDT [facility] POTASSIUM 3.5 3.5 - 5.0 mmol/L 11/08/2024 5:34 AM EDT [facility] CHLORIDE 117(H) 98 - 109 mmol/L 11/08/2024 5:34 AM EDT [facility] CARBON DIOXIDE 21(L) 22 - 32 mmol/L 11/08/2024 5:34 AM EDT [facility] ANION GAP 11 5 - 15 mmol/L 11/08/2024 5:34 AM EDT [facility] BLOOD UREA NITROGEN 68(H) 5 - 27 mg/dL 11/08/2024 5:34 AM EDT [facility] CREATININE 1.97(H) 0.70 - 1.20 mg/dL 11/08/2024 5:34 AM EDT [facility] Comment:METHOD TRACEABLE TO IDMS STANDARD GLUCOSE 102(H) 65 - 99 mg/dL 11/08/2024 5:34 AM EDT [facility] CALCIUM 8.3(L) 8.5 - 10.5 mg/dL 11/08/2024 5:34 AM EDT [facility] TOTAL PROTEIN 7.0 6.0 - 8.0 g/dL 11/08/2024 5:34 AM EDT [facility] ALBUMIN 2.5(L) 3.2 - 5.3 g/dL 11/08/2024 5:34 AM EDT [facility] ALKALINE PHOSPHATASE 68 39 - 130 U/L 11/08/2024 5:34 AM EDT [facility] AST 12 <=41 U/L 11/08/2024 5:34 AM EDT [facility] ALT 8 <=40 U/L 11/08/2024 5:34 AM EDT [facility] BILIRUBIN,TOTAL 1.3(H) 0.3 - 1.2 mg/dL 11/08/2024 5:34 AM EDT [facility] EGFR Non-Race Dependent 33(L) >=60 ml/min/1.7 3sq.m 11/08/2024 5:34 AM EDT [facility] Comment: eGFR not reported due to non-numeric value for Creatinine. Reported eGFR is based on the CKD-EPI 2020 equation that does not use a race coefficient. Blood Venous blood / Unknown Venipuncture / Unknown 11/08/2024 4:34 AM EDT 11/08/2024 5:11 AM EDT us Rommel Obrien [employer] LAB BLOOD ORDERABLES Fin al Result [facility] [address] [place] [address], * Anti XA unfractionated heparin (11/08/2024 4:34 AM EDT) ANTI XA UFH 0.37 0.30 - 0.70 IU/mL 11/08/2024 5:36 AM EDT [facility] Comment: Optimal time for testing is 6 hrs post dosage This test is specific for monitoring patients on UFH, and is not recommended for use with other Anti-Xa medications. Blood Venous blood / Unknown Venipuncture / Unknown 11/08/2024 4:34 AM EDT 11/08/2024 5:12 AM EDT us Alison Khalil MD LAB BLOOD ORDERABLES Final Res ult [facility] [address] [place] [address], [place] * (ABNORMAL) CBC auto differential (11/08/2024 4:33 AM EDT) WBC 9.0 4 - 11 x10E9/L 11/08/2024 6:59 AM EDT [facility] RBC Count 3.57(L) 4.1 - 5.7 X10E12/L 11/08/2024 6:59 AM EDT [facility] Hemoglobin 9.6(L) 13 - 17 g/dL 11/08/2024 6:59 AM EDT [facility] Hematocrit 29.7(L) 39 - 50 % 11/08/2024 6:59 AM EDT [facility] MCV 83 80 - 100 fL 11/08/2024 6:59 AM EDT [facility] MCH 27.0 27 - 34 pg 11/08/2024 6:59 AM EDT [facility] MCHC 32.5 32 - 36 g/dL 11/08/2024 6:59 AM EDT [facility] RDW 21.7(H) 11.5 - 15 % 11/08/2024 6:59 AM EDT [facility] Platelet Count 150 150 - 450 X10E9/L 11/08/2024 6:59 AM EDT [facility] MPV 10.5 7 - 12 fL 11/08/2024 6:59 AM EDT [facility] Myelocyte % 2 % 11/08/2024 6:59 AM EDT [facility] Comment:This is an appended report. These results have been appended to a previously preliminary verified report. Bands % 3 % 11/08/2024 6:59 AM [facility] Comment:This is an appended report. These results have been appended to a previously preliminary verified report. Neutrophils % 55 % 11/08/2024 6:59 AM EDT [facility] Comment:This is an appended report. These results have been appended to a previously preliminary verified report. Lymphocytes % 9 % 11/08/2024 6:59 AM [facility] Comment:This is an appended report. These results have been appended to a previously preliminary verified report. Monocytes % 28 % 11/08/2024 6:59 AM EDT [facility] Comment:This is an appended report. These results have been appended to a previously preliminary verified report. Atypical Lymphs % 3 % 11/08/2024 6:59 AM [facility] Comment:This is an appended report. These results have been appended to a previously preliminary verified report. Neutrophils Absolute (M) 5.2 1.5 - 6.6 10*3/uL 11/08/2024 6:59 AM EDT [facility] Comment:This is an appended report. These results have been appended to a previously preliminary verified report. Lymphocytes Absolute 1.1 1.0 - 3.5 10*3/uL 11/08/2024 6:59 AM [facility] Comment:This is an appended report. These results have been appended to a previously preliminary verified report. Monocytes Absolute 2.5(H) 0.0 - 0.9 10*3/uL 11/08/2024 6:59 AM EDT [facility] Comment:This is an appended report. These results have been appended to a previously preliminary verified report. Elliptocytes 2+ 11/08/2024 6:59 AM [facility] Comment:This is an appended report. These results have been appended to a previously preliminary verified report. Acanthocytes 1+ 11/08/2024 6:59 AM [facility] Comment:This is an appended report. These results have been appended to a previously preliminary verified report. Differential Type MANUAL DIFFERENTIAL 11/08/2024 6:59 AM EDT [facility] Comment:This is an appended report. These results have been appended to a previously preliminary verified report. Blood Venous blood / Unknown Venipuncture / Unknown 11/08/2024 4:33 AM EDT 11/08/2024 5:12 AM EDT Rommel Obrien [employer] LAB BLOOD ORDERABLES Fin al Result Performing Organization Address City/[facility] Co de Phone Number [address] [place] [address], [place] * ECG 12 lead (11/07/2024 8:22 PM EDT) 11/07/2024 8:22 PM EDT Narrative [facility] - 11/09/2024 8:27 AM EDT Rommel Obrien [employer] ECG ORDERABLES Final Re sult Performing Organization Address [facility] de Phone Number [facility] * Anti XA unfractionated heparin (11/07/2024 5:16 AM EDT) [facility] ANTI XA UFH 0.52 0.30 - 0.70 IU/mL 11/07/2024 6:06 AM EDT [facility] Comment: Optimal time for testing is 6 hrs post dosage This test is specific for monitoring patients on UFH, and is not recommended for use with other Anti-Xa medications. Blood Venous blood / Unknown Venipuncture / Unknown 11/07/2024 5:16 AM EDT 11/07/2024 5:40 AM EDT us Alison Khalil MD LAB BLOOD ORDERABLES Final Res ult Performing Organization Address [facility] Co de Phone Number [address] [place] [address], [place] * Magnesium (11/07/2024 5:16 AM EDT) MAGNESIUM 2.2 1.8 - 2.6 mg/dL 11/07/2024 6:04 AM EDT [facility] Blood Venous blood / Unknown Venipuncture / Unknown 11/07/2024 5:16 AM EDT 11/07/2024 5:39 AM EDT us Rommel Obrien [employer] LAB BLOOD ORDERABLES Fin al Result [facility] [address] [place] [address], * (ABNORMAL) Comprehensive metabolic panel (11/07/2024 5:16 AM EDT) SODIUM 147(H) 134 - 146 mmol/L 11/07/2024 6:04 AM EDT [facility] POTASSIUM 3.6 3.5 - 5.0 mmol/L 11/07/2024 6:04 AM EDT [facility] CHLORIDE 116(H) 98 - 109 mmol/L 11/07/2024 6:04 AM EDT [facility] CARBON DIOXIDE 20(L) 22 - 32 mmol/L 11/07/2024 6:04 AM EDT [facility] ANION GAP 11 5 - 15 mmol/L 11/07/2024 6:04 AM EDT [facility] BLOOD UREA NITROGEN 84(H) 5 - 27 mg/dL 11/07/2024 6:04 AM EDT [facility] CREATININE 2.29(H) 0.70 - 1.20 mg/dL 11/07/2024 6:04 AM EDT [facility] Comment:METHOD TRACEABLE TO IDMS STANDARD GLUCOSE 127(H) 65 - 99 mg/dL 11/07/2024 6:04 AM EDT [facility] CALCIUM 8.4(L) 8.5 - 10.5 mg/dL 11/07/2024 6:04 AM EDT [facility] TOTAL PROTEIN 7.1 6.0 - 8.0 g/dL 11/07/2024 6:04 AM EDT [facility] ALBUMIN 2.7(L) 3.2 - 5.3 g/dL 11/07/2024 6:04 AM EDT [facility] ALKALINE PHOSPHATASE 70 39 - 130 U/L 11/07/2024 6:04 AM EDT [facility] AST 16 <=41 U/L 11/07/2024 6:04 AM EDT [facility] ALT 8 <=40 U/L 11/07/2024 6:04 AM EDT [facility] BILIRUBIN,TOTAL 1.1 0.3 - 1.2 mg/dL 11/07/2024 6:04 AM EDT [facility] EGFR Non-Race Dependent 28(L) >=60 ml/min/1.7 3sq.m 11/07/2024 6:04 AM EDT [facility] Comment: eGFR not reported due to non-numeric value for Creatinine. Reported eGFR is based on the CKD-EPI 2020 equation that does not use a race coefficient. Blood Venous blood / Unknown Venipuncture / Unknown 11/07/2024 5:16 AM EDT 11/07/2024 5:39 AM EDT us Rommel Obrien [employer] LAB BLOOD ORDERABLES Fin al Result [facility] [address] [place] [address], * (ABNORMAL) CBC auto differential (11/07/2024 5:16 AM EDT) WBC 9.3 4 - 11 x10E9/L 11/07/2024 8:04 AM EDT [facility] RBC Count 3.93(L) 4.1 - 5.7 X10E12/L 11/07/2024 8:04 AM EDT [facility] Hemoglobin 10.5(L) 13 - 17 g/dL 11/07/2024 8:04 AM EDT [facility] Hematocrit 33.0(L) 39 - 50 % 11/07/2024 8:04 AM EDT [facility] MCV 84 80 - 100 fL 11/07/2024 8:04 AM EDT [facility] MCH 26.8(L) 27 - 34 pg 11/07/2024 8:04 AM EDT [facility] MCHC 31.9(L) 32 - 36 g/dL 11/07/2024 8:04 AM EDT [facility] RDW 21.4(H) 11.5 - 15 % 11/07/2024 8:04 AM EDT [facility] Platelet Count 148(L) 150 - 450 X10E9/L 11/07/2024 8:04 AM EDT [facility] MPV 10.3 7 - 12 fL 11/07/2024 8:04 AM EDT [facility] Bands % 2 % 11/07/2024 8:04 AM EDT [facility] Comment:This is an appended report. These results have been appended to a previously preliminary verified report. Neutrophils % 74 % 11/07/2024 8:04 AM EDT [facility] Comment:This is an appended report. These results have been appended to a previously preliminary verified report. Lymphocytes % 6 % 11/07/2024 8:04 AM EDT [facility] Comment:This is an appended report. These results have been appended to a previously preliminary verified report. Monocytes % 17 % 11/07/2024 8:04 AM EDT [facility] Comment:This is an appended report. These results have been appended to a previously preliminary verified report. Eosinophils % 1 % 11/07/2024 8:04 AM EDT [facility] Comment:This is an appended report. These results have been appended to a previously preliminary verified report. Basophils % 1 % 11/07/2024 8:04 AM EDT [facility] Comment:This is an appended report. These results have been appended to a previously preliminary verified report. Neutrophils Absolute (M) 7.1(H) 1.5 - 6.6 10*3/uL 11/07/2024 8:04 AM EDT [facility] Comment:This is an appended report. These results have been appended to a previously preliminary verified report. Lymphocytes Absolute 0.6(L) 1.0 - 3.5 10*3/uL 11/07/2024 8:04 AM EDT [facility] Comment:This is an appended report. These results have been appended to a previously preliminary verified report. Monocytes Absolute 1.6(H) 0.0 - 0.9 10*3/uL 11/07/2024 8:04 AM EDT [facility] Comment:This is an appended report. These results have been appended to a previously preliminary verified report. Eosinophils Absolute 0.0 0.0 - 0.4 10*3/uL 11/07/2024 8:04 AM EDT [facility] Comment:This is an appended report. These results have been appended to a previously preliminary verified report. Basophils Absolute 0.0 0.0 - 0.2 10*3/uL 11/07/2024 8:04 AM EDT [facility] Comment:This is an appended report. These results have been appended to a previously preliminary verified report. Elliptocytes 2+ 11/07/2024 8:04 AM EDT [facility] Comment:This is an appended report. These results have been appended to a previously preliminary verified report. Acanthocytes 1+ 11/07/2024 8:04 AM EDT [facility] Comment:This is an appended report. These results have been appended to a previously preliminary verified report. Differential Type MANUAL DIFFERENTIAL 11/07/2024 8:04 AM [facility] Comment:This is an appended report. These results have been appended to a previously preliminary verified report. Blood Venous blood / Unknown Venipuncture / Unknown 11/07/2024 5:16 AM EDT 11/07/2024 5:40 AM EDT Rommel Lutz Krotzer [employer] LAB BLOOD ORDERABLES Fin al Result Performing Organization Address City/[facility]/ZIP Co de Phone Number [address] [place] [address], [place] * Vancomycin, random (11/07/2024 5:16 AM EDT) VANCOMYCIN 10.1 5.0 - 40.0 ug/mL 11/07/2024 7:08 AM EDT [facility] Blood Venous blood / Unknown Venipuncture / Unknown 11/07/2024 5:16 AM EDT 11/07/2024 5:39 AM EDT Narrative [facility] - 11/07/2024 7:08 AM EDT Peak 30-40 ug/mL Trough 5-20 ug/ml Rommel Obrien [employer] LAB BLOOD ORDERABLES Fin al Result Performing Organization Address [facility] Co de Phone Number [address] [place] [address], [place] * Anti XA unfractionated heparin (11/07/2024 12:46 AM EDT) ANTI XA UFH 0.52 0.30 - 0.70 IU/mL 11/07/2024 12:58 AM EDT [facility] Comment: Optimal time for testing is 6 hrs post dosage This test is specific for monitoring patients on UFH, and is not recommended for use with other Anti-Xa medications. Blood Venous blood / Unknown Venipuncture / Unknown 11/07/2024 12:46 AM EDT 11/07/2024 12:48 AM EDT Alison Khalil MD LAB BLOOD ORDERABLES Final Res ult Performing Organization Address City/[facility]/ZIP Co de Phone Number [address] [place] [address], [place] * Anti XA unfractionated heparin (11/06/2024 6:44 PM EDT) ANTI XA UFH 0.42 0.30 - 0.70 IU/mL 11/06/2024 7:01 PM EDT [facility] Comment: Optimal time for testing is 6 hrs post dosage This test is specific for monitoring patients on UFH, and is not recommended for use with other Anti-Xa medications. Blood Venous blood / Unknown Venipuncture / Unknown 11/06/2024 6:44 PM EDT 11/06/2024 6:47 PM EDT Rommel Obrien [employer] LAB BLOOD ORDERABLES Fin al Result Performing Organization Address City/[facility]/ZIP Co de Phone Number [address] [place] [address], [place] * (ABNORMAL) Protime & INR (11/06/2024 1:00 PM EDT) PROTIME 13.4(H) 9.8 - 13.2 sec 11/06/2024 1:13 PM EDT [facility] INR 1.2 0.9 - 1.2 11/06/2024 1:13 PM EDT [facility] Blood Venous blood / Unknown Venipuncture / Unknown 11/06/2024 1:00 PM EDT 11/06/2024 1:03 PM EDT Rommel Obrien [employer] LAB BLOOD ORDERABLES Fin al Result [address] [place] [address], [place] * APTT (11/06/2024 1:00 PM EDT) APTT 35 26 - 37 sec 11/06/2024 1:13 PM EDT [facility] Blood Venous blood / Unknown Venipuncture / Unknown 11/06/2024 1:00 PM EDT 11/06/2024 1:03 PM EDT Rommel Obrien [employer] LAB BLOOD ORDERABLES Fin al Result Performing Organization Address City/[facility]/ZIP Co de Phone Number [address] [place] [address], [place] * Magnesium (11/06/2024 5:31 AM EDT) MAGNESIUM 2.4 1.8 - 2.6 mg/dL 11/06/2024 6:21 AM EDT [facility] Blood Venous blood / Unknown Venipuncture / Unknown 11/06/2024 5:31 AM EDT 11/06/2024 5:34 AM EDT [facility] Fin al Result Performing Organization Address [facility] Co de Phone Number [address] [place] [address], [place] * (ABNORMAL) Comprehensive metabolic panel (11/06/2024 5:31 AM EDT) SODIUM 146 134 - 146 mmol/L 11/06/2024 6:21 AM EDT [facility] POTASSIUM 3.8 3.5 - 5.0 mmol/L 11/06/2024 6:21 AM EDT [facility] CHLORIDE 114(H) 98 - 109 mmol/L 11/06/2024 6:21 AM EDT [facility] CARBON DIOXIDE 21(L) 22 - 32 mmol/L 11/06/2024 6:21 AM EDT [facility] ANION GAP 11 5 - 15 mmol/L 11/06/2024 6:21 AM EDT [facility] BLOOD UREA NITROGEN 101(H) 5 - 27 mg/dL 11/06/2024 6:21 AM EDT [facility] CREATININE 2.59(H) 0.70 - 1.20 mg/dL 11/06/2024 6:21 AM EDT [facility] Comment:METHOD [facility] STANDARD GLUCOSE 120(H) 65 - 99 mg/dL 11/06/2024 6:21 AM EDT [facility] CALCIUM 8.4(L) 8.5 - 10.5 mg/dL 11/06/2024 6:21 AM EDT [facility] TOTAL PROTEIN 7.4 6.0 - 8.0 g/dL 11/06/2024 6:21 AM EDT [facility] ALBUMIN 2.7(L) 3.2 - 5.3 g/dL 11/06/2024 6:21 AM EDT [facility] ALKALINE PHOSPHATASE 70 39 - 130 U/L 11/06/2024 6:21 AM EDT [facility] AST 15 <=41 U/L 11/06/2024 6:21 AM EDT [facility] ALT 8 <=40 U/L 11/06/2024 6:21 AM EDT [facility] BILIRUBIN,TOTAL 1.1 0.3 - 1.2 mg/dL 11/06/2024 6:21 AM EDT [facility] EGFR Non-Race Dependent 24(L) >=60 ml/min/1.7 3sq.m 11/06/2024 6:21 AM EDT [facility] Comment: eGFR not reported due to non-numeric value for Creatinine. Reported eGFR is based on the CKD-EPI 2020 equation that does not use a race coefficient. Blood Venous blood / Unknown Venipuncture / Unknown 11/06/2024 5:31 AM EDT 11/06/2024 5:34 AM EDT us Rommel Obrien [employer] LAB BLOOD ORDERABLES Fin al Result [facility] [address] [place] [address], [place] * (ABNORMAL) CBC auto differential (11/06/2024 5:31 AM EDT) WBC 9.9 4 - 11 x10E9/L 11/06/2024 7:40 AM EDT [facility] RBC Count 4.18 4.1 - 5.7 X10E12/L 11/06/2024 7:40 AM EDT [facility] Hemoglobin 11.1(L) 13 - 17 g/dL 11/06/2024 7:40 AM EDT [facility] Hematocrit 34.6(L) 39 - 50 % 11/06/2024 7:40 AM EDT [facility] MCV 83 80 - 100 fL 11/06/2024 7:40 AM EDT [facility] MCH 26.6(L) 27 - 34 pg 11/06/2024 7:40 AM EDT [facility] MCHC 32.2 32 - 36 g/dL 11/06/2024 7:40 AM EDT [facility] RDW 20.9(H) 11.5 - 15 % 11/06/2024 7:40 AM EDT [facility] Platelet Count 163 150 - 450 X10E9/L 11/06/2024 7:40 AM EDT [facility] MPV 10.6 7 - 12 fL 11/06/2024 7:40 AM EDT [facility] Bands % 2 % 11/06/2024 7:40 AM EDT [facility] Comment:This is an appended report. These results have been appended to a previously preliminary verified report. Neutrophils % 69 % 11/06/2024 7:40 AM EDT [facility] Comment:This is an appended report. These results have been appended to a previously preliminary verified report. Lymphocytes % 7 % 11/06/2024 7:40 AM EDT [facility] Comment:This is an appended report. These results have been appended to a previously preliminary verified report. Monocytes % 22 % 11/06/2024 7:40 AM EDT [facility] Comment:This is an appended report. These results have been appended to a previously preliminary verified report. Eosinophils % 0 % 11/06/2024 7:40 AM EDT [facility] Comment:This is an appended report. These results have been appended to a previously preliminary verified report. Basophils % 1 % 11/06/2024 7:40 AM EDT [facility] Comment:This is an appended report. These results have been appended to a previously preliminary verified report. Neutrophils Absolute (M) 7.0(H) 1.5 - 6.6 10*3/uL 11/06/2024 7:40 AM EDT [facility] Comment:This is an appended report. These results have been appended to a previously preliminary verified report. Lymphocytes Absolute 0.6(L) 1.0 - 3.5 10*3/uL 11/06/2024 7:40 AM EDT [facility] Comment:This is an appended report. These results have been appended to a previously preliminary verified report. Monocytes Absolute 2.2(H) 0.0 - 0.9 10*3/uL 11/06/2024 7:40 AM EDT [facility] Comment:This is an appended report. These results have been appended to a previously preliminary verified report. Eosinophils Absolute 0.0 0.0 - 0.4 10*3/uL 11/06/2024 7:40 AM EDT [facility] Comment:This is an appended report. These results have been appended to a previously preliminary verified report. Basophils Absolute 0.0 0.0 - 0.2 10*3/uL 11/06/2024 7:40 AM EDT [facility] Comment:This is an appended report. These results have been appended to a previously preliminary verified report. Elliptocytes 1+ 11/06/2024 7:40 AM T [facility] Comment:This is an appended report. These results have been appended to a previously preliminary verified report. Differential Type MANUAL DIFFERENTIAL 11/06/2024 7:40 AM EDT [facility] Comment:This is an appended report. These results have been appended to a previously preliminary verified report. Blood Venous blood / Unknown Venipuncture / Unknown 11/06/2024 5:31 AM EDT 11/06/2024 5:34 AM EDT us Rommel Obrien [employer] LAB BLOOD ORDERABLES Fin al Result [facility] [address] [place] [address], [place] * Vas venous duplex lwr bilateral (11/05/2024 4:03 PM EDT) Anatomical Region Laterality Modality Vascular Bilateral Ultrasound 11/05/2024 4:12 PM EDT Narrative 11/05/2024 4:58 PM EDT Right: Portable lower extremity deep vein thrombosis (DVT) exam performed. Dilated non compressible deep calf muscle vein with hypoechoic intraluminal content and absent spectral Doppler signals. Remaining evaluated deep veins are compressible. Evaulation of supeficial veins was not performed. Left: Portable lower extremity deep vein thrombosis (DVT) exam performed. Non dilated non compressible deep calf muscle vein with hypoechoic intraluminal content and absent spectral Doppler signals. Remaining evaluated deep veins are compressible. Evaulation of supeficial veins was not performed. General: In-patient, bedside examination. Conclusions: BILATERAL:ACUTE deep calf muscle vein thrombosis (DVT). The remainder of the deep veins show no evidence of thrombus Procedure Note Iraj Villegas, DO - 11/05/2024 Right: Portable lower extremity deep vein thrombosis (DVT) exam performed.Dilated non compressible deep calf muscle vein with hypoechoicintraluminal content and absent spectral Doppler signals. Remainingevaluated deep veins are compressible. Evaulation of supeficial veins was not performed. Left: Portable lower extremity deep vein thrombosis (DVT) exam performed.Non dilated non compressible deep calf muscle vein with hypoechoicintraluminal content and absent spectral Doppler signals. Remainingevaluated deep veins are compressible. Evaulation of supeficial veins was not performed. General: In-patient, bedside examination. Conclusions: BILATERAL:ACUTE deep calf muscle vein thrombosis (DVT). Theremainder of the deep veins show no evidence of thrombus us Brittany Mccallum [employer] CV VASCULAR ORDERABLES Final Result * NM ventiliation imaging perfusion lung scan (11/05/2024 10:24 AM EDT) Anatomical Region Laterality Modality Nuc Med N/A Nuclear Medicine 11/05/2024 10:3 3 AM EDT Narrative 11/05/2024 10:34 AM EDT Clinical history:Elevated d-dimer and shortness of breath Radioisotope: 32.0 microcuries DTPA aerosol in nebulizer for the ventilation 5.0 millicuries technetium 99 MAA for the perfusion Findings: Comparison chest radiograph CT chest 10/27/2024 Patchy distribution of isotope on the ventilatory phase of the exam. This is consistent with advanced emphysematous change. There are small peripheral areas of the perfusion deficits this probably secondary to advanced COPD. However tiny emboli difficult to exclude. Impression: By criteria this is probably indeterminate. However there are no large segmental or subsegmental perfusion defects. If symptoms persist consider dedicated CTA chest. Patient cannot have contrast consider bilateral Doppler leg studies Finalized by Jose Saunders MD on 11/05/2024 10:34 AM Procedure Note Jose Saunders MD - 11/05/2024 Clinical history:Elevated d-dimer and shortness of breath Radioisotope: 32.0 microcuries DTPA aerosol in nebulizer for the ventilation 5.0 millicuries technetium 99 MAA for the perfusion Findings: Comparison chest radiograph CT chest 10/27/2024 Patchy distribution of isotope on the ventilatory phase of the exam. Thisis consistent with advanced emphysematous change. There are smallperipheral areas of the perfusion deficits this probably secondary toadvanced COPD. However tiny emboli difficult to exclude. Impression: By criteria this is probably indeterminate. However there are no largesegmental or subsegmental perfusion defects. If symptoms persist considerdedicated CTA chest. Patient cannot have contrast consider bilateralDoppler leg studies Finalized by Jose Saunders MD on 11/05/2024 10:34 AM Brittany Mccallum [employer] IMG NM ORDERABLES Final Result * (ABNORMAL) CBC auto differential (11/05/2024 8:42 AM EDT) WBC 12.3(H) 4 - 11 x10E9/L 11/05/2024 9:27 AM EDT [facility] RBC Count 3.90(L) 4.1 - 5.7 X10E12/L 11/05/2024 9:27 AM EDT [facility] Hemoglobin 10.3(L) 13 - 17 g/dL 11/05/2024 9:27 AM EDT [facility] Hematocrit 32.1(L) 39 - 50 % 11/05/2024 9:27 AM EDT [facility] MCV 82 80 - 100 fL 11/05/2024 9:27 AM EDT [facility] MCH 26.4(L) 27 - 34 pg 11/05/2024 9:27 AM EDT [facility] MCHC 32.1 32 - 36 g/dL 11/05/2024 9:27 AM EDT [facility] RDW 21.0(H) 11.5 - 15 % 11/05/2024 9:27 AM EDT [facility] Platelet Count 179 150 - 450 X10E9/L 11/05/2024 9:27 AM EDT [facility] MPV 9.7 7 - 12 fL 11/05/2024 9:27 AM EDT [facility] Neutrophils % 73 % 11/05/2024 9:27 AM EDT [facility] Comment:This is an appended report. These results have been appended to a previously preliminary verified report. Lymphocytes % 4 % 11/05/2024 9:27 AM EDT [facility] Comment:This is an appended report. These results have been appended to a previously preliminary verified report. Monocytes % 22 % 11/05/2024 9:27 AM EDT [facility] Comment:This is an appended report. These results have been appended to a previously preliminary verified report. Atypical Lymphs % 1 % 11/05/2024 9:27 AM EDT [facility] Comment:This is an appended report. These results have been appended to a previously preliminary verified report. Neutrophils Absolute (M) 9.0(H) 1.5 - 6.6 10*3/uL 11/05/2024 9:27 AM EDT [facility] Comment:This is an appended report. These results have been appended to a previously preliminary verified report. Lymphocytes Absolute 0.6(L) 1.0 - 3.5 10*3/uL 11/05/2024 9:27 AM EDT [facility] Comment:This is an appended report. These results have been appended to a previously preliminary verified report. Monocytes Absolute 2.7(H) 0.0 - 0.9 10*3/uL 11/05/2024 9:27 AM EDT [facility] Comment:This is an appended report. These results have been appended to a previously preliminary verified report. Hypochromia 1+ 11/05/2024 9:27 AM EDT [facility] Comment:This is an appended report. These results have been appended to a previously preliminary verified report. Differential Type MANUAL DIFFERENTIAL 11/05/2024 9:27 AM EDT [facility] Comment:This is an appended report. These results have been appended to a previously preliminary verified report. Blood Venous blood / Unknown Venipuncture / Unknown 11/05/2024 8:42 AM EDT 11/05/2024 8:45 AM EDT us Rommel Obrien [employer] LAB BLOOD ORDERABLES Fin al Result [facility] [address] [place] [address], [place] * Magnesium (11/05/2024 8:19 AM EDT) MAGNESIUM 2.6 1.8 - 2.6 mg/dL 11/05/2024 8:50 AM EDT [facility] Blood Venous blood / Unknown Venipuncture / Unknown 11/05/2024 8:19 AM EDT 11/05/2024 8:23 AM EDT us Rommel Obrien [employer] LAB BLOOD ORDERABLES Fin al Result [facility] [address] [place] [address], * (ABNORMAL) Comprehensive metabolic panel (11/05/2024 8:19 AM EDT) SODIUM 149(H) 134 - 146 mmol/L 11/05/2024 8:50 AM EDT [facility] POTASSIUM 4.6 3.5 - 5.0 mmol/L 11/05/2024 8:50 AM EDT [facility] CHLORIDE 116(H) 98 - 109 mmol/L 11/05/2024 8:50 AM EDT [facility] CARBON DIOXIDE 20(L) 22 - 32 mmol/L 11/05/2024 8:50 AM EDT [facility] ANION GAP 13 5 - 15 mmol/L 11/05/2024 8:50 AM EDT [facility] BLOOD UREA NITROGEN 11/05/2024 8:50 AM EDT [facility] Comment:I-DH CREATININE 2.71(H) 0.70 - 1.20 mg/dL 11/05/2024 8:50 AM EDT [facility] Comment:METHOD TRACEABLE TO IDMS STANDARD GLUCOSE 145(H) 65 - 99 mg/dL 11/05/2024 8:50 AM EDT [facility] CALCIUM 8.3(L) 8.5 - 10.5 mg/dL 11/05/2024 8:50 AM EDT [facility] TOTAL PROTEIN 7.4 6.0 - 8.0 g/dL 11/05/2024 8:50 AM EDT [facility] ALBUMIN 2.8(L) 3.2 - 5.3 g/dL 11/05/2024 8:50 AM EDT [facility] ALKALINE PHOSPHATASE 71 39 - 130 U/L 11/05/2024 8:50 AM EDT [facility] AST 14 <=41 U/L 11/05/2024 8:50 AM EDT [facility] ALT 8 <=40 U/L 11/05/2024 8:50 AM EDT [facility] BILIRUBIN,TOTAL 1.6(H) 0.3 - 1.2 mg/dL 11/05/2024 8:50 AM EDT [facility] EGFR Non-Race Dependent 23(L) >=60 ml/min/1.7 3sq.m 11/05/2024 8:50 AM EDT [facility] Comment: eGFR not reported due to non-numeric value for Creatinine. Reported eGFR is based on the CKD-EPI 2020 equation that does not use a race coefficient. Blood Venous blood / Unknown Venipuncture / Unknown 11/05/2024 8:19 AM EDT 11/05/2024 8:23 AM EDT us Rommel Obrien [employer] LAB BLOOD ORDERABLES Fin al Result Performing Organization Address City/[facility]/ZIP Co de Phone Number [facility] [address] [place] [address], * Extra Urine [place] (11/05/2024 2:32 AM EDT) Extra Tube Auto Resulted 11/05/2024 4:02 AM EDT [facility] Urine Urine specimen collection, clean catch / Unknown 11/05/2024 2:32 AM EDT 11/05/2024 2:53 AM EDT us Saba Cox [employer] URINE ORDERABLES Final Res ult [address] [place] [address], [place] * Extra Urine Culture (11/05/2024 2:32 AM EDT) Extra Tube Auto Resulted 11/05/2024 4:02 AM EDT [facility] Urine Urine specimen collection, clean catch / Unknown 11/05/2024 2:32 AM EDT 11/05/2024 2:53 AM EDT us Saba Cox [employer] URINE ORDERABLES Final Res ult Performing Organization Address [facility] Co de Phone Number [address] [place] [address], [place] * Extra Urine (11/05/2024 2:32 AM EDT) Extra Tube Auto Resulted 11/05/2024 4:02 AM EDT [facility] Urine Urine specimen collection, clean catch / Unknown 11/05/2024 2:32 AM EDT 11/05/2024 2:53 AM EDT us Saba Cox [employer] URINE ORDERABLES Final Res ult Performing Organization Address [facility] de Phone Number [address] [place] [address], [place] * Lactate (11/04/2024 10:51 PM EDT) LACTATE 1.4 0.4 - 2.0 mmol/L 11/04/2024 11:11 PM EDT [facility] Blood Venous blood / Unknown Venipuncture / Unknown 11/04/2024 10:51 PM EDT 11/04/2024 10:53 PM EDT Saba Cox [employer] LAB BLOOD ORDERABLES Final Result Performing Organization Address City/[facility] Co de Phone Number [place] [id number] [place] [address], [place] * CT abdomen and pelvis without contrast (11/04/2024 9:14 PM EDT) Anatomical Region Laterality Modality Body, Abdomen, Body Covera N/A Compu gregory Tomography 11/04/2024 9:37 PM EDT Narrative 11/04/2024 9:[address] ABDOMEN AND PELVIS WO CONT: 11/04/2024 PROVIDED HISTORY: * 84 years old Male * weakness COMPARISON: 09/26/2024 TECHNIQUE: 1. Multiple axial images of the abdomen and pelvis were obtained. No intravenous contrast was administered. 2. All CT scans at this facility use dose modulation, iterative reconstruction, and/or weight based dosing when appropriate to reduce radiation dose to as low as reasonably achievable. FINDINGS: The lack of intravenous contrast limits evaluation of the solid abdominal organs. Motion degraded examination. LOWER THORAX: Please refer to separately dictated CT chest for intrathoracic findings. ABDOMEN/PELVIS: No acute process of the liver, spleen, adrenals, pancreas (fatty infiltration). Nondistended gallbladder without radiopaque stones. No abnormal biliary tree caliber. Asymmetrically enlarged and heterogenous appearance of the left kidney, similar to prior. Extensive left perirenal fat infiltration. Asymmetrically increased caliber of the left ureter with questionable soft tissue thickening extending to the mid/distal ureter prior to the ureterovesical junction, increased from prior. Asymmetrically decreased caliber of the left renal vein. Right kidney with scattered nonobstructing calculi in multifocal parenchymal contour abnormalities as well as renal cortical cysts, similar to more completely evaluated on prior CT urogram. No evidence of right hydroureteronephrosis. Layering calculi along the right ureteral orifice. Urinary bladder with asymmetric bowel wall thickening. Enlarged prostate with scattered calcifications. Rectal fecalith measuring up to 7.8 cm with mild perirectal inflammatory changes. Colonic diverticulosis without evidence of acute diverticulitis. Remainder the bowel without evidence of abnormal caliber. Terminal ileum within normal limits for technique. Candidate appendix without abnormal dilation. 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 No free air, free fluid. Increased overall number of upper abdominal and periaortic lymph nodes, though not definitively abnormal by CT size criteria/morphology. Multilevel degenerative changes of the spine. Degenerative changes of the hips, symphysis pubis. No suspicious osseus lesions. IMPRESSION: 1. Heterogenous appearance of the enlarged left kidney with asymmetric soft tissue enlargement of the left ureter and questionably left renal vein, progressed from prior, as described. Differential includes infectious/inflammatory process, with underlying neoplasm not excluded by noncontrast technique. 2. Asymmetric urinary bladder wall thickening with prostatomegaly, possibly sequelae of chronic outlet obstruction, though underlying neoplastic process not excluded. 3. 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 2 year follow-up CTA/MRA may be of diagnostic value. 4. Remainder of chronic findings, as described. Marlon Hall, et al. Managing Incidental Findings on Abdominal and Pelvic CT and MRI, Part 2: White Paper of the ACR Incidental Findings Committee II on Vascular Findings. J Am Cherie Radiol 2013;10:789-794. Finalized by Justin Hawthorne MD on 11/04/2024 9:54 PM Procedure Note Justin Hawthorne MD - 11/04/2024 CT ABDOMEN AND PELVIS WO CONT: 11/04/2024 PROVIDED HISTORY: * 84 years old Male * weakness COMPARISON: 09/26/2024 TECHNIQUE: 1. Multiple axial images of the abdomen and pelvis were obtained. Nointravenous contrast was administered. 2. All CT scans at this facility use dose modulation, iterativereconstruction, and/or weight based dosing when appropriate to reduceradiation dose to as low as reasonably achievable. FINDINGS: The lack of intravenous contrast limits evaluation of the solid abdominalorgans. Motion degraded examination. LOWER THORAX: Please refer to separately dictated CT chest for intrathoracic findings. ABDOMEN/PELVIS: No acute process of the liver, spleen, adrenals, pancreas (fattyinfiltration). Nondistended gallbladder without radiopaque stones. No abnormal biliarytree caliber. Asymmetrically enlarged and heterogenous appearance of the left kidney,similar to prior. Extensive left perirenal fat infiltration.Asymmetrically increased caliber of the left ureter with questionable softtissue thickening extending to the mid/distal ureter prior to theureterovesical junction, increased from prior. Asymmetrically decreased caliber of the left renalvein. Right kidney with scattered nonobstructing calculi in multifocalparenchymal contour abnormalities as well as renal cortical cysts, similarto more completely evaluated on prior CT urogram. No evidence of righthydroureteronephrosis. Layering calculi along the right ureteral orifice.Urinary bladder with asymmetric bowel wall thickening. Enlarged prostate with scatteredcalcifications. Rectal fecalith measuring up to 7.8 cm with mild perirectal inflammatorychanges. Colonic diverticulosis without evidence of acute diverticulitis.Remainder the bowel without evidence of abnormal caliber. Terminal ileumwithin normal limits for technique. Candidate appendix without abnormal dilation. Aneurysmal abdominal aorta measuring up to 3.4 cm at the diaphragmatichiatus with multifocal regions of luminal irregularity throughout itscourse extending to the iliac bifurcation with associated severeatherosclerotic changes throughout, similar to prior. No free air, free fluid. Increased overall number of upper abdominal andperiaortic lymph nodes, though not definitively abnormal by CT sizecriteria/morphology. Multilevel degenerative changes of the spine. Degenerative changes of thehips, symphysis pubis. No suspicious osseus lesions. IMPRESSION: 1. Heterogenous appearance of the enlarged left kidney with asymmetricsoft tissue enlargement of the left ureter and questionably left renalvein, progressed from prior, as described. Differential includesinfectious/inflammatory process, with underlying neoplasm not excluded bynoncontrast technique. 2. Asymmetric urinary bladder wall thickening with prostatomegaly,possibly sequelae of chronic outlet obstruction, though underlyingneoplastic process not excluded. 3. 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 2year follow-up CTA/MRA may be of diagnostic value. 4. Remainder of chronic findings, as described. Marlon F, et al. Managing Incidental Findings on Abdominal and Pelvic CTand MRI, Part 2: White Paper of the ACR Incidental Findings Committee IIon Vascular Findings. J Am Cherie Radiol 2013;10:789-794. Finalized by Justin Hawthorne MD on 11/04/2024 9:54 PM us Saba Cox WEEKEND RECEPTIONIST-BORDER GUARD IMG CT ORDERABLES Final Re sult * CT chest without contrast (11/04/2024 9:14 PM EDT) Anatomical Region Laterality Modality Body, Lung, Chest, Body Covera N/A C omputed Tomography 11/04/2024 9:36 PM EDT Narrative 11/04/2024 9:40 PM EDT EXAM: CT CHEST WITHOUT CONTRAST CLINICAL INFORMATION: weakness. TECHNIQUE: CT chest was performed utilizing 5 mm axial reconstructions without contrast. Coronal and sagittal reformatted images were obtained and reviewed. Automated exposure control was utilized. Computer aided detection for pulmonary nodules was performed utilizing [employer] software. COMPARISON: CT dated 07/11/2024, single view chest dated 11/04/2024 FINDINGS: There are changes of centrilobular emphysema with chronic scarring in both lungs. Stable chronic benign middle lobe nodule. There is also a benign calcified middle lobe granuloma. There are no focal consolidations. There are no pleural or pericardial effusions. There are no enlarged or pathologic-appearing thoracic lymph nodes. There scattered atherosclerotic calcifications throughout a normal diameter thoracic aorta. There are mild coronary artery calcifications. Again seen are right diaphragmatic calcified pleural plaques, most commonly seen in the setting of previous asbestos exposure. IMPRESSION: 1. Redemonstration of centrilobular emphysema with chronic scarring in both lungs and chronic benign nodules. There is no convincing evidence for superimposed acute cardiopulmonary disease. 2. Chronic and incidental CT findings, as above. 3. Please see separate dictation of the dedicated CT of the abdomen and pelvis. All CT scans at this facility use dose modulation, iterative reconstruction, and/or weight based dosing when appropriate to reduce radiation dose to as low as reasonably achievable. Finalized by Luke Stokes MD on 11/04/2024 9:40 PM Procedure Note Luke Stokes MD - 11/04/2024 EXAM: CT CHEST WITHOUT CONTRAST CLINICAL INFORMATION: weakness. TECHNIQUE: CT chest was performed utilizing 5 mm axial reconstructionswithout contrast. Coronal and sagittal reformatted images were obtainedand reviewed. Automated exposure control was utilized. Computer aideddetection for pulmonary nodules was performed utilizing [employer]. COMPARISON: CT dated 07/11/2024, single view chest dated 11/04/2024 FINDINGS: There are changes of centrilobular emphysema with chronic scarring in bothlungs. Stable chronic benign middle lobe nodule. There is also a benigncalcified middle lobe granuloma. There are no focal consolidations. Thereare no pleural or pericardial effusions. There are no enlarged or pathologic-appearing thoracic lymph nodes. There scattered atheroscleroticcalcifications throughout a normal diameter thoracic aorta. There are mildcoronary artery calcifications. Again seen are right diaphragmaticcalcified pleural plaques, most commonly seen in the setting of previousasbestos exposure. IMPRESSION: 1. Redemonstration of centrilobular emphysema with chronic scarring inboth lungs and chronic benign nodules. There is no convincing evidence forsuperimposed acute cardiopulmonary disease. 2. Chronic and incidental CT findings, as above. 3. Please see separate dictation of the dedicated CT of the abdomen andpelvis. All CT scans at this facility use dose modulation, iterativereconstruction, and/or weight based dosing when appropriate to reduceradiation dose to as low as reasonably achievable. Finalized by Luke Stokes MD on 11/04/2024 9:40 PM Saba Cox WEEKEND RECEPTIONIST-BORDER GUARD IMG CT ORDERABLES Final Re sult * (ABNORMAL) Troponin I, High Sensitivity 1 Hour (11/04/2024 7:52 PM EDT) TROPONIN I, HIGH SENSITIVITY 71(H) <21 ng/L 11/04/2024 8:29 PM EDT [facility] Blood Venous blood / Unknown Venipuncture / Unknown 11/04/2024 7:52 PM EDT 11/04/2024 7:58 PM EDT Narrative [facility] - 11/04/2024 8:29 PM EDT Elevations of hs-Troponin may be due to causes other than myocardial ischemia. Recommend serial hs-Troponin testing be performed. For the initial evaluation and management of chest pain patients, refer to the algorithms linked below. Emergency Patient: [email or web address]: [email or web address] us Saba Cox WEEKEND RECEPTIONIST-BORDER GUARD LAB BLOOD ORDERABLES Final Result [facility] [address] [place] [address], [place] * X-ray chest 1 view (11/04/2024 6:55 PM EDT) Anatomical Region Laterality Modality Body, Chest N/A Computed Radiogr aphy 11/04/2024 6:58 PM EDT Narrative 11/04/2024 6:59 PM EDT HISTORY: An 84-year-old male with a history of the shortness of breath. EXAMINATION: CHEST: Portable upright AP view COMPARISON: Comparison is made with the chest radiograph of the 09/22/2024. FINDINGS: Both lungs are hyperinflated with evidence of emphysema and COPD. Chronic changes are seen in the left mid lung field. No evidence of pneumonic infiltrates or pleural effusions. No pneumothorax is identified. The cardiac silhouette is within normal limits. The trachea is in midline. The mediastinum is otherwise unremarkable. The hemidiaphragms are normal in position. The bony rib cage is intact. IMPRESSION: * Severe emphysema and COPD and chronic changes in the left mid lung field. * No evidence of pulmonary infiltrate or acute pulmonary pathology or significant interval change. Finalized by Mario Moran MD on 11/04/2024 6:59 PM Procedure Note Mario Moran MD - 11/04/2024 HISTORY: An 84-year-old male with a history of the shortness of breath. EXAMINATION: CHEST: Portable upright AP view COMPARISON: Comparison is made with the chest radiograph of the09/22/2024. FINDINGS: Both lungs are hyperinflated with evidence of emphysema andCOPD. Chronic changes are seen in the left mid lung field. No evidence ofpneumonic infiltrates or pleural effusions. No pneumothorax isidentified. The cardiac silhouette is within normal limits. The trachea is in midline.The mediastinum is otherwise unremarkable. The hemidiaphragms are normal in position. The bony rib cage is intact. IMPRESSION: * Severe emphysema and COPD and chronic changes in the left mid lungfield. * No evidence of pulmonary infiltrate or acute pulmonary pathology orsignificant interval change. Finalized by Mario Moran MD on 11/04/2024 6:59 PM Saba ESQUEDA IM DIAGNOSTIC IMAGING ORD ERABLES Final Result * (ABNORMAL) Troponin I, High Sensitivity 0 Hour (11/04/2024 6:48 PM EDT) TROPONIN I, HIGH SENSITIVITY 83(H) <21 ng/L 11/04/2024 7:19 PM EDT [facility] Blood Venous blood / Unknown Venipuncture / Unknown 11/04/2024 6:48 PM EDT 11/04/2024 6:50 PM EDT Saba Cox APRNDAVIS LAB BLOOD ORDERABLES Final Result Performing Organization Address [facility] Co de Phone Number [address] [address], [place] * (ABNORMAL) Myoglobin, serum (11/04/2024 6:48 PM EDT) SERUM MYOGLOBIN 132.5(H) 17.4 - 105.7 ng/mL 11/04/2024 7:24 PM EDT [facility] Blood Venous blood / Unknown Venipuncture / Unknown 11/04/2024 6:48 PM EDT 11/04/2024 6:50 PM EDT Saba Cox APRNBORDER GUARD LAB BLOOD ORDERABLES Final Result Performing Organization Address [facility] Co de Phone Number [address] [address], [place] * CK Total (11/04/2024 6:48 PM EDT) CPK 33 24 - 195 U/L 11/04/2024 7:24 PM EDT [facility] Blood Venous blood / Unknown Venipuncture / Unknown 11/04/2024 6:48 PM EDT 11/04/2024 6:50 PM EDT Saba Cox WEEKEND RECEPTIONIST-[facility] LAB BLOOD ORDERABLES Final Result Performing Organization Address [facility] Co de Phone Number [address] [place] [address], [place] * (ABNORMAL) Magnesium (11/04/2024 6:48 PM EDT) MAGNESIUM 3.1(H) 1.8 - 2.6 mg/dL 11/04/2024 7:24 PM EDT [facility] Blood Venous blood / Unknown Venipuncture / Unknown 11/04/2024 6:48 PM EDT 11/04/2024 6:50 PM EDT us Saba Cox WEEKEND RECEPTIONIST[facility] LAB BLOOD ORDERABLES Final Result Performing Organization Address [facility] Co de Phone Number [address] [place] [address], [place] * (ABNORMAL) Lactate w/ Reflex (11/04/2024 6:48 PM EDT) LACTATE W/REFLEX 2.1(H) 0.4 - 2.0 mmol/L 11/04/2024 7:08 PM EDT [facility] Blood Venous blood / Unknown Venipuncture / Unknown 11/04/2024 6:48 PM EDT 11/04/2024 6:50 PM EDT us Saba Cox WEEKEND RECEPTIONIST-[facility] LAB BLOOD ORDERABLES Final Result Performing Organization Address City/[facility] Co de Phone Number [address] [place] [address], [place] * (ABNORMAL) APTT (11/04/2024 6:48 PM EDT) APTT 40(H) 26 - 37 sec 11/04/2024 7:15 PM EDT [facility] Blood Venous blood / Unknown Venipuncture / Unknown 11/04/2024 6:48 PM EDT 11/04/2024 6:50 PM EDT us Saba Cox WEEKEND RECEPTIONIST-BORDER GUARD LAB BLOOD ORDERABLES Final Result Performing Organization Address [facility] Co de Phone Number [address] [place] [address], [place] * (ABNORMAL) Protime & INR (11/04/2024 6:48 PM EDT) PROTIME 15.1(H) 9.8 - 13.2 sec 11/04/2024 7:15 PM EDT [facility] INR 1.3(H) 0.9 - 1.2 11/04/2024 7:15 PM EDT [facility] Blood Venous blood / Unknown Venipuncture / Unknown 11/04/2024 6:48 PM EDT 11/04/2024 6:50 PM EDT us Saba Cox WEEKEND RECEPTIONIST-BORDER GUARD LAB BLOOD ORDERABLES Final Result Performing Organization Address [facility] Phone Number [address] [place] [address], [place] * (ABNORMAL) D-Dimer (11/04/2024 6:48 PM EDT) D DIMER 3,228(H) 1 - 255 ug/mL 11/04/2024 7:15 PM EDT [facility] Comment:Results >255 ng/mL D DU: Results may be indicative of the presence of VTE. The use of the Wells score and further diagnostic tests should be considered. Elevated D-Dimer levels can be associated with DIC, neoplasm, , trauma and liver disease. Elevated levels of rheumatoid factor may lead to an overestimation of the D-Dimer level. Blood Venous blood / Unknown Venipuncture / Unknown 11/04/2024 6:48 PM EDT 11/04/2024 6:50 PM EDT us Saba Cox WEEKEND RECEPTIONIST-BORDER GUARD LAB BLOOD ORDERABLES Final Result [facility] [address] [place] [address], [place] * (ABNORMAL) Comprehensive metabolic panel (11/04/2024 6:48 PM EDT) SODIUM 153(H) 134 - 146 mmol/L 11/04/2024 7:39 PM EDT [facility] POTASSIUM 5.2(H) 3.5 - 5.0 mmol/L 11/04/2024 7:39 PM EDT [facility] CHLORIDE 116(H) 98 - 109 mmol/L 11/04/2024 7:39 PM EDT [facility] CARBON DIOXIDE 22 22 - 32 mmol/L 11/04/2024 7:39 PM EDT [facility] ANION GAP 15 5 - 15 mmol/L 11/04/2024 7:39 PM EDT [facility] BLOOD UREA NITROGEN 112(H) 5 - 27 mg/dL 11/04/2024 7:39 PM EDT [facility] CREATININE 2.93(H) 0.70 - 1.20 mg/dL 11/04/2024 7:39 PM EDT [facility] Comment:METHOD TRACEABLE TO IDMS STANDARD GLUCOSE 126(H) 65 - 99 mg/dL 11/04/2024 7:39 PM EDT [facility] CALCIUM 9.6 8.5 - 10.5 mg/dL 11/04/2024 7:39 PM EDT [facility] TOTAL PROTEIN 9.5(H) 6.0 - 8.0 g/dL 11/04/2024 7:39 PM EDT [facility] ALBUMIN 3.7 3.2 - 5.3 g/dL 11/04/2024 7:39 PM EDT [facility] ALKALINE PHOSPHATASE 91 39 - 130 U/L 11/04/2024 7:39 PM EDT [facility] AST 13 <=41 U/L 11/04/2024 7:39 PM EDT [facility] ALT 7 <=40 U/L 11/04/2024 7:39 PM EDT [facility] BILIRUBIN,TOTAL 1.5(H) 0.3 - 1.2 mg/dL 11/04/2024 7:39 PM EDT [facility] EGFR Non-Race Dependent 21(L) >=60 ml/min/1.7 3sq.m 11/04/2024 7:39 PM EDT [facility] Comment: eGFR not reported due to non-numeric value for Creatinine. Reported eGFR is based on the CKD-EPI 2020 equation that does not use a race coefficient. Blood Venous blood / Unknown Venipuncture / Unknown 11/04/2024 6:48 PM EDT 11/04/2024 6:50 PM EDT us Saba Cox WEEKEND RECEPTIONIST-BORDER GUARD LAB BLOOD ORDERABLES Final Result [facility] [address] [place] [address], * (ABNORMAL) CBC auto differential (11/04/2024 6:48 PM EDT) WBC 10.7 4 - 11 x10E9/L 11/04/2024 7:35 PM EDT [facility] RBC Count 4.80 4.1 - 5.7 X10E12/L 11/04/2024 7:35 PM EDT [facility] Hemoglobin 12.6(L) 13 - 17 g/dL 11/04/2024 7:35 PM EDT [facility] Hematocrit 39.8 39 - 50 % 11/04/2024 7:35 PM EDT [facility] MCV 83 80 - 100 fL 11/04/2024 7:35 PM EDT [facility] MCH 26.3(L) 27 - 34 pg 11/04/2024 7:35 PM EDT [facility] MCHC 31.6(L) 32 - 36 g/dL 11/04/2024 7:35 PM EDT [facility] RDW 21.1(H) 11.5 - 15 % 11/04/2024 7:35 PM EDT [facility] Platelet Count 263 150 - 450 X10E9/L 11/04/2024 7:35 PM EDT [facility] MPV 10.3 7 - 12 fL 11/04/2024 7:35 PM EDT [facility] Bands % 2 % 11/04/2024 7:35 PM EDT [facility] Comment:This is an appended report. These results have been appended to a previously preliminary verified report. Neutrophils % 76 % 11/04/2024 7:35 PM EDT [facility] Comment:This is an appended report. These results have been appended to a previously preliminary verified report. Lymphocytes % 8 % 11/04/2024 7:35 PM EDT [facility] Comment:This is an appended report. These results have been appended to a previously preliminary verified report. Monocytes % 14 % 11/04/2024 7:35 PM EDT [facility] Comment:This is an appended report. These results have been appended to a previously preliminary verified report. Neutrophils Absolute (M) 8.3(H) 1.5 - 6.6 10*3/uL 11/04/2024 7:35 PM EDT [facility] Comment:This is an appended report. These results have been appended to a previously preliminary verified report. Lymphocytes Absolute 0.9(L) 1.0 - 3.5 10*3/uL 11/04/2024 7:35 PM EDT [facility] Comment:This is an appended report. These results have been appended to a previously preliminary verified report. Monocytes Absolute 1.5(H) 0.0 - 0.9 10*3/uL 11/04/2024 7:35 PM EDT [facility] Comment:This is an appended report. These results have been appended to a previously preliminary verified report. RBC Morphology Reviewed 11/04/2024 7:35 PM EDT [facility] Comment:This is an appended report. These results have been appended to a previously preliminary verified report. Differential Type MANUAL DIFFERENTIAL 11/04/2024 7:35 PM EDT [facility] Comment:This is an appended report. These results have been appended to a previously preliminary verified report. Blood Venous blood / Unknown Venipuncture / Unknown 11/04/2024 6:48 PM EDT 11/04/2024 6:50 PM EDT us Saba Cox WEEKEND RECEPTIONIST-BORDER GUARD LAB BLOOD ORDERABLES Final Result Performing Organization Address City/State/[facility] Co de Phone Number [facility] [address] [place] [address], * Critical Care (11/04/2024 6:44 PM EDT) Narrative Sukhi Woods MD - 11/04/2024 6:44 PM EDT Sukhi Woods MD 11/04/2024 11:35 PM Critical Care Performed by: Sukhi Woods MD Authorized by: Sukhi Woods MD Critical care provider statement: Critical care time (minutes): 30 Critical care was necessary to treat or prevent imminent or life-threatening deterioration of the following conditions: Metabolic crisis, dehydration and renal failure Critical care was time spent personally by me on the following activities: Blood draw for specimens, development of treatment plan with patient or surrogate, discussions with consultants, evaluation of patient's response to treatment, obtaining history from patient or surrogate, ordering and performing treatments and interventions, ordering and review of laboratory studies, ordering and review of radiographic studies, pulse oximetry, re-evaluation of patient's condition and review of old charts I assumed direction of critical care for this patient from another provider in my specialty: no Care discussed with: admitting provider us Sukhi Woods MD PROCEDURE/MINOR SURGICAL ORDERA BLES Final Result * ECG 12 lead (11/04/2024 6:41 PM EDT) 11/04/2024 6:41 PM EDT Narrative [facility] - 11/04/2024 7:58 PM EDT Saba Cox WEEKEND RECEPTIONIST-BORDER GUARD ECG ORDERABLES Final Resu lt FLORENCIO documented in this encounter Visit Diagnoses Diagnosis Acute deep vein thrombosis of calf, bilateral (CMS-HCC)- Primary Dehydration with hypernatremia Hyperosmolality and/or hypernatremia SUSAN (acute kidney injury) Goals of care, counseling/discussion Acute cystitis with hematuria Stage 4 chronic kidney disease (CMS-HCC) Dehydration with hypernatremia Hyperosmolality and/or hypernatremia Gastroesophageal reflux disease Esophageal reflux Hyperlipidemia Other and unspecified hyperlipidemia Acquired hypothyroidism Unspecified hypothyroidism Hypomagnesemia Disorders of magnesium metabolism Severe protein-calorie malnutrition Other severe protein-calorie malnutrition Primary hypertension Unspecified essential hypertension AMS (altered mental status) Stage 4 chronic kidney disease (CMS-HCC) 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) Hydroureteronephrosis- Primary Hydronephrosis Gross hematuria Gross hematuria Hydroureteronephrosis Hydronephrosis documented in this encounter Admitting Diagnoses Diagnosis Dehydration with hypernatremia Hyperosmolality and/or hypernatremia AMS (altered mental status) documented in this encounter Administered Medications Inactive Administered Medications - up to 3 most recent administrations Medication Order MAR Action Action Date Dose Rate Site acetaminophen (OFIRMEV) IVPB Premix 1,000 mg 1,000 mg, intravenous, at 400 mL/hr, Administer over 15 Minutes, Every 6 hours PRN, mild pain - pain scale 1-3, moderate pain - pain scale 4-6, headaches, temperature greater than 38 C, Starting on 11/06/24 at 1243, For 24 hours Rate/Dose Verify 11/07/2024 1:54 PM EDT 400 mL/hr New Bag 11/07/2024 1:52 PM EDT 1,000 mg 400 mL/hr acetaminophen (OFIRMEV) IVPB Premix 1,000 mg 1,000 mg, intravenous, at 400 mL/hr, Administer over 15 Minutes, Every 6 hours PRN, mild pain - pain scale 1-3, moderate pain - pain scale 4-6, headaches, Starting on Fri11/08/24 at 2220, For 24 hours New Bag 11/09/2024 4:21 PM EDT 1,000 mg 400 mL/hr New Bag 11/08/2024 11:03 PM EDT 1,000 mg 400 mL/hr alum-mag hydroxide-simeth (MAALOX) 200-200-20 mg/5 mL suspension 30 mL 30 mL, oral, 4 times daily after meals and at bedtime as needed, dyspepsia, Starting on Fri11/05/24 at 0026, Look-alike/sound-alike medication - verify indication for use. Nik smith., Indications: dyspepsiaIndications:dyspepsia apixaban (ELIQUIS) tablet 10 mg 10 mg, oral, 2 times daily, First dose on Fri11/10/24 at 1030, For 7 days, For VTE treatment (DVT, PE), Indication: Acute VTE Treatment Given 11/11/2024 9:21 PM EDT 1 0 mg Given 11/11/2024 9:22 AM EDT 10 mg Given 11/10/2024 10:07 PM EDT 10 mg apixaban (ELIQUIS) tablet 5 mg 5 mg, oral, 2 times daily, First dose on Fri11/17/24 at 0900, For VTE treatment (DVT, PE), Indication: Acute VTE Treatment barium sulfate (VARIBAR HONEY) 40 % (w/v) 29% (w/w) suspension 60 mL 60 mL, oral, Once in imaging, contrast, barium sulfate (VARIBAR HONEY) 40 % (w/v) 29% (w/w) suspension, Starting on Fri11/09/24 at 1216, For 1 dose barium sulfate (VARIBAR NECTAR) 40 % (w/v) suspension 10 mL 10 mL, oral, Once in imaging, contrast, barium sulfate (VARIBAR NECTAR) 40 % (w/v) suspension, Starting on Fri11/09/24 at 1216, For 1 dose barium sulfate (VARIBAR PUDDING) 40 % (w/v), 30% (w/w) oral paste 60 mL 60 mL, oral, Once in imaging, contrast, barium sulfate (VARIBAR PUDDING) 40 % (w/v), 30% (w/w) oral paste, Starting on Fri11/09/24 at 1216, For 1 dose Given 11/09/2024 12:24 PM EDT 60 mL barium sulfate (VARIBAR THIN HONEY) 40 %(w/v), 29% (w/w)(1500 CPS) suspension 20 mL 20 mL, oral, Once in imaging, contrast, Radiology, Starting on Fri11/09/24 at 1216, For 1 dose barium sulfate (VARIBAR THIN) 81 % (w/w) powder 148 g 148 g, oral, Once in imaging, contrast, barium sulfate (VARIBAR THIN) 40 % (w/v) powder, Starting on Fri11/09/24 at 1216, For 1 dose Given 11/09/2024 12:24 PM EDT 148 g bisacodyL (DULCOLAX) suppository 10 mg 10 mg, rectal, Once, On Fri11/10/24 at 1315, For 1 dose, Look-alike/sound-alike medication - verify indication for use. Given 11/10/2024 3:17 PM EDT 10 mg cefEPime (MAXIPIME) IVPB 1000 mg/50 mL in dextrose 5% duplex (20 mg/mL premix) 1,000 mg, intravenous, at 12.5 mL/hr, Administer over 4 Hours, Every 24 hours, First dose on 11/06/24 at 0600, Indication: Skin and soft tissue infection New Bag 11/06/2024 5:48 AM EDT 1,000 mg 12.5 mL/hr cefEPime (MAXIPIME) IVPB 1000 mg/50 mL in dextrose 5% duplex (20 mg/mL premix) 1,000 mg, intravenous, at 12.5 mL/hr, Administer over 4 Hours, Every 12 hours, First dose (after last modification) on 11/06/24 at 1800, Indication: Skin and soft tissue infection New Bag 11/10/2024 6:12 AM EDT 1,000 mg 12.5 mL/hr New Bag 11/09/2024 5:41 PM EDT 1,000 mg 12.5 mL/hr Rate/Dose Verify 11/09/2024 6:03 AM EDT 12.5 mL /hr CEPHalexin (KEFLEX) capsule 500 mg 500 mg, oral, Every 8 hours scheduled, First dose on Fri11/10/24 at 1400, Look-alike/sound-alike medication - verify indication for use., Indication: Skin and soft tissue infection Given 11/11/2024 6:21 AM EDT 500 mg Given 11/10/2024 10:07 PM EDT 500 mg Given 11/10/2024 3:17 PM EDT 500 mg chlorhexidine (PERIDEX) 0.12 % solution 15 mL 15 mL, mouth/throat, 2 times daily, First dose on 11/06/24 at 1245, Swish undiluted for 30 seconds, then spit. Given 11/10/2024 10:05 PM EDT 15 mL Given 11/09/2024 9:48 PM EDT 15 mL Given 11/09/2024 8:44 AM EDT 15 mL dextrose 5 % (D5W) infusion 75 mL/hr, intravenous, Continuous, Starting on Angela 11/04/24 at 2217, For 12 hours Rate/Dose Verify 11/05/2024 5:37 AM EDT 75 mL/hr Rate/Dose Verify 11/05/2024 4:37 AM EDT 75 mL/h r Restarted 11/05/2024 4:37 AM EDT 75 mL/hr 75 mL/hr dextrose 5 % (D5W) infusion 75 mL/hr, intravenous, Continuous, Starting on Fri11/05/24 at 1500, For 12 hours Rate/Dose Verify 11/05/2024 8:04 PM EDT 75 mL/hr Rate/Dose Verify 11/05/2024 8:03 PM EDT 75 mL/h r New Bag 11/05/2024 4:06 PM EDT 75 mL/hr 75 mL/hr dextrose 5 % (D5W) infusion 75 mL/hr, intravenous, Continuous, Starting on 11/06/24 at 0400, For 12 hours New Bag 11/06/2024 5:33 AM EDT 75 mL/hr 75 mL/hr dextrose 5 % (D5W) infusion 50 mL/hr, intravenous, Continuous, Starting on Fri11/07/24 at 1115, For 1 day Rate/Dose Verify 11/08/2024 6:34 AM EDT 50 mL/hr Rate/Dose Verify 11/08/2024 5:21 AM EDT 50 mL/h r Restarted 11/08/2024 5:21 AM EDT 50 mL/hr 50 mL/hr dextrose 5 % (D5W) infusion 100 mL/hr, intravenous, Continuous, Starting on Fri11/08/24 at 0915, For 2 days New Bag 11/09/2024 5:42 PM EDT 100 mL/hr 100 mL/hr Rate/Dose Verify 11/09/2024 6:03 AM EDT 100 mL/ hr New Bag 11/09/2024 3:11 AM EDT 100 mL/hr 100 mL/hr dextrose 5 % (D5W) infusion 75 mL/hr, intravenous, Continuous, Starting on Fri11/08/24 at 1030, For 1 day Rate/Dose Change 11/08/2024 10:30 AM EDT 75 mL/hr 75 mL/hr dextrose 5 % and sodium chloride 0.9 % infusion 75 mL/hr, intravenous, Continuous, Starting on Fri11/06/24 at 2300, For 1 day Restarted 11/07/2024 9:50 AM EDT 75 mL/hr Rate/Dose Verify 11/07/2024 9:25 AM EDT 75 mL/h r Rate/Dose Verify 11/07/2024 9:17 AM EDT 75 mL/h r diatrizoate meglumine & sodium (GASTROGRAFIN,GASTROVIEW) 66-10 % solution 120 mL 120 mL, oral, Once in imaging, contrast, diatrizoate meglumine & sodium (GASTROGRAFIN) 66-10 % solution, Starting on Fri11/10/24 at 1422, For 1 dose Given 11/10/2024 2:33 PM EDT 120 mL heparin (porcine) injection 5,000 Units 5,000 Units, subcutaneous, Every 8 hours scheduled, First dose on Fri11/05/24 at 0600, Notify prescriber if INR greater than 1.9, hemoglobin less than 10 mg/dL, aPTT greater than 40 seconds, and/or platelet count less than 100,000/mm Look-alike/sound-alike medication - verify indication for use. Observe for bleeding. Given 11/06/2024 5:31 AM EDT 5,000 Units Abdominal Tissue Given 11/05/2024 2:37 PM EDT 5,000 Units A bdominal Tissue heparin (porcine) injection 5,000 Units 5,000 Units, intravenous, As needed, for Anti-Xa less than 0.2 IU/mL, Starting on Fri11/09/24 at 1443, Look-alike/sound-alike medication - verify indication for use. Observe for bleeding. Given 11/09/2024 7:20 PM EDT 5,000 Units heparin infusion 02263 units/500 mL in 0.45% NaCl (50 units/mL premix) 300-3,500 Units/hr (6-70 mL/hr), intravenous, Continuous, Starting on 11/06/24 at 1245, Please titrate from initial infusion rate listed above. MAXIMUM Initial Infusion: 2100 units/hr Heparin High-Intensity Infusion (Non-Cardiology) Heparin Adjustment Table: Anti-Xa Therapeutic Goal: 0.3 - 0.7 IU/mL Anti-Xa results (IU/mL): Anti-Xa every 6 hours after dosage adjustment until therapeutic x 2 then every AM -less than 0.2 IU/mL: bolus 5000 units, increase rate by 150 units/hr (3 mL/hr), next Anti-Xa in 6 hrs. -0.2 - 0.29 IU/mL: increase rate by 100 units/hr (2 mL/hr), next Anti-Xa in 6 hours. -Notify provider if: Anti-Xa less than 0.3 IU per mL for 2 consecutive results. -0.3 - 0.7 IU/mL: Therapeutic level: next Anti-Xa in 6 hours then every AM. -0.71 - 0.8 IU/mL: decrease rate by 50 units/hr (1 mL/hr), next Anti-Xa in 6 hours. -0.81 - 1.6 IU/mL : stop infusion for 30 minutes, decrease rate by 100 units/hr (2 mL/hr), next Anti-Xa in 6 hours. -1.61 - 2 IU/mL: stop infusion for 60 minutes, decrease rate by 150 units/hr (3 mL/hr), next Anti-Xa in 6 hours. - Greater than 2 IU/mL: stop infusion for 90 minutes, decrease rate by 250 units/hr (5 mL/hr), next Anti-Xa in 6 hours. -Notify provider if: Platelet count less than 100,000/mm3 or less than or equal to 50% of baseline. Monitor for signs of bleeding. Look-alike/sound-alike medication - verify indication for use., Indication: DVT, INITIAL Infusion Dose (Units/hr): 1150 units/hr New Bag 11/08/2024 10:13 AM EDT 1,150 Units/hr 23 mL/hr Rate/Dose Verify 11/08/2024 6:34 AM EDT 1,150 Units/hr 23 mL/hr New Bag 11/07/2024 11:29 AM EDT 1,150 Units/hr 23 mL/hr heparin infusion 65798 units/500 mL in 0.45% NaCl (50 units/mL premix) 300-3,500 Units/hr (6-70 mL/hr), intravenous, Continuous, Starting on Fri11/09/24 at 1230, Please titrate from initial infusion rate listed above. MAXIMUM initial infusion: 1000 units/hr Heparin Low Intensity Infusion (Cardiology) Heparin Adjustment Table: Anti-Xa Therapeutic Goal: 0.3 - 0.7 IU/mL Anti-Xa results (IU/mL): Ant-Xa every 6 hours after dosage adjustment until therapeutic x 2 then every AM -less than 0.1 IU/mL: bolus 2000 units, increase rate by 150 units/hr (3 mL/hr), next Anti-Xa in 6 hrs. -0.1 - 0.29 IU/mL: increase rate by 100 units/hr (2 mL/hr), next Anti-Xa in 6 hours. -Notify provider if: Anti-Xa less than 0.3 IU per mL for 2 consecutive results. -0.3 - 0.7 IU/mL: Therapeutic level: next Anti-Xa in 6 hours then every AM. -0.71 - 0.8 IU/mL: decrease rate by 50 units/hr (1 mL/hr), next Anti-Xa in 6 hours. -0.81 - 1.6 IU/mL: stop infusion for 30 minutes, decrease rate by 100 units/hr (2 mL/hr), next Anti-Xa in 6 hours. -1.61 - 2 IU/mL: stop infusion for 60 minutes, decrease rate by 150 units/hr (3 mL/hr), next Anti-Xa in 6 hours. - Greater than 2 IU/mL: stop infusion for 90 minutes, decrease rate by 250 units/hr (5 mL/hr), next Anti-Xa in 6 hours. -Notify provider if: Platelet count less than 100,000/mm3 or less than or equal to 50% of baseline Monitor for signs of bleeding. Look-alike/sound-alike medication - verify indication for use., Indication: DVT, INITIAL Infusion Dose (Units/hr): 700 units/h New Bag 11/09/2024 1:36 PM EDT 700 Units/hr 14 mL/hr heparin infusion 12597 units/500 mL in 0.45% NaCl (50 units/mL premix) 300-3,500 Units/hr (6-70 mL/hr), intravenous, Continuous, Starting on Fri11/09/24 at 1445, Please titrate from initial infusion rate listed above. MAXIMUM Initial Infusion: 2100 units/hr Heparin High-Intensity Infusion (Non-Cardiology) Heparin Adjustment Table: Anti-Xa Therapeutic Goal: 0.3 - 0.7 IU/mL Anti-Xa results (IU/mL): Anti-Xa every 6 hours after dosage adjustment until therapeutic x 2 then every AM -less than 0.2 IU/mL: bolus 5000 units, increase rate by 150 units/hr (3 mL/hr), next Anti-Xa in 6 hrs. -0.2 - 0.29 IU/mL: increase rate by 100 units/hr (2 mL/hr), next Anti-Xa in 6 hours. -Notify provider if: Anti-Xa less than 0.3 IU per mL for 2 consecutive results. -0.3 - 0.7 IU/mL: Therapeutic level: next Anti-Xa in 6 hours then every AM. -0.71 - 0.8 IU/mL: decrease rate by 50 units/hr (1 mL/hr), next Anti-Xa in 6 hours. -0.81 - 1.6 IU/mL : stop infusion for 30 minutes, decrease rate by 100 units/hr (2 mL/hr), next Anti-Xa in 6 hours. -1.61 - 2 IU/mL: stop infusion for 60 minutes, decrease rate by 150 units/hr (3 mL/hr), next Anti-Xa in 6 hours. - Greater than 2 IU/mL: stop infusion for 90 minutes, decrease rate by 250 units/hr (5 mL/hr), next Anti-Xa in 6 hours. -Notify provider if: Platelet count less than 100,000/mm3 or less than or equal to 50% of baseline. Monitor for signs of bleeding. Look-alike/sound-alike medication - verify indication for use., Indication: DVT, INITIAL Infusion Dose (Units/hr): 1100 units/hr Rate/Dose Change 11/09/2024 7:18 PM EDT 1,250 Units/hr 25 mL/hr New Bag 11/09/2024 4:11 PM EDT 1,100 Units/hr 22 mL/hr ipratropium-albuteroL (DUONEB) 0.5 mg-3 mg(2.5 mg base)/3 mL nebulizer solution 3 mL 3 mL, nebulization, 3 times daily, First dose on 11/06/24 at 1445, Implement INPATIENT/ED Bronchodilator Clinical Practice Guidelines? Yes Given 11/07/2024 3:16 PM EDT 3 mL Given 11/07/2024 7:50 AM EDT 3 mL Given 11/06/2024 8:01 PM EDT 3 mL ipratropium-albuteroL (DUONEB) 0.5 mg-3 mg(2.5 mg base)/3 mL nebulizer solution 3 mL 3 mL, nebulization, Every 6 hours PRN, wheezing, Starting on Fri11/07/24 at 1830, Implement INPATIENT/ED Bronchodilator Clinical Practice Guidelines? Yes kit for prep of [id number] 2.5 mg recon soln 5 millicurie 5 millicurie, intravenous, Once in imaging, contrast, Radiopharmaceutical, Starting on Fri11/05/24 at 0916, For 1 dose, Indications: diagnostic imagingIndications:diagnostic imaging Given 11/05/2024 9:48 AM EDT 5 millicuries linezolid (ZYVOX) tablet 600 mg 600 mg, oral, Every 12 hours scheduled, First dose on Angela 11/11/24 at 1045, For 7 days, Look-alike/sound-alike medication - verify indication for use. Food-Drug Interaction Education Required Contact dietary for special diet. Avoid foods high in tyramine content., Approved Indication: Enterococcus infection, Authorizing Service: No ID, Pulmonary, or clinical transformation specialist at hospital Given 11/11/2024 9:21 PM EDT 600 mg Given 11/11/2024 12:09 PM EDT 600 mg magnesium sulfate IVPB 2000 mg/50 mL in iso-osmotic water (40 mg/mL premix) 2,000 mg, intravenous, at 25 mL/hr, Administer over 120 Minutes, As needed, Magnesium level 1.7-1.9, Starting on Fri11/05/24 at 0026, Recheck magnesium level 4 hours after infusion complete. With each magnesium result continue the replacement orders as needed. New Bag 11/09/2024 8:43 AM EDT 2,000 mg 2 5 mL/hr magnesium sulfate IVPB 4000 mg/100 mL in iso-osmotic water (40 mg/mL premix) 4,000 mg, intravenous, at 25 mL/hr, Administer over 240 Minutes, As needed, Magnesium level 1.6 mg/dL or less, Starting on Fri11/05/24 at 0026, Recheck magnesium level 4 hours after infusion complete. With each magnesium result continue the replacement orders as needed. metroNIDAZOLE (FLAGYL) IVPB 500 mg/100 mL in iso-osmotic sodium chloride (5 mg/mL premix) 500 mg, intravenous, at 100 mL/hr, Administer over 60 Minutes, Every 12 hours, First dose on Fri11/08/24 at 1315, Look-alike/sound-alike medication - verify indication for use., Indication: Intra-abdominal New Bag 11/10/2024 1:14 AM EDT 500 mg 100 mL/hr New Bag 11/09/2024 1:31 PM EDT 500 mg 100 mL/hr New Bag 11/09/2024 1:50 AM EDT 500 mg 100 mL/hr midodrine (PROAMATINE) tablet 10 mg 10 mg, oral, 3 times daily, First dose on Fri11/05/24 at 1500, Look-alike/sound-alike medication - verify indication for use. Given 11/11/2024 9:21 PM EDT 10 m g Given 11/11/2024 1:59 PM EDT 10 mg Given 11/11/2024 6:21 AM EDT 10 mg mirtazapine (REMERON) tablet 15 mg 15 mg, oral, Nightly, First dose on Fri11/05/24 at 2200 Given 11/11/2024 9:22 PM EDT 15 mg Given 11/10/2024 10:07 PM EDT 15 mg Given 11/09/2024 9:49 PM EDT 15 mg ondansetron (PF) (ZOFRAN) injection 4 mg 4 mg, intravenous, Every 4 hours PRN, nausea, vomiting, Starting on Fri11/05/24 at 0026, Intravenous administration preferred to be given over 2-5 minutes. Given 11/10/2024 2:34 AM EDT 4 mg Given 11/08/2024 8:48 AM EDT 4 mg piperacillin-tazobactam (ZOSYN) IVPB 3.375 g/50 mL in iso-osmotic dextrose (67.5 mg/mL premix) 3.375 g, intravenous, at 100 mL/hr, Administer over 0.5 Hours, Once, On Angela 11/04/24 at 2023, For 1 dose, Indication: Sepsis Rate/Dose Verify 11/04/2024 9:09 PM EDT 100 mL/hr New Bag 11/04/2024 8:42 PM EDT 3.375 g 100 mL/hr piperacillin-tazobactam (ZOSYN) IVPB 3.375 g/50 mL in iso-osmotic dextrose (67.5 mg/mL premix) 3.375 g, intravenous, at 12.5 mL/hr, Administer over 4 Hours, Every 12 hours, First dose on Fri11/05/24 at 0100, Indication: Sepsis New Bag 11/05/2024 1:45 PM EDT 3.375 g 12.5 mL/hr New Bag 11/05/2024 2:09 AM EDT 3.375 g 12.5 mL/hr polyethylene glycol (GLYCOLAX) packet 17 g 17 g, oral, Daily PRN, constipation, Starting on Fri11/09/24 at 0716, Look-alike/sound-alike medication - verify indication for use. Dissolve 1 packet (17 gm) in 8 ounces of water, juice, soda, coffee or tea. potassium chloride (K-TAB,KLOR-CON) CR tablet 30-40 mEq 30-40 mEq, oral, As needed, Potassium Supplementation, Starting on Fri11/05/24 at 0026, Progress to oral potassium replacement when patient tolerating oral intake. If dose administered, recheck potassium level 4 hours after last dose. For potassium level 3.4 to 3.8 mmol/L and GFR 30 mL/min or greater=30 mEq. For potassium level 3.1 to 3.3 mmol/L and GFR 30 mL/min or greater=40 mEq. For potassium level 3 mmol/L or less and GFR 30 mL/min or greater=50 mEq. Do not crush or chew. potassium chloride (KAYCIEL) 20 mEq/15 mL solution 30-40 mEq 30-40 mEq, oral, As needed, Potassium Supplementation, Starting on Fri11/05/24 at 0026, Progress to oral potassium replacement when patient tolerating oral intake. If dose administered, recheck potassium level 4 hours after last dose. For potassium level 3.4 to 3.8 mmol/L and GFR 30 mL/min or greater=30 mEq. For potassium level 3.1 to 3.3 mmol/L and GFR 30 mL/min or greater=40 mEq. For potassium level 3 mmol/L or less and GFR 30 mL/min or greater=50 mEq. Must dilute before use - Mix in 3-8 ounces of water or juice before administration When administering in feeding tube, flush before and after per policy and monitor potassium levels potassium chloride IVPB 10 mEq/100 mL in water (0.1 mEq/mL premix) 10 mEq, intravenous, at 100 mL/hr, Administer over 60 Minutes, As needed, POTASSIUM REPLACEMENT, Starting on Fri11/05/24 at 0026, IV if unable to use oral/enteral with the current dosing strategies Potassium level 3 mmol/L or less administer Potassium Chloride 50 mEq Potassium level 3.1 to 3.3 mmol/L administer Potassium Chloride 40 mEq Potassium level 3.4 to 3.8 mmol/L administer Potassium Chloride 30 mEq Use central line when applicable. Recheck potassium level 1 hour after total IVPB infusion complete, With each potassium result continue the replacement orders as needed VESICANT (YELLOW) Infuse each 10 mEq over a minimum of 1 hour. sennosides-docusate sodium (SENOKOT-S) 8.6-50 mg 1 tablet 1 tablet, oral, Every 12 hours PRN, constipation, Starting on Fri11/05/24 at 0026 sodium chloride 0.9 % bolus 1,000 mL, intravenous, at 984 mL/hr, Administer over 61 Minutes, Once, On Angela 11/04/24 at 1844, For 1 dose Rate/Dose Verify 11/04/2024 9:08 PM EDT 500 mL/hr Rate/Dose Verify 11/04/2024 8:40 PM EDT 500 mL/ hr Rate/Dose Verify 11/04/2024 7:52 PM EDT 500 mL/ hr sodium chloride 0.9 % bolus 1,000 mL, intravenous, at 984 mL/hr, Administer over 61 Minutes, Once, On Angela 11/04/24 at 2023, For 1 dose New Bag 11/04/2024 9:28 PM EDT 1,000 mL 984 mL/hr sodium chloride 0.9 % flush 10 mL 10 mL, intravenous, Once in imaging, line care, Nuclear Medicine, Starting on Fri11/05/24 at 0916, For 1 dose Given 11/05/2024 9:48 AM EDT 10 mL sodium chloride 0.9 % flush 3 mL 3 mL, intravenous, As needed, line care, before and after each intermittent use, Starting on Fri11/05/24 at 0026 sodium chloride 0.9 % flush 3 mL 3 mL, intravenous, Every 12 hours scheduled, First dose on Fri11/05/24 at 0030 Given 11/11/2024 9:22 AM EDT 3 mL Given 11/08/2024 10:19 AM EDT 3 mL Given 11/05/2024 9:56 PM EDT 3 mL technetium pentetate (DTPA AEROSOL) inhalation 35 millicurie 35 millicurie, inhalation, Once in imaging, contrast, Radiopharmaceutical, Starting on Fri11/05/24 at 0916, For 1 dose, Indications: diagnostic imagingIndications:diagnostic imaging Given 11/05/2024 9:30 AM EDT 35 millicuries traZODone (DESYREL) tablet 50 mg 50 mg, oral, Nightly PRN, sleep, Starting on Fri11/05/24 at 1450, Look-alike/sound-alike medication - verify indication for use. Given 11/10/2024 10:11 PM EDT 50 mg Given 11/10/2024 1:17 AM EDT 50 mg vancomycin (VANCOCIN) 1,250 mg in sodium chloride 0.9 % 250 mL IVPB W/ADAPTER 1,250 mg (rounded from 1,246 mg = 20 mg/kg 62.3 kg), intravenous, at 167 mL/hr, Administer over 90 Minutes, Once, On Fri11/05/24 at 1600, For 1 dose, For Vial-2-Bag: Attach bag and vial to adapter - Use immediately after activating; dissolve drug prior to administration., Indication: Bacteremia New Bag 11/05/2024 5:53 PM EDT 1,250 mg 167 mL/hr vancomycin (VANCOCIN) 1,250 mg in sodium chloride 0.9 % 250 mL IVPB W/ADAPTER 1,250 mg, intravenous, at 167 mL/hr, Administer over 90 Minutes, Every 48 hours, First dose on Fri11/07/24 at 1800, For 1 dose, For Vial-2-Bag: Attach bag and vial to adapter - Use immediately after activating; dissolve drug prior to administration., Indication: Bacteremia New Bag 11/07/2024 5:59 PM EDT 1,250 mg 167 mL/hr documented in this encounter Active and Recently Administered Medications Times are shown in EDT. Scheduled Medication Order 11/10/2024 11/11/2024 11/12/2024 apixaban (ELIQUIS) tablet 10 mg(Linked Group 1) 10 mg, oral, 2 times daily, First dose on Fri11/10/24 at 1030, For 7 days, For VTE treatment (DVT, PE), Indication: Acute VTE Treatment 1051 (Given - Provider: Debbie Tiwari RN)2207 (Given - Provider: Ramana Arriola RN) 0922 (Given - Provider: Georgie Zuniga RN)2121 (Given - Provider: Jennifer Strauss RN) apixaban (ELIQUIS) tablet 5 mg(Linked Group 1) 5 mg, oral, 2 times daily, First dose on Fri11/17/24 at 0900, For VTE treatment (DVT, PE), Indication: Acute VTE Treatment bisacodyL (DULCOLAX) suppository 10 mg (COMPLETED) 10 mg, rectal, Once, On Fri11/10/24 at 1315, For 1 dose, Look-alike/sound-alike medication - verify indication for use. 1517 (Given - Provider: Debbie Tiwari, COLLEEN) cefEPime (MAXIPIME) IVPB 1000 mg/50 mL in dextrose 5% duplex (20 mg/mL premix) (CANCELED) 1,000 mg, intravenous, at 12.5 mL/hr, Administer over 4 Hours, Every 12 hours, First dose (after last modification) on 11/06/24 at 1800, Indication: Skin and soft tissue infection 0612 (New Bag - Provider: Ramana Arriola RN)1012 (Stop Bag - Provider: Debbie Tiwari RN) CEPHalexin (KEFLEX) capsule 500 mg (CANCELED) 500 mg, oral, Every 8 hours scheduled, First dose on Fri11/10/24 at 1400, Look-alike/sound-alike medication - verify indication for use., Indication: Skin and soft tissue infection 1517 (Given - Provider: Debbie Tiwari RN)2207 (Given - Provider: Ramana Arriola RN) 0621 (Given - Provider: Ramana Arriola RN) chlorhexidine (PERIDEX) 0.12 % solution 15 mL 15 mL, mouth/throat, 2 times daily, First dose on 11/06/24 at 1245, Swish undiluted for 30 seconds, then spit. 0900 (Not Given - Provider: Debbie Tiwari RN - Reason: Patient/family refused)2205 (Given - Provider: Ramana Arriola RN) 0922 (Not Given - Provider: Georgie Zuniga RN - Reason: Patient/family refused - Comment: pt refused to swish and spit. Olga MACIAS educated pt on importance of medication.)2100 (Not Given - Provider: Jennifer Strauss, COLLEEN - Reason: Patient/family refused) linezolid (ZYVOX) tablet 600 mg 600 mg, oral, Every 12 hours scheduled, First dose on Angela 11/11/24 at 1045, For 7 days, Look-alike/sound-alike medication - verify indication for use. Food-Drug Interaction Education Required Contact dietary for special diet. Avoid foods high in tyramine content., Approved Indication: Enterococcus infection, Authorizing Service: No ID, Pulmonary, or clinical transformation specialist at hospital 1209 (Given - Provider: Georgie Zuniga, COLLEEN)2120 (Given - Provider: Jennifer Strauss, COLLEEN) metroNIDAZOLE (FLAGYL) IVPB 500 mg/100 mL in iso-osmotic sodium chloride (5 mg/mL premix) (CANCELED) 500 mg, intravenous, at 100 mL/hr, Administer over 60 Minutes, Every 12 hours, First dose on Fri11/08/24 at 1315, Look-alike/sound-alike medication - verify indication for use., Indication: Intra-abdominal 0114 (New Bag - Provider: Ramana Arriola RN)0214 (Stop Bag - Provider: Ramana Arriola RN)1315 (Not Given - Provider: Debbie Tiwari RN - Reason: Other) midodrine (PROAMATINE) tablet 10 mg 10 mg, oral, 3 times daily, First dose on Fri11/05/24 at 1500, Look-alike/sound-alike medication - verify indication for use. 0610 (Given - Provider: Ramana Arriola RN)1517 (Given - Provider: Debbie Tiwari RN)2207 (Given - Provider: Ramana Arriola RN) 0621 (Given - Provider: Ramana Arriola RN)1359 (Given - Provider: Georgie Zuniga, COLLEEN)2121 (Given - Provider: Jennifer Strauss, COLLEEN) mirtazapine (REMERON) tablet 15 mg 15 mg, oral, Nightly, First dose on Fri11/05/24 at 2200 2207 (Given - Provider: Ramana Arriola RN) 2122 (Given - Provider: Jennifer Strauss RN) sodium chloride 0.9 % flush 3 mL 3 mL, intravenous, Every 12 hours scheduled, First dose on Fri11/05/24 at 0030 0900 (Not Given - Provider: Debbie Tiwari RN - Reason: IV infusing)2100 (Canceled Entry - Provider: Ramana Arriola RN) 0922 (Given - Provider: Georgie Zuniga RN)2100 (Canceled Entry - Provider: Jennifer Strauss RN) PRN Medication Order 11/10/2024 11/11/2024 11/12/2024 alum-mag hydroxide-simeth (MAALOX) 200-200-20 mg/5 mL suspension 30 mL 30 mL, oral, 4 times daily after meals and at bedtime as needed, dyspepsia, Starting on Fri11/05/24 at 0026, Look-alike/sound-alike medication - verify indication for use. Shake well., Indications: dyspepsia barium sulfate (VARIBAR HONEY) 40 % (w/v) 29% (w/w) suspension 60 mL 60 mL, oral, Once in imaging, contrast, barium sulfate (VARIBAR HONEY) 40 % (w/v) 29% (w/w) suspension, Starting on Fri11/09/24 at 1216, For 1 dose barium sulfate (VARIBAR NECTAR) 40 % (w/v) suspension 10 mL 10 mL, oral, Once in imaging, contrast, barium sulfate (VARIBAR NECTAR) 40 % (w/v) suspension, Starting on Fri11/09/24 at 1216, For 1 dose barium sulfate (VARIBAR THIN HONEY) 40 %(w/v), 29% (w/w)(1500 CPS) suspension 20 mL 20 mL, oral, Once in imaging, contrast, Radiology, Starting on Fri11/09/24 at 1216, For 1 dose diatrizoate meglumine & sodium (GASTROGRAFIN,GASTROVIEW) 66-10 % solution 120 mL (COMPLETED) 120 mL, oral, Once in imaging, contrast, diatrizoate meglumine & sodium (GASTROGRAFIN) 66-10 % solution, Starting on Fri11/10/24 at 1422, For 1 dose 1433 (Given - Provider: Viviane Trejo - Comment: [phone]) ipratropium-albuteroL (DUONEB) 0.5 mg-3 mg(2.5 mg base)/3 mL nebulizer solution 3 mL 3 mL, nebulization, Every 6 hours PRN, wheezing, Starting on Fri11/07/24 at 1830, Implement INPATIENT/ED Bronchodilator Clinical Practice Guidelines? Yes magnesium sulfate IVPB 2000 mg/50 mL in iso-osmotic water (40 mg/mL premix) 2,000 mg, intravenous, at 25 mL/hr, Administer over 120 Minutes, As needed, Magnesium level 1.7-1.9, Starting on Fri11/05/24 at 0026, Recheck magnesium level 4 hours after infusion complete. With each magnesium result continue the replacement orders as needed. magnesium sulfate IVPB 4000 mg/100 mL in iso-osmotic water (40 mg/mL premix) 4,000 mg, intravenous, at 25 mL/hr, Administer over 240 Minutes, As needed, Magnesium level 1.6 mg/dL or less, Starting on Fri11/05/24 at 0026, Recheck magnesium level 4 hours after infusion complete. With each magnesium result continue the replacement orders as needed. meclizine (ANTIVERT) tablet 12.5 mg 12.5 mg, oral, 3 times daily PRN, dizziness, Starting on Fri11/05/24 at 1450, Look-alike/sound-alike medication - verify indication for use. ondansetron (PF) (ZOFRAN) injection 4 mg 4 mg, intravenous, Every 4 hours PRN, nausea, vomiting, Starting on Fri11/05/24 at 0026, Intravenous administration preferred to be given over 2-5 minutes. 0234 (Given - Provider: Ramana Arriola RN) polyethylene glycol (GLYCOLAX) packet 17 g 17 g, oral, Daily PRN, constipation, Starting on Fri11/09/24 at 0716, Look-alike/sound-alike medication - verify indication for use. Dissolve 1 packet (17 gm) in 8 ounces of water, juice, soda, coffee or tea. potassium chloride (K-TAB,KLOR-CON) CR tablet 30-40 mEq(Linked Group 2) 30-40 mEq, oral, As needed, Potassium Supplementation, Starting on Fri11/05/24 at 0026, Progress to oral potassium replacement when patient tolerating oral intake. If dose administered, recheck potassium level 4 hours after last dose. For potassium level 3.4 to 3.8 mmol/L and GFR 30 mL/min or greater=30 mEq. For potassium level 3.1 to 3.3 mmol/L and GFR 30 mL/min or greater=40 mEq. For potassium level 3 mmol/L or less and GFR 30 mL/min or greater=50 mEq. Do not crush or chew. potassium chloride (KAYCIEL) 20 mEq/15 mL solution 30-40 mEq(Linked Group 2) 30-40 mEq, oral, As needed, Potassium Supplementation, Starting on Fri11/05/24 at 0026, Progress to oral potassium replacement when patient tolerating oral intake. If dose administered, recheck potassium level 4 hours after last dose. For potassium level 3.4 to 3.8 mmol/L and GFR 30 mL/min or greater=30 mEq. For potassium level 3.1 to 3.3 mmol/L and GFR 30 mL/min or greater=40 mEq. For potassium level 3 mmol/L or less and GFR 30 mL/min or greater=50 mEq. Must dilute before use - Mix in 3-8 ounces of water or juice before administration When administering in feeding tube, flush before and after per policy and monitor potassium levels potassium chloride IVPB 10 mEq/100 mL in water (0.1 mEq/mL premix)(Linked Group 2) 10 mEq, intravenous, at 100 mL/hr, Administer over 60 Minutes, As needed, POTASSIUM REPLACEMENT, Starting on Fri11/05/24 at 0026, IV if unable to use oral/enteral with the current dosing strategies Potassium level 3 mmol/L or less administer Potassium Chloride 50 mEq Potassium level 3.1 to 3.3 mmol/L administer Potassium Chloride 40 mEq Potassium level 3.4 to 3.8 mmol/L administer Potassium Chloride 30 mEq Use central line when applicable. Recheck potassium level 1 hour after total IVPB infusion complete, With each potassium result continue the replacement orders as needed VESICANT (YELLOW) Infuse each 10 mEq over a minimum of 1 hour. sennosides-docusate sodium (SENOKOT-S) 8.6-50 mg 1 tablet 1 tablet, oral, Every 12 hours PRN, constipation, Starting on Fri11/05/24 at 0026 sodium chloride 0.9 % flush 3 mL 3 mL, intravenous, As needed, line care, before and after each intermittent use, Starting on Fri11/05/24 at 0026 traZODone (DESYREL) tablet 50 mg 50 mg, oral, Nightly PRN, sleep, Starting on Fri11/05/24 at 1450, Look-alike/sound-alike medication - verify indication for use. 0117 (Given - Provider: Ramana Arriola, COLLEEN)2211 (Given - Provider: Ramana Arriola RN) Linked Groups Order Group 1: apixaban (ELIQUIS) tablet 10 mgJump to med 10 mg, oral, 2 times daily, First dose on Fri11/10/24 at 1030, For 7 days, For VTE treatment (DVT, PE), Indication: Acute VTE Treatment Followed by apixaban (ELIQUIS) tablet 5 mgJump to med 5 mg, oral, 2 times daily, First dose on Fri11/17/24 at 0900, For VTE treatment (DVT, PE), Indication: Acute VTE Treatment Group 2: potassium chloride (K-TAB,KLOR-CON) CR tablet 30-40 mEqJump to med 30-40 mEq, oral, As needed, Potassium Supplementation, Starting on Fri11/05/24 at 0026, Progress to oral potassium replacement when patient tolerating oral intake. If dose administered, recheck potassium level 4 hours after last dose. For potassium level 3.4 to 3.8 mmol/L and GFR 30 mL/min or greater=30 mEq. For potassium level 3.1 to 3.3 mmol/L and GFR 30 mL/min or greater=40 mEq. For potassium level 3 mmol/L or less and GFR 30 mL/min or greater=50 mEq. Do not crush or chew. Or potassium chloride (KAYCIEL) 20 mEq/15 mL solution 30-40 mEqJump to med 30-40 mEq, oral, As needed, Potassium Supplementation, Starting on Fri11/05/24 at 0026, Progress to oral potassium replacement when patient tolerating oral intake. If dose administered, recheck potassium level 4 hours after last dose. For potassium level 3.4 to 3.8 mmol/L and GFR 30 mL/min or greater=30 mEq. For potassium level 3.1 to 3.3 mmol/L and GFR 30 mL/min or greater=40 mEq. For potassium level 3 mmol/L or less and GFR 30 mL/min or greater=50 mEq. Must dilute before use - Mix in 3-8 ounces of water or juice before administration When administering in feeding tube, flush before and after per policy and monitor potassium levels Or potassium chloride IVPB 10 mEq/100 mL in water (0.1 mEq/mL premix)Jump to med 10 mEq, intravenous, at 100 mL/hr, Administer over 60 Minutes, As needed, POTASSIUM REPLACEMENT, Starting on Fri11/05/24 at 0026, IV if unable to use oral/enteral with the current dosing strategies Potassium level 3 mmol/L or less administer Potassium Chloride 50 mEq Potassium level 3.1 to 3.3 mmol/L administer Potassium Chloride 40 mEq Potassium level 3.4 to 3.8 mmol/L administer Potassium Chloride 30 mEq Use central line when applicable. Recheck potassium level 1 hour after total IVPB infusion complete, With each potassium result continue the replacement orders as needed VESICANT (YELLOW) Infuse each 10 mEq over a minimum of 1 hour. documented in this encounter Additional Health Concerns Assessment Noted Time PHQ-9 Depression Total Score: 0 10/15/19 25 8:34 AM EDT A Body Mass Index follow-up plan has been documented for the patient 01/12/2024 10:07 AM EST documented as of this encounter Care Teams Equipment Maintenance Supervisor Relationship Specialty Start Date End Date Alden Harry DO [address] [facility], [facility] [place] [address] PCP - General Family Medicine 05/13/24 documented as of this encounter
[2024-11-17] VITALS (18 sets, daily range): BP systolic 94–131; BP diastolic 45–71; PULSE 63–94; TEMP 36.6; O2SAT 98–100; BMI 16.8
--- NOTE | 2024-11-17 11:05 | ECG_ITS ---
[facility] Test Date: 2024-11-17 Pat Name: ONDINA MENDEZ Department: Room: - Gender: Male Want Ad Supervisor: : 1940 Requested By: [id number] Order Number: [id number] Reading MD: JESSICA PINTO Measurements Intervals Calera Rate: 81 P: 8 SC: 108 QRS: 69 QRSD: 122 T: 70 QT: 392 QTc: 429 Interpretive Statements 1100 Sinus rhythm 1470 with occasional supraventricular premature complexes Right bundle branch block 9150 abnormal ECG No previous ECG available for comparison Electronically Signed On 11-18-2024 13:58:30 EDT by JESSICA PINTO
--- NOTE | 2024-11-17 11:05 | PC.NURSE ---
pt from [facility]. pt had labs completed today, pt sent by squad due to lab work showing signs of metabolic acidosis.
--- NOTE | 2024-11-17 11:06 | ED.GENADUL1 ---
HPI HPI - General Adult General Chief complaint: Recheck/Abnormal Lab/Rx Stated complaint: WEAKNESS Time Seen by Provider: 11/17/24 11:03 Source: EMR Mode of arrival: ambulance Limitations: no limitations History of Present Illness HPI narrative: 84-year-old male presents from [facility]. Reportedly he had some abnormal blood test and was sent in for that issue. He does not know why he is here. He states he has been able to eat and drink and he is feeling weak. He does not seem to have any pain in has not had a reported fever. Related Data Home Medications ?Medication ?Instructions ?Recorded ?Confirmed albuterol sulfate 2.5 mg/3 mL 2.5 mg continuous nebulization ACHS 11/17/24 11/17/24 (0.083 %) solution for nebulization meclizine 12.5 mg tablet 12.5 mg PO .q8hr 11/17/24 11/17/24 midodrine 10 mg tablet 10 mg PO BID 11/17/24 11/17/24 nitroglycerin 0.4 mg sublingual 0.4 mg sublingual Q5M PRN chest 11/17/24 11/17/24 tablet pain ondansetron 4 mg disintegrating 4 mg PO Q6H 11/17/24 11/17/24 tablet polyethylene glycol 3350 17 gram 17 g PO DAILY 11/17/24 11/17/24 oral powder packet (ClearLax) Allergies Allergy/AdvReac Type Severity Reaction Status Date / Time No Known Drug Allergies Allergy Verified 11/17/24 11:14 Review of Systems ROS Narrative A ten point review of systems is negative except as noted above. PFSH PFSH Social History Little interest or pleasure in doing things: not at all Feeling down, depressed, or hopeless: not at all Exam Narrative Exam Narrative: Nurses note and vital signs reviewed and patient is not hypoxic. General: The patient appears in no acute distress Skin: Warm, dry, no pallor noted. There is no rash noted. Head: Normocephalic, atraumatic Eye: Normal conjunctiva, no drainage Ears, Nose, Mouth, and Throat: oral mucosa is moderately dry. Nares patent. Cardiovascular: Regular Rate and Rhythm Respiratory: Patient is in no distress, no accessory muscle use, lungs are clear to auscultation, no wheezing, rales or rhonchi Back: non-tender GI: Normal bowel sounds, no tenderness to palpation, no masses appreciated. No rebound, guarding, or rigidity noted. Musculoskeletal: The patient has no evidence of calf tenderness, no pitting edema, symmetrical pulses noted bilaterally Neurological: Awake alert and oriented Psychiatric: Cooperative Constitutional Vital Signs, click to edit/add: Last Vital Signs Temp 97.9 F 11/17/24 10:51 Pulse 80 11/17/24 13:16 Resp 18 11/17/24 13:16 BP 106/55 11/17/24 13:16 Pulse Ox 98 11/17/24 13:16 O2 Del Method Room Air 11/17/24 10:51 Course Vital Signs Vital signs: Vital Signs Temperature 97.9 F 11/17/24 10:51 Pulse Rate 63 11/17/24 10:51 Respiratory Rate 20 11/17/24 10:51 Blood Pressure 94/56 11/17/24 10:51 Pulse Oximetry 99 11/17/24 10:51 Oxygen Delivery Method Room Air 11/17/24 10:51 Temperature 97.9 F 11/17/24 10:51 Pulse Rate 80 11/17/24 13:16 Respiratory Rate 18 11/17/24 13:16 Blood Pressure 106/55 11/17/24 13:16 Pulse Oximetry 98 11/17/24 13:16 Oxygen Delivery Method Room Air 11/17/24 10:51 Medical Decision Making MDM Narrative Medical decision making narrative: His workup is negative. He has microscopic hematuria but the patient has this longstanding according to his family member. There is no evidence of dehydration and VBG pH is normal. He will be discharged back to [facility]. Treatment diagnosis and follow-up were discussed with the patient and his family member. Differential Diagnosis Differential Diagnosis: Dehydration, acute kidney injury, UTI Lab Data Lab results reviewed: Yes I reviewed the patient's lab results Labs: Lab Results 11/17/24 11/17/24 11/17/24 Range/Units 10:57 13:40 14:20 WBC 9.4 (4.0-11.0) 10^3/uL RBC 2.94 L (4.70-6.10) 10^6/uL Hgb 8.0 L (14.0-18.0) g/dL Hct 25.4 L (42.0-54.0) % MCV 86.4 (80.0-94.0) fL MCH 27.2 (25.9-34.0) pg MCHC 31.5 (29.9-35.2) g/dL RDW 22.2 H (11.0-15.0) % Plt Count 200 (150-450) 10^3/uL MPV 11.4 (9.5-13.5) fL Seg Neuts % (Manual) 82.0 H (43.0-75.0) Lymphocytes % (Manual) 4.0 L (20.5-60.0) % Monocytes % (Manual) 14.0 H (1.7-12.0) % Eosinophils % (Manual) 0.0 L (0.9-7.0) % Basophils % (Manual) 0.0 L (0.2-2.0) % Neutrophils # (Manual) 7.70 H (1.4-6.5) 10^3/uL Lymphocytes # (Manual) 0.37 L (1.20-3.80) 10^3/uL Monocytes # (Manual) 1.31 H (0.30-0.80) 10^3/uL Eosinophils # (Manual) 0.00 (0.00-0.70) 10^3/uL Basophils # (Manual) 0.00 (0.00-0.10) 10^3/uL VBG pH 7.345 (7.330-7.430) VBG pCO2 37.1 L (40.0-52.0) mmHg Sodium 137 (136-145) mmol/L Potassium 3.5 (3.5-5.1) mmol/L Chloride 107 (98-107) mmol/L Carbon Dioxide 19.8 L (21.0-32.0) mmol/L Anion Gap 13.7 BUN 21.0 H (7.0-18.0) mg/dL Creatinine 1.56 H (0.70-1.30) mg/dL Est GFR ( Amer) 52 L (>=60 mL/min/1.73m^2) Est GFR (Non-Af Amer) 43 L (>=60 mL/min/1.73m^2) BUN/Creatinine Ratio 13.5 Glucose 83 (74-106) mg/dL Calcium 7.6 L (8.5-10.1) mg/dL Troponin I High Sens 42.2 (4.0-76.1) pg/mL Urine Color Yellow (YELLOW) Urine Clarity Clear (CLEAR) Urine pH 5.5 (5.0-9.0) Ur Specific [place] 1.025 (1.005-1.025) Urine Protein 30 A (NEG/TRACE) mg/dL Urine Glucose (UA) Negative (NEGATIVE) mg/dL Urine Ketones Negative (NEGATIVE) mg/dL Urine Occult Blood Large A (NEGATIVE) Urine Nitrite Negative (NEGATIVE) Urine Bilirubin Negative (NEGATIVE) Urine Urobilinogen 0.2 (0.2-1.0) EU/dL Ur Leukocyte Esterase Negative (NEGATIVE) Urine RBC 50-75 A (0-2) #/HPF Urine WBC 0-2 A (NONE SEEN) #/HPF Ur Squamous Epith Cells Few A (NONE/RARE) #/LPF Urine Crystals None seen (None Seen) #/HPF Urine Bacteria Trace A (NONE SEEN) #/HPF Urine Casts Seen A (NONE SEEN) #/LPF Fine Granular Casts Rare Urine Mucus None seen (NONE SEEN) Ur Culture Indicated? No Imaging Data Chest x-ray: Radiologist's impression: ITS Impressions Chest X-Ray 11/17/24 11:51 IMPRESSION: MINOR BLUNTING OF THE LATERAL COSTOPHRENIC ANGLES, DESCRIBED. CHRONICITY IS UNKNOWN WITHOUT PRIORS. NO OTHER ACUTE FINDINGS. Impression dictated by: Angie Chu M.D. 11/17/2024 12:04 PM Dictation Location: [place] [address] Electronically authenticated by: [id number] Y Date: 11/17/2024 12:04 ECG Data Attestation: I personally reviewed and interpreted this ECG as follows: (EKG on my interpretation shows sinus rhythm without acute change) Discharge Plan Discharge Chief Complaint: Recheck/Abnormal Lab/Rx Clinical Impression: Weakness Patient Disposition: Home, Self-Care Time of Disposition Decision: 15:18 Condition: Good Mode of Transportation: Private Vehicle Prescriptions / Home Meds: No Action albuterol sulfate 2.5 mg /3 mL (0.083 %) solution for nebulization 2.5 mg continuous nebulization ACHS midodrine 10 mg tablet 10 mg PO BID ondansetron 4 mg tablet,disintegrating 4 mg PO Q6H meclizine 12.5 mg tablet 12.5 mg PO .q8hr polyethylene glycol 3350 [ClearLax] 17 gram powder in packet 17 g PO DAILY nitroglycerin 0.4 mg tablet, sublingual 0.4 mg sublingual Q5M PRN (Reason: chest pain) Print Language: Martiniquais Instructions: Weakness (ED) Referrals: BRENNA STEVENSON [Primary Care Provider, Family Practice] - 1 week
--- OUTSIDE RECORDS SUMMARY | 2024-11-17 11:06 | XMS_ITS | Encounter Summary ---
Author Organization [facility] Address [id number] [address] [place] [address] Care Team Providers Care Press Officer Name Role Phone FelicianoAlden edgar Primary Care Provider [phone] Reason for Visit * Reason Comments Med Refill Encounter Details Date Type Department Care Team (Late st Contact Info) Description 06/29/2022 Refill [facility] - Family Medicine [address] [facility] [address] Tequila Holt, WATER QUALITY MANAGER-REAL ESTATE INSTRUCTOR [address] [facility] [address] [address] Social History Tobacco Use Types Packs/Day Years Used Date Smoking Tobacco: Former Smokeless Tobacco: Never Alcohol Use Standard Drinks/Week Comments Not Currently 0 (1 standard drink = 0.6 oz pure alcohol) occasional social drink of beer or malibu rum Childcare Answer Date Recorded Childcare Unknown 08/19/2018 Employment Answer Date Recorded Employment Unknown 08/19/2018 Purpose - Life Answer Date Recorded Purpose and direction in life Unknown Sex and Gender Information Value Date Recorded Sex Assigned at Male 07/28/2024 10:17 PM EDT Legal Sex Male 11:51 AM EDT Gender Identity Male 07/28/2024 10:17 PM EDT Sexual Orientation Straight 07/28/2024 10 :17 PM EDT documented as of this encounter Plan of Treatment Upcoming Encounters Date Type Department Care Team (Late st Contact Info) Description 11/25/2024 2:15 PM EDT Office Visit [facility] Internal Medicine - Family Medicine [address] [place] [phone] Alden Harry DO [address], [place] [address] 11/29/2024 3:40 PM EDT Support Visit [facility] - Pre Admit [address] [place] [phone] 11/30/2024 10:30 AM EDT Hospital Encounter [facility] - Surgery [address] [facility] [place] [phone] Velasquez Garcias MD [address] [place] [address] 11/30/2024 10:30 AM EDT - 11/30/2024 11:15 AM EDT Surgery [facility] - Surgery [address] [place] [phone] Velasquez Garcias MD [address] [place] [address] CYSTOSCOPY RETROGRADE PYELOGRAM 12/09/2024 1:00 PM EDT Office [facility] - Medical Oncology [address] [place] [phone] Jairo Rodriguez MD [address] [facility] [address] [place] [address] 05/12/2025 9:40 AM EST Office Visit [facility] Internal Medicine - Family Medicine [address] [place] [phone] Scheduled Procedures Name Priority Associated Diagnoses Date/Ti me CYSTOSCOPY RETROGRADE PYELOGRAM Gross hematuria Hydroureteronephrosis 11/30/2024 10:30 AM EDT CYSTOURETEROSCOPY DIAGNOSTIC Gross hematuria Hydroureteronephrosis 11/30/2024 10:30 AM EDT CYSTOSCOPY INSERTION STENT URETER Gross hematuria Hydroureteronephrosis 11/30/2024 10:30 AM EDT documented as of this encounter Visit Diagnoses Not on filedocumented in this encounter Additional Health Concerns Infection Onset Date Last Indicated Resolved Time Respiratory Rule-Out 07/11/2024 07/11/2024 025 10:39 AM EDT Enteric Rule-Out 07/28/2024 07/29/2024 07/29/2024 7:25 PM EDT Enteric Rule-Out 09/08/2024 09/08/2024 09/09/2024 12:49 AM EDT documented as of this encounter Care Teams Press Officer Relationship Specialty Start Date End Date Alden Harry DO [address] [facility], [place] [address] PCP - General Family Medicine 05/13/24 documented as of this encounter
--- OUTSIDE RECORDS SUMMARY | 2024-11-17 11:06 | XMS_ITS | Encounter Summary ---
Author Organization [facility] tem Address [id number] [address] [place] [address] Care Team Providers Care Welding Technician Name Role Phone JasmineAlden krishnamurthy Primary Care Provider Encounter Details Date Type Department Care Team (Late st Contact Info) Description 10/01/2024 Results Follow-Up [facility] - Endoscopy [address] [place] [phone] Park Vega MD [address] [place] [address] Surgical Pathology Social History Tobacco Use Types Packs/Day Years Used Date Smoking Tobacco: Former Cigarettes 1.5 25.7 2 000 - 1960 Smokeless Tobacco: Never Alcohol Use Standard Drinks/Week Comments Not Currently 0 (1 standard drink = 0.6 oz pur e alcohol) 2 beer per year [facility] Utilities Answer Date Recorded In the past 12 months has [employer], gas, oil, or water [employer] threatened to shut off services in your home? No 09/23/2024 Social Connection and Isolat ion Panel [NHANES] Answer Date Recorded In a typical week, how many times do you talk on the phone with family, friends, or neighbors? More than three times a week 05/11/2024 How often do you get togethe r with friends or relatives? Three times a week 05/11/2024 How often do you attend [facility] or muslim services? Never 05/11/2024 Do you belong to any clubs o r organizations such as religious groups, unions, fraternal or athletic groups, or [...] 02/11/2023 PHQ-2 Answer Date Recorded Total Score 4 09/08/2024 [facility] of Occupat ional Health - Occupational Stress [...] medical appointments or from getting medications? No 09/07 In the past 12 months, has l ack of transportation kept you from meetings, work, or from getting things needed for daily living? No 09/23/2024 Housing Instability Answer Date Recorde d Are you worried or concerned that in the next two months you may not have stable housing that you own, rent or stay in as a part of a household? No 09/23/2024 Childcare Answer Date Recorded Do problems getting child ca re make it difficult for you to work or study? No 02/11/2023 Employment Answer Date Recorded Do you need help finding a [facility] career center and/or a training program? No 02/11/2023 Hunger Screening Answer Date Recorded Within the past 12 months we worried whether our food would run out before we got money to buy more. Never True 10/05/2024 Within the past 12 months th e food we bought just didn't last and we didn't have money to get more. Never True 10/05/2024 Purpose - Life Answer Date Recorded I have a purpose and direction in my life. Stron gly Agree 02/11/2023 Sex and Gender Information Value Date Recorded Sex Assigned at Male 07/28/2024 10:17 PM EDT Legal Sex Male 11:51 AM EDT Gender Identity Male 07/28/2024 10:17 PM EDT Sexual Orientation Straight 07/28/2024 10 :17 PM EDT documented as of this encounter Progress Notes * Park Vega MD - 10/01/2024 1:58 PM EDT Biopsy results positive for H pylori. Attempted to call patient, left voicemail. Prescription sent to pharmacy. documented in this encounter Miscellaneous Notes * Telephone Encounter - Park Vega MD - 10/01/2024 1:58 PM EDT ----- Message from Beverly Charles MD sent at 09/30/2024 3:16 PM EDT ----- ----- Message ----- From: Lab, Background User Sent: 09/30/2024 1:48 PM EDT To: Beverly Charles MD documented in this encounter Plan of Treatment Upcoming Encounters Date Type Department Care Team (Late st Contact Info) Description 11/25/2024 2:15 PM EDT Office Visit [facility] - Family Medicine [address] [facility] [place] [address] Alden Harry, [address], [place] [address] 11/29/2024 3:40 PM EDT Support Visit [facility] - Pre Admit [address] [place] [phone] 11/30/2024 10:30 AM EDT Hospital Encounter [facility] - Surgery [address] [place] [phone] Velasquez Garcias MD [address] [place] [address] 11/30/2024 10:30 AM EDT - 11/30/2024 11:15 AM EDT Surgery [facility] - Surgery [address] [place] [phone] Velasquez Garcias MD [address] [place] [address] CYSTOSCOPY RETROGRADE PYELOGRAM 12/09/2024 1:00 PM EDT Office Visit [facility] - Medical Oncology [address] [place] [phone] Jairo Rodriguez MD [address] [place] [address] [place], [place] [id number] 05/12/2025 9:40 AM EST Office Visit [facility] Internal Medicine - Family Medicine [address] [place] [phone] Scheduled Procedures Name Priority Associated Diagnoses Date/Ti me CYSTOSCOPY RETROGRADE PYELOGRAM Gross hematuria Hydroureteronephrosis 11/30/2024 10:30 AM EDT CYSTOURETEROSCOPY DIAGNOSTIC Gross hematuria Hydroureteronephrosis 11/30/2024 10:30 AM EDT CYSTOSCOPY INSERTION STENT URETER Gross hematuria Hydroureteronephrosis 11/30/2024 10:30 AM EDT documented as of this encounter Visit Diagnoses Diagnosis Helicobacter pylori infection- Primary Helicobacter pylori (H. pylori) Gross hematuria Hydroureteronephrosis Hydronephrosis documented in this encounter Additional Health Concerns Assessment Noted Time PHQ-9 Depression Total Score: 4 09/09/19 10:56 AM EDT A Body Mass Index follow-up plan has been documented for the patient 01/12/2024 10:07 AM EST documented as of this encounter Care Teams Welding Technician Relationship Specialty Start Date End Date Alden Harry DO [address] [facility], [place] [address] PCP - General Family Medicine 05/13/24 documented as of this encounter
--- OUTSIDE RECORDS SUMMARY | 2024-11-17 11:06 | XMS_ITS | Encounter Summary ---
Author Organization [facility] Address [id number] [address] [place] [address] Care Team Providers Care Cloth Carrier Name Role Phone JasmineAlden krishnamurthy Primary Care Provider Encounter Details Date Type Department Care Team (Late st Contact Info) Description 10/01/2024 [facility] Only [facility] [address] [facility] [address] [place] [phone] Park Vega MD [address] [place] [address] Social History Tobacco Use Types Packs/Day Years Used Date Smoking Tobacco: Former Cigarettes 1.5 25.7 2 000 - 1960 Smokeless Tobacco: Never Alcohol Use Standard Drinks/Week Comments Not Currently 0 (1 standard drink = 0.6 oz pur e alcohol) 2 beer per year [facility] Utilities Answer Date Recorded In the past 12 months has [employer], gas, oil, or water [employer] threatened to shut off services in your [...] week 05/11/2024 How often do you attend [facility] or confucianism services? Never 05/11/2024 Do you belong to any clubs o r organizations such as mandaeism groups, unions, fraternal or athletic groups, or [...] Answer Date Recorded Total Score 4 09/08/2024 [facility] of Occupat ional Health - Occupational Stress [...] Recorded Do you need help finding a [facility] and/or a training program? [...] Description 11/25/2024 2:15 PM EDT Office Visit [facility] Internal Medicine - Family Medicine [address] [place] [address] Alden Harry, DO [address] [place], [facility] [place] [address] 11/29/2024 3:40 PM EDT [facility] [address] [facility] [place] [phone] 11/30/2024 10:30 AM EDT Hospital Encounter [facility] - Surgery [address] [place] [phone] Velasquez Garcias MD [address] [place] [address] 11/30/2024 10:30 AM EDT - 11/30/2024 11:15 AM EDT Surgery [facility] - Surgery [address] [place] [phone] Velasquez Garcias MD [address] [place] [address] CYSTOSCOPY RETROGRADE PYELOGRAM 12/09/2024 1:00 PM EDT Office Visit [facility] - Medical Oncology [address] [place] [phone] Jairo Rodriguez MD [address] [facility] [address] [place], [place] [phone] 05/12/2025 9:40 AM EST Office Visit [facility] - Family Medicine [address] [place] [phone] Scheduled Procedures Name Priority Associated Diagnoses Date/Ti me CYSTOSCOPY RETROGRADE PYELOGRAM Gross hematuria Hydroureteronephrosis 11/30/2024 10:30 AM EDT CYSTOURETEROSCOPY DIAGNOSTIC Gross hematuria Hydroureteronephrosis 11/30/2024 10:30 AM EDT CYSTOSCOPY INSERTION STENT URETER Gross hematuria Hydroureteronephrosis 11/30/2024 10:30 AM EDT documented as of this encounter Visit Diagnoses Not on filedocumented in this encounter Additional Health Concerns Assessment Noted Time PHQ-9 Depression Total Score: 4 09/09/19 10:56 AM EDT A Body Mass Index follow-up plan has been documented for the patient 01/12/2024 10:07 AM EST documented as of this encounter Care Teams Cloth Carrier Relationship Specialty Start Date End Date Alden Harry DO [address], [facility] [place] [address] PCP - General Family Medicine 05/13/24 documented as of this encounter
--- OUTSIDE RECORDS SUMMARY | 2024-11-17 11:06 | XMS_ITS | Encounter Summary ---
Author Organization [employer] Address [id number] [address] [place] [address] Care Team Providers Care Drafting Supervisor Name Role Phone KamrynAtaAldenalexandre Narvaez DO Primary Care Provider [phone] Encounter Details Date Type Department Care Team (Late st Contact Info) Description 10/29/[address] Medicine [address] [place] [phone] Parth Lazo CMA Social History Tobacco Use Types Packs/Day Years Used Date Smoking Tobacco: Former Smokeless Tobacco: Never Alcohol Use Standard Drinks/Week Comments Not Currently 0 (1 standard drink = 0.6 oz pure alcohol) occasional social drink of beer or malibu rum [facility] Utilities Answer Date Recorded In the past 12 months has [employer], gas, oil, or water [employer] threatened to shut off services in your home? No 02/11/2023 Social Connection and Isolat ion Panel [NHANES] Answer Date Recorded In a typical week, how many times do you talk on the phone with family, friends, or neighbors? More than three times a week 02/11/2023 How often do you get togethe r with friends or relatives? Three times a week 02/11/2023 How often do you attend chur ch or baptism services? Never 02/11/2023 Do you belong to any clubs o r organizations such as holiness groups, unions, fraternal or athletic groups, or school groups? No 02/11/2023 How often do you attend meet ings of the clubs or organizations you belong to? Never 02/11/2023 Are you , , di vorced, , never , or living with a partner? 02/11/2023 AUDIT-C Answer Date Recorded Q1: How often do you have a drink containing alc ohol? Monthly or less 02/11/2023 Q2: How many drinks containi ng alcohol do you have on a typical day when you are drinking? 1 or 2 02/11/2023 Q3: How often do you have si x or more drinks on one occasion? Never 02/11/2023 Overall Financial Resource Strain (CARDIA) Answe r Date Recorded How hard is it for you to pa y for the very basics like food, housing, medical care, and heating? Not hard at all 02/11/2023 PHQ-2 Answer Date Recorded Total Score 0 03/17/2023 [facility] of Occupat ional Health - Occupational Stress [...] exercise (like a brisk walk)? 0 days 02/11/2023 On average, how many minutes do you engage in exercise at this level? 0 min 02/11/2023 PRAPARE - Transportation Answer Date Re corded In the past 12 months, has l ack of transportation kept you from medical appointments or from getting medications? No 07/2022 In the past 12 months, has l ack of transportation kept you from meetings, work, or from getting things needed for daily living? No 02/11/2023 Housing Instability Answer Date Recorde d Are you worried or concerned that in the next two months you may not have stable housing that you own, rent or stay in as a part of a household? No 02/01/2023 Childcare Answer Date Recorded Do problems getting child ca re make it difficult for you to work or study? No 02/11/2023 Employment Answer Date Recorded Do you need help finding a [facility] career center and/or a training program? No 02/11/2023 Hunger Screening Answer Date Recorded Within the past 12 months we worried whether our food would run out before we got money to buy more. Never True 03/17/2023 Within the past 12 months th e food we bought just didn't last and we didn't have money to get more. Never True 03/17/2023 Purpose - Life Answer Date Recorded I have a purpose and direction in my life. Stron gly Agree 02/11/2023 Sex and Gender Information Value Date Recorded Sex Assigned at Male 07/28/2024 10:17 PM EDT Legal Sex Male 11:51 AM EDT Gender Identity Male 07/28/2024 10:17 PM EDT Sexual Orientation Straight 07/28/2024 10 :17 PM EDT documented as of this encounter Miscellaneous Notes * Telephone Encounter - Parth Lazo CMA - 10/29/2023 1:39 PM EDT Called to get his CV apt scheduled documented in this encounter Plan of Treatment Upcoming Encounters Date Type Department Care Team (Late st Contact Info) Description 11/25/2024 2:15 PM EDT Office Visit [facility] Internal Medicine - Family Medicine [address] [place] [phone] Alden Harry, DO [address], [place] [address] 11/29/2024 3:40 PM EDT Support Visit [facility] - Pre Admit [address] [place] [address] 11/30/2024 10:30 AM EDT Hospital Encounter [facility] - Surgery [address] [place] [address] Velasquez Garcias MD [address] [place] [address] 11/30/2024 10:30 AM EDT - 11/30/2024 11:15 AM EDT Surgery [facility] - Surgery [address] [place] [phone] Velasquez Garcias MD [address] [place] [address] CYSTOSCOPY RETROGRADE PYELOGRAM 12/09/2024 1:00 PM EDT Office Visit [facility] - Medical Oncology [address] [place] [phone] Jairo Rodriguez MD [address] [facility] [address] [place] [phone] 05/12/2025 9:40 AM EST Office Visit [facility] Internal Medicine - Family Medicine [address] [place] [address] Scheduled Procedures Name Priority Associated Diagnoses Date/Ti [...] Rule-Out 09/08/2024 09/08/2024 09/09/2024 12:49 AM EDT Assessment Noted Time PHQ-9 Depression Total Score: 0 03/17/19 24 3:02 PM EST A Body Mass Index follow-up plan has been documented for the patient 03/17/2023 5:55 PM EST documented as of this encounter Care Teams Drafting Supervisor Relationship Specialty Start Date End Date Alden Harry DO [address], [place] [address] PCP - General Family Medicine 05/13/24 documented as of this encounter
--- OUTSIDE RECORDS SUMMARY | 2024-11-17 11:06 | XMS_ITS | Encounter Summary ---
Author Organization [employer] Address [id number] [address] [place] [address] Care Team Providers Care Senior Sales Representative Name Role Phone Alden Harry DO Primary Care Provider + [phone] Reason for Visit * Reason Onset Date Comments Med Refill 12/02/2023 Encounter Details Date Type Department Care Team (Late st Contact Info) Description 12/02/2023 [facility]phone [facility] - Family Medicine [address] [place] [phone] Kym John CMA Med Refill Social History Tobacco Use Types Packs/Day Years Used Date Smoking Tobacco: Former Smokeless Tobacco: Never Alcohol Use Standard Drinks/Week Comments Not Currently 0 (1 standard drink = 0.6 oz pure alcohol) occasional social drink of beer or malibu rum [facility] Utilities Answer Date Recorded In the past 12 months has [employer], [employer], oil, or water [employer] threatened to shut off services in your [...] often do you attend chur ch or mandaeism services? Never 02/11/2023 Do you belong to [...] Answer Date Recorded Total Score 0 03/17/2023 [facility] of Occupat ional Health - Occupational Stress [...] Recorded Do you need help finding a l ocal career center and/or a training program? No [...] encounter Miscellaneous Notes * Telephone Encounter - Kym John CMA - 12/02/2023 1:09 PM EDT I received a fax for meclizine for this refeill but I'm not seeing it in his med list or past list * Telephone Encounter - Alden Harry DO - 12/02/2023 1:09 PM EDT Rx sent in. Please set up follow-up appointment/CV * Telephone Encounter - Kym John CMA - 12/02/2023 1:09 PM EDT Called left vm to cb documented in this encounter Plan of Treatment Upcoming Encounters Date Type Department Care Team (Late st Contact Info) Description 11/25/2024 2:15 PM EDT Office Visit [facility] Internal Medicine - Family Medicine [address] [place] [address] Alden Harry DO [address], [place] [address] 11/29/2024 3:40 PM EDT Support Visit [facility] - Pre Admit [address] [place] [phone] 11/30/2024 10:30 AM EDT Hospital Encounter [facility] - Surgery [address] [facility] [phone] Velasquez Garcias MD [address] [place] [address] 11/30/2024 10:30 AM EDT - 11/30/2024 11:15 AM EDT Surgery [facility] - Surgery [address] [place] [phone] Velasquez Garcias MD [address] [place] [address] CYSTOSCOPY RETROGRADE PYELOGRAM 12/09/2024 1:00 PM EDT Office Visit [facility] - Medical Oncology [address] [place] [phone] [place] [address] [place] [address] 05/12/2025 9:40 AM EST Office Visit [facility] Internal Medicine - Family Medicine [address] [place] [phone] Scheduled Procedures Name Priority Associated Diagnoses Date/Ti hi CYSTOSCOPY RETROGRADE PYELOGRAM Gross hematuria Hydroureteronephrosis 11/30/2024 [...] documented as of this encounter Care Teams Senior Sales Representative Relationship Specialty Start Date End Date Alden Harry DO [address], [place] [address] PCP - General Family Medicine 05/13/24 documented as of this encounter
--- OUTSIDE RECORDS SUMMARY | 2024-11-17 11:06 | XMS_ITS | Encounter Summary ---
Author Organization [facility] [facility] Address [id number] [address] [place] [address] Care Team Providers Care Library Monitor Name Role Phone JasmineAlden krishnamurthy Brice CARDENAS Primary Care Provider [phone] Encounter Details Date Type Department Care Team (Late st Contact Info) Description 03/28/2021 Telephone [facility] Medicine [address] [phone] Chuyita Lemus RN Social History Tobacco Use Types Packs/Day Years [...] Orientation Straight 07/28/2024 10 :17 PM EDT COVID-19 Exposure Response Date Recorded In the last month, have you been in contact with someone who was confirmed or suspected to have Coronavirus / COVID-19? No / Unsure 03/26/2021 8:26 AM EST documented as of this encounter Miscellaneous Notes * Telephone Encounter - Chuyita Lemus RN - 03/28/2021 2:39 PM EST I extended ct order pt has appt 04/02 If this is denied again please let me call precert it is a 8mm non calcified nodule there is no reason for a denial It is probably just a matter of how many months documented in this encounter Plan of Treatment Upcoming Encounters Date Type Department Care Team (Late st Contact Info) Description 11/25/2024 2:15 PM EDT Office Visit [facility] Internal Medicine - Family Medicine [address] [place] [phone] Alden Harry, DO [address], [facility] [place] [address] 11/29/2024 3:40 PM EDT Support Visit [facility] - Pre Admit [address] [place] [phone] 11/30/2024 10:30 AM EDT Hospital Encounter [facility] - Surgery [address] [place] [phone] Velasquez Garcias MD [address] [place] [address] 11/30/2024 10:30 AM EDT - 11/30/2024 11:15 AM EDT Surgery [facility] - Surgery [address] [place] [phone] Velasquez Garcias MD [address] [place] [address] CYSTOSCOPY RETROGRADE PYELOGRAM 12/09/2024 1:00 PM EDT Office [facility] - Medical Oncology [address] [place] [phone] Jairo Rodriguez MD [address] [place] [address] 05/12/2025 9:40 AM EST Office Visit [facility] Internal Medicine - Family Medicine [address] [place] [phone] Scheduled Procedures Name Priority Associated Diagnoses Date/Ti [...] documented as of this encounter Care Teams Library Monitor Relationship Specialty Start Date End Date Alden Harry DO [address], [place] [address] PCP - General Family Medicine 05/13/24 documented as of this encounter
--- OUTSIDE RECORDS SUMMARY | 2024-11-17 11:06 | XMS_ITS | Encounter Summary ---
Author Organization [employer] Address [id number] [address] [place] [address] Care Team Providers Care Water Pollution Specialist Name Role Phone KamrynAlden Brice CARDENAS Primary Care Provider + [phone] Reason for Visit * Reason Onset Date Comments Consult 08/08/2024 Encounter Details Date Type Department Care Team (Late st Contact Info) Description 08/08/2024 [facility] [address] [place] [phone] Deb Gilbert Consult Social History Tobacco Use Types Packs/Day Years Used Date Smoking Tobacco: Former Cigarettes 1.5 25.7 2 000 - 1960 Smokeless Tobacco: Never Alcohol Use Standard Drinks/Week Comments Not Currently 0 (1 standard drink = 0.6 oz pure alcohol) occasional social drink of beer or malibu rum [facility] Utilities Answer Date Recorded In the past 12 months has [employer], [employer], oil, or water [employer] threatened to shut off services in your home? No 07/28/2024 Social Connection and Isolat ion Panel [NHANES] Answer Date Recorded In a typical week, how many times do you talk on the phone with family, friends, or neighbors? More than three times a week 05/11/2024 How often do you get togethe r with friends or relatives? Three times a week 05/11/2024 How often do you attend chur or scientology services? Never 05/11/2024 Do you belong to any clubs o r organizations such as mormonism groups, unions, fraternal or athletic groups, or [...] PHQ-2 Answer Date Recorded Total Score 0 07/20/2024 [facility] of Occupat ional Health - [...] medical appointments or from getting medications? No 07/09 In the past 12 months, has l ack of transportation kept you from meetings, work, or from getting things needed for daily living? No 07/28/2024 Housing Instability Answer Date Recorde d Are you worried or concerned that in the next two months you may not have stable housing that you own, rent or stay in as a part of a household? No 07/28/2024 Childcare Answer Date Recorded Do problems getting child ca re make it difficult for you to work or study? No 02/11/2023 Employment Answer Date Recorded Do you need help finding a [facility] career center and/or a training program? No 02/11/2023 Hunger Screening Answer Date Recorded Within the past 12 months we worried whether our food would run out before we got money to buy more. Never True 08/09/2024 Within the past 12 months th e food we bought just didn't last and we didn't have money to get more. Never True 08/09/2024 Purpose - Life Answer Date Recorded I have a purpose and direction in my life. Stron gly Agree 02/11/2023 Sex and Gender Information Value Date Recorded Sex Assigned at Male 07/28/2024 10:17 PM EDT Legal Sex Male 11:51 AM EDT Gender Identity Male 07/28/2024 10:17 PM EDT Sexual Orientation Straight 07/28/2024 10 :17 PM EDT documented as of this encounter Functional Status documented as of this encounter Mental Status * Question Answer Entry Date Author Overall Cognitive Status X 08/09/2024 7:54 AM EDT Terri Thorne, OTR/L documented in this encounter Miscellaneous Notes * Telephone Encounter - Deb Gilbert - 08/08/2024 3:22 PM EDT Contract: LAUREN Herrera 212/2 Re New consult pericardial Effusion * Telephone Encounter - Deb Gilbert - 08/08/2024 3:22 PM EDT Contract: LAUREN Sent Secure chat to Dr documented in this encounter Plan of Treatment Upcoming Encounters Date Type Department Care Team (Late st Contact Info) Description 11/25/2024 2:15 PM EDT Office Visit [facility] Medicine - Family Medicine [address] [place] [address] Alden Harry DO [address], [place] [address] 11/29/2024 3:40 PM EDT Support Visit [facility] - Pre Admit [address] [place] [phone] 11/30/2024 10:30 AM EDT Hospital Encounter [facility] - Surgery [address] [place] [phone] Velasquez Garcias MD [address] [place] [address] 11/30/2024 10:30 AM EDT - 11/30/2024 11:15 AM EDT Surgery [facility] - Surgery [address] [facility] [place] [phone] Velasquez Garcias MD [address] [place] [address] CYSTOSCOPY RETROGRADE PYELOGRAM 12/09/2024 1:00 PM EDT Office Visit [facility] - Medical Oncology [address] [place] [phone] Jairo Rodriguez MD [address] [place] [address] [address] [place] [address] 05/12/2025 9:40 AM EST Office Visit [facility] Internal Medicine - Family Medicine [address] [place] [phone] Scheduled Procedures Name Priority Associated Diagnoses Date/Ti wi CYSTOSCOPY RETROGRADE PYELOGRAM Gross hematuria Hydroureteronephrosis 11/30/2024 10:30 AM EDT CYSTOURETEROSCOPY DIAGNOSTIC Gross hematuria Hydroureteronephrosis 11/30/2024 10:30 AM EDT CYSTOSCOPY INSERTION STENT URETER Gross hematuria Hydroureteronephrosis 11/30/2024 10:30 AM EDT documented as of this encounter Visit Diagnoses Not on filedocumented in this encounter Additional Health Concerns Infection Onset Date Last Indicated Resolved Time Enteric Rule-Out 09/08/2024 09/08/2024 09/09/2024 12:49 AM EDT Assessment Noted Time PHQ-9 Depression Total Score: 0 07/21/19 1:01 PM EDT A Body Mass Index follow-up plan has been documented for the patient 01/12/2024 10:07 AM EST documented as of this encounter Care Teams Water Pollution Specialist Relationship Specialty Start Date End Date Alden Harry DO [address] [facility] [place] [address] PCP - General Family Medicine 05/13/24 documented as of this encounter
--- OUTSIDE RECORDS SUMMARY | 2024-11-17 11:06 | XMS_ITS | Encounter Summary ---
Author Organization [facility] Address [address] [place] [address] Care Team Providers Care Registered Nurse Obstetrics Name Role Phone Alden Harry MD Primary Care Provider Encounter Details Date Type Department Care Team (Late st Contact Info) Description 11/30/2022 Abstract [facility] [address] [place] [phone] Sukhi Hernández DPMegan [address] [place], [place] [phone] Social History Tobacco Use Types Packs/Day Years Used Date Smoking Tobacco: Former Cigarettes Tobacco Cessation:Counseling Given: Not Answered Alcohol Use Standard Drinks/Week Comments Not Currently 0 (1 standard drink = 0.6 oz pure alcohol) 1-2 drinks less than monthly in the past year Sex and Gender Information Value Date Recorded Sex Assigned at Not on file Legal Sex Male 7:58 PM EDT Gender Identity Not on file Sexual Orientation Not on file documented as of this encounter Plan of Treatment Not on file documented as of this encounter Visit Diagnoses Not on filedocumented in this encounter Care Teams Registered Nurse Obstetrics Relationship Specialty Start Date End Date Alden Harry MD PCP - General Family Medicine 12/02/22 documented as of this encounter
--- OUTSIDE RECORDS SUMMARY | 2024-11-17 11:06 | XMS_ITS | Encounter Summary ---
Author Organization [employer] Address [facility] [id number] [address] [place] [address] Care Team Providers Care Zanjero Name Role Phone KamrynAlden Brice CARDENAS Primary Care Provider [phone] Encounter Details Date Type Department Care Team (Late st Contact Info) Description 09/21/2024 [facility] Family Medicine [address] [place] [phone] Shahana Kasper CMA Social History Tobacco Use Types Packs/Day Years Used Date Smoking Tobacco: Former Cigarettes 1.5 25.7 2 000 - 1960 Smokeless Tobacco: Never Alcohol Use Standard Drinks/Week Comments Not Currently 0 (1 standard drink = 0.6 oz pure alcohol) occasional social drink of beer or malibu rum [facility] Utilities Answer Date Recorded In the past 12 months has [employer], gas, oil, or water [employer] threatened to shut off services in your [...] often do you attend chur ch or taoism services? Never 05/11/2024 Do you belong to any clubs o r organizations such as anglican groups, unions, fraternal or athletic groups, or [...] Answer Date Recorded Total Score 4 09/08/2024 [facility] of Occupat ional Health - Occupational Stress [...] Recorded Do you need help finding a [facility] career center and/or a training program? No 02/11/2023 Hunger Screening Answer Date Recorded Within the past 12 months we worried whether our food would run out before we got money to buy more. Never True 09/23/2024 Within the past 12 months th e food we bought just didn't last and we didn't have money to get more. Never True 09/23/2024 Purpose - Life Answer Date Recorded I have a purpose and direction in my life. Stron gly Agree 02/11/2023 Sex and Gender Information Value Date Recorded Sex Assigned at Male 07/28/2024 10:17 PM EDT Legal Sex Male 11:51 AM EDT Gender Identity Male 07/28/2024 10:17 PM EDT Sexual Orientation Straight 07/28/2024 10 :17 PM EDT documented as of this encounter Functional Status * Question Answer Date of Assessment Author Functional Status Independent 09/23/2024 3:03 PM EDT Kimberley Benjamin LSW * Audit-C Score Answer Date of Assessment Author 1 09/23/2024 11:04 AM EDT Matilda Munguia RN * Question Answer Date of Assessment Author Q1: How often do you have a drink containing alcohol? Monthly or less 09/23/2024 11:04 AM EDT Maxwell Munguia RN Q2: How many drinks containing alcohol do you have on a typical day when you are drinking? 1 or 2 09/23/2024 11:04 AM EDT Oscar Munguia RN Q3: How often do you have six or more drinks on one occasion? Never 09/23/2024 11:04 AM EDT Maxwell Munguia RN documented as of this encounter Mental Status * Question Answer Entry Date Author Overall Cognitive Status WFL 09/24/2024 2:21 PM EDT Vaishali Monahan OTR/L documented in this encounter Miscellaneous Notes * Telephone Encounter - Shahana Kasper CMA - 09/21/2024 7:56 AM EDT Transition of Care Additional Questions/Concerns Requiring PCP Follow-Up: - Unable to reach patient. Discharged with order for standard walker, unsure if received prior to discharging or not. - Conclusion made that one of the contributing factors could be colchicine therapy which the patient was taking for an acute bout of pericarditis. Patient was discharged off colchicine and told to follow-up w/ Cardiology for further management. Next appointment 10/13. - PCP visit scheduled 09/27. Patient still needs a Urology follow-up scheduled. - D/C home for about 10 days prior to admission from [facility]. He was supposed to have [id number] services, but they never came out. Declined HHC services. Ambulatory referral placed for OP PT. This documentation is being used for Transition of Care Purposes: Yes Goal: Patient will demonstrate a safe transition from hospital to home. Discharging Facility: [facility] Date of Facility Admission & Discharge: 09/07-09/11 Diagnosis on Discharge: SUSAN & Orthostatic Hypotension H/O Pulmonary Embolism Hypothyroidism Discharge Specialty: Other Date of Interactive Contact & Name of Contact: - RN called patient and left message on 09/14 at 1:31 PM. - Second attempt at 3:56 PM. Medication Review Completed: No Medication Reconciliation Questions/Concerns: Unable to reach. Medication Changes Made: START taking: mirtazapine (REMERON SILVERIO-TAB) STOP taking: colchicine 0.6 mg tablet (COLCRYS) traZODone 50 mg tablet (DESYREL) Follow Up Appointments with Providers: Primary: Dr. Harry Date/Time: 09/27 @ 9 AM (ROSA ISELA visit recommended by 09/24) Specialty: Dr. Muñoz w/ Cardiology Date/Time: 10/13 @ 2:45 PM Specialty: Dr. Garcias w/ Urology Date/Time: TBD - Follow-up recommended in 2 weeks Review of Pending/Future Labs/Diagnostic Tests & Plan for Completion: N/A Assessment of Treatment/Medication Adherence, Support, or Barriers to Patient's Needs: Patient able to complete ADLs: LISANDRO. DME currently used/needed: standard walker and compression stockings. Has quad cane, grab bars, nebulizer, and bench in the shower. Patient has support from his spouse and daughter. He lives in a private apartment that is 1 level. Housing needs currently met. Transportation per: LISANDRO. Food insecurity not present. Patient able to afford current prescriptions. Per admission documentation. Unable to reach. Education by TCN to Support Self-Management, Independent Living, Safety, and ADLs: Unable to reach. Communication with Home Health Agencies & Other Services Utilized/Needed by the Patient: - Home w/ self care and family support. - Ambulatory referral placed for OP PT. documented in this encounter Plan of Treatment Upcoming Encounters Date Type Department Care Team (Late st Contact Info) Description 11/25/2024 2:15 PM EDT Office Visit [facility] Internal Medicine - Family Medicine [address] [place] [address] Alden Harry, [address], [place] [address] 11/29/2024 3:40 PM EDT Support Visit [facility] - Pre Admit [address] [place] [phone] 11/30/2024 10:30 AM EDT Hospital Encounter [facility] - Surgery [address] [place] [phone] Velasquez Garcias MD [address] [place] [address] 11/30/2024 10:30 AM EDT - 11/30/2024 11:15 AM EDT Surgery [facility] - Surgery [address] [place] [phone] Velasquez Garcias MD [address] [place] [address] CYSTOSCOPY RETROGRADE PYELOGRAM 12/09/2024 1:00 PM EDT Office Visit [facility] Mar[facility] - Medical Oncology [address] [place] [phone] Jiaro Rodriguez MD [address] [facility] [address] [place] [address] 05/12/2025 9:40 AM EST Office Visit [facility] Medicine - Family Medicine [address] [place] [address] Scheduled Procedures Name Priority Associated Diagnoses Date/Ti [...] documented as of this encounter Care Teams Zanjero Relationship Specialty Start Date End Date Alden Harry DO [address], [place] [address] PCP - General Family Medicine 05/13/24 documented as of this encounter
--- OUTSIDE RECORDS SUMMARY | 2024-11-17 11:06 | XMS_ITS | Encounter Summary ---
Author Organization Play[employer] s tem Address [facility]-[id number] [address] [place] [address] Care Team Providers Care Irrigation Supervisor Name Role Phone KamrynAtaAldenalexandre Narvaez DO Primary Care Provider [phone] Encounter Details Date Type Department Care Team (Late st Contact Info) Description 07/11/2024 Telephone [facility] [address] [place] [phone] Micheline Garner Social History Tobacco Use Types Packs/Day Years Used Date Smoking Tobacco: Former Cigarettes Q uit: 09/2019 Smokeless Tobacco: Never Alcohol Use Standard Drinks/Week Comments Not Currently 0 (1 standard drink = 0.6 oz pure alcohol) occasional social drink of beer or malibu rum [facility] Utilities Answer Date Recorded In the past 12 months has [employer], gas, oil, or water [employer] threatened to shut off services in your home? No 07/11/2024 Social Connection and Isolat ion Panel [NHANES] Answer Date Recorded In a typical week, how many times do you talk on the phone with family, friends, or neighbors? More than three times a week 05/11/2024 How often do you get togethe r with friends or relatives? Three times a week 05/11/2024 How often do you attend chur ch or anglican services? Never 05/11/2024 Do you belong to any clubs o r organizations such as nondenominational groups, unions, fraternal or athletic groups, or [...] PHQ-2 Answer Date Recorded Total Score 0 05/11/2024 [facility] of Occupat ional Health - Occupational Stress [...] medical appointments or from getting medications? No 06/2024 In the past 12 months, has l ack of transportation kept you from meetings, work, or from getting things needed for daily living? No 07/11/2024 Housing Instability Answer Date Recorde d Are you worried or concerned that in the next two months you may not have stable housing that you own, rent or stay in as a part of a household? No 07/11/2024 Childcare Answer Date Recorded Do problems getting child ca re make it difficult for you to work or study? No 02/11/2023 Employment Answer Date Recorded Do you need help finding a [facility] career center and/or a training program? No 02/11/2023 Hunger Screening Answer Date Recorded Within the past 12 months we worried whether our food would run out before we got money to buy more. Never True 07/12/2024 Within the past 12 months th e food we bought just didn't last and we didn't have money to get more. Never True 07/12/2024 Purpose - Life Answer Date Recorded I [...] Functional Status documented as of this encounter Miscellaneous Notes * Telephone Encounter - Micheline Garner - 07/11/2024 2:12 PM EDT Contract: [facility] [phone] re requesting transfer Secure chat Dr. Franks documented in this encounter Plan of Treatment Upcoming Encounters Date Type Department Care Team (Late st Contact Info) Description 11/25/2024 2:15 PM EDT Office Visit [facility] Internal Medicine - Family Medicine [address] [place] [address] Alden Harry, DO [address], [place] [address] 11/29/2024 3:40 PM EDT Support Visit [facility] - Pre Admit [address] [facility] [address] 11/30/2024 10:30 AM EDT Hospital Encounter [facility] - Surgery [address] [place] [phone] Velasquez Garcias MD [address] [place] [address] 11/30/2024 10:30 AM EDT - 11/30/2024 11:15 AM EDT Surgery [facility] - Surgery [address] [place] [phone] Velasquez Garcias MD [address] [place] [address] CYSTOSCOPY RETROGRADE PYELOGRAM 12/09/2024 1:00 PM EDT Office Visit Buffy Hemant [facility] - Medical Oncology [address] [place] [address] Jairo Rodriguez MD [address] [facility] [address] [place] [address] 05/12/2025 9:40 AM EST Office Visit [facility] Internal Medicine - Family Medicine [address] [place] [phone] Scheduled Procedures Name Priority Associated Diagnoses Date/Ti [...] Noted Time PHQ-9 Depression Total Score: 0 05/12/19 25 10:00 AM EST A Body Mass Index follow-up plan has been documented for the patient 01/12/2024 10:07 AM EST documented as of this encounter Care Teams Irrigation Supervisor Relationship Specialty Start Date End Date Alden Harry DO [address], [facility] [place] [address] PCP - General Family Medicine 05/13/24 documented as of this encounter
--- OUTSIDE RECORDS SUMMARY | 2024-11-17 11:06 | XMS_ITS | Encounter Summary ---
Author Organization [facility] Address [id number] [address] [place] [address] Care Team Providers Care Ultrasound Sonographer Name Role Phone JasmineAlden krishnamurthy Primary Care Provider + [phone] Reason for Visit * Reason Onset Date Comments Transition Of Care 09/14/2024 Encounter Details Date Type Department Care Team (Late st Contact Info) Description 09/14/[address] [facility] - Family Medicine [address] [place] [phone] Claudette Morris diving supervisor Of Care Social History Tobacco Use Types Packs/Day Years Used Date Smoking Tobacco: Former Cigarettes 1.5 25.7 2 000 - 1960 Smokeless Tobacco: Never Alcohol Use Standard Drinks/Week Comments Not Currently 0 (1 standard drink = 0.6 oz pure alcohol) occasional social drink of beer or malibu rum [facility] Utilities Answer Date Recorded In the past 12 months has [employer], gas, oil, or water [employer] threatened to shut off services in your home? No 09/08/2024 Social Connection and Isolat ion Panel [NHANES] Answer Date Recorded In a typical week, how many times do you talk on the phone with family, friends, or neighbors? More than three times a week 05/11/2024 How often do you get togethe r with friends or relatives? Three times a week 05/11/2024 How often do you attend up health system or buddhism services? Never 05/11/2024 Do you belong to [...] drink containing alc ohol? Monthly or less 09/08/2024 Q2: How many drinks containi ng alcohol do you have on a typical day when you are drinking? 1 or 2 09/08/2024 Q3: How often do you have si x or more drinks on one occasion? Never 09/08/2024 Overall Financial Resource Strain (CARDIA) Answe r Date Recorded How hard is it for you to pa y for the very basics like food, housing, medical care, and heating? Not hard at all 02/11/2023 PHQ-2 Answer Date Recorded Total Score 4 09/08/2024 [facility] of Occupat ional Health - Occupational [...] medical appointments or from getting medications? No 04/2024 In the past 12 months, has l ack of transportation kept you from meetings, work, or from getting things needed for daily living? No 09/08/2024 Housing Instability Answer Date Recorde d Are you worried or concerned that in the next two months you may not have stable housing that you own, rent or stay in as a part of a household? No 09/08/2024 Childcare Answer Date Recorded Do problems getting child ca re make it difficult for you to work or study? No 02/11/2023 Employment Answer Date Recorded Do you need help finding a [facility] career center and/or a training program? No 02/11/2023 Hunger Screening Answer Date Recorded Within the past 12 months we worried whether our food would run out before we got money to buy more. Never True 09/08/2024 Within the past 12 months th e food we bought just didn't last and we didn't have money to get more. Never True 09/08/2024 Purpose - Life Answer Date Recorded I [...] encounter Miscellaneous Notes * Telephone Encounter - Claudette Navarrete RN - 09/14/2024 1:22 PM EDT Transition of Care Additional Questions/Concerns Requiring [...] about 10 days prior to admission from [facility]. He was supposed to have [id number] for [facility] services, but they never came out. Declined [facility] services. Ambulatory referral placed for OP PT. This documentation is being used for Transition of Care Purposes: Yes Goal: Patient will demonstrate a safe transition from hospital to home. Discharging Facility: TT Date of Facility Admission & Discharge: 09/07-09/11 [...] Description 11/25/2024 2:15 PM EDT Office Visit [facility] Internal Medicine - Family Medicine [address] [place] [address] Alden Harry, [address], [place] [address] 11/29/2024 3:40 PM EDT Support Visit [facility] - Pre Admit [address] [place] [address] 11/30/2024 10:30 AM EDT Hospital Encounter [facility] Surgery [address] [place] [address] Velasquez Garcias MD [address] [place] [address] 11/30/2024 10:30 AM EDT - 11/30/2024 11:15 AM EDT Surgery [facility] Surgery [address] [place] [address] Velasquez Garcias MD [address] [place] [address] CYSTOSCOPY RETROGRADE PYELOGRAM 12/09/2024 1:00 PM EDT Office Visit Buffy Marcos [facility] - Medical Oncology [address] [place] [phone] Jairo Rodriguez MD [address] [facility] [address] [place], [place] [phone] 05/12/2025 9:40 AM EST Office Visit [facility] Internal Medicine - Family Medicine [address] [facility] [phone] Scheduled Procedures Name Priority Associated Diagnoses Date/Ti al CYSTOSCOPY RETROGRADE PYELOGRAM Gross hematuria Hydroureteronephrosis 11/30/2024 10:30 AM EDT CYSTOURETEROSCOPY DIAGNOSTIC Gross hematuria Hydroureteronephrosis 11/30/2024 10:30 AM EDT CYSTOSCOPY INSERTION STENT URETER Gross hematuria Hydroureteronephrosis 11/30/2024 10:30 AM EDT documented as of this encounter Visit Diagnoses Not on filedocumented in this encounter Additional Health Concerns Assessment Noted Time PHQ-9 Depression Total Score: 4 09/09/19 25 10:56 AM EDT A Body Mass Index follow-up plan has been documented for the patient 01/12/2024 10:07 AM EST documented as of this encounter Care Teams Ultrasound Sonographer Relationship Specialty Start Date End Date Alden Harry, DO [address] [facility], [place] [address] PCP - General Family Medicine 05/13/24 documented as of this encounter
--- OUTSIDE RECORDS SUMMARY | 2024-11-17 11:06 | XMS_ITS | Encounter Summary ---
Author Organization [employer] Address [facility][id number] [address] [place] [address] Care Team Providers Care Washhouse Hand Name Role Phone KamrynAlden Brice CARDENAS Primary Care Provider [phone] Encounter Details Date Type Department Care Team (Late st Contact Info) Description 10/11/2024 [facility] Medicine [address] [place] [phone] Sathya Baeza, ANASTASIA Social History Tobacco Use Types Packs/Day Years Used Date Smoking Tobacco: Former Cigarettes 1.5 25.7 2 000 - 1960 Smokeless Tobacco: Never Alcohol Use Standard Drinks/Week Comments Not Currently 0 (1 standard drink = 0.6 oz pur e alcohol) 2 beer per year [facility] Utilities Answer Date Recorded In the past 12 months has [employer], gas, oil, or water [employer] threatened to shut off services in your [...] often do you attend chur ch or church services? Never 05/11/2024 Do you belong to any clubs o r organizations such as amish groups, unions, fraternal or athletic groups, or [...] Answer Date Recorded Total Score 0 10/14/2024 [facility] of Occupat ional Health - Occupational [...] Recorded Do you need help finding a [facility] career center and/or a training program? No 02/11/2023 Hunger Screening Answer Date Recorded Within the past 12 months we worried whether our food would run out before we got money to buy more. Never True 10/14/2024 Within the past 12 months th e food we bought just didn't last and we didn't have money to get more. Never True 10/14/2024 Purpose - Life Answer Date Recorded I [...] encounter Miscellaneous Notes * Telephone Encounter - Sathya Baeza CNA - 10/11/2024 1:37 PM EDT Patients called to request for you to call in a prescription for sleeping medication. She states the patient is have a lot of trouble sleeping since he has been discharged home. He does have an appointment scheduled with you for TCM on 10/14 but would like to try and get something before then. documented in this encounter Plan of Treatment Upcoming Encounters Date Type Department Care Team (Late st Contact Info) Description 11/25/2024 2:15 PM EDT Office Visit [facility] Internal Medicine - Family Medicine [address] [place] [phone] Alden Harry, DO [address], [place] [address] 11/29/2024 3:40 PM EDT Support Visit [facility] - Pre Admit [address] [facility] [address] 11/30/2024 10:30 AM EDT Hospital Encounter [facility] - Surgery [address] [place] [phone] Velasquez Garcias MD [address] [place] [address] 11/30/2024 10:30 AM EDT - 11/30/2024 11:15 AM EDT Surgery [facility] - Surgery [address] [place] [phone] Velasquez Garcias MD [address] [place] [address] CYSTOSCOPY RETROGRADE PYELOGRAM 12/09/2024 1:00 PM EDT Office Visit Buffy Marcos [facility] - Medical Oncology [address] [place] [phone] [place] [address] [place] [address] [address] [place], [place] [phone] 05/12/2025 9:40 AM EST Office Visit [facility] Internal Medicine - Family Medicine [address] [place] [phone] Scheduled Procedures Name Priority Associated Diagnoses Date/Ti ar CYSTOSCOPY RETROGRADE PYELOGRAM Gross hematuria Hydroureteronephrosis 11/30/2024 [...] documented as of this encounter Care Teams Washhouse Hand Relationship Specialty Start Date End Date Alden Harry DO [address], [facility] [place] [address] PCP - General Family Medicine 05/13/24 documented as of this encounter
--- OUTSIDE RECORDS SUMMARY | 2024-11-17 11:06 | XMS_ITS | Encounter Summary ---
Author Organization [facility] [employer] Address [facility][id number] [address] [place] [address] Care Team Providers Care Correctional Officer Lieutenant Name Role Phone Kamryn Alden Brice CARDENAS Primary Care Provider Encounter Details Date Type Department Care Team (Late st Contact Info) Description 01/28/2023 Telephone [facility] Pulmonary/Sleep Medicine [address] [address] Viviane Webster, TOWEL STRETCHER-PROPERTY DISPOSAL MANAGER [address] [address] Social History Tobacco Use Types Packs/Day Years Used Date Smoking Tobacco: Former Smokeless Tobacco: Never Alcohol Use Standard Drinks/Week Comments Not Currently 0 (1 standard drink = 0.6 oz pure alcohol) occasional social drink of beer or malibu rum PHQ-2 Answer Date Recorded Total Score 0 01/15/2023 Housing Instability Answer Date Recorde d Are you worried or concerned that in the next two months you may not have stable housing that you own, rent or stay in as a part of a household? No 02/01/2023 Childcare Answer Date Recorded Childcare Unknown 08/19/2018 [...] encounter Miscellaneous Notes * Telephone Encounter - DHEERAJ Chao - 01/28/2023 1:12 PM EST Follow up in 6-8 weeks in [place] (). Thank you! * Telephone Encounter - Alison Ruiz RN - 01/28/2023 1:12 PM EST LM for pt to call office re HDFU documented in this encounter Plan of Treatment Upcoming Encounters Date Type Department Care Team (Late st Contact Info) Description 11/25/2024 2:15 PM EDT Office Visit [facility] Internal Medicine - Family Medicine [address] [place] [address] Alden Harry, DO [address], [facility] [place] [address] 11/29/2024 3:40 PM EDT Support Visit [facility] - Pre Admit [address] [place] [phone] 11/30/2024 10:30 AM EDT Hospital Encounter [facility] - Surgery [address] [place] [address] Velasquez Garcias MD [address] [place] [address] 11/30/2024 10:30 AM EDT - 11/30/2024 11:15 AM EDT Surgery [facility] - Surgery [address] [place] [phone] Velasquez Garcias MD [address] [place] [address] CYSTOSCOPY RETROGRADE PYELOGRAM 12/09/2024 1:00 PM EDT [facility] [address] [place] [phone] Jairo Rodriguez MD [address] [facility] [address] [place] [phone] 05/12/2025 9:40 AM EST Office Visit [facility] Internal Medicine - Family Medicine [address] [place] [phone] Scheduled Procedures Name Priority Associated Diagnoses Date/Ti [...] Noted Time PHQ-9 Depression Total Score: 0 01/16/20 2:00 PM EST documented as of this encounter Care Teams Correctional Officer Lieutenant Relationship Specialty Start Date End Date Alden Harry DO [address], [facility] [place] [address] PCP - General Family Medicine 05/13/24 documented as of this encounter
--- OUTSIDE RECORDS SUMMARY | 2024-11-17 11:06 | XMS_ITS | Encounter Summary ---
Author Organization [employer] Address [id number] [address] [place] [address] Care Team Providers Care Manager File Name Role Phone Kamryn Alden Narvaez DO Primary Care Provider [phone] Encounter Details Date Type Department Care Team (Late st Contact Info) Description 09/27/2024 Telephone [facility] [address] [place] [phone] Velasquez Garcias MD [address] [place] [id number] Social History Tobacco Use Types Packs/Day Years Used Date Smoking Tobacco: Former Cigarettes 1.5 25.7 2 000 - 1960 Smokeless Tobacco: Never Alcohol Use Standard Drinks/Week Comments Not Currently 0 (1 standard drink = 0.6 oz pur e alcohol) 2 beer per year [facility] Utilities Answer Date Recorded In the past 12 months has [employer], gas, oil, or water [employer] threatened to shut off services in your [...] week 05/11/2024 How often do you attend [facility] or lutheran services? Never 05/11/2024 Do you belong to any clubs o r organizations such as jainism groups, unions, fraternal or athletic groups, or [...] Date Recorded Total Score 4 09/08/2024 [facility] of Occupat ional Health - Occupational [...] Recorded Do you need help finding a [facility] career center and/or a training [...] Description 11/25/2024 2:15 PM EDT Office Visit [facility] Internal Medicine - Family Medicine [address] [place] [address] Alden Harry, DO [address], [facility] [place] [address] 11/29/2024 3:40 PM EDT Support Visit [facility] - Pre Admit [address] [place] [place] [phone] 11/30/2024 10:30 AM EDT Hospital Encounter [facility] - Surgery [address] [place] [phone] Velasquez Garcias MD [address] [place] [address] 11/30/2024 10:30 AM EDT - 11/30/2024 11:15 AM EDT Surgery [facility] - Surgery [address] [place] [phone] Velasquez Garcias MD [address] [place] [address] CYSTOSCOPY RETROGRADE PYELOGRAM 12/09/2024 1:00 PM EDT Office Visit Buffy Hemant [facility] - Medical Oncology [address] [place] [phone] Jairo Rodriguez MD [address] [facility] [address] [place], [place] [phone] 05/12/2025 9:40 AM EST Office Visit [facility] Internal Medicine - Family Medicine [address] [place] [phone] Scheduled Procedures Name Priority Associated Diagnoses Date/Ti [...] documented as of this encounter Care Teams Manager File Relationship Specialty Start Date End Date Alden Harry DO [address], [facility] [place] [address] PCP - General Family Medicine 05/13/24 documented as of this encounter
--- OUTSIDE RECORDS SUMMARY | 2024-11-17 11:06 | XMS_ITS | Encounter Summary ---
Author Organization [facility] tem Address [id number] [address] [place] [address] Care Team Providers Care Electronic Game Developer Name Role Phone Alden Harry Primary Care Provider Encounter Details Date Type Department Care Team (Latest Contact Info) Description 10/15/2024 Results Follow-Up [facility] Internal Medicine - Family Medicine [address] [place] [address] Dolly Muñoz MD [address] [place] [address] Comprehensive metabolic panel, CBC without diff Social History Tobacco Use Types Packs/Day Years Used Date Smoking Tobacco: Former Cigarettes 1.5 25.7 2 000 - 1960 Smokeless Tobacco: Never Alcohol Use Standard Drinks/Week Comments Not Currently 0 (1 standard drink = 0.6 oz pur e alcohol) 2 beer per year [facility] Utilities Answer Date Recorded In the past 12 months has [employer], gas, oil, or water company threatened to shut off services in your [...] week 05/11/2024 How often do you attend [facility] or church services? Never 05/11/2024 Do you belong to any clubs o r organizations such as baptist groups, unions, fraternal or athletic groups, or [...] Answer Date Recorded Total Score 0 10/14/2024 [facility]at [facility] - Occupational [...] Recorded Do you need help finding a [facility] career center and/or a training program? [...] Telephone Encounter - Parth Lazo CMA - 10/15/2024 10:01 AM EDT ----- Message from Alden Harry DO sent at 10/15/2024 12:27 PM EDT ----- His labs look pretty good relatively speaking. His kidney tests actually improved a little bit. Hisanemia also improved from 9.7-11.0. His white blood cell count was up a bit. Have him monitor for fever or signs of infections. He should finish out his antibiotics if he did not already do so. ----- Message ----- From: Lab, Background User Sent: 10/14/2024 6:21 PM EDT To: Alden Harry DO documented in this encounter Plan of Treatment Upcoming Encounters Date Type Department Care Team (Late st Contact Info) Description 11/25/2024 2:15 PM EDT Office Visit [facility] Internal Medicine - Family Medicine [address] [place] [address] Alden Harry DO [address], [place] [address] 11/29/2024 3:40 PM EDT Support Visit [facility] - Pre Admit [address] [place] [phone] 11/30/2024 10:30 AM EDT Hospital Encounter [facility] - Surgery [address] [facility] [place] [address] Velasquez Garcias MD [address] [place] [address] 11/30/2024 10:30 AM EDT - 11/30/2024 11:15 AM EDT Surgery [facility] - Surgery [address] [place] [address] Velasquez Garcias MD [address] [place] [address] CYSTOSCOPY RETROGRADE PYELOGRAM 12/09/2024 1:00 PM EDT Office Visit Buffy Marcos [facility] - Medical Oncology [address] [place] [phone] Jairo Rodriguez MD [address] [address] 05/12/2025 9:40 AM EST Office Visit [facility] Internal Medicine - Family Medicine [address] [place] [phone] Scheduled Procedures Name Priority Associated Diagnoses Date/Ti ak CYSTOSCOPY RETROGRADE PYELOGRAM Gross hematuria Hydroureteronephrosis 11/30/2024 10:30 AM EDT CYSTOURETEROSCOPY DIAGNOSTIC Gross hematuria Hydroureteronephrosis 11/30/2024 10:30 AM EDT CYSTOSCOPY INSERTION STENT URETER Gross hematuria Hydroureteronephrosis 11/30/2024 10:30 AM EDT documented as of this encounter Visit Diagnoses Not on filedocumented in this encounter Additional Health Concerns Assessment Noted Time PHQ-9 Depression Total Score: 0 10/15/19 8:34 AM EDT A Body Mass Index follow-up plan has been documented for the patient 01/12/2024 10:07 AM EST documented as of this encounter Care Teams Electronic Game Developer Relationship Specialty Start Date End Date Alden Harry DO [address] [facility] [place] [address] PCP - General Family Medicine 05/13/24 documented as of this encounter
--- OUTSIDE RECORDS SUMMARY | 2024-11-17 11:06 | XMS_ITS | Encounter Summary ---
Author Organization [employer] tem Address [id number] [address] [place] [address] Care Team Providers Care Drill Press Operator Name Role Phone JasmineAlden krishnamurthy Brice CARDENAS Primary Care Provider + [phone] Reason for Visit * Reason Onset Date Comments Med Refill 10/11/2024 Encounter Details Date Type Department Care Team (Late st Contact Info) Description 10/11/2024 Refill [facility] Internal Medicine - Family Medicine [address] [place] [phone] Sathya Baeza, MODEL MAKER [employer] Social History Tobacco Use Types Packs/Day Years Used Date Smoking Tobacco: Former Cigarettes 1.5 25.7 2 000 - 1960 Smokeless Tobacco: Never Alcohol Use Standard Drinks/Week Comments Not Currently 0 (1 standard drink = 0.6 oz pur e alcohol) 2 beer per year [facility] Utilities Answer Date Recorded In the past 12 months has [employer], gas, oil, or water [employer] threatened to shut off services in your [...] often do you attend chur ch or mormonism services? Never 05/11/2024 Do you belong to any clubs o r organizations such as sabianism groups, unions, fraternal or athletic groups, or [...] Answer Date Recorded Total Score 0 10/14/2024 [facility] of Occupat ional Health - Occupational [...] Description 11/25/2024 2:15 PM EDT Office Visit [facility] Internal Medicine - Family Medicine [address] [place] [address] Alden Harry, DO [address], [facility] [place] [address] 11/29/2024 3:40 PM EDT Support Visit [facility] - Pre Admit [address] [place] [phone] 11/30/2024 10:30 AM EDT Hospital Encounter [facility] - Surgery [address] [place] [phone] Velasquez Garcias MD [address] [place] [address] 11/30/2024 10:30 AM EDT - 11/30/2024 11:15 AM EDT Surgery [facility] - Surgery [address] [place] [address] Velasquez Garcias MD [address] [place] [address] CYSTOSCOPY RETROGRADE PYELOGRAM 12/09/2024 1:00 PM EDT Office Visit Buffy Marcos [facility] - Medical Oncology [address] [place] [phone] Jairo Rodriguez MD [address] [facility] [address] [place] [phone] 05/12/2025 9:40 AM EST Office Visit [facility] Internal Medicine - Family Medicine [address] [place] [address] Scheduled Procedures Name Priority Associated [...] documented as of this encounter Care Teams Drill Press Operator Relationship Specialty Start Date End Date Alden Harry DO [address], [facility] [place] [address] PCP - General Family Medicine 05/13/24 documented as of this encounter
--- OUTSIDE RECORDS SUMMARY | 2024-11-17 11:06 | XMS_ITS | Encounter Summary ---
Author Organization [employer] tem Address [facility] [place] [id number] [address] [place] [address] Care Team Providers Care Flat Bed Knitter Name Role Phone Alden Harry DO Primary Care Provider Encounter Details Date Type Department Care Team (Late Contact Info) Description 08/17/2020 Orders Only [facility] Pulmonary/Sleep Medicine [address] [facility] [place] [address] Yeni West RN Social History Tobacco Use Types Packs/Day Years Used Date Smoking Tobacco: Former Smokeless Tobacco: Never Childcare Answer Date Recorded Childcare Unknown 08/19/2018 [...] Encounters Date Type Department Care Team (Late Contact Info) Description 11/25/2024 2:15 PM EDT Office Visit [facility] Internal Medicine - Family Medicine [address] [place] [address] Alden Harry DO [address], [facility] [place] [address] 11/29/2024 3:40 PM EDT Support Visit [facility] - Pre Admit [address] [facility] [place] [phone] 11/30/2024 10:30 AM EDT Hospital Encounter [facility] - Surgery [address] [place] [address] eVlasquez Garcias MD [address] [place] [address] 11/30/2024 10:30 AM EDT - 11/30/2024 11:15 AM EDT Surgery [facility] - Surgery [address] [place] [phone] Velasquez Garcias MD [address] [place] [address] CYSTOSCOPY RETROGRADE PYELOGRAM 12/09/2024 1:00 PM EDT Office Visit Buffy Marcos [facility] - Medical Oncology [address] [place] [address] Jairo Rodriguez MD [address] [address] 05/12/2025 9:40 AM EST Office Visit [facility] Internal Medicine - Family Medicine [address] [place] [phone] Scheduled Procedures Name Priority Associated Diagnoses Date/Ti [...] documented as of this encounter Care Teams Flat Bed Knitter Relationship Specialty Start Date End Date Alden Harry DO [address] [facility], [place] [address] PCP - General Family Medicine 05/13/24 documented as of this encounter
--- OUTSIDE RECORDS SUMMARY | 2024-11-17 11:06 | XMS_ITS | Encounter Summary ---
Author Organization [employer] [facility] tem Address [facility] [id number] [address] [place] [address] Care Team Providers Care Bench Worker Hollow Handle Name Role Phone JasmineAlden krishnamurthy Primary Care Provider + [phone] Reason for Visit * Reason Onset Date Comments Blood in Urine 11/08/2024 Encounter Details Date Type Department Care Team (Late st Contact Info) Description 11/08/2024 Telephone [facility] [address] [place] [phone] Rhys Santos RN Blood in Urine Social History Tobacco Use Types Packs/Day Years Used Date Smoking Tobacco: Former Cigarettes 1.5 25.7 2 000 - 1960 Smokeless Tobacco: Never Alcohol Use Standard Drinks/Week Comments Not Currently 0 (1 standard drink = 0.6 oz pur e alcohol) 2 beer per year [facility] Utilities Answer Date Recorded In the past 12 months has [employer], [employer], or water [employer] threatened to shut off services in your [...] How often do you attend chur or nondenominational services? Never 05/11/2024 Do you belong to any clubs o r organizations such as faith groups, unions, fraternal or athletic groups, or [...] Answer Date Recorded Total Score 0 10/14/2024 [facility] [...] encounter Miscellaneous Notes * Telephone Encounter - Rhys Santos RN - 11/08/2024 4:52 PM EDT OC [address] from [place] with new consult for hematuria. Call placed to Dr Boswell and warm transfer to [place]. documented in this encounter Plan of Treatment Upcoming Encounters Date Type Department Care Team (Late st Contact Info) Description 11/25/2024 2:15 PM EDT Office Visit [facility] Internal Medicine - Family Medicine [address] [place] [address] Alden Harry, DO [address], [place] [address] 11/29/2024 3:40 PM EDT Support Visit [facility] - Pre Admit [address] [place] [address] 11/30/2024 10:30 AM EDT Hospital Encounter [facility] - Surgery [address] [place] [address] Velasquez Garcias MD [address] [place] [address] 11/30/2024 10:30 AM EDT - 11/30/2024 11:15 AM EDT Surgery [facility] - Surgery [address] [place] [address] Velasquez Garcias MD [address] [place] [address] CYSTOSCOPY RETROGRADE PYELOGRAM 12/09/2024 1:00 PM EDT Office Visit Buffy Hemant [facility] - Medical Oncology [address] [place] [address] Jairo Rodriguez MD [address] [facility] [address] [place] [address] 05/12/2025 9:40 AM EST Office Visit [facility] Internal Medicine - Family Medicine [address] [place] [address] Scheduled Procedures Name Priority Associated Diagnoses Date/Ti me CYSTOSCOPY RETROGRADE PYELOGRAM Gross hematuria Hydroureteronephrosis 11/30/2024 10:30 AM EDT CYSTOURETEROSCOPY DIAGNOSTIC Gross hematuria Hydroureteronephrosis 11/30/2024 10:30 AM EDT CYSTOSCOPY INSERTION STENT URETER Gross hematuria Hydroureteronephrosis 11/30/2024 10:30 AM EDT documented as of this encounter Goals Goal Patient Goal Type Associated Problems Recent Progress Patient-Stated? Author home vs SNF General Yes Leeanne Marin LSW Note: Evaluation of progress towards goal: under clinical assessment, per PT/OT not able to complete evaluations at this time due to medical documented as of this encounter Visit Diagnoses Not on filedocumented in this encounter Additional Health Concerns Assessment Noted Time PHQ-9 Depression Total Score: 0 10/15/19 25 8:34 AM EDT A Body Mass Index follow-up plan has been documented for the patient 01/12/2024 10:07 AM EST documented as of this encounter Care Teams Bench Worker Hollow Handle Relationship Specialty Start Date End Date Alden Harry DO [address] [facility] [facility] [facility], [place] [address] PCP - General Family Medicine 05/13/24 documented as of this encounter
--- OUTSIDE RECORDS SUMMARY | 2024-11-17 11:06 | XMS_ITS | Encounter Summary ---
Author Organization [employer] Address [facility]-[id number] [address] [place] [address] Care Team Providers Care Welfare Case Worker Name Role Phone KamrynAtaAldenalexandre Narvaez DO Primary Care Provider [phone] Encounter Details Date Type Department Care Team (Late st Contact Info) Description 07/13/2024 [facility] [address] [place] [address] [place] [address] [address] [place] [address] Velasquez Garcias MD [address] [place] [address] Social History Tobacco Use Types Packs/Day Years Used Date Smoking Tobacco: Former Cigarettes Q uit: 09/2019 Smokeless Tobacco: Never Alcohol Use Standard Drinks/Week Comments Not Currently 0 (1 standard drink = 0.6 oz pure alcohol) occasional social drink of beer or malibu rum [facility] Utilities Answer Date Recorded In the past 12 months has [employer], gas, oil, or water [employer] threatened to shut off services in your [...] week 05/11/2024 How often do you attend [facility] or druze services? Never 05/11/2024 Do you belong to any clubs o r organizations such as sikh groups, unions, fraternal or athletic groups, or [...] Answer Date Recorded Total Score 0 05/11/2024 [facility] of Occupat ional Health - Occupational [...] Recorded Do you need help finding a [facility] career center and/or a training [...] encounter Miscellaneous Notes * Telephone Encounter - Velasquez Garcias MD - 07/13/2024 12:29 PM EDT Please schedule for cysto, local, [place] Diagnosis gross hematuria * Telephone Encounter - Nadya Mayo - 07/13/2024 12:29 PM EDT SPOKE WITH PT AND SCHEDULED FOR 08/03/24 AT 1130A ARRIVE AT 1030A documented in this encounter Plan of Treatment Upcoming Encounters Date Type Department Care Team (Late st Contact Info) Description 11/25/2024 2:15 PM EDT Office Visit [facility] Internal Medicine - Family Medicine [address] [place] [address] Alden Harry, DO [address], [place] [address] 11/29/2024 3:40 PM EDT Support Visit [facility] - Pre Admit [address] [facility] [place] [address] 11/30/2024 10:30 AM EDT Hospital Encounter [facility] - Surgery [address] [place] [address] Velasquez Garcias MD [address] [place] [address] 11/30/2024 10:30 AM EDT - 11/30/2024 11:15 AM EDT Surgery [facility] - Surgery [address] [place] [phone] Velasquez Garcias MD [address] [place] [address] CYSTOSCOPY RETROGRADE PYELOGRAM 12/09/2024 1:00 PM EDT Office Visit Buffy Marcos [facility] - Medical Oncology [address] [place] [phone] Jairo Rodriguez MD [facility] [address] [place] [address] 05/12/2025 9:40 AM EST Office Visit [facility] Internal Medicine - Family Medicine [address] [place] [address] Scheduled Procedures Name Priority Associated Diagnoses Date/Ti dc CYSTOSCOPY RETROGRADE PYELOGRAM Gross hematuria Hydroureteronephrosis 11/30/2024 10:30 AM EDT CYSTOURETEROSCOPY DIAGNOSTIC Gross hematuria Hydroureteronephrosis 11/30/2024 10:30 AM EDT CYSTOSCOPY INSERTION STENT URETER Gross hematuria Hydroureteronephrosis 11/30/2024 10:30 AM EDT documented as of this encounter Visit Diagnoses Not on filedocumented in this encounter Additional Health Concerns Infection Onset Date Last Indicated Resolved Time Enteric Rule-Out 07/28/2024 07/29/2024 07/29/2024 7:25 PM EDT Enteric Rule-Out 09/08/2024 09/08/2024 09/09/2024 12:49 AM EDT Assessment Noted Time PHQ-9 Depression Total Score: 0 05/12/19 10:00 AM EST A Body Mass Index follow-up plan has been documented for the patient 01/12/2024 10:07 AM EST documented as of this encounter Care Teams Welfare Case Worker Relationship Specialty Start Date End Date Alden Harry DO [address] [facility], [place] [address] PCP - General Family Medicine 05/13/24 documented as of this encounter
--- OUTSIDE RECORDS SUMMARY | 2024-11-17 11:06 | XMS_ITS | Encounter Summary ---
Author Organization [employer] Address [facility] [id number] [address] [place] [address] Care Team Providers Care Government Relations Analyst Name Role Phone KamrynAlden Brice CARDENAS Primary Care Provider + [phone] Reason for Visit * Reason Onset Date Comments Med Refill 07/23/2024 Encounter Details Date Type Department Care Team (Late st Contact Info) Description 07/23/2024 Refill [facility] Internal Medicine - Family Medicine [address] [place] [phone] Anitha Ortiz CMA Social History Tobacco Use Types Packs/Day Years Used Date Smoking Tobacco: Former Cigarettes Q uit: 09/2019 Smokeless Tobacco: Never Alcohol Use Standard Drinks/Week Comments Not Currently 0 (1 standard drink = 0.6 oz pure alcohol) occasional social drink of beer or malibu rum [facility] Utilities Answer Date Recorded In the past 12 months has [employer], gas, oil, or water [employer] threatened to shut off services in your [...] often do you attend chur ch or latter day services? Never 05/11/2024 Do you belong to any clubs o r organizations such as yazidism groups, unions, fraternal or athletic groups, or [...] Answer Date Recorded Total Score 0 07/20/2024 [facility] of Occupat ional Health - Occupational [...] got money to buy more. Never True 07/20/2024 Within the past 12 months th e food we bought just didn't last and we didn't have money to get more. Never True 07/20/2024 Purpose - Life Answer Date Recorded I [...] Description 11/25/2024 2:15 PM EDT Office Visit [facility] Internal Medicine - Family Medicine [address] [place] [address] Alden Harry, DO [address], [facility] [place] [address] 11/29/2024 3:40 PM EDT Support Visit [facility] - Pre Admit [address] [facility] [place] [address] 11/30/2024 10:30 AM EDT Hospital Encounter [facility] - Surgery [address] [place] [address] Velasquez Garcias MD [address] [place] [address] 11/30/2024 10:30 AM EDT - 11/30/2024 11:15 AM EDT Surgery [facility] - Surgery [address] [place] [address] Velasquez Garcias MD [address] [place] [address] CYSTOSCOPY RETROGRADE PYELOGRAM 12/09/2024 1:00 PM EDT Office Visit Buffy Marcos [facility] - Medical Oncology [address] [place] [phone] Jairo Rodriguez MD [address] [facility] [address] [place] [id number] 05/12/2025 9:40 AM EST Office Visit [facility] Internal Medicine - Family Medicine [address] [place] [address] Scheduled Procedures Name Priority Associated [...] documented as of this encounter Care Teams Government Relations Analyst Relationship Specialty Start Date End Date Alden Harry DO [address] [place] [address] PCP - General Family Medicine 05/13/24 documented as of this encounter
--- OUTSIDE RECORDS SUMMARY | 2024-11-17 11:06 | XMS_ITS | Encounter Summary ---
Author Organization [employer] Address [id number] [address] [place] [address] Care Team Providers Care Automatic Spinning Lathe Setter Name Role Phone Kamryn Alden Narvaez DO Primary Care Provider [phone] Encounter Details Date Type Department Care Team (Late st Contact Info) Description 09/27/2024 [facility]phone [facility] [address] [place] [phone] Velasquez Garcias MD [address] [place] [address] [phone] Social History Tobacco Use Types Packs/Day Years Used Date Smoking Tobacco: Former Cigarettes 1.5 25.7 2 000 - 1960 Smokeless Tobacco: Never Alcohol Use Standard Drinks/Week Comments Not Currently 0 (1 standard drink = 0.6 oz pur e alcohol) 2 beer per year [facility] Utilities Answer Date Recorded In the past 12 months has [employer], gas, oil, or water [employer] threatened to shut off services in your [...] week 05/11/2024 How often do you attend [facility] or mosque services? Never 05/11/2024 Do you belong to any clubs o r organizations such as oriental orthodox groups, unions, fraternal or athletic groups, or [...] Answer Date Recorded Total Score 4 09/08/2024 [facility] of Occupat ional Health [...] Recorded Do you need help finding a [facility] career center and/or a training [...] Telephone Encounter - Velasquez Garcias MD - 09/27/2024 12:20 PM EDT Please schedule for cysto, left retrograde pyelogram and left ureteroscopy with possible biopsies, stent, general, [place] or [place] Diagnosis left hydroureteronephrosis, possible mass in ureter * Telephone Encounter - Nadya Mayo - 09/27/2024 12:20 PM EDT SCHEDULED FOR 11/30/24 documented in this encounter Plan of Treatment Upcoming Encounters Date Type Department Care Team (Late st Contact Info) Description 11/25/2024 2:15 PM EDT Office Visit [facility] Internal [facility] - Family Medicine [address] [place] [address] Alden Harry DO [address], [place] [address] 11/29/2024 3:40 PM EDT Support Visit [facility] - Pre Admit [address] [place] [phone] 11/30/2024 10:30 AM EDT Hospital Encounter [facility] - Surgery [address] [place] [address] Velasquez Garcias MD [address] [place] [address] 11/30/2024 10:30 AM EDT - 11/30/2024 11:15 AM EDT Surgery [facility] - Surgery [address] [place] [address] Velasquez Garcias MD [address] [place] [address] CYSTOSCOPY RETROGRADE PYELOGRAM 12/09/2024 1:00 PM EDT Office Visit [facility] On[facility] [address] [place] [phone] Jairo Rodriguez MD [address] [place] [address] [address] [place] [address] 05/12/2025 9:40 AM EST Office Visit [facility] Internal [facility] - Family Medicine [address] [facility] [place] [phone] Scheduled Procedures Name Priority Associated Diagnoses Date/Ti ga CYSTOSCOPY RETROGRADE PYELOGRAM Gross hematuria Hydroureteronephrosis 11/30/2024 [...] documented as of this encounter Care Teams Automatic Spinning Lathe Setter Relationship Specialty Start Date End Date Alden Harry DO [address], [facility] [place] [address] PCP - General Family Medicine 05/13/24 documented as of this encounter
--- OUTSIDE RECORDS SUMMARY | 2024-11-17 11:06 | XMS_ITS | Encounter Summary ---
Author Organization [employer] Address [facility]-[id number] [address] [place] [address] Care Team Providers Care Clay Burner Name Role Phone KamrynAlden Brice CARDENAS Primary Care Provider + [phone] Encounter Details Date Type Department Care Team (Latest Contact Info) Description 11/05/2024 Travel Social History Tobacco Use Types Packs/Day Years Used Date Smoking Tobacco: Former Cigarettes 1.5 25.7 2 000 - 1960 Smokeless Tobacco: Never Alcohol Use Standard Drinks/Week Comments Not Currently 0 (1 standard drink = 0.6 oz pur e alcohol) 2 beer per year [facility] Utilities Answer Date Recorded In the past 12 months has e electric, gas, oil, or water company threatened [...] often do you attend chur ch or episcopalian services? Never 05/11/2024 Do you belong to any clubs o r organizations such as buddhism groups, unions, fraternal or athletic groups, or [...] Answer Date Recorded Total Score 0 10/14/2024 [facility] of Occupat ional Health - Occupational Stress [...] a purpose and direction in my life. Marilee gly Agree 02/11/2023 Sex and Gender Information Value Date Recorded Sex Assigned at Male 07/28/2024 10:17 PM EDT Legal Sex Male 11:51 AM EDT Gender Identity Male 07/28/2024 10:17 PM EDT Sexual Orientation Straight 07/28/2024 10 :17 PM EDT documented as of this encounter Functional Status documented as of this encounter Plan of Treatment Upcoming Encounters Date Type Department Care Team (Late st Contact Info) Description 11/25/2024 2:15 PM EDT Office Visit [facility] Internal Medicine - Family Medicine [address] [place] [address] Alden Harry, [address], [place] [address] 11/29/2024 3:40 PM EDT Support Visit [facility] - Pre Admit [address] [place] [address] 11/30/2024 10:30 AM EDT Hospital Encounter [facility] - Surgery [address] [place] [address] Velasquez Garcias MD [address] [place] [address] 11/30/2024 10:30 AM EDT - 11/30/2024 11:15 AM EDT Surgery [facility] - Surgery [address] [place] [address] Velasquez Garcias MD [address] [place] [address] CYSTOSCOPY RETROGRADE PYELOGRAM 12/09/2024 1:00 PM EDT [facility] Medical On[facility] [address] [place] [address] Jairo Rodriguez MD [address] [facility] [address] [place] [address] 05/12/2025 9:40 AM EST Office Visit [facility] - Family Medicine [address] [place] [address] Scheduled Procedures Name Priority Associated Diagnoses Date/Ti mi CYSTOSCOPY RETROGRADE PYELOGRAM Gross hematuria Hydroureteronephrosis 11/30/2024 [...] documented as of this encounter Care Teams Clay Burner Relationship Specialty Start Date End Date Alden Harry DO [address], [facility] [place] [address] PCP - General Family Medicine 05/13/24 documented as of this encounter
--- OUTSIDE RECORDS SUMMARY | 2024-11-17 11:06 | XMS_ITS | Encounter Summary ---
Author Organization [facility] [facility] tem Address [facility]-[id number] [address] [place] [address] Care Team Providers Care Machine Operator Assistant Name Role Phone Alden Harry DO Primary Care Provider Reason for Visit * Reason Comments Med Refill Encounter Details Date Type Department Care Team (Late st Contact Info) Description 11/27/2017 Refill [facility] Cardiology [address] [place] [address] Ayo Chandler MD Med Refill Social History Tobacco Use Types Packs/Day Years Used Date Smoking Tobacco: Never Assessed Sex and Gender Information Value Date Recorded Sex Assigned at Male 07/28/2024 10:17 PM EDT Legal Sex Male 11:51 AM EDT Gender Identity Male 07/28/2024 10:17 PM EDT Sexual Orientation Straight 07/28/2024 10 :17 PM EDT documented as of this encounter Plan of Treatment Upcoming Encounters Date Type Department Care Team ([facility] Contact Info) Description 11/25/2024 2:15 PM EDT Office Visit [facility] Internal Medicine - Family Medicine [address] [place] [phone] Alden Harry DO [address], [place] [address] 11/29/2024 3:40 PM EDT [facility]mit [address] [facility] [place] [phone] 11/30/2024 10:30 AM EDT Hospital Encounter [facility] - Surgery [address] [place] [address] Velasquez Garcias MD [address] [place] [address] 11/30/2024 10:30 AM EDT - 11/30/2024 11:15 AM EDT Surgery [facility] - Surgery [address] [facility] [place] [phone] Velasquez Garcias MD [address] [place] [address] CYSTOSCOPY RETROGRADE PYELOGRAM 12/09/2024 1:00 PM EDT Office Visit [facility] - Medical Oncology [address] [place] [phone] Jairo Rodriguez MD [address] [facility] [address] [place], [place] [phone] 05/12/2025 9:40 AM EST Office Visit [facility] Internal Medicine - Family Medicine [address] [facility] [place] [phone] Scheduled Procedures Name Priority Associated Diagnoses Date/Ti co CYSTOSCOPY RETROGRADE PYELOGRAM Gross hematuria Hydroureteronephrosis 11/30/2024 10:30 AM EDT CYSTOURETEROSCOPY DIAGNOSTIC Gross hematuria Hydroureteronephrosis 11/30/2024 10:30 AM EDT CYSTOSCOPY INSERTION STENT URETER Gross hematuria Hydroureteronephrosis 11/30/2024 10:30 AM EDT documented as of this encounter Visit Diagnoses Not on filedocumented in this encounter Additional Health Concerns Infection Onset Date Last Indicated Resolved Time COVID-19 Rule-Out 09/14/2019 09/14/2019 09/14/2019 9:03 PM EDT Respiratory Rule-Out 07/11/2024 07/11/2024 025 10:39 AM EDT Enteric Rule-Out 07/28/2024 07/29/2024 07/29/2024 7:25 PM EDT Enteric Rule-Out 09/08/2024 09/08/2024 09/09/2024 12:49 AM EDT documented as of this encounter Care Teams Machine Operator Assistant Relationship Specialty Start Date End Date Alden Harry DO [address], [facility] [place] [address] PCP - General Family Medicine 05/13/24 documented as of this encounter
--- OUTSIDE RECORDS SUMMARY | 2024-11-17 11:06 | XMS_ITS | Encounter Summary ---
Author Organization [facility] Address [id number] [address] [place] [address] Care Team Providers Care Biscuit Maker Name Role Phone JasmineAlden krishnamurthy Brice CARDENAS Primary Care Provider [phone] Reason for Visit * Reason Onset Date Comments Transition Of Care 02/04/2023 Encounter Details Date Type Department Care Team (Late st Contact Info) Description 02/04/2023 [facility]phone [facility] Family Medicine [address] [place] [phone] Magali Lemon RN Transition Of Care Social History Tobacco Use Types [...] encounter Miscellaneous Notes * Telephone Encounter - Magali Lemon RN - 02/04/2023 8:32 AM EST Transition of Care (*required) *Additional Questions/Concerns Requiring PCP Follow-Up: 1. Unable to speak with patient to review medications. 2. Chest xray ordered on discharge, to be completed prior to follow up with CT surgery. 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 [id number] cc of mostly clotted hemothorax were evacuated. Discharge Specialty: Pulmonology *Name of Discharging Facility: [facility] Date of Facility Discharge: 01.21.23 - 02.01.23 Date of Interactive Contact and Name of Utility Appraiser: 02.04.23 8:45am Called patient, no answer, left msg. 02.04.23 1:05pm Called patient again, no answer. 02.04.23 3:45pm Unable to speak with patient. *Medication Review Completed: No New medications: apixaban (ELIQUIS) doxycycline (VIBRAMYCIN) polyethylene glycol (GLYCOLAX) sennosides-docusate sodium (SENOKOT-S) Changed: isosorbide mononitrate (IMDUR) montelukast (SINGULAIR) omega 7-roc-dqx-fish oil (Fish OiL) Stopped: nitroglycerin 0.4 MG SL tablet (NITROSTAT) predniSONE 20 mg tablet (DELTASONE) warfarin 4 mg tablet (COUMADIN) Medication Reconciliation Questions/Concerns: Unable to speak with patient. *Follow Up Appointments with Providers: Primary: Alden Harry DO - 02.11.23 Specialty: CT surgery - 02.13.23 Specialty: Wound Clinic - 02.12.23 Specialty: Benign Hematology [facility] - TBD Specialty: Pulmonary Medicine - TBD Review of Pending Lab/Diagnostic Tests and Plan for Completion: Chest xray ordered on discharge, to be completed prior to follow up with CT surgery. Assessment and Support of Treatment Regimen Adherence and Medication Management: Unable to speak with patient. Wound care orders - bilateral lower extremities/feet - cleanse with mild soap and water, apply vaseline gauze, cover with ABD pad, secure base of toes to knee with kerlix. Perform daily. And elevate legs at all times, floating heels. Education Provided by ACN to Support Self-Management, Independent Living and ADLs: Unable to speak with patient. Communication with Home Health Agencies and Other Services Utilized/Needed by the Patient: N/A documented in this encounter Plan of Treatment Upcoming Encounters Date Type Department Care Team (Late st Contact Info) Description 11/25/2024 2:15 PM EDT Office Visit [facility] Internal Medicine - Family Medicine [address] [place] [address] Alden Harry, DO [address] [facility], [facility] [place] [address] 11/29/2024 3:40 PM EDT Support Visit [facility] - Pre Admit [address] [facility] [place] [phone] 11/30/2024 10:30 AM EDT Hospital Encounter [facility] - Surgery [address] [facility] [phone] Velasquez Garcias MD [address] [place] [address] 11/30/2024 10:30 AM EDT - 11/30/2024 11:[address] [facility] - Surgery [address] [facility] [place] [address] Velasquez Garcias MD [address] [place] [address] CYSTOSCOPY RETROGRADE PYELOGRAM 12/09/2024 1:00 PM EDT Office Visit [facility] - Medical Oncology [address] [place] [phone] Jairo Rodriguez MD [address] [facility] [address] [place] [phone] 05/12/2025 9:40 AM EST Office Visit [facility] - Family Medicine [address] [place] [address] Scheduled Procedures Name Priority Associated [...] documented as of this encounter Care Teams Biscuit Maker Relationship Specialty Start Date End Date Alden Harry DO [address], [facility] [place] [address] PCP - General Family Medicine 05/13/24 documented as of this encounter
--- OUTSIDE RECORDS SUMMARY | 2024-11-17 11:06 | XMS_ITS | Encounter Summary ---
Author Organization [facility] [employer] Address [facility]-[id number] [address] [place] [address] Care Team Providers Care Stockholder Name Role Phone Alden Harry DO Primary Care Provider [phone] Reason for Visit * Reason Comments Med Refill Encounter Details Date Type Department Care Team (Late st Contact Info) Description 11/06/2024 Refill [facility] Internal [facility] - Family Medicine [address] [place] [address] Alden Harry DO [address], [facility] [place] [place] [address] Social History Tobacco Use Types Packs/Day Years Used Date Smoking Tobacco: Former Cigarettes 1.5 25.7 2 000 - 1960 Smokeless Tobacco: Never Alcohol Use Standard Drinks/Week Comments Not Currently 0 (1 standard drink = 0.6 oz pur e alcohol) 2 beer per year [facility] Utilities Answer Date Recorded In the past 12 months has [employer], gas, oil, or water company threatened [...] week 05/11/2024 How often do you attend [facility] or presybeterian services? Never 05/11/2024 Do you belong to any clubs o r organizations such as religion groups, unions, fraternal or athletic groups, or [...] Answer Date Recorded Total Score 0 10/14/2024 [facility] of Occupat ional Health - Occupational Stress [...] Recorded Do you need help finding a [facility] career center and/or a training program? [...] Description 11/25/2024 2:15 PM EDT Office Visit [facility] Internal Medicine - Family Medicine [address] [place] [address] Alden Harry, DO [address], [facility] [place] [place] [address] 11/29/2024 3:40 PM EDT Support Visit [facility] - Pre Admit [address] [place] [phone] 11/30/2024 10:30 AM EDT Hospital Encounter [facility] - Surgery [address] [place] [address] Velasquez Garcias MD [address] [place] [address] 11/30/2024 10:30 AM EDT - 11/30/2024 11:15 AM EDT Surgery [facility] - Surgery [address] [place] [phone] Velasquez Garcias MD [address] [place] [address] CYSTOSCOPY RETROGRADE PYELOGRAM 12/09/2024 1:00 PM EDT Office Visit [facility] - Medical Oncology [address] [place] [phone] Jairo Rodriguez MD [address] [facility] [address] [place] [address] 05/12/2025 9:40 AM EST Office Visit [facility]icians Internal Medicine - Family Medicine [address] [phone] Scheduled Procedures Name Priority Associated Diagnoses Date/Ti [...] documented as of this encounter Care Teams Stockholder Relationship Specialty Start Date End Date Alden Harry DO [address], [facility] [place] [place] [address] PCP - General Family Medicine 3/6/25 documented as of this encounter
--- OUTSIDE RECORDS SUMMARY | 2024-11-17 11:06 | XMS_ITS | Encounter Summary ---
Author Organization [facility] s tem Address [facility]-[id number] [address] [place] [address] Care Team Providers Care Venture Capitalist Name Role Phone Alden Harry DO Primary Care Provider [phone] Encounter Details Date Type Department Care Team (Late st Contact Info) Description 09/13/2024 [facility] Family Medicine [address] [place] [address] Alden Harry DO [address], [facility] [address] Social History Tobacco Use Types Packs/Day Years Used Date Smoking Tobacco: Former Cigarettes 1.5 25.7 2 000 - 1960 Smokeless Tobacco: Never Alcohol Use Standard Drinks/Week Comments Not Currently 0 (1 standard drink = 0.6 oz pure alcohol) occasional social drink of beer or [place] [employer] [facility] Utilities Answer Date Recorded In the past 12 months has [employer], gas, oil, or water company threatened to [...] 05/11/2024 How often do you attend [facility] or confucianism services? Never 05/11/2024 Do you [...] Answer Date Recorded Total Score 4 09/08/2024 [facility] of Occupat ional Health - Occupational [...] Recorded Do you need help finding a [facility] career center and/or a training program? [...] encounter Miscellaneous Notes * Telephone Encounter - Scot Hernandez - 09/13/2024 10:02 AM EDT called. At [facility]. Patient's nebulizer is out of date. Need a script for Neb Kits. * Telephone Encounter - Parth Lazo CMA - 09/13/2024 10:02 AM EDT Pt called again stating Fili needs a new nebulizer. The old one fell apart. OVandana E Dominic Please. documented in this encounter Plan of Treatment Upcoming Encounters Date Type Department Care Team (Late st Contact Info) Description 11/25/2024 2:15 PM EDT Office Visit [facility] - Family Medicine [address] [place] [address] Alden Harry, DO [address], [place] [address] 11/29/2024 3:40 PM EDT Support Visit [facility] - Pre Admit [address] [place] [phone] 11/30/2024 10:30 AM EDT Hospital Encounter [facility] - Surgery [address] [place] [phone] Velasquez Garcias MD [address] [place] [address] 11/30/2024 10:30 AM EDT - 11/30/2024 11:15 AM EDT Surgery [facility] - Surgery [address] [place] [phone] Velasquez Garcias MD [address] [place] [address] CYSTOSCOPY RETROGRADE PYELOGRAM 12/09/2024 1:00 PM EDT Office Visit [facility] - Medical Oncology [address] [place] [address] Jairo Rodriguez MD [address] [place] [address] [address] [place] [address] 05/12/2025 9:40 AM EST [facility] Visit [facility] Internal Medicine - Family Medicine [address] [place] [phone] Scheduled Procedures Name Priority Associated Diagnoses Date/Ti ia CYSTOSCOPY RETROGRADE PYELOGRAM Gross hematuria Hydroureteronephrosis 11/30/2024 [...] documented as of this encounter Care Teams Venture Capitalist Relationship Specialty Start Date End Date Alden Harry DO [address] [facility], [place] [address] PCP - General Family Medicine 05/13/24 documented as of this encounter
--- OUTSIDE RECORDS SUMMARY | 2024-11-17 11:07 | XMS_ITS | Encounter Summary ---
Author Organization [employer] [facility] [employer] Address [id number] [address] [place] [address] Care Team Providers Care Underwater Photographer Name Role Phone JasmineAlden krishnamurthy Brice CARDENAS Primary Care Provider [phone] Encounter Details Date Type Department Care Team (Late st Contact Info) Description 04/15/2022 [facility] - Family Medicine [address] [place] [phone] Macy Viera CMA Social History Tobacco Use Types Packs/Day [...] have Coronavirus / COVID-19? No / Unsure 04/17/2022 10:39 AM EST documented as of this encounter Miscellaneous Notes * Telephone Encounter - Macy Viera CMA - 04/15/2022 8:55 AM EST Pt called and needs an order for his INR sent to [facility]. documented in this encounter Plan of Treatment Upcoming Encounters Date Type Department Care Team (Late st Contact Info) Description 11/25/2024 2:15 PM EDT Office Visit [facility] Internal Medicine - Family Medicine [address] [place] [address] Alden Harry, [address], [facility] [place] [address] 11/29/2024 3:40 PM EDT Support Visit [facility] - Pre Admit [address] [place] [address] 11/30/2024 10:30 AM EDT Hospital Encounter [facility] - Surgery [address] [place] [address] Velasquez Garcias MD [address] [place] [address] 11/30/2024 10:30 AM EDT - 11/30/2024 11:15 AM EDT Surgery [facility] - Surgery [address] [place] [address] [phone] Velasquez Garcias MD [address] [place] [address] CYSTOSCOPY RETROGRADE PYELOGRAM 12/09/2024 1:00 PM EDT Office Visit [facility] - Medical Oncology [address] [place] [phone] Jairo Rodriguez MD [address] [place] [address] [address] [place] [address] 05/12/2025 9:40 AM EST Office Visit [facility] Internal Medicine - Family Medicine [address] [place] [address] Scheduled Procedures Name Priority Associated Diagnoses Date/Ti az CYSTOSCOPY RETROGRADE PYELOGRAM Gross hematuria Hydroureteronephrosis 11/30/2024 [...] documented as of this encounter Care Teams Underwater Photographer Relationship Specialty Start Date End Date Alden Harry DO [address] [place] [address] PCP - General Family Medicine 05/13/24 documented as of this encounter
--- OUTSIDE RECORDS SUMMARY | 2024-11-17 11:07 | XMS_ITS | Encounter Summary ---
Author Organization [facility] Address [facility] [id number] [address] [place] [address] Care Team Providers Care Admissions Director Name Role Phone JasmineAlden krishnamurthy Brice CARDENAS Primary Care Provider [phone] Encounter Details Date Type Department Care Team (Late st Contact Info) Description 01/15/2022 [facility] Medicine [address] [address] Chuyita Lemus RN Social History [...] have Coronavirus / COVID-19? No / Unsure 12/25/2021 11:47 AM EDT documented as of this encounter Miscellaneous Notes * Telephone Encounter - Chuyita Lemus RN - 01/15/2022 12:31 PM EST Pt agreeable to schedule ct chest will need RV * Telephone Encounter - Alma Sheppard LPN - 01/15/2022 12:31 PM EST Pt scheduled pt for after CT has been done. * Telephone Encounter - Jordana Amador - 01/15/2022 12:31 PM EST Left another message for patient to schedule appointment/CT not yet scheduled documented in this encounter Plan of Treatment Upcoming Encounters Date Type Department Care Team (Late st Contact Info) Description 11/25/2024 2:15 PM EDT Office Visit [facility] Internal Medicine - Family Medicine [address] [place] [address] Alden Harry, DO [address], [facility] [place] [address] 11/29/2024 3:40 PM EDT Support Visit [facility] - Pre Admit [address] [place] [phone] 11/30/2024 10:30 AM EDT Hospital Encounter [facility] - Surgery [address] [place] [address] Velasquez Garcias MD [address] [place] [address] 11/30/2024 10:30 AM EDT - 11/30/2024 11:15 AM EDT Surgery [facility] - Surgery [address] [place] [phone] Velasquez Garcias MD [address] [place] [address] CYSTOSCOPY RETROGRADE PYELOGRAM 12/09/2024 1:00 PM EDT Office Visit [facility] - Medical Oncology [address] [place] [phone] Jairo Rodriguez MD [address] [facility] [address] [place] [phone] 05/12/2025 9:40 AM EST Office Visit [facility] Internal Medicine - Family Medicine [address] [place] [phone] Scheduled Procedures Name Priority Associated Diagnoses Date/Ti [...] Indicated Resolved Time Respiratory Rule-Out 07/11/2024 07/11/2024 05 025 10:39 AM EDT Enteric Rule-Out 07/28/2024 07/29/2024 07/29/2024 7:25 PM EDT Enteric Rule-Out 09/08/2024 09/08/2024 09/09/2024 12:49 AM EDT documented as of this encounter Care Teams Admissions Director Relationship Specialty Start Date End Date Alden Harry DO [address] [address] PCP - General Family Medicine 05/13/24 documented as of this encounter
--- OUTSIDE RECORDS SUMMARY | 2024-11-17 11:07 | XMS_ITS | Clinical Summary ---
Author Organization [facility] Healthcare Address [address] [place] [address] Care Team Providers Care Cheese Pancake Roller Name Role Phone Alden Harry MD Primary Care Provider [phone] Allergies No known active allergies Medications albuterol (2.5 MG/3ML) 0.083% nebulizer solution Take by nebulization every 6 (six) hours if needed for wheezing. Active cholecalciferol (Vitamin D-3) 50 MCG (2000 UT) capsule Take 2,000 Units by mouth in the morning. Active ipratropium-alb uterol (Combivent Respimat) 20-100 MCG/ACT inhaler Inhale 1 puff in the morning and 1 puff at noon and 1 puff in the evening and 1 puff before bedtime. Active dilTIAZem CD (Cardizem CD) 180 MG 24 hr capsule Take 180 mg by mouth in the morning. Active omega-3 (FISH OIL) 300 MG capsule Take 300 mg by mouth in the morning. Active isosorbide mononitrate ER (Imdur) 60 MG 24 hr tablet Take 60 mg by mouth in the morning. Do not crush or chew. . Active magnesium oxide-pyridoxin e (Beelith) 362-20 MG tablet Take 1 tablet by mouth in the morning. Active nitroglycerin (Nitrostat) 0.[address] 0.4 mg under the tongue every 5 (five) minutes if needed for chest pain. Active ranolazine (Ranexa) 1000 MG 12 hr tablet Take 1,000 mg by mouth in the morning and 1,000 mg before bedtime. Do not crush, chew, or split. . Active rosuvastatin (Crestor) 20 MG tablet Take 20 mg by mouth in the morning. Active Fluticasone-Ume clidin-Vilant (Trelegy Ellipta) 100-62.5-25 MCG/ACT aerosol powder Inhale. Active Apixaban (ELIQUIS PO) Take by mouth Act nakia Immunizations Immunization Administration Dates Next Due Influenza, High Dose Seasonal, Preservative Free 01/31/2019,03/25/2013 Influenza, High-dose Seasona l, Quadrivalent, Preservative Free 03/23/2021,11/18/2019 Influenza, injectable, MDCK, preservative free, quadrivalent 12/23/2017,12/19/2016 Influenza, seasonal, injectable, preservative fr ee 04/25/2016 Pneumococcal Conjugate PCV 13 07/28/2014 Pneumococcal Polysaccharide PPSV23 12/17/2016 Tdap 11/07/2011 Zoster, Recombinant 07/01/2018,02/05/2018 Family History Medical History Relation Name Comments Heart disease Father Cancer Mother Relation Name Status Comments Father Mother Social History Tobacco Use Types Packs/Day Years Used Date Smoking Tobacco: Former Cigarettes Smokeless Tobacco: Never Tobacco Cessation:Counseling Given: Not Answered Alcohol Use Standard Drinks/Week Comments Not Currently 0 (1 standard drink = 0.6 oz pure alcohol) 1-2 drinks less than monthly in the past year AUDIT-C Answer Date Recorded Q1: How often do you have a drink containing alc ohol? Never 02/17/2023 Q2: How many drinks containi ng alcohol do you have on a typical day when you are drinking? 1 or 2 02/17/2023 Q3: How often do you have si x or more drinks on one occasion? Less than monthly 02/17/2023 Sex and Gender Information Value Date Recorded Sex Assigned at Not on file Legal Sex Male 7:58 PM EDT Gender Identity Not on file Sexual Orientation Not on file Last Filed Vital Signs Vital Sign Reading Time Taken Comments Blood Pressure - - Pulse - - Temperature - - Respiratory Rate - - Oxygen Saturation - - Inhaled Oxygen Concentration - - Weight 97.5 kg (215 lb) 05/27/2023 8:30 AM EDT Height 182.9 cm (6') 05/27/2023 8:30 AM EDT Body Mass Index 29.16 05/27/2023 8:30 AM EDT Plan of Treatment Health Maintenance Due Date Last Done Comments Influenza Vaccine (#1) 2024 2, 11/18/2019, 01/31/2019, Additional history exists Pneumococcal Vaccine: 65+ Years Completed 7, 07/28/2014 Insurance [employer] MEDICARE Care Teams Cheese Pancake Roller Relationship Specialty Start Date End Date Alden Harry MD PCP - General Family Medicine 12/02/22
--- OUTSIDE RECORDS SUMMARY | 2024-11-17 11:07 | XMS_ITS | Encounter Summary ---
Author Organization [facility] Address [id number] [address] [place] [address] Care Team Providers Care Channel Marketing Manager Name Role Phone FelicianoAlden edgar Primary Care Provider [phone] Reason for Visit * Reason Comments Med Refill Encounter Details Date Type Department Care Team (Late st Contact Info) Description 01/29/2022 Refill [facility] Internal [facility] - Family Medicine [address] [facility] [address] Tequila Holt, UNEMPLOYMENT INSURANCE DIRECTOR-HEALTH CARE ANALYST [address] [place] [address] Social History Tobacco Use Types Packs/Day Years [...] Description 11/25/2024 2:15 PM EDT Office Visit [facility] Internal Medicine - Family Medicine [address] [place] [phone] Alden Harry DO [address], [place] [address] 11/29/2024 3:40 PM EDT Support Visit [facility] - Pre Admit [address] [place] [phone] 11/30/2024 10:30 AM EDT Hospital Encounter [facility] - Surgery [address] [facility] [place] [phone] Velasquez Garcias MD [address] [place] [address] 11/30/2024 10:30 AM EDT - 11/30/2024 11:15 AM EDT Surgery [facility] - Surgery [address] [place] [phone] Velasquez Garcias MD [address] [place] [address] CYSTOSCOPY RETROGRADE PYELOGRAM 12/09/2024 1:00 PM EDT Office Visit [facility] - Medical Oncology [address] [place] [phone] Jairo Rodriguez MD [address] [facility] [address] [place] [address] 05/12/2025 9:40 AM EST Office Visit [facility] Internal Medicine - Family Medicine [address] [place] [phone] Scheduled Procedures Name Priority Associated Diagnoses Date/Ti [...] documented as of this encounter Care Teams Channel Marketing Manager Relationship Specialty Start Date End Date Alden Harry DO [address] [facility], [place] [address] PCP - General Family Medicine 05/13/24 documented as of this encounter
--- OUTSIDE RECORDS SUMMARY | 2024-11-17 11:07 | XMS_ITS | Encounter Summary ---
Author Organization [employer] Address [id number] [address] [place] [address] Care Team Providers Care Hat Copyist Name Role Phone JasmineAlden krishnamurthy Brice CARDENAS Primary Care Provider + [phone] Reason for Visit * Reason Onset Date Comments Transition Of Care 07/15/2024 Encounter Details Date Type Department Care Team (Late st Contact Info) Description 07/15/2024 Telephone [facility] - Family Medicine [address] [place] [phone] Alma Rosa Meadows RN Transition Of Care Social History Tobacco Use Types Packs/Day Years Used Date Smoking Tobacco: Former Cigarettes Q uit: 09/2019 Smokeless Tobacco: Never Alcohol Use Standard Drinks/Week Comments Not Currently 0 (1 standard drink = 0.6 oz pure alcohol) occasional social drink of beer or malibu rum [facility] Utilities Answer Date Recorded In the past 12 months has [employer], gas, oil, or water [employer] threatened to shut off services in your [...] How often do you attend formerly [facility] or orthodoxy services? Never 05/11/2024 Do you belong to any clubs o r organizations such as taoism groups, unions, fraternal or athletic groups, or [...] Answer Date Recorded Total Score 0 05/11/2024 [facility] - Occupational [...] Recorded Do you need help finding a [facility] career center and/or a training program? No [...] encounter Miscellaneous Notes * Telephone Encounter - Alma Rosa Meadows RN - 07/15/2024 2:38 PM EDT Transition of Care (*required) *Additional Questions/Concerns Requiring PCP Follow-Up: Please reviewed medications at patient follow-up appt. Thank You START taking: cefDINIR (OMNICEF) colchicine (COLCRYS) metoprolol succinate XL (TOPROL XL) Start taking on: July 15, 2024 STOP taking: dilTIAZem CD 180 mg 24 hr capsule (CARDIZEM CD) This documentation is being used for Transition of Care purposes: Yes Goal: Patient will demonstrate a safe transition from Hospital to Home Diagnosis on Discharge: Sepsis, due to unspecified organism, unspecified whether acute organ dysfunction present Gastroesophageal reflux disease Hyperlipidemia Lupus anticoagulant disorder Multiple nodules of lung Panlobular emphysema Acute kidney injury superimposed on CKD Stage 3b chronic kidney disease Pericarditis Discharge Specialty: Cardiac and Urology *Name of Discharging Facility: [facility] Date of Facility Discharge: 5.4--07.14.24 Date of Interactive Contact and Name of Box Blank Machine Operator Helper: 5.8 at 2:38 Unable to reach patient. Generic message left with contact number for a return phone call. 5.9 at 9:01 Unable to contact patient, message have been left on voicemail with no return call. TCMis close at this time. *Medication Review Completed: No Unable to complete. Unable to reach patient. Medication Reconciliation Questions/Concerns: Unable to complete. Unable to reach patient. *Follow Up Appointments with Providers: Primary: Alden Harry DO 5.13 at 1 Specialty: Dr. Muñoz (Cardiology) 6.4 at 9:45 Specialty: CT 6.23 at 8 Specialty: Dr. Crews (Pulmonary) 6.30 at 9:45 Review of Pending Lab/Diagnostic Tests and Plan for Completion: No pending lab/diagnostic test noted in the discharge summary. Assessment and Support of Treatment Regimen Adherence and Medication Management: Unable to complete. Unable to reach patient. Education Provided by ACN to Support Self-Management, Independent Living and ADLs: Unable to complete. Unable to reach patient. Communication with Home Health Agencies and Other Services Utilized/Needed by the Patient: Patient discharge home self-care and support of family. documented in this encounter Plan of Treatment Upcoming Encounters Date Type Department Care Team (Late st Contact Info) Description 11/25/2024 2:15 PM EDT Office Visit [facility] Internal Medicine - Family Medicine [address] [place] [address] Alden Harry DO [address], [facility] [address] 11/29/2024 3:40 PM EDT Support Visit [facility] - Pre Admit [address] [place] [address] 11/30/2024 10:30 AM EDT Hospital Encounter [facility] - Surgery [address] [place] [address] Velasquez Garcias MD [address] [place] [address] 11/30/2024 10:30 AM EDT - 11/30/2024 11:15 AM EDT Surgery [facility] - Surgery [address] [place] [address] Velasquez Garcias MD [address] [place] [address] CYSTOSCOPY RETROGRADE PYELOGRAM 12/09/2024 1:00 PM EDT Office Visit [facility] - Medical Oncology [address] [place] [phone] Jairo Rodriguez MD [address] [facility] [address] [place] [phone] 05/12/2025 9:40 AM EST Office Visit [facility] Internal Medicine - Family Medicine [address] [place] [address] Scheduled Procedures Name Priority Associated Diagnoses Date/Ti [...] documented as of this encounter Care Teams Hat Copyist Relationship Specialty Start Date End Date Alden Harry DO [address], [facility] [address] PCP - General Family Medicine 05/13/24 documented as of this encounter
--- OUTSIDE RECORDS SUMMARY | 2024-11-17 11:07 | XMS_ITS | Encounter Summary ---
Author Organization [facility] [facility] [employer] Address [id number] [address] [place] [address] Care Team Providers Care Marriage Counselor Minister Name Role Phone FelicianoAlden edgar Primary Care Provider [phone] Reason for Visit * Reason Comments Med Refill Encounter Details Date Type Department Care Team (Late st Contact Info) Description 08/05/2022 Refill [facility] - Family Medicine [address] [facility] [place] [address] Tequila Hlot, CHANNEL SPECIALIST-CERTIFIED MIDWIFE [address] [facility] [address] [place] [address] Other emphysema ([facility]) (Primary Dx) Social History Tobacco Use Types Packs/Day Years [...] - Family Medicine [address] [place] [address] Alden Harry, [address], [place] [address] 11/29/2024 3:40 PM EDT Support Visit [facility] - Pre Admit [address] [place] [address] 11/30/2024 10:30 AM EDT Hospital Encounter [facility] - Surgery [address] [place] [address] Velasquez Garcias MD [address] [place] [address] 11/30/2024 10:30 AM EDT - 11/30/2024 11:15 AM EDT Surgery [facility] - Surgery [address] [place] [address] Velasquez Garcias MD [address] [place] [address] CYSTOSCOPY RETROGRADE PYELOGRAM 12/09/2024 1:00 PM EDT Office Visit [facility] - Medical Oncology [address] [place] [phone] [place] [address] [place] [address] [address] [place] [phone] 05/12/2025 9:40 AM EST [facility] - Family Medicine [address] [place] [address] Scheduled Procedures Name Priority Associated Diagnoses Date/Ti me CYSTOSCOPY RETROGRADE PYELOGRAM Gross hematuria Hydroureteronephrosis 11/30/2024 10:30 AM EDT CYSTOURETEROSCOPY DIAGNOSTIC Gross hematuria Hydroureteronephrosis 11/30/2024 10:30 AM EDT CYSTOSCOPY INSERTION STENT URETER Gross hematuria Hydroureteronephrosis 11/30/2024 10:30 AM EDT documented as of this encounter Visit Diagnoses Diagnosis Other emphysema (CMS-HCC)- Primary Other emphysema Gross hematuria Hydroureteronephrosis Hydronephrosis documented in this encounter Additional Health Concerns Infection Onset Date Last Indicated Resolved Time Respiratory Rule-Out 07/11/2024 07/11/2024 025 10:39 AM EDT Enteric Rule-Out 07/28/2024 07/29/2024 07/29/2024 7:25 PM EDT Enteric Rule-Out 09/08/2024 09/08/2024 09/09/2024 12:49 AM EDT documented as of this encounter Care Teams Marriage Counselor Minister Relationship Specialty Start Date End Date Alden Harry DO [address], [facility] [place] [address] PCP - General Family Medicine 05/13/24 documented as of this encounter
--- OUTSIDE RECORDS SUMMARY | 2024-11-17 11:07 | XMS_ITS | Encounter Summary ---
Author Organization [facility] [facility] [employer] Address [facility][id number] [address] [place] [address] Care Team Providers Care Engineering Administrator Name Role Phone JasmineAlden krishnamurthy Primary Care Provider [phone] Reason for Visit * Reason Comments Med Refill Encounter Details Date Type Department Care Team (Late st Contact Info) Description 02/15/2022 Refill [facility] - Family Medicine [address] [facility] [place] [address] Tequila Holt, STREET CAR INSPECTOR-PRINTING MECHANIST [address] [facility] [place] [address] Social History Tobacco Use Types Packs/Day Years [...] have Coronavirus / COVID-19? No / Unsure 02/05/2022 10:19 AM EST documented as of this encounter Plan of Treatment Upcoming Encounters Date Type Department Care Team (Late st Contact Info) Description 11/25/2024 2:15 PM EDT [facility] Family Medicine [address] [place] [address] Alden Harry, [address], [place] [address] 11/29/2024 3:40 PM EDT Support Visit [facility] - Pre Admit [address] [place] [phone] 11/30/2024 10:30 AM EDT Hospital Encounter [facility] - Surgery [address] [place] [address] Velasquez Garcias MD [address] [place] [address] 11/30/2024 10:30 AM EDT - 11/30/2024 11:15 AM EDT Surgery [facility] - Surgery [address] [place] [phone] Velasquez Garcias MD [address] [place] [address] CYSTOSCOPY RETROGRADE PYELOGRAM 12/09/2024 1:00 PM EDT Office Visit [facility] Medical Oncology [address] [place] [phone] Jairo Rodriguez MD [address] [place] [address] [address] [place] [address] 05/12/2025 9:40 AM EST Office Visit [facility] - Family Medicine [address] [place] [address] Scheduled Procedures Name Priority Associated Diagnoses Date/Ti [...] documented as of this encounter Care Teams Engineering Administrator Relationship Specialty Start Date End Date Alden Harry DO [address], [place] [address] PCP - General Family Medicine 05/13/24 documented as of this encounter
--- OUTSIDE RECORDS SUMMARY | 2024-11-17 11:07 | XMS_ITS | Encounter Summary ---
Author Organization [employer] s [employer] Address [id number] [address] [place] [address] Care Team Providers Care Aircraft Maintenance Supervisor Name Role Phone JasmineAlden krishnamurthy Primary Care Provider + [phone] Reason for Visit * Reason Onset Date Comments Blood in Urine 11/08/2024 Encounter Details Date Type Department Care Team (Late st Contact Info) Description 11/08/2024 Telephone [facility] [address] [place] [phone] Rhys Santos RN Blood in Urine Social History Tobacco Use Types Packs/Day Years Used Date Smoking Tobacco: Former Cigarettes 1.5 25.7 2 000 - 1960 Smokeless Tobacco: Never Alcohol Use Standard Drinks/Week Comments Not Currently 0 (1 standard drink = 0.6 oz pur e alcohol) 2 beer per year [facility] Utilities Answer Date Recorded In the past 12 months has [employer], [employer], [employer], or water [employer] threatened to shut off services in your [...] How often do you attend chur or yarsani services? Never 05/11/2024 Do you belong to any clubs o r organizations such as adventist groups, unions, fraternal or athletic groups, or [...] Answer Date Recorded Total Score 0 10/14/2024 [facility] ional Health - [...] Encounter - Rhys Santos RN - 11/08/2024 5:59 PM EDT OC [address] from [place] to report increased hematuria. Call placed to Dr Boswell and warm transfer to caller completed documented in this encounter Plan of Treatment Upcoming Encounters Date Type Department Care Team (Late st Contact Info) Description 11/25/2024 2:15 PM EDT Office Visit [facility] Internal Medicine - Family Medicine [address] [place] [address] Alden Harry, DO [address], [place] [address] 11/29/2024 3:40 PM EDT Support Visit [facility] - Pre Admit [address] [place] [address] 11/30/2024 10:30 AM EDT Hospital Encounter [facility] - Surgery [address] [place] [address] Velasquez Garcias MD [address] [place] [address] 11/30/2024 10:30 AM EDT - 11/30/2024 11:15 AM EDT Surgery [facility] - Surgery [address] [place] [address] Velasquez Garcias MD [address] [place] [address] CYSTOSCOPY RETROGRADE PYELOGRAM 12/09/2024 1:00 PM EDT Office Visit [facility] - Medical Oncology [address] [place] [address] Jairo Rodriguez MD [address] [facility] [address] [place] [address] 05/12/2025 9:40 AM EST Office Visit [facility] Internal Medicine - Family Medicine [address] [place] [address] Scheduled Procedures Name Priority Associated Diagnoses Date/Ti [...] documented as of this encounter Care Teams Aircraft Maintenance Supervisor Relationship Specialty Start Date End Date Alden Harry G, DO [address] [facility], [place] [address] PCP - General Family Medicine 05/13/24 documented as of this encounter
--- OUTSIDE RECORDS SUMMARY | 2024-11-17 11:07 | XMS_ITS | Encounter Summary ---
Author Organization [facility] Address [id number] [address] [place] [address] Care Team Providers Care World Geography Teacher Name Role Phone JasmineAlden krishnamurthy Primary Care Provider [phone] Reason for Visit * Reason Onset Date Comments Med Refill 02/13/2022 Encounter Details Date Type Department Care Team (Late st Contact Info) Description 02/13/2022 Refill [facility] - Family Medicine [address] [place] [phone] Jenna Brand MA Social History Tobacco Use Types Packs/Day Years [...] encounter Miscellaneous Notes * Telephone Encounter - Jenna Brand MA - 02/13/2022 2:15 PM EST Would like to go to [facility] 90 day * Telephone Encounter - Tequila Mckeon YOLANDA Holt-KELLEY - 02/13/2022 2:15 PM EST I just signed this to go in some where, where did that go? * Telephone Encounter - Jenna Brand MA - 02/13/2022 2:15 PM EST Macy just faxed it, I found it, thank you documented in this encounter Plan of Treatment Upcoming Encounters Date Type Department Care Team (Late st Contact Info) Description 11/25/2024 2:15 PM EDT Office Visit [facility] Internal Medicine - Family Medicine [address] [place] [address] Alden Harry, DO [address], [place] [address] 11/29/2024 3:40 PM EDT Support Visit [facility] - Pre Admit [address] [place] [address] 11/30/2024 10:30 AM EDT Hospital Encounter [facility] - Surgery [address] [place] [address] Velasquez Garcias MD [address] [place] [address] 11/30/2024 10:30 AM EDT - 11/30/2024 11:15 AM EDT Surgery [facility] - Surgery [address] [place] [phone] Velasquez Garcias MD [address] [place] [address] CYSTOSCOPY RETROGRADE PYELOGRAM 12/09/2024 1:00 PM EDT Office Visit [facility] - Medical Oncology [address] [place] [address] Jairo Rodriguez MD [address] [facility] [address] [place] [phone] 05/12/2025 9:40 AM EST Office Visit [facility] Internal Medicine - Family Medicine [address] [place] [address] Scheduled Procedures Name Priority Associated Diagnoses Date/Ti in CYSTOSCOPY RETROGRADE PYELOGRAM Gross hematuria Hydroureteronephrosis 11/30/2024 [...] documented as of this encounter Care Teams World Geography Teacher Relationship Specialty Start Date End Date Alden Harry DO [address], [facility] [place] [address] PCP - General Family Medicine 05/13/24 documented as of this encounter
--- OUTSIDE RECORDS SUMMARY | 2024-11-17 11:07 | XMS_ITS | Encounter Summary ---
Author Organization [employer] Address [id number] [address] [place] [address] Care Team Providers Care Investment Specialist Name Role Phone Kamryn Alden Narvaez DO Primary Care Provider [phone] Encounter Details Date Type Department Care Team (Late st Contact Info) Description 04/12/2024 [facility] Family Medicine [address] [place] [phone] Kym John, REBA Social History Tobacco Use Types Packs/Day Years Used Date Smoking Tobacco: Former Cigarettes Q uit: 09/2019 Smokeless Tobacco: Never Alcohol Use Standard Drinks/Week Comments Not Currently 0 (1 standard drink = 0.6 oz pure alcohol) occasional social drink of beer or malibu rum [facility] Utilities Answer Date Recorded In the past 12 months has [employer], gas, oil, or water [employer] threatened to shut off services in your [...] often do you attend chur ch or hindu services? Never 02/11/2023 Do you belong to any clubs o r organizations such as tenriism groups, unions, fraternal or athletic groups, or [...] PHQ-2 Answer Date Recorded Total Score 0 03/29/2024 [facility] Occupat ional Health - Occupational Stress [...] Recorded Do you need help finding a [facility] career center and/or a training program? No 02/11/2023 Hunger Screening Answer Date Recorded Within the past 12 months we worried whether our food would run out before we got money to buy more. Never True 03/29/2024 Within the past 12 months th e food we bought just didn't last and we didn't have money to get more. Never True 03/29/2024 Purpose - Life Answer Date Recorded I [...] Telephone Encounter - Kym John CMA - 04/12/2024 9:33 AM EST ----- Message from Dr. Alden Harry DO sent at 04/12/2024 9:02 AM EST ----- His chronic kidney disease did get worse. His GFR is now 40 which is consistent with stage IIIB chronic kidney disease. A medication like Farxiga can delay the progression to renal failure. I can send that in if he would like. The rest of his chronic kidney disease labs were essentially okay. His PTH was elevated but calcium was okay. His lipid panel was very good. His platelets were a bit low at 148. I would recommend rechecking them and if they continue to be low then may need to see a stallion keeper. * Telephone Encounter - Kym John CMA - 04/12/2024 9:33 AM EST Called pt read msg to she will talk to him when he wakes up and call us back and let us know if he wants the farxiga * Telephone Encounter - Alden Harry DO - 04/12/2024 9:33 AM EST Please check with them again. They never called back * Telephone Encounter - Kym John CMA - 04/12/2024 9:33 AM EST I called pt , spoke with she said he would try it documented in this encounter Plan of Treatment Upcoming Encounters Date Type Department Care Team (Late st Contact Info) Description 11/25/2024 2:15 PM EDT Office Visit [facility] Internal Medicine - Family Medicine [address] [place] [address] Alden Harry DO [address], [facility] [place] [address] 11/29/2024 3:40 PM EDT Support Visit [facility] - Pre Admit [address] [place] [address] [phone] 11/30/2024 10:30 AM EDT Hospital Encounter [facility] - Surgery [address] [place] [address] Velasquez Garcias MD [address] [place] [address] 11/30/2024 10:30 AM EDT - 11/30/2024 11:15 AM EDT Surgery [facility] - Surgery [address] [place] [address] Velasquez Garcias MD [address] [place] [address] CYSTOSCOPY RETROGRADE PYELOGRAM 12/09/2024 1:00 PM EDT Office [facility] - Medical Oncology [address] [place] [phone] Jairo Rodriguez MD [address] [facility] [address] [place] [address] 05/12/2025 9:40 AM EST Office Visit [facility] - Family Medicine [address] [place] [address] Scheduled Procedures Name Priority Associated Diagnoses Date/Ti [...] Noted Time PHQ-9 Depression Total Score: 0 03/29/19 1:39 PM EST A Body Mass Index follow-up plan has been documented for the patient 01/12/2024 10:07 AM EST documented as of this encounter Care Teams Investment Specialist Relationship Specialty Start Date End Date Alden Harry DO [address], [place] [address] PCP - General Family Medicine 05/13/24 documented as of this encounter
--- OUTSIDE RECORDS SUMMARY | 2024-11-17 11:08 | XMS_ITS | Clinical Summary ---
Author Organization Sidecar tem Address [facility] [place]-[id number] [address] [place] [address] Care Team Providers Care [employer] Dairy [employer] Supervisor Name Role Phone Alden Harry Primary Care Provider [phone] Allergies No known active allergies Medications albuterol (PROVENTIL,VENT RAMANDEEP) 2.5 mg /3 mL (0.083 %) nebulizer solutionIndicat ions:Panlobular emphysema (CMS-HCC) USE 1 VIAL VIA NEBULIZER EVERY 8 HOURS NEEDED FOR WHEEZING 300 mL 9 04/06/19 25 Active Additional Information Patient not taking.Reported on 11/05/2024 meclizine (ANTIVERT) 12.5 mg tablet Take 1 tablet (12.5 mg total) by mouth 3 (three) times a day as needed for dizziness. 90 tablet 1 07/24/19 25 Active nitroglycerin (NITROSTAT) 0.4 MG SL tablet DISSOLVE 1 TAB UNDER TONGUE FOR CHEST PAIN - IF PAIN REMAINS AFTER 5 MIN, CALL 911 AND REPEAT DOSE. MAX 3 TABS IN 15 MINUTES 25 tablet 08/06/19 25 Active Additional Information Patient not taking.Reported on 11/05/2024 midodrine (PROAMATINE) 10 mg tabletIndicatio ns:Orthostatic hypotension Take 1 tablet (10 mg total) by mouth in the morning and at bedtime. 60 tablet 1 10/14/19 25 Active mirtazapine (REMERON) 15 mg tablet Take 1 tablet (15 mg total) by mouth nightly. 30 tablet 1 10/15/19 25 Active traZODone (DESYREL) 50 mg tablet Take 1 tablet (50 mg total) by mouth nightly. 30 tablet 11/19/19 25 Active linezolid (ZYVOX) 600 mg tablet Take 1 tablet (600 mg total) by mouth every 12 (twelve) hours for 10 days. 20 tablet 11/12/19 25 025 Active apixaban (ELIQUIS) 5 mg tablet Take 2 tablets (10 mg total) by mouth 2 (two) times a day for 6 days, THEN 1 tablet (5 mg total) 2 (two) times a day for 90 days. 204 tablet 11/12/19 25 025 Active traZODone (DESYREL) 50 mg tablet Take 1 tablet (50 mg total) by mouth nightly as needed for sleep. 30 tablet 10/12/19 25 025 Discontinued Active Problems Problem Noted Date Diagnosed Date Stage 4 chronic kidney disease 11/08/2024 Acute deep vein thrombosis of calf, bilateral AMS (altered mental status) 11/05/2024 Severe protein-calorie malnutrition 11/05/2024 Dehydration with hypernatremia 11/04/2024 Hydroureteronephrosis 10/28/2024 Syncope, unspecified syncope type 10/06/2024 Laceration of head without foreign body 10/07/19 25 Urinary tract infection with hematuria Bilious vomiting with nausea 09/22/2024 Orthostatic hypotension 09/08/2024 Primary hypertension 09/03/2024 Unintentional weight loss 09/03/2024 Anemia 09/03/2024 Cor pulmonale 09/03/2024 Prostate cancer metastatic to bone 09/03/2024 Physical deconditioning 08/09/2024 Acute prostatitis 08/09/2024 SUSAN (acute kidney injury) 08/08/2024 Weakness 07/29/2024 Hypomagnesemia 07/29/2024 Elevated CK 07/29/2024 Poor appetite 07/29/2024 Severe protein-calorie malnutrition 07/29/2024 Acute cystitis with hematuria 07/28/2024 Acquired hypothyroidism 07/23/2024 Diarrhea 07/20/2024 Gross hematuria 07/13/2024 Overview (08/03/2024): 07/13/2024: Seen as consult at [facility] with gross hematuria, CT with cystitis 08/03/2024: Patient had returned to the ER and had a Schroeder catheter in place. Culture negative. Catheter removed. Cysto with catheter cystitis. Plan trial tamsulosin Pericarditis 07/12/2024 Sepsis, due to unspecified o rganism, unspecified whether acute organ dysfunction present 07/11/2024 Coronary artery vasospasm 03/29/2024 Hemothorax 01/23/2023 Panlobular emphysema 01/22/2023 Supratherapeutic INR 01/22/2023 Pleural effusion on right 01/22/2023 Acute kidney injury superimposed on CKD 01/23/20 Stage 3b chronic kidney disease 01/22/2023 History of pulmonary embolism 01/22/2023 Acute blood loss anemia 01/21/2023 Coagulation factor deficiency syndrome 3 Eczema 04/15/2022 Gastroesophageal reflux disease 04/15/2022 Hyperlipidemia 04/15/2022 Lupus anticoagulant disorder 04/15/2022 Multiple nodules of lung 04/15/2022 Onycholysis 04/15/2022 Tear of meniscus of knee 04/15/2022 Vertigo 04/15/2022 Secondary hyperparathyroidism 12/25/2018 Vitamin D deficiency 06/23/2018 Stage 3 chronic kidney disease 08/26/2017 Myocardial infarction 03/10/2008 COPD (chronic obstructive pulmonary disease) Resolved Problems Problem Noted Date Diagnosed Date Resolved Date Skin ulcer of both feet limi gregory to breakdown of skin 01/31/2023 03/17/2023 Sepsis with acute hypoxic re spiratory failure without septic shock 01/22/2023 03/17/2023 Acute respiratory failure with hypoxia 01/22/2023 02/11/2023 Pneumonia of right lung due to infectious organism 01/22/2023 03/17/2023 COPD exacerbation 09/14/2019 02/11/2023 Encounters Date Type Department Care Team Description 5 Telephone [facility] [address] [place] [phone] Rhys Santos RN Blood in Urine 5 Telephone [facility] [address] [place] [address] Rhys Santos RN Blood in Urine 5 Refill [facility] Internal Medicine - Family Medicine [address] [place] [address] Alden Harry DO 5 Travel 5 6:39 PM EDT - 5 1:29 AM EDT Hospital Encounter [facility] - Acute Care [address] [place] [phone] Sukhi Woods MD Asif, MD Aline Holder, Charlie Cifuentes MD Dehydration with hypernatremia (Primary Dx); SUSAN (acute kidney injury); Goals of care, counseling/discussion; Acute cystitis with hematuria; Stage 4 chronic kidney disease ([facility]-HCC) Discharge Disposition: [facility] Facility-Medicare Cert 5 Results Follow-Up [facility] Internal Medicine Family [facility] [address] [place] [address] Dolly Muñoz MD Comprehensive metabolic panel, CBC without diff 5 8:30 AM EDT Office Visit [facility] Internal Medicine - Family [facility] [address] [place] [address] Alden Harry, Orthostatic hypotension (Primary Dx); Chronic obstructive pulmonary disease, unspecified COPD type ([facility]-HCC); Physical deconditioning; Weakness; Unintentional weight loss; Poor appetite; Abnormality of gait and mobility; Severe protein-calorie malnutrition; Anemia, unspecified type; Primary hypertension; Chronic kidney disease, unspecified CKD stage 5 2:45 PM EDT Office Visit [facility] [address] [place] [phone] Dolly Muñoz MD Weight loss (Primary Dx); Orthostatic hypotension; Pericardial effusion 5 Travel 5 Telephone [facility] [address] [place] [phone] Viviane Torres CMA 5 Orders Only [facility] Internal Medicine - Family Medicine [address] [place] [address] Alden Harry DO 5 Telephone [facility] Internal [facility] - [facility] [address] [facility] [place] [address] Sathya Baeza, SENIOR PRODUCT MARKETING MANAGER 5 Refill [facility] - Family Medicine [address] [facility] [place] [address] Sathya Baeza, SENIOR PRODUCT MARKETING MANAGER 5 Telephone [facility] Internal [facility] - [facility] [address] [place] [address] Mitzi Krueger, concrete mixing plant superintendent Of Care 5 Travel 5 10:52 PM EDT - 5 4:30 PM EDT Hospital Encounter [facility] - Acute Care [address] [place] [address] Derek Johnson MD Shah, Jagruti Nimit, MD Asif, Muhamid M, MD Syncope, unspecified syncope type (Primary Dx); Laceration of head without foreign body, unspecified part of head, initial encounter; SUSAN (acute kidney injury); Urinary tract infection with hematuria, site unspecified Discharge Disposition: Home 5 Travel 5 Orders Only [facility] [address] [facility] [address] [place] [address] Park Vega MD 5 Telephone [facility] [address] [facility] [address] [place] [address] Park Vega MD 5 Results Follow-Up [facility] - Endoscopy [address] [place] [address] Park Vega MD Surgical Pathology 5 Telephone [facility] Internal Medicine - Family Medicine [address] [place] [address] Mitzi Krueger, concrete mixing plant superintendent Of Care 5 Telephone [facility] [address] [place] [address] James Leger Jr., MD 5 Telephone [facility] [address] [place] [address] Velasquez Garcias MD 5 Telephone [facility] [address] [place] [address] Velasquez Garcias MD 5 Telephone [facility] [address] [place] [address] James Leger Jr., MD 5 8:12 AM EDT Anesthesia Event [facility] [address] [place] [address] Jaquan Jenkins MD Caldwell, Samuel Q, VIDEO OPERATOR-WHARF LABORER 5 8:00 AM EDT - 5 8:30 AM EDT Surgery [facility] [address] [place] [address] Beverly Burt MD ESOPHAGOGASTRODUODENOSCOPY BIOPSY [98033 (CPT )] 5 Travel 5 7:50 PM EDT - 5 5:15 PM EDT Hospital Encounter [facility] 7W Acute [address] [place] [address] Jason Lino DO Abalos, Evan M, Ena Saleem MD Resident, Ims Admitting Night Weakness (Primary Dx); SUSAN (acute kidney injury); Urinary tract infection with hematuria, site unspecified; Acute retention of urine; Bilious vomiting with nausea; Orthostatic hypotension; Severe protein-calorie malnutrition Discharge Disposition: Home 5 Travel 5 Telephone [facility] - Family Medicine [address] [place] [address] Shahana Kasper CMA 5 Telephone [facility] [address] [place] [phone] External, Scanning Provider 5 Refill [facility] [address] [place] [address] Rommel Obrien, VIDEO OPERATOR-LIBRARY MEDIA SPECIALIST 5 Telephone [facility] Internal Medicine - Family Medicine [address] [place] [address] Claudette Morris, concrete mixing plant superintendent Of Care 5 Orders Only [facility] Internal [facility] - Family Medicine [address] [place] [address] Alden Harry DO Chronic obstructive pulmonary disease, unspecified COPD type ([facility]) (Primary Dx) 5 Telephone [facility] [address] [place] [phone] External, Scanning Provider 5 Telephone [facility] Internal Medicine - Family Medicine [address] [place] [address] Alden Harry DO 5 7:36 PM EDT - 5 3:51 PM EDT Hospital Encounter [facility] 6 Acute [address] [place] [phone] Donnell Rodriguez, Cristine Hunter MD Sahlieh, Ali, MD Orthostatic hypotension (Primary Dx) Discharge Disposition: Home 5 Travel 5 Orders Only [facility] Medicine - Family Medicine [address] [place] [address] Alden Harry DO Stage 3b chronic kidney disease (CKD) ([facility]-H[facility]) (Primary Dx); Primary hypertension; Hypomagnesemia; Anemia, unspecified type 5 9:30 AM EDT Office Visit [facility] - Family Medicine [address] [place] [address] Alden Harry DO Weakness (Primary Dx); Physical deconditioning; Abnormality of gait and mobility; Coagulation factor deficiency syndrome; Sepsis, due to unspecified organism, unspecified whether acute organ dysfunction present ([facility]); Severe protein-calorie malnutrition; Primary hypertension; Stage 3 chronic kidney disease, unspecified whether stage 3a or 3b CKD ([facility]); Anemia, unspecified type; Unintentional weight loss; Cor pulmonale (CMS-HCC); Primary malignant neoplasm of prostate ([facility]-HCC) 5 Travel 5 1:30 PM EDT Office Visit [facility] - Medical Oncology [facility] [place] [address] Jairo Rodriguez MD Multiple nodules of lung (Primary Dx) 5 Travel 5 11:00 AM EDT Support Visit [facility] [address] [place] [phone] Oscar Platt MD Acute cystitis with hematuria (Primary Dx) from Last 3 Months Immunizations Immunization Administration Dates Next Due Influenza (IM) Preservative Free 04/25/2016 Influenza High Dose Preservative Free IM 019,03/25/2013 Influenza, High-dose, Quadrivalent 03/23/2021, Influenza, Injectable, Mdck, Preservative Free, Quad 12/23/2017,12/19/2016 Influenza, Trivalent, Adjuvanted 03/30/2024 Pneumococcal Conjugate 13-Valent 07/28/2014 Pneumococcal Polysaccharide 12/17/2016 Tdap 11/07/2011 Tuberculin Skin Test; Unspecified Formulation ,08/11/2024 Zoster Vaccine Recombinant 07/01/2018,02/05/2018 Family History Medical History Relation Name Comments Heart disease Brother Heart disease Father Cancer Mother Cancer Sister Relation Name Status Comments Brother Father Mother Sister Social History Tobacco Use Types Packs/Day Years Used Date Smoking Tobacco: Former Cigarettes 1.5 25.7 2 000 - 1960 Smokeless Tobacco: Never Tobacco Cessation:Counseling Given: Not Answered Alcohol Use Standard Drinks/Week Comments Not Currently 0 (1 standard drink = 0.6 oz pur e alcohol) 2 beer per year [facility] Utilities Answer Date Recorded In the past 12 months has [employer], gas, oil, or water [employer] threatened to shut off services in your [...] often do you attend chur ch or taoist services? Never 05/11/2024 Do you belong to [...] Answer Date Recorded Total Score 0 10/14/2024 [facility] - Occupational Stress Questionnaire Answer Date Recorded [...] Orientation Straight 07/28/2024 10 :17 PM EDT Last Filed Vital Signs Vital Sign Reading [...] Mass Index 20.87 11/05/2024 12:16 AM EDT Plan of Treatment Upcoming Encounters Date Type Department Care Team (Late st Contact Info) Description 11/25/2024 2:15 PM EDT Office Visit [facility] Internal Medicine - Family Medicine [address] [place] [address] Alden Harry, DO [address], [facility] [place] [address] 11/29/2024 3:40 PM EDT Support Visit [facility] - Pre Admit [address] [place] [address] 11/30/2024 10:30 AM EDT Hospital Encounter [facility] - Surgery [address] [place] [address] Velasquez Garcias MD [address] [place] [address] 11/30/2024 10:30 AM EDT - 11/30/2024 11:15 AM EDT Surgery [facility] - Surgery [address] [place] [address] Velasquez Garcias MD [address] [place] [address] CYSTOSCOPY RETROGRADE PYELOGRAM 12/09/2024 1:00 PM EDT Office Visit [facility] Medical On[facility] [address] [place] [address] Jairo Rodriguez MD [address] [facility] [address] [place] [address] 05/12/2025 9:40 AM EST Office Visit [facility] - Family Medicine [address] [place] [address] Scheduled Procedures Name Priority Associated Diagnoses Date/Ti me CYSTOSCOPY RETROGRADE PYELOGRAM Gross hematuria Hydroureteronephrosis 11/30/2024 10:30 AM EDT CYSTOURETEROSCOPY DIAGNOSTIC Gross hematuria Hydroureteronephrosis 11/30/2024 10:30 AM EDT CYSTOSCOPY INSERTION STENT URETER Gross hematuria Hydroureteronephrosis 11/30/2024 10:30 AM EDT Health Maintenance Due Date Last Done Comments DTaP,Tdap and Td Vaccines (2 - Td or Tdap) 11/06/2021 11/07/2011 COVID-19 Vaccine (4 - 2024-2 6 season) 2024 12/02/2020, 04/23/2020, 04/03/2020 Influenza Vaccine 11/08/2024 03/30/2024, , 11/18/2019, Additional history exists Medicare Annual Wellness Visit 05/11/2025 05/11/2024 Depression Screening 10/14/2025 10/14/2024 Fall Risk Screening 10/14/2025 10/14/2024 Tobacco Screening 11/09/2025 11/09/2024 Zoster (Shingles) Vaccine Completed 07/01/2018, Goals Goal Patient Goal Type Associated Problems Recent Progress Patient-Stated? Author home vs SNF General Yes Leeanne Marin LSW Note: Evaluation of progress towards goal: under clinical assessment, per PT/OT not able to complete evaluations at this time due to medical Autogenerated Goal Care Plan Autogenerated Problem No Ferraro, Rosa Medical Devices Not on file Procedures Procedure Name Priority Date/Time Associated Diagnosis [...] HEMATOCRIT, BLOOD Routine 11/10/2024 12:15 PM EDT HEPARIN ANTI XA, UNFRACTIONATED Routine 11/10/2024 7:32 AM EDT MAGNESIUM Routine 11/10/2024 7:32 AM EDT COMPREHENSIVE METABOLIC PANEL Routine 11/10/2024 7:32 AM EDT CBC WITH AUTO DIFFERENTIAL Routine 11/10/2024 7:32 AM EDT HEPARIN ANTI XA, UNFRACTIONATED Routine 11/10/2024 1:24 AM EDT HEMOGLOBIN AND HEMATOCRIT, BLOOD Routine 11/09/2024 6:28 PM EDT HEPARIN ANTI XA, UNFRACTIONATED Routine 11/09/2024 6:28 PM EDT PROTIME & INR Add-On 11/09/2024 1:30 PM EDT APTT Add-On 11/09/2024 1:30 PM EDT PLATELET COUNT Add-On 11/09/2024 1:30 PM EDT MAGNESIUM Routine 11/09/2024 1:30 PM EDT HEMOGLOBIN AND HEMATOCRIT, BLOOD Routine 11/09/2024 1:30 PM EDT FL SWALLOW MOTILITY FUNCTION Routine 11/09/2024 1:27 PM EDT HEPARIN ANTI XA, UNFRACTIONATED Routine 11/09/2024 6:05 AM EDT MAGNESIUM Routine 11/09/2024 6:05 AM EDT COMPREHENSIVE METABOLIC PANEL Routine 11/09/2024 6:05 AM EDT CBC WITH AUTO DIFFERENTIAL Routine 11/09/2024 6:05 AM EDT URINALYSIS Routine 11/09/2024 1:33 AM EDT TROP I, HIGH SENSITIVITY 1 HOUR STAT 11/08/2024 11:52 PM EDT LACTATE W/ REFLEX Routine 11/08/2024 10: 58 PM EDT TROPONIN I, HIGH SENSITIVITY 0 HOUR STAT 11/08/2024 10:58 PM EDT TROPONIN I, HIGH SENSITIVITY 0 HOUR STAT 11/08/2024 10:58 PM EDT ECG 12-LEAD STAT 11/08/2024 10:54 [...] ECG 12-LEAD STAT 11/07/2024 8:22 PM EDT HEPARIN ANTI XA, UNFRACTIONATED Routine 11/07/2024 5:16 AM EDT VANCOMYCIN, RANDOM Routine 11/07/2024 5: 16 AM EDT MAGNESIUM Routine 11/07/2024 5:16 AM EDT COMPREHENSIVE METABOLIC PANEL Routine 11/07/2024 5:16 AM EDT CBC WITH AUTO DIFFERENTIAL Routine 11/07/2024 5:16 AM EDT HEPARIN ANTI XA, UNFRACTIONATED Routine 11/07/2024 12:46 AM EDT HEPARIN ANTI XA, UNFRACTIONATED Routine 11/06/2024 6:44 PM EDT PROTIME & INR Routine 11/06/2024 1:00 PM EDT APTT Routine 11/06/2024 1:00 PM EDT MAGNESIUM Routine 11/06/2024 5:31 AM EDT COMPREHENSIVE METABOLIC PANEL Routine 11/06/2024 5:31 AM EDT CBC WITH AUTO DIFFERENTIAL Routine 11/06/2024 5:31 AM EDT VASC VENOUS [...] LACTATE STAT 11/04/2024 10:[address] ABDOMEN AND PELVIS WO CONT STAT 11/04/2024 9:[address] CHEST WO CONT STAT 11/04/2024 9:14 PM EDT TROP I, HIGH SENSITIVITY 1 HOUR STAT 11/04/2024 7:52 PM EDT XR CHEST 1 VW STAT 11/04/2024 6:55 PM EDT TROPONIN I, HIGH SENSITIVITY 0 HOUR STAT 11/04/2024 6:48 PM EDT MYOGLOBIN, SERUM STAT 11/04/2024 6:48 PM EDT CK TOTAL STAT 11/04/2024 6:48 PM EDT TROPONIN I, HIGH SENSITIVITY 0 HOUR STAT 11/04/2024 6:48 PM EDT MAGNESIUM STAT 11/04/2024 6:48 PM EDT LACTATE W/ REFLEX STAT 11/04/2024 6:4 8 PM EDT APTT STAT 11/04/2024 6:48 PM EDT PROTIME & INR STAT 11/04/2024 6:48 PM EDT D-DIMER STAT 11/04/2024 6:48 PM EDT COMPREHENSIVE METABOLIC PANEL STAT 11/04/2024 6:48 PM EDT CBC WITH AUTO DIFFERENTIAL STAT 11/04/2024 6:48 PM EDT PM ED CRITICAL CARE Routine 11/04/2024 6 :44 PM EDT ECG 12-LEAD STAT 11/04/2024 6:41 PM EDT CBC (NO DIFF) Routine 10/14/2024 9:08 AM EDT Anemia, unspecified type COMPREHENSIVE METABOLIC PANEL Routine 10/14/2024 9:08 AM EDT Chronic kidney disease, unspecified CKD stage CBC WITH AUTO DIFFERENTIAL Routine 10/07/2024 6:56 AM EDT MAGNESIUM Routine 10/07/2024 5:17 AM EDT COMPREHENSIVE METABOLIC PANEL Routine 10/07/2024 5:17 AM EDT EXTRA TUBES BLUE TOP Routine 10/06/2024 6:56 AM EDT EXTRA TUBES Routine 10/06/2024 6:56 AM EDT CBC WITH AUTO DIFFERENTIAL Routine 10/06/2024 6:56 AM EDT MAGNESIUM Routine 10/06/2024 6:55 AM EDT COMPREHENSIVE METABOLIC PANEL Routine 10/06/2024 6:55 AM EDT POCT NURSING URINE MACROSCOPIC UA Routine 10/06/2024 1:35 AM EDT ER EXTRA URINE MARBLE STAT 10/06/2024 1:24 AM EDT ER EXTRA URINE CULTURE STAT 1:24 AM EDT ER EXTRA URINE STAT 10/06/2024 1:24 AM EDT URINE CULTURE Routine 10/06/2024 1:24 AM EDT PM ED LACERATION REPAIR Routine 10/06/2024 1:03 AM EDT TROP I, HIGH SENSITIVITY 1 HOUR STAT 10/06/2024 12:[address] BRAIN WO CONT STAT 10/05/2024 11:[address] CERVICAL SPINE WO CONT STAT 10/05/2024 11:44 PM EDT EXTRA TUBES BLUE TOP Routine 10/05/2024 11:13 PM EDT EXTRA TUBES Routine 10/05/2024 11:13 PM EDT TROPONIN I, HIGH SENSITIVITY 0 HOUR STAT 10/05/2024 11:13 PM EDT TROPONIN I, HIGH SENSITIVITY 0 HOUR STAT 10/05/2024 11:13 PM EDT MAGNESIUM STAT 10/05/2024 11:13 PM EDT BASIC METABOLIC PANEL STAT 10/05/2024 11:13 PM EDT CBC WITH AUTO DIFFERENTIAL STAT 10/05/2024 11:13 PM EDT ECG 12-LEAD STAT 10/05/2024 10:58 PM EDT CBC WITH AUTO DIFFERENTIAL Routine 09/27/2024 5:14 AM EDT BASIC METABOLIC PANEL Routine 09/27/2024 5:[address] UROGRAM Routine 09/26/2024 1:31 PM EDT CBC WITH AUTO DIFFERENTIAL Routine 09/26/2024 4:00 AM EDT BASIC METABOLIC PANEL Routine 09/26/2024 4:00 AM EDT CBC WITH AUTO DIFFERENTIAL Routine 09/25/2024 4:26 AM EDT BASIC METABOLIC PANEL Routine 09/25/2024 4:25 AM EDT FL SWALLOW MOTILITY FUNCTION Routine 09/24/2024 1:17 PM EDT SURGICAL PATHOLOGY Routine 09/24/2024 8: 27 AM EDT Bilious vomiting with nausea NH EGD TRANSORAL BIOPSY SINGLE/MULTIPLE 09/24/2024 8:12 AM EDT Bilious vomiting with nausea EGD 09/24/2024 8:03 AM EDT PROVATION EGD Routine 09/24/2024 7:53 AM EDT URINE CULTURE STAT 09/24/2024 7:16 AM EDT ER EXTRA URINE Routine 09/24/2024 7:15 AM EDT ER EXTRA URINE MARBLE Routine 09/24/2024 7:15 AM EDT MAGNESIUM Add-On 09/24/2024 5:09 AM EDT CBC WITH AUTO DIFFERENTIAL Routine 09/24/2024 5:09 AM EDT BASIC METABOLIC PANEL Routine 09/24/2024 5:09 AM EDT CBC WITH AUTO DIFFERENTIAL Routine 09/23/2024 8:48 AM EDT BASIC METABOLIC PANEL Routine 09/23/2024 8:48 AM EDT PULSE OXIMETRY, SPOT Routine 09/23/2024 1:59 AM EDT POCT ELECTROLYTES W/ BUN, CREAT, GLUC, HEMATOCRIT Routine 09/23/2024 1:13 AM EDT POCT NURSING URINE MACROSCOPIC UA Routine 09/22/2024 11:03 PM EDT ER EXTRA URINE MARBLE STAT 09/22/2024 10:55 PM EDT ER EXTRA URINE CULTURE STAT 10:55 PM EDT ER EXTRA URINE STAT 09/22/2024 10:55 PM EDT XR CHEST 1 VW STAT 09/22/2024 10:17 PM EDT TROP I, HIGH SENSITIVITY 1 HOUR STAT 09/22/2024 9:[address] ABDOMEN AND PELVIS W CONT STAT 09/22/2024 9:09 PM EDT ECG 12-LEAD STAT 09/22/2024 8:04 PM EDT LIPASE STAT Add-on 09/22/2024 8:01 PM EDT TROPONIN I, HIGH SENSITIVITY 0 HOUR STAT 09/22/2024 8:01 PM EDT COMPREHENSIVE METABOLIC PANEL STAT 09/22/2024 8:01 PM EDT CBC WITH AUTO DIFFERENTIAL STAT 09/22/2024 8:01 PM EDT TROPONIN I, HIGH SENSITIVITY 0 HOUR STAT 09/22/2024 8:01 PM EDT POTASSIUM Routine 09/11/2024 12:10 PM EDT URINALYSIS Routine 09/11/2024 9:04 AM EDT TSH WITH REFLEX Add-On 09/11/2024 4:47 AM EDT BASIC METABOLIC PANEL Routine 09/11/2024 4:47 AM EDT CBC WITH AUTO DIFFERENTIAL Routine 09/11/2024 4:47 AM EDT BASIC METABOLIC PANEL Routine 09/10/2024 5:00 AM EDT CBC WITH AUTO DIFFERENTIAL Routine 09/10/2024 5:00 AM EDT ECG 12-LEAD STAT 09/09/2024 1:08 PM EDT TROP I, HIGH SENSITIVITY 3 HOUR STAT 09/09/2024 2:11 AM EDT BASIC METABOLIC PANEL Routine 09/09/2024 2:11 AM EDT CBC WITH AUTO DIFFERENTIAL Routine 09/09/2024 2:11 AM EDT CK TOTAL Routine 09/09/2024 2:11 AM EDT MYOGLOBIN, SERUM Routine 09/09/2024 2:11 AM EDT ECG 12-LEAD Routine 09/08/2024 11:42 PM EDT C DIFFICILE BY PCR Routine 09/08/2024 11 :33 PM EDT BEDSIDE GLUCOSE Routine 09/08/2024 6:00 PM EDT US RETROPERITONEAL COMPLETE STAT 09/08/2024 4:22 PM EDT BARB SCREEN W/ REFLEX Add-On 09/08/2024 5:44 AM EDT C-REACTIVE PROTEIN Routine 09/08/2024 5: 44 AM EDT LDH Routine 09/08/2024 5:44 AM EDT MYOGLOBIN, SERUM Routine 09/08/2024 5:44 AM EDT CK TOTAL Routine 09/08/2024 5:44 AM EDT PROTIME & INR Routine 09/08/2024 5:44 AM EDT APTT Routine 09/08/2024 5:44 AM EDT HEMOGLOBIN A1C Routine 09/08/2024 5:44 AM EDT PHOSPHORUS Routine 09/08/2024 5:44 AM EDT MAGNESIUM Routine 09/08/2024 5:44 AM EDT PULSE OXIMETRY, SPOT Routine 09/08/2024 2:27 AM EDT POCT NURSING URINE MACROSCOPIC UA Routine 09/07/2024 11:52 PM EDT MICROSCOPIC URINE Add-On 09/07/2024 11: 27 PM EDT ER EXTRA URINE STAT 09/07/2024 11:27 PM EDT TROP I, HIGH SENSITIVITY 1 HOUR STAT 09/07/2024 9:[address] BRAIN WO CONT STAT 09/07/2024 8:51 PM EDT ECG 12-LEAD STAT 09/07/2024 7:57 PM EDT TROPONIN I, HIGH SENSITIVITY 0 HOUR STAT 09/07/2024 7:44 PM EDT TROPONIN I, HIGH SENSITIVITY 0 HOUR STAT 09/07/2024 7:44 PM EDT ERYTHROCYTE SEDIMENTATION RATE (ESR) Add-On 09/07/2024 7:43 PM EDT LIPASE STAT Add-on 09/07/2024 7:43 PM EDT MAGNESIUM STAT Add-on 09/07/2024 7:43 PM EDT PROTIME & INR STAT 09/07/2024 7:43 PM EDT APTT STAT 09/07/2024 7:43 PM EDT LACTATE W/ REFLEX STAT 09/07/2024 7:4 3 PM EDT COMPREHENSIVE METABOLIC PANEL Routine 09/07/2024 7:43 PM EDT CBC WITH AUTO DIFFERENTIAL STAT 09/07/2024 7:43 PM EDT BASIC METABOLIC PANEL Routine 09/03/2024 10:25 AM EDT Stage 3 chronic kidney disease, unspecified whether stage 3a or 3b CKD (CMS-HCC) CBC (NO DIFF) Routine 09/03/2024 10:25 AM EDT Anemia, unspecified type from Last 3 Months Results * (ABNORMAL) Troponin I, High Sensitivity 1 Hour (11/11/2024 4:14 PM EDT) Only the most recent of6 resultswithin the time period is included. TROPONIN I, HIGH SENSITIVITY 39(H) <21 ng/L 11/11/2024 4:53 PM EDT [facility] Blood Venous blood / Unknown Venipuncture / Unknown 11/11/2024 4:14 PM EDT 11/11/2024 4:16 PM EDT Narrative [facility] - 11/11/2024 4:53 PM EDT Elevations of hs-Troponin may be due to causes other than myocardial ischemia. Recommend serial hs-Troponin testing be performed. For the initial evaluation and management of chest pain patients, refer to the algorithms linked below. Emergency Patient: [email or web address] Inpatient: [email or web address] us Gill Gao VIDEO OPERATOR-LIBRARY MEDIA SPECIALIST LAB BLOOD ORDERABLES Brittani seth Result [facility] [address] [place] [address], [place] * ECG 12 lead (11/11/2024 2:44 PM EDT) Only the most recent of9 resultswithin the time period is included. 11/11/2024 2:44 PM EDT Narrative [facility] - 11/11/2024 5:04 PM EDT Gill aGo VIDEO OPERATOR-LIBRARY MEDIA SPECIALIST ECG ORDERABLES Final Res ult [facility] * (ABNORMAL) Troponin I, High Sensitivity 0 Hour (11/11/2024 1:57 PM EDT) Only the most recent of6 resultswithin the time period is included. TROPONIN I, HIGH SENSITIVITY 33(H) <21 ng/L 11/11/2024 3:40 PM EDT [facility] Blood Venous blood / Unknown Venipuncture / Unknown 11/11/2024 1:57 PM EDT 11/11/2024 2:03 PM EDT Gill Gao APRN-[facility] LAB BLOOD ORDERABLES Brittani l Result Performing Organization Address [facility] Co de Phone Number [facility] [address] [place] [address], * (ABNORMAL) Hemoglobin and hematocrit, blood (11/11/2024 12:59 PM EDT) Only the most recent of7 resultswithin the time period is included. Hemoglobin 9.4(L) 13 - 17 g/dL 11/11/2024 1:06 PM EDT [facility] Hematocrit 29.5(L) 39 - 50 % 11/11/2024 1:06 PM EDT [facility] Blood Venous blood / Unknown Venipuncture / Unknown 11/11/2024 12:59 PM EDT 11/11/2024 1:02 PM EDT Charlie Mireles MD LAB BLOOD ORDERABLES Final Result [facility] [address] [place] [address], [place] * (ABNORMAL) CBC auto differential (11/11/2024 6:34 AM EDT) Only the most recent of21 resultswithin the time period is included. WBC 13.6(H) 4 - 11 x10E9/L 11/11/2024 6:44 AM EDT [facility] RBC Count 3.88(L) 4.1 - 5.7 X10E12/L 11/11/2024 6:44 AM EDT [facility] Hemoglobin 10.2(L) 13 - 17 g/dL 11/11/2024 6:44 AM EDT [facility] Hematocrit 31.5(L) 39 - 50 % 11/11/2024 6:44 AM EDT [facility] MCV 81 80 - 100 fL 11/11/2024 6:44 AM EDT [facility] MCH 26.3(L) 27 - 34 pg 11/11/2024 6:44 AM EDT [facility] MCHC 32.3 32 - 36 g/dL 11/11/2024 6:44 AM EDT [facility] RDW 22.1(H) 11.5 - 15 % 11/11/2024 6:44 AM EDT [facility] Platelet Count 144(L) 150 - 450 X10E9/L 11/11/2024 6:44 AM EDT [facility] MPV 9.9 7 - 12 fL 11/11/2024 6:44 AM EDT [facility] Neutrophils % 66.5 % 11/11/2024 6:44 AM EDT [facility] Comment:This is an appended report. These results have been appended to a previously preliminary verified report. Lymphocytes % 5.3 % 11/11/2024 6:44 AM EDT [facility] Comment:This is an appended report. These results have been appended to a previously preliminary verified report. Monocytes % 27.5 % 11/11/2024 6:44 AM T [facility] Comment:This is an appended report. These results have been appended to a previously preliminary verified report. Eosinophils % 0.1 % 11/11/2024 6:44 AM T [facility] Comment:This is an appended report. These results have been appended to a previously preliminary verified report. Basophils % 0.6 % 11/11/2024 6:44 AM EDT [facility] Comment:This is an appended report. These results have been appended to a previously preliminary verified report. Neutrophils Absolute (A) 9.1(H) 1.5 - 6.6 10*3/uL 11/11/2024 6:44 AM [facility] Comment:This is an appended report. These results have been appended to a previously preliminary verified report. Lymphocytes Absolute 0.7(L) 1.0 - 3.5 10*3/uL 11/11/2024 6:44 AM T [facility] Comment:This is an appended report. These results have been appended to a previously preliminary verified report. Monocytes Absolute 3.7(H) 0.0 - 0.9 10*3/uL 11/11/2024 6:44 AM [facility] Comment:This is an appended report. These results have been appended to a previously preliminary verified report. Eosinophils Absolute 0.0 0.0 - 0.4 10*3/uL 11/11/2024 6:44 AM T [facility] Comment:This is an appended report. These results have been appended to a previously preliminary verified report. Basophils Absolute 0.1 0.0 - 0.2 10*3/uL 11/11/2024 6:44 AM [facility] Comment:This is an appended report. These results have been appended to a previously preliminary verified report. Differential Type AUTOMATED DIFFERENTIAL 11/11/2024 6:44 AM [facility] Comment:This is an appended report. These results have been appended to a previously preliminary verified report. Blood Venous blood / Unknown Venipuncture / Unknown 11/11/2024 6:34 AM EDT 11/11/2024 6:38 AM EDT Rommel D [employer] VIDEO OPERATOR-LIBRARY MEDIA SPECIALIST LAB BLOOD ORDERABLES Fin al Result Performing Organization Address City/[facility]/ZIP Co de Phone Number [address] [address], [place] * Magnesium (11/11/2024 4:49 AM EDT) Only the most recent of15 resultswithin the time period is included. MAGNESIUM 2.1 1.8 - 2.6 mg/dL 11/11/2024 5:31 AM EDT [facility] Blood Venous blood / Unknown Venipuncture / Unknown 11/11/2024 4:49 AM EDT 11/11/2024 5:08 AM EDT Rommel D [employer]IV[employer] VIDEO OPERATOR-LIBRARY MEDIA SPECIALIST LAB BLOOD ORDERABLES Fin al Result Performing Organization Address [facility] Co de Phone Number [address] [place] [address], [place] * (ABNORMAL) Comprehensive metabolic panel (11/11/2024 4:49 AM EDT) Only the most recent of13 resultswithin the time period is included. SODIUM 142 134 - 146 mmol/L 11/11/2024 5:31 AM EDT [facility] POTASSIUM 3.9 3.5 - 5.0 mmol/L 11/11/2024 5:31 AM EDT [facility] CHLORIDE 112(H) 98 - 109 mmol/L 11/11/2024 5:31 AM EDT [facility] CARBON DIOXIDE 19(L) 22 - 32 mmol/L 11/11/2024 5:31 AM EDT [facility] ANION GAP 11 5 - 15 mmol/L 11/11/2024 5:31 AM EDT [facility] BLOOD UREA NITROGEN 50(H) 5 - 27 mg/dL 11/11/2024 5:31 AM EDT [facility] CREATININE 1.72(H) 0.70 - 1.20 mg/dL 11/11/2024 5:31 AM EDT [facility] Comment:METHOD TRACEABLE TO IDTX STANDARD GLUCOSE 100(H) 65 - 99 mg/dL 11/11/2024 5:31 AM EDT [facility] CALCIUM 7.9(L) 8.5 - 10.5 mg/dL 11/11/2024 5:31 AM EDT [facility] TOTAL PROTEIN 6.6 6.0 - 8.0 g/dL 11/11/2024 5:31 AM EDT [facility] ALBUMIN 2.4(L) 3.2 - 5.3 g/dL 11/11/2024 5:31 AM EDT [facility] ALKALINE PHOSPHATASE 77 39 - 130 U/L 11/11/2024 5:31 AM EDT [facility] AST 15 <=41 U/L 11/11/2024 5:31 AM EDT [facility] ALT 7 <=40 U/L 11/11/2024 5:31 AM EDT [facility] BILIRUBIN,TOTAL 1.4(H) 0.3 - 1.2 mg/dL 11/11/2024 5:31 AM EDT [facility] EGFR Non-Race Dependent 39(L) >=60 ml/min/1.7 3sq.m 11/11/2024 5:31 AM EDT [facility] Comment: eGFR not reported due to non-numeric value for Creatinine. Reported eGFR is based on the CKD-EPI 2020 equation that does not use a race coefficient. Blood Venous blood / Unknown Venipuncture / Unknown 11/11/2024 4:49 AM EDT 11/11/2024 5:08 AM EDT us Rommel Obrien VIDEO OPERATOR-LIBRARY MEDIA SPECIALIST LAB BLOOD ORDERABLES Fin al Result [facility] [address] [place] [address], [place] * X-ray abdomen ap 1 view (11/10/2024 3:56 PM EDT) Only the most recent of2 resultswithin the time period is included. Anatomical Region Laterality Modality Body, Abdomen N/A [...] Tube Auto Resulted 11/10/2024 2:01 PM EDT [facility] Blood Venous blood / Unknown 11/10/2024 12:16 PM EDT 11/10/2024 12:26 PM EDT Charlie Mireles MD LAB BLOOD ORDERABLES Final Result Performing Organization Address City/[facility]/ZIP Co de Phone Number [address] [place] [address], [place] * (ABNORMAL) Anti XA unfractionated heparin (11/10/2024 7:32 AM EDT) Only the most recent of8 resultswithin the time period is included. ANTI XA UFH 0.25(L) 0.30 - 0.70 IU/mL 11/10/2024 8:21 AM EDT [facility] Comment: Optimal time for testing is 6 hrs post dosage This test is specific for monitoring patients on UFH, and is not recommended for use with other Anti-Xa medications. Blood Venous blood / Unknown Venipuncture / Unknown 11/10/2024 7:32 AM EDT 11/10/2024 7:45 AM EDT Charlie Mireles MD LAB BLOOD ORDERABLES Final Result Performing Organization Address [facility] Co de Phone Number [address] [place] [address], [place] * APTT (11/09/2024 1:30 PM EDT) Only the most recent of5 resultswithin the time period is included. APTT 36 26 - 37 sec 11/09/2024 1:45 PM EDT [facility] Blood Venous blood / Unknown Venipuncture / Unknown 11/09/2024 1:30 PM EDT 11/09/2024 1:33 PM EDT Gill Gao VIDEO OPERATOR-LIBRARY MEDIA SPECIALIST LAB BLOOD ORDERABLES Brittani l Result Performing Organization Address City/[facility]/ZIP Co de Phone Number [address] [place] [address], [place] * (ABNORMAL) Protime & INR (11/09/2024 1:30 PM EDT) Only the most recent of5 resultswithin the time period is included. PROTIME 13.7(H) 9.8 - 13.2 sec 11/09/2024 1:45 PM EDT [facility] INR 1.2 0.9 - 1.2 11/09/2024 1:45 PM EDT [facility] Blood Venous blood / Unknown Venipuncture / Unknown 11/09/2024 1:30 PM EDT 11/09/2024 1:33 PM EDT Gill Gao VIDEO OPERATOR-LIBRARY MEDIA SPECIALIST LAB BLOOD ORDERABLES Brittani l Result Performing Organization Address City/[facility] Co de Phone Number [address] [place] [address], [place] * (ABNORMAL) Platelet count (11/09/2024 1:30 PM EDT) Platelet Count 118(L) 150 - 450 X10E9/L 11/09/2024 1:39 PM EDT [facility] MPV 10.1 7 - 12 fL 11/09/2024 1:39 PM EDT [facility] Blood Venous blood / Unknown Venipuncture / Unknown 11/09/2024 1:30 PM EDT 11/09/2024 1:33 PM EDT Gill Gao VIDEO OPERATOR-LIBRARY MEDIA SPECIALIST LAB BLOOD ORDERABLES Brittani l Result Performing Organization Address City/[facility] Co de Phone Number [address] [place] [address], [place] * Fluoroscopy swallow motility function (11/09/2024 1:27 PM EDT) Only the most recent of2 resultswithin the time period is included. Anatomical Region Laterality Modality Chest, Abdomen, Body [...] Uzair Carroll MD on 11/09/2024 1:40 PM Gill Gao VIDEO OPERATOR-LIBRARY MEDIA SPECIALIST IMG FLUOROSCOPY ORDERABLE S Final Result * (ABNORMAL) Urinalysis (11/09/2024 1:33 AM EDT) Only the most recent of2 resultswithin the time period is included. COLOR Yellow Yellow 11/09/2024 2:28 AM EDT [facility] TURBIDITY Clear Clear 11/09/2024 2:28 AM EDT [facility] SPECIFIC GRAVITY 1.010 1.003 - 1.035 11/09/2024 2:28 AM EDT [facility] NITRITE Negative Negative 11/09/2024 2:28 AM EDT [facility] PH,URINE 6.0 5.0 - 8.5 11/09/2024 2:28 AM EDT [facility] LEUKOCYTE ESTERASE Moderate(A) Negative 11/09/2024 2:28 AM EDT [facility] PROTEIN 100 mg/dL(A) Negative 11/09/2024 2:28 AM EDT [facility] KETONES (URINE) Negative Negative 2:28 AM EDT [facility] UROBILINOGEN 0.2 eu/dL 0.2 eu/dL, 1.0 eu/dL 11/09/2024 2:28 AM EDT [facility] BILIRUBIN (URINE) Negative Negative 11/09/2024 2:28 AM EDT [facility] BLOOD/HGB Large(A) Negative 11/09/2024 2:28 AM EDT [facility] R.B.CELLS 100(H) 0 - 5 11/09/2024 2:28 AM EDT [facility] W.B.CELLS 45(H) 0 - 5 11/09/2024 2:28 AM EDT [facility] GLUCOSE (URINE) Negative Negative, 250 mg/dL 11/09/2024 2:28 AM EDT [facility] Urine (Urine, Indwelling Catheter) 11/09/2024 1:33 AM EDT 11/09/2024 1:51 AM EDT us Charlie Mireles MD URINE ORDERABLES Final Res ult [facility] [address] [place] [address], [place] * Lactate w/ Reflex (11/08/2024 10:58 PM EDT) Only the most recent of3 resultswithin the time period is included. LACTATE W/REFLEX 1.6 0.4 - 2.0 mmol/L 11/08/2024 11:26 PM EDT [facility] Blood Venous blood / Unknown Venipuncture / Unknown 11/08/2024 10:58 PM EDT 11/08/2024 11:02 PM EDT Narrative [facility] - 11/08/2024 11:26 PM EDT Result did not trigger repeat Lactate, re-order if needed. Charlie Mireles MD LAB BLOOD ORDERABLES Final Result Performing Organization Address City/[facility] Co de Phone Number [address] [place] [address], [place] * (ABNORMAL) C-reactive protein (11/08/2024 5:02 PM EDT) Only the most recent of2 resultswithin the time period is included. C REACTIVE PROTEIN 16.6(H) <=0.7 mg/dL 11/08/2024 6:05 PM EDT [facility] Blood Venous blood / Unknown Venipuncture / Unknown 11/08/2024 5:02 PM EDT 11/08/2024 5:28 PM EDT Gill Gao APRN-DAVIS LAB BLOOD ORDERABLES Brittani l Result Performing Organization Address [facility] Co de Phone Number [address] [place] [address], [place] * (ABNORMAL) Basic Metabolic Panel (11/08/2024 5:02 PM EDT) Only the most recent of11 resultswithin the time period is included. SODIUM 144 134 - 146 mmol/L 11/08/2024 6:05 PM EDT [facility] POTASSIUM 3.4(L) 3.5 - 5.0 mmol/L 11/08/2024 6:05 PM EDT [facility] CHLORIDE 116(H) 98 - 109 mmol/L 11/08/2024 6:05 PM EDT [facility] CARBON DIOXIDE 20(L) 22 - 32 mmol/L 11/08/2024 6:05 PM EDT [facility] ANION GAP 8 5 - 15 mmol/L 11/08/2024 6:05 PM EDT [facility] BLOOD UREA NITROGEN 67(H) 5 - 27 mg/dL 11/08/2024 6:05 PM EDT [facility] CREATININE 1.85(H) 0.70 - 1.20 mg/dL 11/08/2024 6:05 PM EDT [facility] Comment:METHOD TRACEABLE TO IDMS STANDARD GLUCOSE 120(H) 65 - 99 mg/dL 11/08/2024 6:05 PM EDT [facility] CALCIUM 8.0(L) 8.5 - 10.5 mg/dL 11/08/2024 6:05 PM EDT [facility] EGFR Non-Race Dependent 36(L) >=60 ml/min/1.7 3sq.m 11/08/2024 6:05 PM EDT [facility] Comment: eGFR not reported due to non-numeric value for Creatinine. Reported eGFR is based on the CKD-EPI 2020 equation that does not use a race coefficient. Blood Venous blood / Unknown Venipuncture / Unknown 11/08/2024 5:02 PM EDT 11/08/2024 5:28 PM EDT us Gill Gao VIDEO OPERATOR-LIBRARY MEDIA SPECIALIST LAB BLOOD ORDERABLES Brittani seth Result [facility] [address] [place] [address], * (ABNORMAL) Urine Culture Urine, Indwelling Catheter (11/08/2024 2:27 PM EDT) Only the most recent of3 resultswithin the time period is included. CULTURE RESULTS 50,000-100,000 CFU/mL Vancomycin resistant Enterococcus species(A) 11/12/2024 6:39 PM EDT [facility] Comment:Ampicillin or Amoxic illin is the drug of choice for uncomplicated cystitis caused by enterococci. Cephalosporins are inappropriate. Urine (Urine, Indwelling Catheter) 11/08/2024 2:27 PM EDT 11/08/2024 2:38 PM EDT Narrative [facility] - 11/12/2024 6:39 PM EDT Urine [...] MICROBIOLOGY - GENERAL ORD ERABLES Final Result [facility] [address] [place] [address], [place] [phone] * Vancomycin, random (11/07/2024 5:16 AM EDT) VANCOMYCIN 10.1 5.0 - 40.0 ug/mL 11/07/2024 7:08 AM EDT [facility] Blood Venous blood / Unknown Venipuncture / Unknown 11/07/2024 5:16 AM EDT 11/07/2024 5:39 AM EDT Narrative [facility] - 11/07/2024 7:08 AM EDT Peak 30-40 ug/mL Trough 5-20 ug/ml us Rommel Obrien VIDEO OPERATOR-LIBRARY MEDIA SPECIALIST LAB BLOOD ORDERABLES Fin al Result [facility] [address] [place] [address], [place] * Vas venous duplex lwr bilateral [...] deep veins show no evidence of thrombus Brittany Mccallum VIDEO OPERATOR-LIBRARY MEDIA SPECIALIST CV VASCULAR ORDERABLES Final Result * NM [...] MD on 11/05/2024 10:34 AM Brittany Mccallum VIDEO OPERATOR-LIBRARY MEDIA SPECIALIST IMG NM ORDERABLES Final Result * Extra Urine Wyatt (11/05/2024 2:32 AM EDT) Only the most recent of4 resultswithin the time period is included. Extra Tube Auto Resulted 11/05/2024 4:02 AM EDT [facility] Urine Urine specimen collection, clean catch / Unknown 11/05/2024 2:32 AM EDT 11/05/2024 2:53 AM EDT us Saba Cox VIDEO OPERATOR-LIBRARY MEDIA SPECIALIST URINE ORDERABLES Final Res ult [address] [place] [address], [place] * Extra Urine Culture (11/05/2024 2:32 AM EDT) Only the most recent of3 resultswithin the time period is included. Extra Tube Auto Resulted 11/05/2024 4:02 AM EDT [facility] Urine Urine specimen collection, clean catch / Unknown 11/05/2024 2:32 AM EDT 11/05/2024 2:53 AM EDT us Saba Cox VIDEO OPERATOR-LIBRARY MEDIA SPECIALIST URINE ORDERABLES Final Res ult Performing Organization Address [facility] de Phone Number [address] [place] [address], [place] * Extra Urine (11/05/2024 2:32 AM EDT) Only the most recent of5 resultswithin the time period is included. Extra Tube Auto Resulted 11/05/2024 4:02 AM EDT [facility] Urine Urine specimen collection, clean catch / Unknown 11/05/2024 2:32 AM EDT 11/05/2024 2:53 AM EDT us Saba Cox VIDEO OPERATOR-LIBRARY MEDIA SPECIALIST URINE ORDERABLES Final Res ult Performing Organization Address City/[facility] Co de Phone Number [address] [place] [address], [place] * Lactate (11/04/2024 10:51 PM EDT) LACTATE 1.4 0.4 - 2.0 mmol/L 11/04/2024 11:11 PM EDT [facility] Blood Venous blood / Unknown Venipuncture / Unknown 11/04/2024 10:51 PM EDT 11/04/2024 10:53 PM EDT us Saba Cox VIDEO OPERATOR-LIBRARY MEDIA SPECIALIST LAB BLOOD ORDERABLES Final Result [facility] [address] [place] [address], [place] * CT chest without contrast (11/04/2024 9:14 [...] detection for pulmonary nodules was performed utilizing [employer] software. COMPARISON: CT dated 07/11/2024, single view [...] aideddetection for pulmonary nodules was performed utilizing [employer]. COMPARISON: CT dated 07/11/2024, single view chest [...] MD on 11/04/2024 9:40 PM Saba Cox VIDEO OPERATOR-LIBRARY MEDIA SPECIALIST [facility] CT ORDERABLES Final Re sult * CT abdomen and pelvis without contrast [...] on 11/04/2024 9:54 PM us Saba Cox VIDEO OPERATOR-LIBRARY MEDIA SPECIALIST IMG CT ORDERABLES Final Re sult * X-ray chest 1 view (11/04/2024 6:55 PM EDT) Only the most recent of2 resultswithin the time period is included. Anatomical Region Laterality Modality Body, Chest N/A [...] IMAGING ORD ERABLES Final Result * (ABNORMAL) D-Dimer (11/04/2024 6:48 PM EDT) D DIMER 3,228(H) 1 - 255 ug/mL 11/04/2024 7:15 PM EDT [facility] Comment:Results >255 ng/mL D DU: Results may [...] 11/04/2024 6:50 PM EDT us Saba Cox VIDEO OPERATOR-LIBRARY MEDIA SPECIALIST LAB BLOOD ORDERABLES Final Result Performing Organization Address City/[facility] Co de Phone Number [address] [address], [place] * (ABNORMAL) Myoglobin, serum (11/04/2024 6:48 PM EDT) Only the most recent of3 resultswithin the time period is included. SERUM MYOGLOBIN 132.5(H) 17.4 - 105.7 ng/mL 11/04/2024 7:24 PM EDT [facility] Blood Venous blood / Unknown Venipuncture / Unknown 11/04/2024 6:48 PM EDT 11/04/2024 6:50 PM EDT Saba Cox VIDEO OPERATOR-LIBRARY MEDIA SPECIALIST LAB BLOOD ORDERABLES Final Result Performing Organization Address [facility] Co de Phone Number [address] [place] [address], [place] * CK Total (11/04/2024 6:48 PM EDT) Only the most recent of3 resultswithin the time period is included. CPK 33 24 - 195 U/L 11/04/2024 7:24 PM EDT [facility] Blood Venous blood / Unknown Venipuncture / Unknown 11/04/2024 6:48 PM EDT 11/04/2024 6:50 PM EDT Saba Cox VIDEO OPERATOR-LIBRARY MEDIA SPECIALIST LAB BLOOD ORDERABLES Final Result Performing Organization Address City/[facility] Co de Phone Number [address] [address], [place] * Critical Care (11/04/2024 6:44 PM EDT) Sukhi Perry MD - 11/04/2024 6:44 PM EDT Sukhi [...] PROCEDURE/MINOR SURGICAL ORDERA BLES Final Result * (ABNORMAL) CBC without diff (10/14/2024 9:08 AM EDT) Only the most recent of2 resultswithin the time period is included. WBC 14.6(H) 4 - 11 x10E9/L 10/14/2024 6:21 PM EDT [facility] RBC Count 4.16 4.1 - 5.7 X10E12/L 10/14/2024 6:21 PM EDT [facility] Hemoglobin 11.0(L) 13 - 17 g/dL 10/14/2024 6:21 PM EDT [facility] Hematocrit 35.0(L) 39 - 50 % 10/14/2024 6:21 PM EDT [facility] MCV 84 80 - 100 fL 10/14/2024 6:21 PM EDT [facility] MCH 26.4(L) 27 - 34 pg 10/14/2024 6:21 PM T [facility] MCHC 31.4(L) 32 - 36 g/dL 10/14/2024 6:21 PM T [facility] RDW 19.4(H) 11.5 - 15 % 10/14/2024 6:21 PM EDT [facility] Platelet Count 265 150 - 450 X10E9/L 10/14/2024 6:21 PM EDT [facility] MPV 10.2 7 - 12 fL 10/14/2024 6:21 PM EDT [facility] Blood Venous blood / Unknown 10/14/2024 9:08 AM EDT 10/14/2024 9:08 AM EDT us Alden Harry DO LAB BLOOD ORDERABLES Final R esult [facility] [address] [place] [address], [place] [phone] * Light Blue Top (10/06/2024 6:56 AM EDT) Only the most recent of2 resultswithin the time period is included. Extra Tube Auto Resulted 10/06/2024 8:01 AM EDT [facility] Blood Venous blood / Unknown 10/06/2024 6:56 AM EDT 10/06/2024 7:01 AM EDT us Aurelia Mcneill MD LAB BLOOD ORDERABLES Final Result Performing Organization Address City/[facility]/ZIP Co de Phone Number [facility] [address] [place] [address], [place] * (ABNORMAL) POCT Nursing Urine Macroscopic UA (10/06/2024 1:35 AM EDT) Only the most recent of3 resultswithin the time period is included. POC Urine Specific [place] 1.025 1.010, 1.015, 1.020, 1.025 10/06/2024 1:27 AM EDT [facility] POC Urine Leukocyte Esterase Negative Negative 10/06/2024 1:27 AM EDT [facility] POC Urine Nitrite Positive(A) Negative 10/06/2024 1:27 AM EDT [facility] POC Urine pH 5.5 5.0, 6.0, 6.5, 7.0, 7.5, 8.0, 8.5, 5.5 10/06/2024 1:27 AM EDT [facility] POC Urine Protein 30 mg/dL(A) Negative 10/06/2024 1:27 AM EDT [facility] POC Urine Glucose Negative Negative 10/06/2024 1:27 AM EDT [facility] Urine Ketones Negative Negative 10/06/2024 1:27 AM EDT [facility] P[facility] Urine Urobilinogen 0.2 E.U./dL 10/06/2024 1:27 AM EDT [facility]OC Urine Bilirubin Negative Negative 10/06/2024 1:27 AM EDT [facility] POC Urine Blood/HGB Large(A) Negative 10/06/2024 1:27 AM EDT [facility] Urine 10/06/2024 1:35 AM EDT 10/06/2024 1:27 AM EDT us Derek Johnson MD POINT OF CARE TEST ORDERABLES Final Result [facility] [address] [place] [address], * Laceration Repair (10/06/2024 1:03 AM EDT) Narrative Derek Johnson MD - 10/06/2024 1:03 AM EDT Derek Johnson MD 10/07/2024 7:44 PM Laceration Repair Date/Time: 10/06/2024 1:03 AM Performed by: Familia Samuel MD Authorized by: Derek Johnson MD Consent: Consent obtained: Verbal Consent given by: Patient Risks, benefits, and alternatives were discussed: yes Risks discussed: Infection, pain, poor cosmetic result and poor wound healing [place] protocol: Procedure explained and questions answered to patient or proxy's satisfaction: yes Patient identity confirmed: Verbally with patient Anesthesia: Anesthesia method: Local infiltration Local anesthetic: Lidocaine 1% WITH epi Laceration details: Location: Face Face location: Forehead Length (cm): 6 Pre-procedure details: Preparation: Patient was prepped and draped in usual sterile fashion Exploration: Hemostasis achieved with: Direct pressure Wound exploration: wound explored through full range of motion and entire depth of wound visualized Treatment: Area cleansed with: Saline Amount of cleaning: Standard Irrigation solution: Sterile saline Irrigation method: Syringe Debridement: None Undermining: None Skin repair: Repair method: Sutures Suture size: 5-0 Suture material: Chromic gut Suture technique: Simple interrupted Number of sutures: 6 Approximation: Approximation: Close Repair type: Repair type: Simple Post-procedure details: Procedure completion: Tolerated well, no immediate complications us Derek Johnson MD PROCEDURE/MINOR SURGICAL KODIE RAUL Final Result * CT brain without contrast (10/05/2024 11:45 PM EDT) Only the most recent of2 resultswithin the time period is included. Anatomical Region Laterality Modality Neuro, Head, Head and Neck, Neuro Covera N/A Computed Tomography 10/05/2024 11:5 7 PM EDT Narrative 10/05/2024 11:59 PM EDT Exam: CT brain without contrast. CLINICAL HISTORY: Fall with headache. Head trauma. TECHNIQUE: CT brain without intravenous contrast. All CT scans at this facility use dose modulation, iterative reconstruction, and/or weight based dosing when appropriate to reduce radiation dose to as low as reasonably achievable COMPARISON: 09/07/2024 CT scan. FINDINGS: No evidence of hemorrhage. No mass or mass effect. No CT evidence of acute ischemia/infarct. Mild age-related cortical atrophy. The midline structures are intact, no midline shift. The ventricles and basal cisterns are unremarkable. The brainstem and cerebellum are unremarkable. The paranasal sinuses and mastoid air cells are well aerated. No acute osseous abnormality. Mild contusion in the soft tissues overlying the left frontal bone. No skull fracture. IMPRESSION: 1. No acute intracranial pathology by CT. 2. Mild contusion in the soft tissues overlying the left frontal bone. No skull fracture. Finalized by Daniel Wise MD on 10/05/2024 11:59 PM Procedure Note Daniel Wise MD - 10/06/2024 Exam: CT brain without contrast. CLINICAL HISTORY: Fall with headache. Head trauma. TECHNIQUE: CT brain without intravenous contrast. All CT scans at this facility use dose modulation, iterativereconstruction, and/or weight based dosing when appropriate to reduceradiation dose to as low as reasonably achievable COMPARISON: 09/07/2024 CT scan. FINDINGS: No evidence of hemorrhage. No mass or mass effect. No CT evidence of acute ischemia/infarct. Mild age-related cortical atrophy. The midline structures are intact, no midline shift. The ventricles and basal cisterns are unremarkable. The brainstem and cerebellum are unremarkable. The paranasal sinuses and mastoid air cells are well aerated. No acute osseous abnormality. Mild contusion in the soft tissues overlying the left frontal bone. Noskull fracture. IMPRESSION: 1. No acute intracranial pathology by CT. 2. Mild contusion in the soft tissues overlying the left frontal bone. Noskull fracture. Finalized by Daniel Wise MD on 10/05/2024 11:59 PM us Derek Johnson MD IMG CT ORDERABLES Final Resul t * CT cervical spine without contrast (10/05/2024 11:44 PM EDT) Anatomical Region Laterality Modality MSK, Neuro, Spine, C-spine, Spine Covera N/A Computed Tomography 10/05/2024 11:4 5 PM EDT Narrative 10/05/2024 11:46 PM EDT CLINICAL INFORMATION: Fall with cervical spine pain. Neck pain.. PROCEDURE: Routine cervical spine protocol CT was obtained without intravenous contrast. Sagittal and coronal reformatted images were obtained from the axial data. Automated exposure control was utilized. All CT scans at this facility dose modulation, iterative reconstruction, and/or weight based dosing when appropriate to reduce radiation dose to as low as reasonably achievable. FINDINGS: Straightening of the normal cervical spine lordotic curvature. The vertebral body heights are well-preserved. Moderate degenerative changes at C5-C6 and C6-C7 with intervertebral disc space height loss, endplate sclerosis, and osteophyte formation. The atlantoaxial space is intact. The posterior elements are intact with facet hypertrophy. Partially visualized lung apices are unremarkable. No acute findings in the soft tissues. Please note, ligamentous injury is not well evaluated on a neutral position CT. If concern for ligamentous injury consider flex-ex radiographs or MRI. IMPRESSION: * No acute osseous abnormalities in the cervical spine. * Degenerative changes as above Finalized by Daniel Wise MD on 10/05/2024 11:46 PM Procedure Note Daniel Wise MD - 10/05/2024 CLINICAL INFORMATION: Fall with cervical spine pain. Neck pain.. PROCEDURE: Routine cervical spine protocol CT was obtained withoutintravenous contrast. Sagittal and coronal reformatted images wereobtained from the axial data. Automated exposure control was utilized.All CT scans at this facility dose modulation, iterative reconstruction,and/or weight based dosing when appropriate to reduce radiation dose to as low as reasonablyachievable. FINDINGS: Straightening of the normal cervical spine lordotic curvature. The vertebral body heights are well-preserved. Moderate degenerative changes at C5-C6 and C6-C7 with intervertebral discspace height loss, endplate sclerosis, and osteophyte formation. The atlantoaxial space is intact. The posterior elements are intact with facet hypertrophy. Partially visualized lung apices are unremarkable. No acute findings in the soft tissues. Please note, ligamentous injury is not well evaluated on a neutralposition CT. If concern for ligamentous injury consider flex-exradiographs or MRI. IMPRESSION: * No acute osseous abnormalities in the cervical spine. * Degenerative changes as above Finalized by Daniel Wise MD on 10/05/2024 11:46 PM us Derek Johnson MD IMG CT ORDERABLES Final Resul t * CT urogram (09/26/2024 1:31 PM EDT) Anatomical Region Laterality Modality Body, Abdomen, Body Covera N/A Compu gregory Tomography 09/26/2024 1:37 PM EDT Addenda Addendum by Ian Mixon MD on 10/03/2024 11:32 AM EDT *ADDENDUM*There is an error in the impression of the report. It should say in in The first point point: Left-sided hydronephrosis thickening and enhancement involving the wall of the left pelvis with soft tissue enhancing density within the proximal ureter just past the ureteropelvic junction. Findings could be seen with infection or urothelial cancer. This error is also present in the body of the report. Finalized by Ian Mixon MD on 10/03/2024 11:32 AM Narrative 09/26/2024 2:14 PM EDT Study: History: Protocol: Contrast COMPARISON: Findings:. Noncontrast study: No renal calculi. No ureteral calculi. Schroeder catheter in the bladder. Left-sided hydronephrosis I suspect that there is enhancement of the wall of the renal pelvis wall thickening thickening. There also appears to be some soft tissue density within the proximal ureter just past the ureterovesicular junction. Findings could be seen with infection or with urothelial cancer. Delayed phase: There is no excretion from the left kidney. Normal Lungs:Normal Liver: Normal Spleen: Normal Gallbladder: Contracted Bile ducts: Normal Pancreas: Mild atrophy Adrenal glands: Normal Kidneys: See above Ureters: See above Bladder: Schroeder catheter bladder wall thickening and irregularity could represent neoplasm. Could represent infectious cystitis. Bowel: Normal Mesentery: No adenopathy Retroperitoneum: There are small left periaortic lymph nodes present. These are all under 1 cm. Peritoneum: No free fluid or free air Vessels: Atherosclerotic changes in the aorta no significant aneurysm Abdominal wall: No Bones: Degenerative changes thoracic and lumbar spine Impression: * Left-sided hydronephrosis. Thickening and enhancement of the wall of the left pelvis. Soft tissue enhancing density within the proximal ureter just past the ureterovesicular junction. Findings could be seen with infection or with urothelial cancer. * Abnormal irregular bladder wall thickening could represent cystitis but the irregularity and degree of thickening is concerning for neoplasm. All CT scans at this facility use dose modulation, iterative reconstruction, and/or weight based dosing when appropriate to reduce radiation dose to as low as reasonably achievable. * Finalized by Ian Mixon MD on 09/26/2024 2:14 PM Procedure Note Ian Mixon MD - 09/26/2024 Study: History: Protocol: Contrast COMPARISON: Findings:. Noncontrast study: No renal calculi. No ureteral calculi. Schroeder catheterin the bladder. Left-sided hydronephrosis I suspect that there is enhancement of the wallof the renal pelvis wall thickening thickening. There also appears to besome soft tissue density within the proximal ureter just past theureterovesicular junction. Findings could be seen with infection or withurothelial cancer. Delayed phase: There is no excretion from the left kidney. Normal Lungs:Normal Liver: Normal Spleen: Normal Gallbladder: Contracted Bile ducts: Normal Pancreas: Mild atrophy Adrenal glands: Normal Kidneys: See above Ureters: See above Bladder: Schroeder catheter bladder wall thickening and irregularity couldrepresent neoplasm. Could represent infectious cystitis. Bowel: Normal Mesentery: No adenopathy Retroperitoneum: There are small left periaortic lymph nodes present.These are all under 1 cm. Peritoneum: No free fluid or free air Vessels: Atherosclerotic changes in the aorta no significant aneurysm Abdominal wall: No Bones: Degenerative changes thoracic and lumbar spine Impression: * Left-sided hydronephrosis. Thickening and enhancement of the wall ofthe left pelvis. Soft tissue enhancing density within the proximal ureterjust past the ureterovesicular junction. Findings could be seen withinfection or with urothelial cancer. * Abnormal irregular bladder wall thickening could represent cystitis butthe irregularity and degree of thickening is concerning for neoplasm. All CT scans at this facility use dose modulation, iterativereconstruction, and/or weight based dosing when appropriate to reduceradiation dose to as low as reasonably achievable. * Finalized by Ian Mixon MD on 09/26/2024 2:14 PM James Leger Jr., MD IM CT ORDERABLES Edited Result - Final * Surgical Pathology (09/24/2024 8:27 AM EDT) Case Report Surgical Pathology Report Case: [id number] Authorizing Provider: Beverly Burt MD Collected: 09/24/2024 0827 Ordering Location: [facility] Received: 09/24/2024 0934 - Endoscopy Pathologist: Akbar Moreno MD Specimen: Stomach, Gastric bx 10/01/2024 10:09 AM T [facility] Final Diagnosis Gastric biopsies: Chronic inactive gastritis. Immunostain for H. pylori is pending. No intestinal metaplasia or dysplasia identified. 10/01/2024 10:09 AM T [facility] at 1348 EDT Addendum Immunohistochemical stain for H. pylori is POSITIVE with satisfactory control. 10/01/2024 10:09 AM EDT [facility] Addendum electronically signed by Akbar Moreno MD on 10/01/2024 at 1009 EDT Gross Description Received in formalin labeled, ANDREA, gastric biopsy , are two marte soft tissue bits, 0.3 cm each in greatest dimension. The specimen is filtered and submitted entirely in a single cassette. (1, ns, [id number], m4) JL 10/01/2024 10:09 AM EDT [facility] Embedded Images 10/01/2024 10:09 AM EDT [facility] Tissue Stomach structure / Unknown 09/24/2024 8:27 AM EDT 09/24/2024 9:34 AM EDT Comment:Pre-op diagnosis: Bilious vomiting with nausea [R11.14] Beverly Burt MD PATHOLOGY/CYTOLOGY ORDERABLE S Edited Result - Final [facility] [address] [facility] [place] [address], [facility] [address] [place] [address], * EGD (09/24/2024 8:03 AM EDT) 09/24/2024 8:03 AM EDT Narrative PM CARDIOVASCULAR - 09/24/2024 8:51 AM EDT [facility] Patient Name: Fili Saunders Procedure Date: 09/24/2024 8:03 AM CSN: [id number] Date of : 1940 Admit Type: Outpatient Age: 84 Room: [place] [address] Gender: Male Note Status: Finalized Attending MD: BEVERLY BURT MD, Procedure: Upper GI endoscopy Indications: Nausea with vomiting Providers: BEVERLY BURT MD, Park Vega (Fellow) Referring MD: Requesting Provider: Medicines: Monitored Anesthesia Care Complications: No immediate complications. Estimated blood loss: Minimal. Procedure: After obtaining informed consent, the endoscope was passed under direct vision. Throughout the procedure, the patient's blood pressure, pulse, and oxygen saturations were monitored continuously. The was introduced through the mouth, and advanced to the second part of duodenum. The upper GI endoscopy was accomplished without difficulty. The patient tolerated the procedure well. ATTESTATION: I was present for the entire procedure from time-out until withdrawal of the scope. Findings: The examined esophagus was normal. The Z-line was regular and was found 42 cm from the incisors. The gastric fundus, gastric body and gastric antrum were normal. Biopsies were taken with a cold forceps for Helicobacter pylori testing. Patchy mildly erythematous mucosa without active bleeding and with no stigmata of bleeding was found in the duodenal bulb. Estimated Blood Loss: Estimated blood loss was minimal. Impression: - Normal esophagus. - Normal gastric fundus, gastric body and antrum. Biopsied. - Z-line regular, 42 cm from the incisors. - Erythematous duodenopathy. Recommendation: - Perform a colonoscopy at appointment to be scheduled to further evaluate unintentional weight loss. Procedure Code(s): --- Professional --- 56603, Esophagogastroduodenoscopy, flexible, transoral; with biopsy, single or multiple Diagnosis Code(s): --- Professional --- K26.9, Duodenal ulcer, unspecified as acute or chronic, without hemorrhage or perforation R11.2, Nausea with vomiting, unspecified CPT copyright 3 [employer]. All rights reserved. The codes documented in this report are preliminary and upon sheet metal pattern cutter review may be revised to meet current compliance requirements. Dr. Beverly BURT MD 09/24/2024 8:50:37 AM This report has been signed electronically. Park Vega, Number of Addenda: 0 Note Initiated On: 09/24/2024 8:03 AM Procedure Note Beverly Burt MD - 09/24/[address] [facility] Patient Name: Fili Saunders Procedure Date: 09/24/2024 8:03 AMMRN: [id number] CSN: [id number] Date of : 1940 Admit Type: Outpatient Age: 84 Room: [place] [address] Gender: Male Note Status: Finalized Attending MD: BEVERLY BURT MD, Procedure: Upper GI endoscopy Indications: Nausea with vomiting Providers: BEVERLY BURT MD, Park Vega (Fellow) Referring MD: Requesting Provider: Medicines: Monitored Anesthesia Care Complications: No immediate complications. Estimated blood loss: Minimal. Procedure: After obtaining informed consent, theendoscope was passed under direct vision. Throughoutthe procedure, the patient's blood pressure,pulse, and oxygen saturations were monitored continuously. The was introduced through the mouth, and advanced to the second part of duodenum. The upper GI endoscopy was accomplished without difficulty. The patient tolerated the procedure well. ATTESTATION: I was present for the entire procedure from time-out until withdrawal ofthe scope. Findings: The examined esophagus was normal. The Z-line was regular and wasfound 42 cm from the incisors. The gastric fundus, gastric body and gastric antrum were normal. Biopsies were taken with a cold forceps for Helicobacter pyloritesting. Patchy mildly erythematous mucosa without active bleeding and with no stigmata of bleeding was found in the duodenal bulb. Estimated Blood Loss: Estimated blood loss was minimal. Impression: - Normal esophagus. - Normal gastric fundus, gastric body and antrum. Biopsied. - Z-line regular, 42 cm from the incisors. - Erythematous duodenopathy. Recommendation: - Perform a colonoscopy at appointment to be scheduled to further evaluate unintentional weight loss. Procedure Code(s): --- Professional --- 11114, Esophagogastroduodenoscopy, flexible, transoral; with biopsy, single or multiple Diagnosis Code(s): --- Professional --- K26.9, Duodenal ulcer, unspecified as acuteor chronic, without hemorrhage or perforation R11.2, Nausea with vomiting, unspecified CPT copyright 2022 [employer]. All rights reserved. The codes documented in this report are preliminary and upon sheet metal pattern cutter reviewmay be revised to meet current compliance requirements. Dr. Beverly BURT MD 09/24/2024 8:50:37 AM This report has been signed electronically. Park Vega, Number of Addenda: 0 Note Initiated On: 09/24/2024 8:03 AM us Beverly Burt MD GI PROCEDURE ORDERABLES Brittani ann Result PM CARDIOVASCULAR * EGD Report (09/24/2024 7:53 AM EDT) Narrative SYSTEMGENERATED, DOCUMENTATION - 09/24/2024 7:53 AM EDT This order has been auto-finalized for image and report archival in PACs. *For full report details, please reach out to your physician. This image is visible to you in MyChart.* us Park Vega MD IMG OR IMG ORDERABLES Final Resu lt * (ABNORMAL) POCT Electrolytes w/ BUN, Creat, Gluc, Hematocrit (09/23/2024 1:13 AM EDT) POC Sodium 138 134 - 146 mmol/L 09/23/2024 1:17 AM T [facility] POC Potassium 4.4 3.5 - 5.0 mmol/L 09/23/2024 1:17 AM T [facility] POC Chloride 104 98 - 109 mmol/L 09/23/2024 1:17 AM T [facility] POC TCO2 26 22 - 32 mmol/L 09/23/2024 1:17 AM [facility] POC Glucose 97 65 - 99 mg/dL 09/23/2024 1:17 AM T [facility] POC BUN 31(H) 6 - 27 mg/dL 09/23/2024 1:17 AM T [facility] POC Creatinine 1.7(H) 0.7 - 1.2 mg/dL 09/23/2024 1:17 AM T [facility] POC Hematocrit 31(L) 39 - 49 % 09/23/2024 1:17 AM T [facility] POC EGFR Non-Race Dependent 40(L) >=60 ml/min/1.7 3sq.m 09/23/2024 1:17 AM EDT [facility] Comment: Reported eGFR is based on the CKD-EPI 2020 equation that does not use a race coefficient. 09/23/2024 1:13 AM EDT 09/23/2024 1:17 AM EDT us Jason Lino DO POINT OF CARE TEST ORDERABLES Fi nal Result [facility] [address] [place] [address], [place] * CT abdomen and pelvis with contrast (09/22/2024 9:09 PM EDT) Anatomical Region Laterality Modality Body, Abdomen, Body Covera N/A Compu gregory Tomography 09/22/2024 9:49 PM EDT Narrative 09/22/2024 9:59 PM EDT STUDY: ABDOMEN AND PELVIS CT WITH CONTRAST CLINICAL HISTORY: Abdominal pain and tenderness COMPARISON: 07/28/2024 TECHNIQUE: CT abdomen and pelvis was performed utilizing 5 mm axial reconstructions following the uneventful administration of 100 cc Omnipaque 300 nonionic intravenous contrast. Coronal and sagittal reformatted images as well as delayed excretory phase images were obtained and reviewed. Automated exposure control was utilized. FINDINGS: ABDOMEN/PELVIS: Severe left-sided hydronephrosis with enhancement of the proximal ureter epithelium as well as the epiphyseal line of the collecting system. Findings consistent with diffuse inflammation. No definite obstructing ureteral stone. The bladder is thickened and trabeculated. No bladder stone. There are bilateral renal cysts. Largest is located in the inferior pole right kidney. No right-sided hydronephrosis. Liver, spleen, pancreas, adrenal glands unremarkable. No definite gallstone. No retroperitoneal pelvic nor inguinal adenopathy. Very heavy calcification of the abdominal aorta. No mesenteric edema. Significantly enlarged prostate. This effaces the base of bladder. Right inguinal hernia containing fat. Contrast-enhanced the portal vein splenic vein. Lung bases notable for indeterminate groundglass nodule measuring 9.3 mm. Further evaluation and surveillance imaging is advised. Otherwise visualized lungs are hyperinflated. Pleural based calcification. 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 IMPRESSION: * Abnormal appearance of the left kidney consistent with severe left hydronephrosis and periureteral right. No definite obstructing stone, but there is hyperemia around concentrated urine decreases sensitivity exam. Patient may have recently passed a stone. Alternatively active infection difficult to exclude but no drainable abscess. Correlation with urinalysis is advised. * Severe bladder wall thickening consistent with outlet obstruction and/or chronic cystitis. * Enlarged prostate. Correlation PSA advised. * Indeterminate groundglass nodule right lung base. Short-term CT chest follow-up in 3-[address] scans at this facility use dose modulation, iterative reconstruction, and/or weight based dosing when appropriate to reduce radiation dose to as low as reasonably achievable. Finalized by Jose Saunders MD on 09/22/2024 9:59 PM Procedure Note Jose Saunders MD - 09/22/2024 STUDY: ABDOMEN AND PELVIS CT WITH CONTRAST CLINICAL HISTORY: Abdominal pain and tenderness COMPARISON: 07/28/2024 TECHNIQUE: CT abdomen and pelvis was performed utilizing 5 mm axialreconstructions following the uneventful administration of 100 ccOmnipaque 300 nonionic intravenous contrast. Coronal and sagittalreformatted images as well as delayed excretory phase images were obtainedand reviewed. Automated exposure control was utilized. FINDINGS: ABDOMEN/PELVIS: Severe left-sided hydronephrosis with enhancement of the proximal ureterepithelium as well as the epiphyseal line of the collecting system.Findings consistent with diffuse inflammation. No definite obstructingureteral stone. The bladder is thickened and trabeculated. No bladderstone. There are bilateral renal cysts. Largest is located in the inferior pole rightkidney. No right-sided hydronephrosis. Liver, spleen, pancreas, adrenal glands unremarkable. No definitegallstone. No retroperitoneal pelvic nor inguinal adenopathy. Very heavycalcification of the abdominal aorta. No mesenteric edema. Significantly enlarged prostate. This effaces the base of bladder. Rightinguinal hernia containing fat. Contrast-enhanced the portal vein splenic vein. Lung bases notable for indeterminate groundglass nodule measuring 9.3 mm.Further evaluation and surveillance imaging is advised. Otherwisevisualized lungs are hyperinflated. Pleural based calcification. 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 IMPRESSION: * Abnormal appearance of the left kidney consistent with severe lefthydronephrosis and periureteral right. No definite obstructing stone, butthere is hyperemia around concentrated urine decreases sensitivity exam.Patient may have recently passed a stone. Alternatively active infectiondifficult to exclude but no drainable abscess. Correlation with urinalysis isadvised. * Severe bladder wall thickening consistent with outlet obstructionand/or chronic cystitis. * Enlarged prostate. Correlation PSA advised. * Indeterminate groundglass nodule right lung base. Short-term CT chestfollow-up in 3-[address] scans at this facility use dose modulation, iterativereconstruction, and/or weight based dosing when appropriate to reduceradiation dose to as low as reasonably achievable. Finalized by Jose Saunders MD on 09/22/2024 9:59 PM Jacqueline Barriga MD IMG CT ORDERABLES Final Result * Lipase (09/22/2024 8:01 PM EDT) Only the most recent of2 resultswithin the time period is included. LIPASE 18 11 - 82 U/L 09/22/2024 9:36 PM EDT [facility] Blood Venous blood / Unknown 09/22/2024 8:01 PM EDT 09/22/2024 8:14 PM EDT Jacqueline Barriga MD LAB BLOOD ORDERABLES Final Res ult [facility] [address] [place] [address], [place] [phone] * Potassium (09/11/2024 12:10 PM EDT) POTASSIUM 4.1 3.5 - 5.0 mmol/L 09/11/2024 1:03 PM EDT [facility] Blood Venous blood / Unknown Venipuncture / Unknown 09/11/2024 12:10 PM EDT 09/11/2024 12:30 PM EDT Cristine Flores MD LAB BLOOD ORDERABLES Final Resu lt [facility] [address] [place] [address], [place] [phone] * TSH with Reflex (09/11/2024 4:47 AM EDT) TSH 2.83 0.49 - 4.67 uIU/mL 09/11/2024 8:24 AM EDT [facility] Blood Venous blood / Unknown Venipuncture / Unknown 09/11/2024 4:47 AM EDT 09/11/2024 4:47 AM EDT us Kaila Moran MD LAB BLOOD ORDERABLES Brittani l Result [facility] [address] [place] [address], [place] [phone] * (ABNORMAL) Troponin I, High Sensitivity 3 Hour (09/09/2024 2:11 AM EDT) [facility] TROPONIN I, HIGH SENSITIVITY 41(H) <21 ng/L 09/09/2024 3:07 AM EDT [facility] Blood Venous blood / Unknown Venipuncture / Unknown 09/09/2024 2:11 AM EDT 09/09/2024 2:11 AM EDT Narrative [facility] - 09/09/2024 3:07 AM EDT Elevations of hs-Troponin may be due to causes other than myocardial ischemia. Recommend serial hs-Troponin testing be performed. For the initial evaluation and management of chest pain patients, refer to the algorithms linked below. Emergency Patient: [email or web address] Inpatient: [email or web address] us Jean Marie Ramirez MD LAB BLOOD ORDERABLES Final Resul t [facility] [address] [place] [address], [place] [phone] * C difficile by PCR (09/08/2024 11:33 PM EDT) TOXIGENIC C DIFF Negative Negative 09/10/19 12:49 AM EDT [facility] 027 NAP1 Presumptive Negative Presumptive Negative 09/09/2024 12:49 AM EDT [facility] Comment:Assay methodology is nucleic acid amplification by real-time PCR for detection of C. difficile toxin gene sequences performed on [employer] Instrument System. Stool Feces / Unknown Collection / Unknown 09/08/2024 11:33 PM EDT 09/08/2024 11:56 PM EDT Jean Marie Ramirez MD BODY FLUIDS AND STOOLS ORDERABLE S Final Result [facility] [address] [place] [address], * (ABNORMAL) Bedside Glucose *Place/Obtain serum glucose if >500 per glucometer. (09/08/2024 6:00 PM EDT) Bedside Glucose (POC) 104(H) 65 - 99 mg/dL 09/08/2024 6:08 PM EDT [facility] Blood specimen (specimen) 09/08/2024 6:00 PM EDT 09/08/2024 6:08 PM EDT Chris Herndon MD POINT OF CARE TEST ORDERABLES Fi nal Result [facility] [address] [place] [address], [place] * Ultrasound retroperitoneal complete (09/08/2024 4:22 PM EDT) Anatomical Region Laterality Modality Body Ultrasound 09/08/2024 5:05 PM EDT Narrative 09/08/2024 5:10 PM EDT HISTORY AND/OR TECH NOTES SUSAN on CKD Worsening renal failure PROCEDURE Ultrasound kidneys and bladder COMPARISON July 28 FINDINGS Right kidney measurement 64 x 45 x 55 mm or 82 mL Left kidney measurement 102 x 65 x 64 mm or 220 mL Bladder volume 443 mL Right kidney No hydronephrosis No perinephric fluid Dominant cyst inferiorly measures 4 cm. There is a slightly smaller cyst superiorly Images of the bladder The bladder looks dilated The prostate looks enlarged The bladder wall looks thickened There is echogenic material within the bladder There was a right ureteric jet There was no left ureter jet seen Images of the left kidney Heterogeneous appearance of the left kidney with mild hydronephrosis There are small cysts seen There is a nonspecific echogenic nodular area inferiorly which is of uncertain etiology, possibly a small solid nodule IMPRESSION: Mild left hydronephrosis with no left ureteric jets seen No right hydronephrosis Heterogeneous appearance of the left kidney with small cysts and small echogenic solid nodular area at the lower pole No large solid kidney mass was otherwise seen There is echogenic material within somewhat dilated bladder. Enlarged prostate with probably chronic bladder wall thickening Finalized by Moreno Mathews MD on 09/08/2024 5:10 PM Procedure Note Moreno Mathews MD - 09/08/2024 HISTORY AND/OR TECH NOTES SUSAN on CKD Worsening renal failure PROCEDURE Ultrasound kidneys and bladder COMPARISON July 28 FINDINGS Right kidney measurement 64 x 45 x 55 mm or 82 mL Left kidney measurement 102 x 65 x 64 mm or 220 mL Bladder volume 443 mL Right kidney No hydronephrosis No perinephric fluid Dominant cyst inferiorly measures 4 cm. There is a slightly smaller cystsuperiorly Images of the bladder The bladder looks dilated The prostate looks enlarged The bladder wall looks thickened There is echogenic material within the bladder There was a right ureteric jet There was no left ureter jet seen Images of the left kidney Heterogeneous appearance of the left kidney with mild hydronephrosis There are small cysts seen There is a nonspecific echogenic nodular area inferiorly which is ofuncertain etiology, possibly a small solid nodule IMPRESSION: Mild left hydronephrosis with no left ureteric jets seen No right hydronephrosis Heterogeneous appearance of the left kidney with small cysts and smallechogenic solid nodular area at the lower pole No large solid kidney mass was otherwise seen There is echogenic material within somewhat dilated bladder. Enlargedprostate with probably chronic bladder wall thickening Finalized by Moreno Mathews MD on 09/08/2024 5:10 PM Yanick Kelley MD IMG US ORDERABLES Final Resu lt * LDH (09/08/2024 5:44 AM EDT) LDH 230 100 - 235 U/L 09/08/2024 6:57 AM EDT [facility] Blood Venous blood / Unknown Venipuncture / Unknown 09/08/2024 5:44 AM EDT 09/08/2024 6:06 AM EDT Yanick Kelley MD LAB BLOOD ORDERABLES Final R esult [facility] [address] [place] [address], [place] [phone] * BARB Screen w/ Reflex (09/08/2024 5:44 AM EDT) BARB SCREEN W/REFLEX Negative Negative 09/08/2024 1:24 PM EDT [facility] Blood Venous blood / Unknown Venipuncture / Unknown 09/08/2024 5:44 AM EDT 09/08/2024 6:06 AM EDT Narrative [facility] - 09/08/2024 1:24 PM EDT Testing performed using multiplex flow immunoassay. Eleven difference antigens associated with systemic autoimmunie diseases (dsDNA, Sm, Sm/SOCIAL WORKER MASTERS, SOCIAL WORKER MASTERS, Chromatin, SSA, SSB, Natasha-1, Sc170, Ribo P, Centromere B) are included in this sreening tests. Kaila Moran MD LAB BLOOD ORDERABLES Brittani l Result [facility] [address] [place] [address], * Phosphorus (09/08/2024 5:44 AM EDT) PHOSPHORUS 3.8 2.4 - 4.9 mg/dL 09/08/2024 6:57 AM EDT [facility] Blood Venous blood / Unknown Venipuncture / Unknown 09/08/2024 5:44 AM EDT 09/08/2024 6:06 AM EDT Yanick Kelley MD LAB BLOOD ORDERABLES Final R esult Performing Organization Address City/[facility]/ZIP Co de Phone Number [facility] [address] [place] [address], * Hemoglobin A1c (09/08/2024 5:44 AM EDT) HEMOGLOBIN A1C 5.3 4.4 - 5.6 % 09/08/2024 6:33 AM EDT [facility] Comment: ADA Guidelines Result HgbA1c Normal : less than 5.7 % Prediabetes : 5.7 % to 6.4 % Diabetes : > 6.4 % Use with caution in patients with abnormal hemoglobin variants as the half-life of red blood cells and in vivo glycation rates are affected. EST. AVERAGE GLUCOSE 105 mg/dL 09/08/2024 6:33 AM EDT [facility] Blood Venous blood / Unknown Venipuncture / Unknown 09/08/2024 5:44 AM EDT 09/08/2024 6:07 AM EDT Yanick Kelley MD LAB BLOOD ORDERABLES Final R esult [facility] [address] [place] [address], [place] [phone] * (ABNORMAL) Microscopic, urine (09/07/2024 11:27 PM EDT) MUCOUS Present(A) None 09/08/2024 3:42 AM EDT [facility] R.B.CELLS >720(H) 0 - 5 09/08/2024 3:42 AM EDT [facility] W.B.CELLS 52(H) 0 - 5 09/08/2024 3:42 AM EDT [facility] Urine Urine specimen collection, clean catch / Unknown 09/07/2024 11:27 PM EDT 09/08/2024 12:58 AM EDT Yanick Kelley MD URINE ORDERABLES Final Resul t Performing Organization Address City/[facility]/ZIP Co de Phone Number [facility] [address] [place] [address], [place] [phone] * (ABNORMAL) Erythrocyte Sedimentation Rate (ESR) (09/07/2024 7:43 PM EDT) ESR, Erythrocyte Sedimentation Rate 89(H) 0 - 20 mm/h 09/08/2024 5:23 AM EDT [facility] Blood Venous blood / Unknown 09/07/2024 7:43 PM EDT 09/07/2024 7:53 PM EDT us Yanick Kelley MD LAB BLOOD ORDERABLES Final R esult [facility] [address] [place] [address], [place] [phone] from Last 3 Months Additional Health Concerns Active Problems Noted Date Diagnosed Date Autogenerated Problem 11/09/2024 Insurance * Guarantor: Fili Saunders Account Type Relation to Patient Date of Phone Billing Address Personal/Family Self 1940 [address] [place] [address] [employer] MED[employer]ARE Advance Directives Documents on File Type Date Recorded Patient Deli Cutter Slicer Expl anation DNR Physician Order 07/27/2024 10:33 AM DNR Physician Order 02/05/2023 11:32 AM * Full Code (Latest Code Status on File) Date Activated Date Inactivated Comments 11/05/2024 12:26 AM 11/12/2024 3:29 AM * Full Code Date Activated Date Inactivated Comments 10/06/2024 2:46 AM 10/07/2024 6:35 PM * Full Code Date Activated Date Inactivated Comments 09/23/2024 1:59 AM 09/27/2024 7:15 PM * Full Code Date Activated Date Inactivated Comments 09/08/2024 2:27 AM 09/11/2024 5:57 PM * DNRCCA DNI Date Activated Date Inactivated Comments 08/08/2024 10:48 AM 08/11/2024 4:33 PM Care Teams [employer] D[employer] Supervisor Relationship Specialty Start Date End Date Alden Harry DO [address], [place] [address] PCP - General Family Medicine 05/13/24
--- OUTSIDE RECORDS SUMMARY | 2024-11-17 11:08 | XMS_ITS ---
Author Organization [employer] Address [id number] [address] [place] [address] Care Team Providers Care Ear Specialist Name Role Phone Alden Harry DO Primary Care Provider [phone] Active Problems Problem Noted Date Diagnosed Date [...] Overview (08/03/2024): 07/13/2024: Seen as consult at [facility] with gross hematuria, CT with cystitis 08/03/2024: [...] infarction 03/10/2008 COPD (chronic obstructive pulmonary disease) Current Treatment and Therapy Plans No current plan information found. Past Treatment and Therapy Plans Lifetime Dose Tracking * Chemical Lifetime Dose Automatic Entry Manual Entr y Fluoroscopy 5.6 mGy 5.6 mGy 0 mGy Resolved Problems Problem Noted Date Diagnosed Date Resolved Date Skin ulcer of both feet limi gregory to breakdown of skin 01/31/2023 03/17/2023 Sepsis with acute hypoxic re spiratory failure without septic shock 01/22/2023 03/17/2023 Acute respiratory failure with hypoxia 01/22/2023 02/11/2023 Pneumonia of right lung due to infectious organism 01/22/2023 03/17/2023 COPD exacerbation 09/14/2019 02/11/2023
[2024-11-17 11:21] LABS: Hematocrit 25.4 % (42.0-54.0); Hemoglobin 8.0 g/dL (14.0-18.0); Mean Corpuscular HGB Conc 31.5 g/dL (29.9-35.2); Mean Corpuscular Hemoglobin 27.2 pg (25.9-34.0); Mean Corpuscular Volume 86.4 fL (80.0-94.0); Platelet Count 200 10^3/uL (150-450); Red Blood Count 2.94 10^6/uL (4.70-6.10); White Blood Count 9.4 10^3/uL (4.0-11.0)
[2024-11-17 11:29] LABS: Anion Gap 13.7; Blood Urea Nitrogen 21.0 mg/dL (7.0-18.0); Calcium 7.6 mg/dL (8.5-10.1); Carbon Dioxide 19.8 mmol/L (21.0-32.0); Chloride 107 mmol/L (98-107); Estimated GFR (African America 52 (>=60 mL/min/1.73m^2); Estimated GFR (Non-African Ame 43 (>=60 mL/min/1.73m^2); Glucose 83 mg/dL (74-106); Potassium 3.5 mmol/L (3.5-5.1); Sodium 137 mmol/L (136-145)
[2024-11-17] MEDS: 0.9 % SODIUM CHLORIDE 1,000 ML 1000 ML IV (11:32)
--- NOTE | 2024-11-17 11:51 | XR_ITS ---
The [address] [address] Patient Name: ONDINA MENDEZ MRN: [id number] date: 1940 Sex: M Assigned Patient Location: ED.MAIN Current Patient Location: ED.MAIN Accession/Order Number: [id number] Exam Date: 11/17/2024 11:45 Report Date: 11/17/2024 12:04 At the request of: MAURICIO CANALES MD Procedure: XR chest 1V PORTABLE AP ERECT CHEST 1148 hours CLINICAL HISTORY: Weakness and shortness of breath COMPARISON: None The heart is within normal limits. There is no vascular congestion. The lungs shows slight hyperinflation. There is minor blunting at the lateral costophrenic angles. This may be chronic and related to pleural thickening. Pleural effusion is not , however excluded without a lateral view. There is no consolidation or pneumothorax. There are suspected nipple shadows. There is also a small nodule at the right lower lung which might be a granuloma. The bony structures are osteopenic. There is possible dextroscoliotic curvature. Mild endplate spurring is seen at the spine. XR/XR chest 1V IMPRESSION: MINOR BLUNTING OF THE LATERAL COSTOPHRENIC ANGLES, DESCRIBED. CHRONICITY IS UNKNOWN WITHOUT PRIORS. NO OTHER ACUTE FINDINGS. Impression dictated by: Angie Chu M.D. 11/17/2024 12:04 PM Dictation Location: [place] [address] Electronically authenticated by: [id number] Y Date: 11/17/2024 12:04
[2024-11-17 12:04] LABS: Basophils Abs Manual 0.00 10^3/uL (0.00-0.10); Basophils Percent Manual 0.0 % (0.2-2.0); Eosinophils Absolute Manual 0.00 10^3/uL (0.00-0.70); Eosinophils Percent Manual 0.0 % (0.9-7.0); Lymphocytes Absolute Manual 0.37 10^3/uL (1.20-3.80); Lymphocytes Percent Manual 4.0 % (20.5-60.0); Monocytes Absolute Manual 1.31 10^3/uL (0.30-0.80); Monocytes Percent Manual 14.0 % (1.7-12.0); Segmented Neut Absolute Manual 7.70 10^3/uL (1.4-6.5); Segmented Neutrophils % Manual 82.0 (43.0-75.0)
[2024-11-17 14:14] LABS: Glucose Urine UA NEGATIVE (NEGATIVE)
[2024-11-17 14:23] LABS: Cast Seen? SEEN #/LPF (NONE SEEN); Crystals Seen? None Seen #/HPF (None Seen); Urine Culture Indicated NO
[2024-11-17 14:24] LABS: pH VBG 7.345 (7.330-7.430)
[2024-11-17 14:25] LABS: PCO2 VBG 37.1 mmHg (40.0-52.0)
== END 2024-11-17 16:55 | disposition home or self-care (01) ==
PROVIDERS: Emergency Provider Emergency Medicine; PCP Family Medicine
DX: R53.1 Weakness (principal); R31.29 Other microscopic hematuria
CPT/HCPCS: 36415; 71045; 80048; 81001; 82800; 84484; 85007; 85027; 93005; 99285